=== PATIENT | male | born 1955 | race African-American/Black ===

== ENCOUNTER 2017-10-09 11:51 | Day surgery (SDC) | payer OTHER ==
[2017-10-09] MEDS ORDERED: LACTATED RINGERS 1,000 ML IV ONE ×2 (12:17→14:25)
[2017-10-09] MEDS: DEXTROSE 50% ABBOJECT 25 GM/50 ML SYRINGE ONE ×2 (12:45→13:03)
[2017-10-09] MEDS ORDERED: fentaNYL 100 MCG/2 ML VIAL IVP ONE (13:54)
[2017-10-09] MEDS ORDERED: MIDAZOLAM 2 MG/2 ML VIAL IVP ONE (13:54)
[2017-10-09 15:03] VITALS: BP 110/71
== END 2017-10-09 11:52 | disposition home or self-care (01) ==
LOC: SDS 11:51
PROVIDERS: ATTEND Internal Medicine
PROC: 0DBP8ZX Excision of Rectum, Via Natural or Artificial Opening Endoscopic, Diagnostic (ICD-10-PCS; principal; 2017-10-09 13:00)
DX: Z12.11 Encounter for screening for malignant neoplasm of colon (principal); K57.30 Diverticulosis of large intestine without perforation or abscess without bleeding; K64.8 Other hemorrhoids; K62.1 Rectal polyp
CPT/HCPCS: 45380; J7120

== ENCOUNTER 2018-07-25 09:52 | Outpatient (CLI) | payer OTHER ==
[2018-07-25 10:25] LABS: ALBUMIN 4.2 g/dL (3.2-5.5); ALBUMIN/GLOBULIN RATIO 1.1 (1.0-2.2); CALCIUM 9.3 mg/dL (8.5-10.3); TOTAL PROTEIN 7.9 g/dL (6.7-8.2)
== END 2018-07-25 09:53 | disposition home or self-care (01) ==
LOC: LAB 09:52
PROVIDERS: ATTEND Family Medicine
DX: E87.5 Hyperkalemia (principal)
CPT/HCPCS: 36415; 80053

== ENCOUNTER 2019-10-10 12:57 | Inpatient (IN) | payer OTHER ==
--- NOTE | 2019-10-10 14:00 | XRAY Report ---
Reason: cough, fever, hypoxia Procedure Date: 10/10/2019 Accession Number: [id number] / [id number] Procedure: XR - Chest 2 View X-Ray CPT Code: 75675 Final Report FULL RESULT: EXAM: CHEST RADIOGRAPHY EXAM DATE: 10/10/2019 01:46 PM. CLINICAL HISTORY: Cough, fever, hypoxia. COMPARISON: None. TECHNIQUE: 2 views. FINDINGS: Lungs/Pleura: Left basilar consolidation is worrisome for pneumonia. No focal right-sided opacity. No pleural effusion or pneumothorax. Mediastinum: Heart and mediastinal contours are unremarkable. Other: None. IMPRESSION: 1. Left basilar consolidation is worrisome for pneumonia. RADIA
--- NOTE | 2019-10-10 14:01 | ED Physician Documentation ---
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 Symptoms began on , and they have gotten worse since then. He feels a bit short of breath. He has been coughing up some yellow sputum, no hemoptysis. He has felt febrile at home. He denies any history of lung disease, no COPD or Asthma. He had a sick exposure to granddaughter cough and his face after being ill with a viral type illness, and his symptoms began shortly after that. 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 PD PAST MEDICAL HISTORY - Past Medical History Past Medical History: Yes Cardiovascular: Hypertension, High cholesterol Respiratory: Sleep apnea, CPAP use Neuro: None Endocrine/Autoimmune: Type 2 diabetes, HyPOthyroidism GI: GERD : None HEENT: Other Psych: None Musculoskeletal: None Derm: None Other Past Medical History: throat cancer - Past Surgical History Past Surgical History: Yes General: Colonoscopy, Other Ortho: Other HEENT: Other - Present Medications Home Medications: Ambulatory Orders Medication Instructions Recorded Confirmed Aspirin [Adult Aspirin Regimen] 81 mg PO DAILY 10/08/17 10/10/19 Felodipine [Felodipine ER] 5 mg PO DAILY 10/08/17 10/10/19 Insulin Glargine [Lantus Solostar] 22 unit SUBQ QPM 10/08/17 10/10/19 Telmisartan [Micardis] 80 mg PO DAILY 10/08/17 10/10/19 Atorvastatin Calcium 40 mg PO QPM 10/10/19 10/10/19 Insulin Aspart [NovoLOG] 0 - 13 units SUBQ TIDWM PRN 10/10/19 10/10/19 Levothyroxine Sodium 75 mcg PO QDAC 10/10/19 10/10/19 Omeprazole 40 mg PO BID 10/10/19 10/10/19 - Allergies Allergies/Adverse Reactions: Allergies Allergy/AdvReac Type Severity Reaction Status Date / Time propofol Allergy Anaphylaxis Verified 10/10/19 13:03 lisinopril AdvReac Respiratory Verified 10/08/17 13:22 - Social History Does the pt smoke?: No Smoking Status: Never smoker Does the pt drink ETOH?: No Does the pt have substance abuse?: No - Immunizations Immunizations are current?: Yes - POLST Patient has POLST: No PD ED PE NORMAL - Vitals Vital signs reviewed: Yes - General General: Alert and oriented X 3 - HEENT HEENT: Atraumatic - Cardiac Cardiac: Other (Tachycardia, regular rhythm) - Respiratory Respiratory: Other (Crackles at left base. Increased work of breathing on room air, more comfortable on NC.) - Abdomen Abdomen: Soft, Non tender - Extremities Extremities: No deformity - Neuro Neuro: Alert and oriented X 3 - Psych Psych: Normal mood, Normal affect Results - Vitals Vitals: Oxygen O2 Source Room air Oxygen Flow Rate 4 - Labs Labs: Microbiology 10/10/19 14:30 Blood Culture - Preliminary Blood NO GROWTH AFTER 1 DAY 10/10/19 14:28 Blood Culture - Preliminary Blood NO GROWTH AFTER 1 DAY Laboratory Tests 10/10/19 10/10/19 10/10/19 13:10 14:36 14:36 WBC 8.3 RBC 3.64 L Hgb 11.5 L Hct 35.0 L MCV 96.2 H MCH 31.6 H MCHC 32.9 RDW 11.6 L Plt Count 289 MPV 9.1 Neut # (Auto) 7.0 H Lymph # (Auto) 0.6 L King # (Auto) 0.5 Eos # (Auto) 0.0 Baso # (Auto) 0.0 Absolute Nucleated RBC 0.00 Band Neuts % (Manual) Not Reportable Abnorm Lymph % (Manual) Not Reportable Nucleated RBC % 0.0 Neutrophils # (Manual) Not Reportable Lymphocytes # (Manual) Not Reportable Monocytes # (Manual) Not Reportable Eosinophils # (Manual) Not Reportable Basophils # (Manual) Not Reportable Differential Comment MANUAL=AUTO DIFF Manual Slide Review Indicated Platelet Estimate NORMAL (130-450,000) Platelet Morphology NORMAL APPEARANCE RBC Morph Micro Appear NORMAL APPEARANCE Sodium 131 L Potassium 4.5 Chloride 94 L Carbon Dioxide 24 Anion Gap 13.0 BUN 34 H Creatinine 1.4 H Estimated GFR (MDRD) 62 L Glucose 429 H Lactic Acid Calcium 8.6 Total Bilirubin 1.3 H AST 22 ALT 15 Alkaline Phosphatase 41 L Total Protein 7.3 Albumin 3.2 Globulin 4.1 Albumin/Globulin Ratio 0.8 L Urine Color Urine Clarity Urine pH Ur Specific [place] Urine Protein Urine Glucose (UA) Urine Ketones Urine Occult Blood Urine Nitrite Urine Bilirubin Urine Urobilinogen Ur Leukocyte Esterase Urine RBC Urine WBC Ur Squamous Epith Cells Amorphous Sediment Urine Bacteria Urine Culture Comments Urine Opiates Screen Ur Oxycodone Screen Urine Methadone Screen Ur Propoxyphene Screen Ur Barbiturates Screen Ur Tricyclics Screen Ur Phencyclidine Scrn Ur Amphetamine Screen U Methamphetamines Scrn U Benzodiazepines Scrn Urine Cocaine Screen U Cannabinoids Screen Influenza A (Rapid) Negative Influenza B (Rapid) Negative 10/10/19 10/10/19 10/10/19 14:36 15:20 15:20 WBC RBC Hgb Hct MCV MCH MCHC RDW Plt Count MPV Neut # (Auto) Lymph # (Auto) King # (Auto) Eos # (Auto) Baso # (Auto) Absolute Nucleated RBC Band Neuts % (Manual) Abnorm Lymph % (Manual) Nucleated RBC % Neutrophils # (Manual) Lymphocytes # (Manual) Monocytes # (Manual) Eosinophils # (Manual) Basophils # (Manual) Differential Comment Manual Slide Review Platelet Estimate Platelet Morphology RBC Morph Micro Appear Sodium Potassium Chloride Carbon Dioxide Anion Gap BUN Creatinine Estimated GFR (MDRD) Glucose Lactic Acid 1.4 Calcium Total Bilirubin AST ALT Alkaline Phosphatase Total Protein Albumin Globulin Albumin/Globulin Ratio Urine Color YELLOW Urine Clarity CLEAR Urine pH 6.0 Ur Specific [place] 1.025 Urine Protein 30 H Urine Glucose (UA) >=1000 H Urine Ketones 15 H Urine Occult Blood TRACE-INTA Urine Nitrite NEGATIVE Urine Bilirubin NEGATIVE Urine Urobilinogen 0.2 (NORMAL) Ur Leukocyte Esterase NEGATIVE Urine RBC None Seen Urine WBC 0-3 Ur Squamous Epith Cells NONE SEEN Amorphous Sediment Rare Urine Bacteria None Seen Urine Culture Comments NOT INDICATED Urine Opiates Screen NEGATIVE Ur Oxycodone Screen NEGATIVE Urine Methadone Screen NEGATIVE Ur Propoxyphene Screen NEGATIVE Ur Barbiturates Screen NEGATIVE Ur Tricyclics Screen NEGATIVE Ur Phencyclidine Scrn NEGATIVE Ur Amphetamine Screen NEGATIVE U Methamphetamines Scrn NEGATIVE U Benzodiazepines Scrn NEGATIVE Urine Cocaine Screen NEGATIVE U Cannabinoids Screen NEGATIVE Influenza A (Rapid) Influenza B (Rapid) - Rads (name of study) CXR Radiology: Other (L basilar consolidation concerning for PNA) PD MEDICAL DECISION MAKING - ED course Complexity details: considered differential (Influenza, URI, PNA, PTX, pleural effusion) ED course: Pt presents febrile, tachycardic, and mildly hypoxic on room air. He was placed on O2 via NC, blood cultures and labs drawn, and he was placed on the monitor. IV fluids started. CXR shows a LLL PNA. Labs are notable for normal lactic acid, mild hyponatramia, slightly elevated creatinine. Flu is negative. He was started on ceftriaxone and azithromycin, based on his history aspiration is unlikely, CAP is most likely. This does appear infectious, history and exam do not raise concern for PE or primary cardiac pathology. Pt was admitted to the hospital for further care. Departure - Departure Disposition: 66 [facility] DC/Xfer Clinical Impression: Pneumonia, Hypoxia, Sepsis Condition: Good Discharge Date/Time: 10/10/19 16:12
[2019-10-10] MEDS ORDERED: cefTRIAXone 1 GM in SODIUM CHLORIDE 0.9% MINIBAG 100 ML IV STA (14:11)
[2019-10-10] MEDS ORDERED: AZITHROMYCIN INJ 500 MG in SODIUM CHLORIDE 0.9% 250 ML IV STA (14:11)
[2019-10-10] MEDS ORDERED: SODIUM CHLORIDE 0.9% 1,000 ML IV ONE (14:39)
[2019-10-10 14:48] LABS: MEAN CORPUSCULAR VOLUME 96.2 fL (80.0-94.0); RED CELL DISTRIBUTION WIDTH 11.6 % (12.0-15.0)
[2019-10-10 14:53] LABS: BASOPHILS % (AUTO) 0.4 %; EOSINOPHILS % (AUTO) 0.4 %; HGB - HEMOGLOBIN 11.5 g/dL (14.0-18.0); LYMPHOCYTES # (AUTO) 0.6 10^3/uL (1.5-3.5); LYMPHOCYTES % (AUTO) 7.6 %; MEAN CORPUSCULAR HEMOGLOBIN 31.6 pg (27.0-31.0); MEAN CORPUSCULAR HGB CONC 32.9 g/dL (32.0-36.0); MEAN PLATELET VOLUME 9.1 fL (7.4-11.4); MONOCYTES # (AUTO) 0.5 10^3/uL (0.0-1.0); MONOCYTES % (AUTO) 6.5 %; NEUTROPHILS % (AUTO) 84.6 %; PLT - PLATELET COUNT 289 10^3/uL (130-450); RED BLOOD COUNT 3.64 10^6/uL (4.70-6.10); WHITE BLOOD COUNT 8.3 x10^3/uL (4.8-10.8)
[2019-10-10 14:57] LABS: ALBUMIN 3.2 g/dL (3.2-5.5); ALBUMIN/GLOBULIN RATIO 0.8 (1.0-2.2); BILIRUBIN,TOTAL 1.3 mg/dL (0.2-1.0); CALCIUM 8.6 mg/dL (8.5-10.3); CREATININE 1.4 mg/dL (0.6-1.2); TOTAL PROTEIN 7.3 g/dL (6.7-8.2)
[2019-10-10] MEDS ORDERED: SODIUM CHLORIDE FLUSH 0.9% 10 ML SYRINGE IVP PRN (15:23)
--- NOTE | 2019-10-10 15:26 | HISTORY & PHYSICAL EXAMINATION ---
Chief Complaint - Chief Complaint Chief Complaint: cough, fever, shortness of breath History of Present Illness - Admitted From Admitted From:: ED - History Obtained From Records Reviewed: yes History obtained from: Chart review, patient Exam Limitations: none - History of Present Illness HPI Comment/Other: Krunal Whitten) is a pleasant, , 63-year-old male with a history of malignant neoplasm of posterior tongue, status post radiation therapy, hypothyroidism, hypertension, hyperlipidemia, CAD, GERD, esophageal strictures, cardiac arrest after given propofol to undergo a esophageal dilation, WALT-wears a oral bite block for sleep, exposure to second hand smoke for greater than 30 years, recent weight loss of greater than 6 pounds in the past 60-days, and nocturia. The patient was seen at his PCP office today ([facility]), for suspected pneumonia. The patient reported that his first symptoms started on (10/08/2019) in the afternoon with fever, chills, fatigue, and productive cough of yellow, thick sputum, no hemoptysis. The patient states that he cares for his 15-month grand-daughter in which they keep her in [place] for one week, then travel to [place], [place] for the alternating week. The patient's grand-daughter has had some upper respiratory symptoms of a viral type illness with coughing, runny nose and more fussiness. The patient notes that since his throat/neck radiation in 2006, he has had difficulty with swallowing in which he has to eat soft foods, drink extra fluids with each bite, but denies an aspiration event which could have triggered this illness. A chest x-ray is concerning for a left low lobe infiltrate, no WBC count, but + fever with a documented temp max of 38.1 C, tachycardia with heart rates 110's, and hypoxia with a saturation of only 88% on room air. The patient will be admitted for inpatient treatment of community acquired pneumonia, with symptom management and respiratory care. 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 - Substance History Use: Uses substance without health or social issues: NONE Abuse: Recurrent use of substance despite neg consequences: NONE Dependence: Experiences withdrawal or developed tolerances: NONE - POLST Patient has POLST: No POLST Status: Full Code Meds/Allgy - Home Medications Home Medications: Ambulatory Orders Medication Instructions Recorded Confirmed Aspirin [Adult Aspirin Regimen] 81 mg PO DAILY 10/08/17 10/10/19 Felodipine [Felodipine ER] 5 mg PO DAILY 10/08/17 10/10/19 Insulin Glargine [Lantus Solostar] 22 unit SUBQ QPM 10/08/17 10/10/19 Telmisartan [Micardis] 80 mg PO DAILY 10/08/17 10/10/19 Atorvastatin Calcium 40 mg PO QPM 10/10/19 10/10/19 Insulin Aspart [NovoLOG] 0 - 13 units SUBQ TIDWM PRN 10/10/19 10/10/19 Levothyroxine Sodium 75 mcg PO QDAC 10/10/19 10/10/19 Omeprazole 40 mg PO BID 10/10/19 10/10/19 - Allergies Allergies/Adverse Reactions: Allergies Allergy/AdvReac Type Severity Reaction Status Date / Time propofol Allergy Anaphylaxis Verified 10/10/19 13:03 lisinopril AdvReac Respiratory Verified 10/08/17 13:22 Review of Systems - Constitutional Constitutional: reports: Fatigue, Fever, Chills, Weakness, Poor appetite, Weight loss - Eyes Eyes: reports: Corrective lenses - Ears, Nose & Throat Ears, Nose & Throat: reports: Nasal congestion, Postnasal drainage - Cardiovascular Cariovascular: reports: Exertional dyspnea - Respiratory Respiratory: reports: Cough, Sputum production, SOB with exertion - Gastrointestinal Gastrointestinal: reports: Nausea, Reflux/heartburn, Bloating, Poor appetite - Genitourinary Genitourinary: reports: Nocturia - Musculoskeletal Musculoskeletal: reports: Stiffness - Integumentary Integumentary: reports: Dryness - Neurological Neurological: reports: General weakness, Headache - Hematologic/Lymphatic Hematologic/Lymphatic: reports: Anemia - All Other Systems All Other Systems: reports: Reviewed and negative Exam - Vital Signs Reviewed Vital Signs: Yes Vital Signs: Vital Signs x48h Temp Pulse Resp BP Pulse Ox 10/10/19 14:46 92 15 108/74 96 10/10/19 13:03 38.1 C H 110 H 20 101/65 88 L - Physical Exam General Appearance: positive: Alert, Mild distress Sepsis Event Note (H) - Evaluation Current Stage of Sepsis: Sepsis Possible source of Sepsis: positive: Pulmonary Confirmed Source and Organism (if known) of Sepsis: Respiratory culture is pending - Sepsis Criteria Sepsis Criteria: Recorded Temperature greater than 38.3C or Less than 36C, Recorded Heart Rate greater than 90 bpm, Recorded Respiratory Rate greater than 20, Respiratory: Increasing oxygen requirements Conclusion/Plan - Problem List (1) CAP (community acquired pneumonia) Conclusion/Plan: CAP (community acquired pneumonia) -Patient claims that his grand-daughter "sneezed" near his face a few days ago -Chest x-ray confirms left lower infiltrates -+cough, +fever, +chills -WBC count normal, neut # not reportable Acute respiratory failure with hypoxia -Hypoxia upon admission with an oxygen saturation of 88% on room air -Baseline WALT, compliant with home CPAP per patient -No home oxygen or inhalers -Continue respiratory care, evaluate for home O2 upon discharge if needed Sepsis -Fever with a temp max of 38.1 orally on admission, tachycardia (heart rates 110's) -Elevated bili (1.4) -+ for CAP, now treating -Normal lactic acid, re-checking WALT on CPAP -Patient admits to wearing a CPAP device dating back to 2007 -For the past 1 year has gotten by with an oral bite block to prop is airway open -Continue oxygen therapy while in the hospital, request to bring in oral airway GERD (gastroesophageal reflux disease) -Complicated by esophageal stricture, no recent dilations -No PPI/H2 mayela use at home -Start on Pepcid while here, monitor Hypothyroidism -Patient notes that his Synthroid dose was recently adjusted -Await TSH level for the AM CAD (coronary artery disease) -+ nocturia with getting up greater than 3 times each night to urinate -Long standing DM diagnoses -Patient denies history of ME, but did have an episode of cardiac arrest in 2008 concluding an adverse reaction to propofol (now on allergy list) -Takes a statin at home, continued here Diabetes mellitus type 2, insulin dependent -First diagnosed in 1994 (patient was in his late 30's) -Now on Lantus 22 units, SSI -Last hemoglobin A1C was ~6.5% per patient -Random glucose on labs today was elevated at 429, may be due to illness -Continue SSI, Lantus at HS, await A1C in the AM Malignant neoplasm of base of tongue -Patient notes this was the base of his tongue and sees his oncologist yearly, but skipped this year -Considered to be in remission -Denies bleeding, but + weight loss of 6lbs in the past 2 months -Nutrition consult Status post radiation therapy -Caused thryroid damage, esophageal strictures, difficulty swallowing Hyperlipidemia -Takes a statin at home, continued here Hypertension -Takes Telemisartan, Felodipine - now on hold given acute illness and early sepsis - Continue to monitor vital signs, add back home meds when appropriate - Lab Results Lab results reviewed: Yes Fish Bones: 10/10/19 14:36 10/10/19 14:36 - Diagnostic Imaging Results Diagnostic Imaging Results: positive: Final report reviewed Diagnostic Imaging Results Comments: EXAM: CHEST RADIOGRAPHY EXAM DATE: 10/10/2019 01:46 PM. IMPRESSION: 1. Left basilar consolidation is worrisome for pneumonia. Core Measures - Anticipated LOS I expect patient to be DC'd or transferred within 96 hours.: Yes - DVT/VTE - Prophylaxis VTE/DVT Device ordered at admit?: Yes VTE/DVT Prophylaxis med ordered at admit?: Yes - Stroke - Rehab Assessment Rehab services assessment to be ordered?: No Not Ordered - Medical Reason: Contraindicated - AMI - Statin at Admit Aspirin Prescribed on Admit: Yes
[2019-10-10 15:29] LABS: PLATELET ESTIMATE, MANUAL NORMAL (130-450,000) (NORMAL); PLATELET MORPHOLOGY NORMAL APPEARANCE (NORMAL); RBC MORPHOLOGY (MULTIPLE) NORMAL APPEARANCE (NORMAL)
[2019-10-10 15:30] LABS: DIFFERENTIAL COMMENT MANUAL=AUTO DIFF
[2019-10-10 16:18] LABS: BILIRUBIN,URINE NEGATIVE (NEGATIVE); GLUCOSE, URINE (UA) >=1000 mg/dL (NEGATIVE); KETONES,URINE (UA) 15 mg/dL (NEGATIVE); LEUKOCYTE ESTERASE, URINE NEGATIVE (NEGATIVE); NITRITE,URINE NEGATIVE (NEGATIVE); OCCULT BLOOD,URINE TRACE-INTA (NEGATIVE); PROTEIN,URINE 30 mg/dL (NEGATIVE); UROBILINOGEN,URINE 0.2 (NORMAL) E.U./dL (NORMAL)
[2019-10-10 16:23] LABS: CLARITY,URINE CLEAR (CLEAR)
[2019-10-10] MEDS: ACETAMINOPHEN 325 MG TABLET PO PRN (16:24)
[2019-10-10] MEDS: SODIUM CHLORIDE FLUSH 0.9% 10 ML SYRINGE IVP SCH ×2 (16:27→23:40)
--- NOTE | 2019-10-10 16:29 | PHARMACY PROGRESS NOTE ---
- Best Possible Medication History Admit Date and Time: 10/10/19 1523 Medication History completed: Yes Patient Interview: Completed Secondary Source(s): Written medication list, Pharmacy records As the person ultimately responsible for medication therapy, providers are able to order a medication from an existing home medication list in [facility] via the "Reconcile Routine" prior to Confirmation of that medication by manufacturing support engineer. Such practice is discouraged except when the physician, in their clinical judgment, deems that a medical need exists for a medication without regard to previous use.
[2019-10-10 16:32] LABS: AMORPHOUS SEDIMENT,UR Rare /LPF; BACTERIA,URINE None Seen /HPF (None Seen); RBC,URINE None Seen /HPF (0-5); SQUAMOUS EPITHELIAL CELL,UR NONE SEEN (<= Few)
[2019-10-10] MEDS ORDERED: INSULIN ASPART 300 UNIT/3 ML PEN SUBQ SCH (17:00)
[2019-10-10] MEDS ORDERED: IPRATROPIUM/ALBUTEROL 3 ML NEB INH PRN (17:03)
[2019-10-10 17:06] LABS: MUDS CUTOFF CONCENTRATIONS CUTOFF CONC BELOW:
[2019-10-10 17:20] LABS: AMPHETAMINE SCREEN,URINE NEGATIVE (NEGATIVE); BENZODIAZEPINES SCREEN, URINE NEGATIVE (NEGATIVE); COCAINE SCREEN URINE NEGATIVE (NEGATIVE); METHADONE SCREEN, URINE NEGATIVE (NEGATIVE); METHAMPHETAMINES SCREEN, URINE NEGATIVE (NEGATIVE); OPIATE SCREEN, URINE NEGATIVE (NEGATIVE); OXYCODONE SCREEN, URINE NEGATIVE (NEGATIVE); PROPOXYPHENE SCREEN, URINE NEGATIVE (NEGATIVE); TRICYCLIC ANTIDEPRESSANT,URINE NEGATIVE (NEGATIVE)
[2019-10-10] MEDS ORDERED: SODIUM CHLORIDE 0.9% 500 ML IV ONE (17:26)
[2019-10-10] MEDS: INSULIN ASPART 300 UNIT/3 ML PEN SUBQ SCH (21:29)
[2019-10-10] MEDS: guaiFENesin 600 MG TABLET PO SCH (21:29)
[2019-10-10] MEDS: ATORVASTATIN 40 MG TABLET PO SCH (21:29)
[2019-10-10] MEDS: INSULIN GLARGINE 300 UNIT/3 ML PEN SUBQ SCH (21:30)
[2019-10-11 05:01] LABS: BASOPHILS % (AUTO) 0.2 %; EOSINOPHILS % (AUTO) 0.2 %; HGB - HEMOGLOBIN 11.5 g/dL (14.0-18.0); LYMPHOCYTES % (AUTO) 12.7 %; MEAN CORPUSCULAR HEMOGLOBIN 31.5 pg (27.0-31.0); MEAN CORPUSCULAR HGB CONC 32.5 g/dL (32.0-36.0); MEAN PLATELET VOLUME 8.9 fL (7.4-11.4); MONOCYTES % (AUTO) 5.4 %; NEUTROPHILS % (AUTO) 81.2 %; PLT - PLATELET COUNT 268 10^3/uL (130-450); RED BLOOD COUNT 3.65 10^6/uL (4.70-6.10); RED CELL DISTRIBUTION WIDTH 11.6 % (12.0-15.0); WHITE BLOOD COUNT 5.8 x10^3/uL (4.8-10.8)
[2019-10-11 05:15] LABS: HB2 TOTAL 11.4 g/dL; HEMOGLOBIN A1C 0.6 g/dL
[2019-10-11 05:16] LABS: ABNORMAL LYMPHS % (MANUAL) 0 %
[2019-10-11 05:28] LABS: ALBUMIN 2.8 g/dL (3.2-5.5); ALBUMIN/GLOBULIN RATIO 0.7 (1.0-2.2); BILIRUBIN,TOTAL 0.7 mg/dL (0.2-1.0); CALCIUM 8.8 mg/dL (8.5-10.3); CREATININE 0.8 mg/dL (0.6-1.2); MAGNESIUM 1.9 mg/dL (1.7-2.8); TOTAL PROTEIN 6.8 g/dL (6.7-8.2)
[2019-10-11 05:44] LABS: BAND NEUTROPHILS % (MANUAL) 9 %; BASOPHILS # (MANUAL) 0.1 10^3/uL (0-0.1); BASOPHILS % (MANUAL) 1 %; EOSINOPHILS # (MANUAL) 0.1 10^3/uL (0-0.7); LYMPHOCYTES % (MANUAL) 17 %; MONOCYTES # (MANUAL) 0.5 10^3/uL (0.0-1.0)
[2019-10-11 05:45] LABS: PLATELET ESTIMATE, MANUAL NORMAL (130-450,000) (NORMAL); PLATELET MORPHOLOGY NORMAL APPEARANCE (NORMAL)
[2019-10-11 05:46] LABS: DIFFERENTIAL COMMENT MANUAL DIFFERENTIAL
[2019-10-11] MEDS: LEVOTHYROXINE 75 MCG TABLET PO SCH (06:39)
[2019-10-11] MEDS: cefTRIAXone 1 GM in SODIUM CHLORIDE 0.9% MINIBAG 100 ML IV SCH (08:33)
[2019-10-11] MEDS: guaiFENesin 600 MG TABLET PO SCH ×2 (08:33→21:03)
[2019-10-11] MEDS: ASPIRIN EC 81 MG TABLET PO SCH (08:33)
[2019-10-11] MEDS: SODIUM CHLORIDE FLUSH 0.9% 10 ML SYRINGE IVP SCH ×2 (08:34→21:03)
[2019-10-11] MEDS: ACETAMINOPHEN 325 MG TABLET PO PRN (08:40)
[2019-10-11] MEDS ORDERED: AZITHROMYCIN 250 MG TABLET PO SCH (09:00)
[2019-10-11] MEDS: INSULIN ASPART 300 UNIT/3 ML PEN SUBQ SCH ×4 (09:06→21:04)
[2019-10-11] MEDS ORDERED: DIPHENOX/ATROPINE 2.5/0.025 MG TABLET PO PRN (14:41)
[2019-10-11] MEDS ORDERED: LOPERAMIDE 2 MG CAPSULE PO PRN (14:43)
--- NOTE | 2019-10-11 16:44 | PROVIDER PROGRESS NOTE ---
Subjective - Prog Note Date Prog Note Date: 10/11/19 Prog Note Time: 11:00 - Subjective Pt reports feeling: Improved Subjective: Bassem states he has had chills, some productive cough, and did not sleep well last night. He took a few naps today and has no other new symptoms Current Medications - Current Medications Current Medications: Active Medications Acetaminophen (Tylenol) 650 mg PO Q4HR PRN PRN Reason: Pain or Fever > 38C (100.4F) Last Admin: 10/11/19 08:40 Dose: 650 mg Albuterol/Ipratropium (Duoneb) 3 ml INH Q4HR PRN PRN Reason: Wheezing Aspirin (Ecotrin) 81 mg PO DAILY ON LICENSE OF [facility] Last Admin: 10/11/19 08:33 Dose: 81 mg Atorvastatin Calcium (Lipitor) 40 mg PO QPM ON LICENSE OF [facility] Last Admin: 10/10/19 21:29 Dose: 40 mg Azithromycin (Zithromax) 250 mg PO BIDWM ON LICENSE OF [facility] Stop: 10/13/19 08:01 Diphenoxylate HCl/Atropine (Lomotil) 1 tab PO QID PRN PRN Reason: Diarrhea Guaifenesin (Mucinex) 600 mg PO BID ON LICENSE OF [facility] Last Admin: 10/11/19 08:33 Dose: 600 mg Ceftriaxone Sodium 1 gm/ (Sodium Chloride) 100 mls @ 200 mls/hr IV DAILY ON LICENSE OF [facility] Last Infusion: 10/11/19 09:03 Dose: Infused Insulin Aspart (Novolog) 1 - 9 unit SUBQ 0800,1200,1700,2100 ON LICENSE OF [facility]; Protocol Last Admin: 10/11/19 12:07 Dose: 5 unit Insulin Glargine (Lantus Solostar) 22 unit SUBQ QPM ON LICENSE OF [facility] Last Admin: 10/10/19 21:30 Dose: 22 unit Levothyroxine Sodium (Synthroid) 75 mcg PO QDAC ON LICENSE OF [facility] Last Admin: 10/11/19 06:39 Dose: 75 mcg Loperamide HCl (Imodium) 2 mg PO QID PRN PRN Reason: Diarrhea Sodium Chloride (Normal Saline Flush 0.9%) 10 ml IVP PRN PRN PRN Reason: NEEDED PER PROVIDER ORDERS Sodium Chloride (Normal Saline Flush 0.9%) 10 ml IVP 0100,0900,1700 ON LICENSE OF [facility] Last Admin: 10/11/19 08:34 Dose: 10 ml Aspirin [Adult Aspirin Regimen] 81 mg PO DAILY 10/08/17 Felodipine [Felodipine ER] 5 mg PO DAILY 10/08/17 Insulin Glargine [Lantus Solostar] 22 unit SUBQ QPM 10/08/17 Telmisartan [Micardis] 80 mg PO DAILY 10/08/17 Atorvastatin Calcium 40 mg PO QPM 10/10/19 Insulin Aspart [NovoLOG] 0 - 13 units SUBQ TIDWM PRN 10/10/19 Levothyroxine Sodium 75 mcg PO QDAC 10/10/19 Omeprazole 40 mg PO BID Objective - Vital Signs/Intake & Output Reviewed Vital Signs: Yes Vital Signs: Vital Signs x48h Temp Pulse Pulse Resp BP Pulse Ox 10/11/19 15:35 36.7 C 80 18 139/87 H 93 10/11/19 15:25 90 L 10/11/19 08:51 36.4 C L 86 18 124/77 96 Intake & Output: Intake & Output 10/08/19 10/09/19 10/10/19 10/11/19 23:59 23:59 23:59 23:59 Intake Total 2390 1000 Output Total 475 Balance 2390 525 - Objective General Appearance: positive: Alert, Mild distress, Anxious Eyes Bilateral: positive: PERRL, No lid inflammation Eyes: OU Conjunctivae pale ENT: positive: Pharyngeal erythema, Dry mucous membranes Neck: positive: No JVD, Trachea midline Respiratory: positive: Chest non-tender, No respiratory distress, Breath sounds nml, Rhonchi (scattered crackles bilaterally) Cardiovascular: positive: Regular rate & rhythm, No gallop, Systolic murmur, Decreased pulse(s) Peripheral Pulses: 1+ Radial (R), 1+ Radial (L) Abdomen: positive: Non-tender, Nml bowel sounds Back: positive: Nml inspection Skin: positive: Color nml, No rash, Warm, Dry Extremities: positive: Non-tender, Full ROM, No pedal edema Neurologic/Psychiatric: positive: Oriented x3, CN's nml (2-12), Motor nml, Sensation nml, Weakness, Depressed mood/affect Reflexes: Bicep (R): 3+, Bicep (L): 3+ - Lab Results Fish Bones: 10/11/19 04:20 10/11/19 04:20 Other Labs: Lab Results x24hrs 10/11/19 10/11/19 10/11/19 Range/Units 16:32 11:26 07:52 WBC (4.8-10.8) x10^3/uL RBC (4.70-6.10) 10^6/uL Hgb (14.0-18.0) g/dL Hct (42.0-52.0) % MCV (80.0-94.0) fL MCH (27.0-31.0) pg MCHC (32.0-36.0) g/dL RDW (12.0-15.0) % Plt Count (130-450) 10^3/uL MPV (7.4-11.4) fL Neut # (Auto) Lymph # (Auto) [place] # (Auto) Eos # (Auto) Baso # (Auto) Absolute Nucleated RBC Total Counted Band Neuts % (Manual) (0 - 10) % Abnorm Lymph % (Manual) % Nucleated RBC % Neutrophils # (Manual) (1.5-6.6) 10^3/uL Lymphocytes # (Manual) (1.5-3.5) 10^3/uL Monocytes # (Manual) (0.0-1.0) 10^3/uL Eosinophils # (Manual) (0-0.7) 10^3/uL Basophils # (Manual) (0-0.1) 10^3/uL Differential Comment WBC Morphology (NORMAL) Platelet Estimate (NORMAL) Platelet Morphology (NORMAL) RBC Morph Micro Appear (NORMAL) Sodium (135-145) mmol/L Potassium (3.5-5.0) mmol/L Chloride (101-111) mmol/L Carbon Dioxide (21-32) mmol/L Anion Gap (6-13) BUN (6-20) mg/dL Creatinine (0.6-1.2) mg/dL Estimated GFR (MDRD) (>89) Glucose (70-100) mg/dL POC Whole Bld Glucose 226 H 236 H 133 H (70 - 100) mg/dL Glycated Hemoglobin (4.6-6.2) % Estim Average Glucose (70-100) Lactic Acid (0.5-2.2) mmol/L Calcium (8.5-10.3) mg/dL Magnesium (1.7-2.8) mg/dL Total Bilirubin (0.2-1.0) mg/dL AST (10-42) IU/L ALT (10-60) IU/L Alkaline Phosphatase (42-121) IU/L Total Protein (6.7-8.2) g/dL Albumin (3.2-5.5) g/dL Globulin (2.1-4.2) g/dL Albumin/Globulin Ratio (1.0-2.2) TSH (0.34-5.60) uIU/mL Urine Opiates Screen (NEGATIVE) Ur Oxycodone Screen (NEGATIVE) Urine Methadone Screen (NEGATIVE) Ur Propoxyphene Screen (NEGATIVE) Ur Barbiturates Screen (NEGATIVE) Ur Tricyclics Screen (NEGATIVE) Ur Phencyclidine Scrn (NEGATIVE) Ur Amphetamine Screen (NEGATIVE) U Methamphetamines Scrn (NEGATIVE) U Benzodiazepines Scrn (NEGATIVE) Urine Cocaine Screen (NEGATIVE) U Cannabinoids Screen (NEGATIVE) 10/11/19 10/11/19 10/11/19 Range/Units 04:20 04:20 04:20 WBC (4.8-10.8) x10^3/uL RBC (4.70-6.10) 10^6/uL Hgb (14.0-18.0) g/dL Hct (42.0-52.0) % MCV (80.0-94.0) fL MCH (27.0-31.0) pg MCHC (32.0-36.0) g/dL RDW (12.0-15.0) % Plt Count (130-450) 10^3/uL MPV (7.4-11.4) fL Neut # (Auto) Lymph # (Auto) [place] # (Auto) Eos # (Auto) Baso # (Auto) Absolute Nucleated RBC Total Counted Band Neuts % (Manual) (0 - 10) % Abnorm Lymph % (Manual) % Nucleated RBC % Neutrophils # (Manual) (1.5-6.6) 10^3/uL Lymphocytes # (Manual) (1.5-3.5) 10^3/uL Monocytes # (Manual) (0.0-1.0) 10^3/uL Eosinophils # (Manual) (0-0.7) 10^3/uL Basophils # (Manual) (0-0.1) 10^3/uL Differential Comment WBC Morphology (NORMAL) Platelet Estimate (NORMAL) Platelet Morphology (NORMAL) RBC Morph Micro Appear (NORMAL) Sodium 139 (135-145) mmol/L Potassium 4.2 (3.5-5.0) mmol/L Chloride 104 (101-111) mmol/L Carbon Dioxide 27 (21-32) mmol/L Anion Gap 8.0 (6-13) BUN 24 H (6-20) mg/dL Creatinine 0.8 (0.6-1.2) mg/dL Estimated GFR (MDRD) 119 (>89) Glucose 155 H (70-100) mg/dL POC Whole Bld Glucose (70 - 100) mg/dL Glycated Hemoglobin (4.6-6.2) % Estim Average Glucose (70-100) Lactic Acid 0.6 (0.5-2.2) mmol/L Calcium 8.8 (8.5-10.3) mg/dL Magnesium 1.9 (1.7-2.8) mg/dL Total Bilirubin 0.7 (0.2-1.0) mg/dL AST 21 (10-42) IU/L ALT 14 (10-60) IU/L Alkaline Phosphatase 39 L (42-121) IU/L Total Protein 6.8 (6.7-8.2) g/dL Albumin 2.8 L (3.2-5.5) g/dL Globulin 4.0 (2.1-4.2) g/dL Albumin/Globulin Ratio 0.7 L (1.0-2.2) TSH 1.06 (0.34-5.60) uIU/mL Urine Opiates Screen (NEGATIVE) Ur Oxycodone Screen (NEGATIVE) Urine Methadone Screen (NEGATIVE) Ur Propoxyphene Screen (NEGATIVE) Ur Barbiturates Screen (NEGATIVE) Ur Tricyclics Screen (NEGATIVE) Ur Phencyclidine Scrn (NEGATIVE) Ur Amphetamine Screen (NEGATIVE) U Methamphetamines Scrn (NEGATIVE) U Benzodiazepines Scrn (NEGATIVE) Urine Cocaine Screen (NEGATIVE) U Cannabinoids Screen (NEGATIVE) 10/11/19 10/11/19 10/10/19 Range/Units 04:20 04:20 20:50 WBC 5.8 (4.8-10.8) x10^3/uL RBC 3.65 L (4.70-6.10) 10^6/uL Hgb 11.5 L (14.0-18.0) g/dL Hct 35.4 L (42.0-52.0) % MCV 97.0 H (80.0-94.0) fL MCH 31.5 H (27.0-31.0) pg MCHC 32.5 (32.0-36.0) g/dL RDW 11.6 L (12.0-15.0) % Plt Count 268 (130-450) 10^3/uL MPV 8.9 (7.4-11.4) fL Neut # (Auto) Not Reportable Lymph # (Auto) Not Reportable [place] # (Auto) Not Reportable Eos # (Auto) Not Reportable Baso # (Auto) Not Reportable Absolute Nucleated RBC Not Reportable Total Counted 100 Band Neuts % (Manual) 9 (0 - 10) % Abnorm Lymph % (Manual) 0 % Nucleated RBC % Not Reportable Neutrophils # (Manual) 4.2 (1.5-6.6) 10^3/uL Lymphocytes # (Manual) 1.0 L (1.5-3.5) 10^3/uL Monocytes # (Manual) 0.5 (0.0-1.0) 10^3/uL Eosinophils # (Manual) 0.1 (0-0.7) 10^3/uL Basophils # (Manual) 0.1 (0-0.1) 10^3/uL Differential Comment MANUAL DIFFERENTIAL WBC Morphology NORMAL APPEARANCE (NORMAL) Platelet Estimate NORMAL (130-450,000) (NORMAL) Platelet Morphology NORMAL APPEARANCE (NORMAL) RBC Morph Micro Appear 1+ HYPOCHROMASIA (NORMAL) Sodium (135-145) mmol/L Potassium (3.5-5.0) mmol/L Chloride (101-111) mmol/L Carbon Dioxide (21-32) mmol/L Anion Gap (6-13) BUN (6-20) mg/dL Creatinine (0.6-1.2) mg/dL Estimated GFR (MDRD) (>89) Glucose (70-100) mg/dL POC Whole Bld Glucose 372 H (70 - 100) mg/dL Glycated Hemoglobin 7.0 H (4.6-6.2) % Estim Average Glucose 154 H (70-100) Lactic Acid (0.5-2.2) mmol/L Calcium (8.5-10.3) mg/dL Magnesium (1.7-2.8) mg/dL Total Bilirubin (0.2-1.0) mg/dL AST (10-42) IU/L ALT (10-60) IU/L Alkaline Phosphatase (42-121) IU/L Total Protein (6.7-8.2) g/dL Albumin (3.2-5.5) g/dL Globulin (2.1-4.2) g/dL Albumin/Globulin Ratio (1.0-2.2) TSH (0.34-5.60) uIU/mL Urine Opiates Screen (NEGATIVE) Ur Oxycodone Screen (NEGATIVE) Urine Methadone Screen (NEGATIVE) Ur Propoxyphene Screen (NEGATIVE) Ur Barbiturates Screen (NEGATIVE) Ur Tricyclics Screen (NEGATIVE) Ur Phencyclidine Scrn (NEGATIVE) Ur Amphetamine Screen (NEGATIVE) U Methamphetamines Scrn (NEGATIVE) U Benzodiazepines Scrn (NEGATIVE) Urine Cocaine Screen (NEGATIVE) U Cannabinoids Screen (NEGATIVE) 10/10/19 10/10/19 Range/Units 16:41 15:20 WBC (4.8-10.8) x10^3/uL RBC (4.70-6.10) 10^6/uL Hgb (14.0-18.0) g/dL Hct (42.0-52.0) % MCV (80.0-94.0) fL MCH (27.0-31.0) pg MCHC (32.0-36.0) g/dL RDW (12.0-15.0) % Plt Count (130-450) 10^3/uL MPV (7.4-11.4) fL Neut # (Auto) Lymph # (Auto) [place] # (Auto) Eos # (Auto) Baso # (Auto) Absolute Nucleated RBC Total Counted Band Neuts % (Manual) (0 - 10) % Abnorm Lymph % (Manual) % Nucleated RBC % Neutrophils # (Manual) (1.5-6.6) 10^3/uL Lymphocytes # (Manual) (1.5-3.5) 10^3/uL Monocytes # (Manual) (0.0-1.0) 10^3/uL Eosinophils # (Manual) (0-0.7) 10^3/uL Basophils # (Manual) (0-0.1) 10^3/uL Differential Comment WBC Morphology (NORMAL) Platelet Estimate (NORMAL) Platelet Morphology (NORMAL) RBC Morph Micro Appear (NORMAL) Sodium (135-145) mmol/L Potassium (3.5-5.0) mmol/L Chloride (101-111) mmol/L Carbon Dioxide (21-32) mmol/L Anion Gap (6-13) BUN (6-20) mg/dL Creatinine (0.6-1.2) mg/dL Estimated GFR (MDRD) (>89) Glucose (70-100) mg/dL POC Whole Bld Glucose 320 H (70 - 100) mg/dL Glycated Hemoglobin (4.6-6.2) % Estim Average Glucose (70-100) Lactic Acid (0.5-2.2) mmol/L Calcium (8.5-10.3) mg/dL Magnesium (1.7-2.8) mg/dL Total Bilirubin (0.2-1.0) mg/dL AST (10-42) IU/L ALT (10-60) IU/L Alkaline Phosphatase (42-121) IU/L Total Protein (6.7-8.2) g/dL Albumin (3.2-5.5) g/dL Globulin (2.1-4.2) g/dL Albumin/Globulin Ratio (1.0-2.2) TSH (0.34-5.60) uIU/mL Urine Opiates Screen NEGATIVE (NEGATIVE) Ur Oxycodone Screen NEGATIVE (NEGATIVE) Urine Methadone Screen NEGATIVE (NEGATIVE) Ur Propoxyphene Screen NEGATIVE (NEGATIVE) Ur Barbiturates Screen NEGATIVE (NEGATIVE) Ur Tricyclics Screen NEGATIVE (NEGATIVE) Ur Phencyclidine Scrn NEGATIVE (NEGATIVE) Ur Amphetamine Screen NEGATIVE (NEGATIVE) U Methamphetamines Scrn NEGATIVE (NEGATIVE) U Benzodiazepines Scrn NEGATIVE (NEGATIVE) Urine Cocaine Screen NEGATIVE (NEGATIVE) U Cannabinoids Screen NEGATIVE (NEGATIVE) ABX Reporting Has patient been on IV antibiotics over the past 48 hours?: Yes Sepsis Event Note (H) - Evaluation Current Stage of Sepsis: Sepsis Possible source of Sepsis: positive: Pulmonary - Sepsis Criteria Sepsis Criteria: Recorded Heart Rate greater than 90 bpm, Respiratory: Increasing oxygen requirements Assessment/Plan - Problem List (1) CAP (community acquired pneumonia) Impression: -Patient claims that his grand-daughter "sneezed" near his face a few days ago -Chest x-ray confirms left lower infiltrates -+cough, +fever, +chills during and prior to admission -Ongoing cough, chills, no fevers today -Weaned off oxygen, now with 1-2L nasal cannula tonight - Streptococcus pneumoniae risk due to exposure to a child, and DM -Anticipate treatment with Amoxicillin and Azithromycin (total dose of 1.5 g) -WBC count normal, neut # not reportable Acute respiratory failure with hypoxia -Hypoxia upon admission with an oxygen saturation of 88% on room air -Required oxygen until today at lunch of 2L per nasal cannula, a few hours without, now back on; 2L nasal cannula -Baseline WALT, compliant with home mouth device for the past 1 year -No home oxygen or inhalers -Continue respiratory care, evaluate for home O2 upon discharge if needed WALT -Patient admits to wearing a CPAP device dating back to 2007 -For the past 1 year has gotten by with an oral bite block to prop is airway open -Continue oxygen therapy while in the hospital, request to bring in oral airway GERD (gastroesophageal reflux disease) -Complicated by esophageal stricture, no recent dilations -No PPI/H2 mayela use at home -Continues on Pepcid while here, monitor Hypothyroidism -Patient notes that his Synthroid dose was recently adjusted -TSH level normal at 1.06 today CAD (coronary artery disease) -+ nocturia with getting up greater than 3 times each night to urinate -Long standing DM diagnoses -Patient denies history of AR, but did have an episode of cardiac arrest in 2008 concluding an adverse reaction to propofol (now on allergy list) -Takes a statin at home, continued here Diabetes mellitus type 2, insulin dependent -First diagnosed in 1994 (patient was in his late 30's) -Now on Lantus 22 units, SSI -Hemoglobin A1C is 7.0% today -Still with intermittent hyperglycemia, may be due to illness -Continue SSI, Lantus at HS, encourage good PO intake Malignant neoplasm of base of tongue -Patient notes this was the base of his tongue and sees his oncologist yearly, but skipped this year -Considered to be in remission -Denies bleeding, but + weight loss of 6lbs in the past 2 months -Nutrition consult Hypertension -Takes Telemisartan, Felodipine -Light B/P readings this AM, 124/77, still holding home meds - Continue to monitor vital signs, add back home meds when appropriate
[2019-10-11] MEDS: AZITHROMYCIN 250 MG TABLET PO SCH (17:11)
[2019-10-11] MEDS: ATORVASTATIN 40 MG TABLET PO SCH (21:03)
[2019-10-11] MEDS: INSULIN GLARGINE 300 UNIT/3 ML PEN SUBQ SCH (21:03)
[2019-10-12] MEDS: SODIUM CHLORIDE FLUSH 0.9% 10 ML SYRINGE IVP SCH ×2 (05:58→08:10)
[2019-10-12] MEDS: LEVOTHYROXINE 75 MCG TABLET PO SCH (06:00)
[2019-10-12 06:07] LABS: BASOPHILS % (AUTO) 0.3 %; EOSINOPHILS % (AUTO) 3.1 %; HGB - HEMOGLOBIN 11.2 g/dL (14.0-18.0); LYMPHOCYTES % (AUTO) 27.2 %; MEAN CORPUSCULAR HEMOGLOBIN 32.7 pg (27.0-31.0); MEAN CORPUSCULAR HGB CONC 33.4 g/dL (32.0-36.0); MEAN CORPUSCULAR VOLUME 97.7 fL (80.0-94.0); MEAN PLATELET VOLUME 8.8 fL (7.4-11.4); MONOCYTES % (AUTO) 8.2 %; NEUTROPHILS % (AUTO) 60.7 %; PLT - PLATELET COUNT 260 10^3/uL (130-450); RED BLOOD COUNT 3.43 10^6/uL (4.70-6.10); RED CELL DISTRIBUTION WIDTH 11.5 % (12.0-15.0); WHITE BLOOD COUNT 3.9 x10^3/uL (4.8-10.8)
[2019-10-12 06:10] LABS: ABNORMAL LYMPHS % (MANUAL) 0 %
[2019-10-12 06:20] LABS: ALBUMIN 2.7 g/dL (3.2-5.5); ALBUMIN/GLOBULIN RATIO 0.7 (1.0-2.2); BILIRUBIN,TOTAL 0.6 mg/dL (0.2-1.0); CALCIUM 8.3 mg/dL (8.5-10.3); CREATININE 0.8 mg/dL (0.6-1.2); MAGNESIUM 1.8 mg/dL (1.7-2.8); TOTAL PROTEIN 6.8 g/dL (6.7-8.2)
[2019-10-12 06:27] LABS: BAND NEUTROPHILS % (MANUAL) 3 %; DIFFERENTIAL COMMENT MANUAL DIFFERENTIAL; EOSINOPHILS # (MANUAL) 0.1 10^3/uL (0-0.7); LYMPHOCYTES # (MANUAL) 0.6 10^3/uL (1.5-3.5); LYMPHOCYTES % (MANUAL) 15 %; MONOCYTES # (MANUAL) 0.2 10^3/uL (0.0-1.0); PLATELET ESTIMATE, MANUAL NORMAL (130-450,000) (NORMAL); RBC MORPHOLOGY (MULTIPLE) NORMAL APPEARANCE (NORMAL)
[2019-10-12 08:07] VITALS: BP 133/85
[2019-10-12] MEDS: ASPIRIN EC 81 MG TABLET PO SCH (08:08)
[2019-10-12] MEDS: cefTRIAXone 1 GM in SODIUM CHLORIDE 0.9% MINIBAG 100 ML IV SCH (08:08)
[2019-10-12] MEDS: AZITHROMYCIN 250 MG TABLET PO SCH (08:08)
[2019-10-12] MEDS: ACETAMINOPHEN 325 MG TABLET PO PRN (08:08)
[2019-10-12] MEDS: guaiFENesin 600 MG TABLET PO SCH (08:10)
[2019-10-12] MEDS: INSULIN ASPART 300 UNIT/3 ML PEN SUBQ SCH ×2 (08:10→11:34)
--- NOTE | 2019-10-12 08:53 | Discharge Plan ---
Discharge Plan Problem Reviewed?: Yes Disposition: Home, Self Care Condition: Good Prescriptions: Amoxicillin 500 mg PO TIDWM #112.5 ml Benzonatate [Tessalon Perle] 100 mg PO Q4H PRN #30 capsule PRN Reason: Cough guaiFENesin [Mucinex] 600 mg PO BID #60 tablet Lactobacillus Acidophilus [Probiotic Acidophilus] 1 each PO BID #60 tablet Loperamide [Imodium] 2 mg PO QID PRN #60 capsule PRN Reason: Diarrhea Sodium Chloride [Saline Nasal [place]] 30 ml NS QID PRN #1 spray PRN Reason: Dry Nasal [place] Diet: Diabetic Activity Restrictions: Activity as Tolerated Shower Restrictions: No Health Concerns: Community acquired pneumonia Oxygen dependence Diabetes mellitus type 2, insulin dependent (controlled) Plan of Treatment: Continue the antibiotic for another 5 days at home See your primary care provider before your upcoming trip Your blood pressures have been average, improved from light earlier in your stay Please only resume your felodipine, and ask your primary provider about resuming the Telemisartan You passed your oxygen test, so no home oxygen is needed, please continue to use the incentive spirometer at home Care Goals: Prevent hospital stays Prevent recurrence of pneumonia Improve your nutrition to stay healthy Continue to manage your diabetes (A1C is 7.0%) Assessment: You were admitted to the hospital for pneumonia found in your left lower lung base and given respiratory therapy (oxygen) and IV antibiotics. Your fever subsided, your blood sugars improved, and your lung sounds improved. You can go home today with oral antibiotics. Additional Instructions or Follow Up instructions: If you find that your headaches are ongoing, you may want to try over the counter Afrin spray to be used twice daily for 3 days (6 doses). This is common in people who wear oxygen. You can also try saline nasal spray. No Smoking: If you smoke, Please STOP! Call for help. Follow-up with: TANJA STEWART MD [Primary Care Provider] -
--- NOTE | 2019-10-12 08:54 | DISCHARGE SUMMARY ---
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 Hyperlipidemia Hypertension Discharge Diagnoses with Status of Each Condition: CAP (community acquired pneumonia)-New on this admission, continue on liquid antibiotic at home for 5 more days Acute respiratory failure with hypoxia-Resolved, no oxygen needed at home, patient encouraged to continue his incentive spirometer at home Sepsis-Ruled out, resolved WALT-Patient uses a mouth guard at home, stable GERD (gastroesophageal reflux disease)-Chronic, stable Hypothyroidism-Chronic, stable CAD (coronary artery disease)-Chronic, stable Diabetes mellitus type 2, insulin dependent-Chronic, stable, A1C was 7.0%, no changes were made Malignant neoplasm of throat-Chronic, stable Status post radiation therapy-Chronic, stable Hyperlipidemia-Chronic, stable Hypertension-Chronic, patient advised to continue to hold his ARB until further instructed by PCP, stable - HPI History of Present Illness: Krunal Whitten) is a pleasant, , 63-year-old male with a history of malignant neoplasm of posterior tongue, status post radiation therapy, hypothyroidism, hypertension, hyperlipidemia, CAD, GERD, esophageal strictures, cardiac arrest after given propofol to undergo a esophageal dilation, WALT-wears a oral bite block for sleep, exposure to second hand smoke for greater than 30 years, recent weight loss of greater than 6 pounds in the past 60-days, and nocturia. The patient was seen at his PCP office today ([facility]), for suspected pneumonia. The patient reported that his first symptoms started on (10/08/2019) in the afternoon with fever, chills, fatigue, and productive cough of yellow, thick sputum, no hemoptysis. The patient states that he cares for his 15-month grand-daughter in which they keep her in [place] for one week, then travel to [place], [place] for the alternating week. The patient's grand-daughter has had some upper respiratory symptoms of a viral type illness with coughing, runny nose and more fussiness. The patient notes that since his throat/neck radiation in 2006, he has had difficulty with swallowing in which he has to eat soft foods, drink extra fluids with each bite, but denies an aspiration event which could have triggered this illness. A chest x-ray is concerning for a left low lobe infiltrate, no WBC count, but + fever with a documented temp max of 38.1 C, tachycardia with heart rates 110's, and hypoxia with a saturation of only 88% on room air. The patient will be admitted for inpatient treatment of community acquired pneumonia, with symptom management and respiratory care. - HOSPITAL COURSE Hospital Course: The patient was admitted to the hospital for pneumonia found in the left lower lung base and given respiratory therapy (oxygen) and IV antibiotics. The patient's fever subsided, blood sugars improved, and lung sounds improved. The patient was medically stable and passed an oxygen saturation walk test, so transported via car home with his . - ALLERGIES Allergies/Adverse Reactions: Allergies Allergy/AdvReac Type Severity Reaction Status Date / Time propofol Allergy Anaphylaxis Verified 10/10/19 13:03 lisinopril AdvReac Respiratory Verified 10/08/17 13:22 - MEDICATIONS Home Medications: Ambulatory Orders Medication Instructions Recorded Confirmed Aspirin [Adult Aspirin Regimen] 81 mg PO DAILY 10/08/17 10/10/19 Felodipine [Felodipine ER] 5 mg PO DAILY 10/08/17 10/10/19 Insulin Glargine [Lantus Solostar] 22 unit SUBQ QPM 10/08/17 10/10/19 Telmisartan [Micardis] 80 mg PO DAILY 10/08/17 10/10/19 Atorvastatin Calcium 40 mg PO QPM 10/10/19 10/10/19 Insulin Aspart [NovoLOG] 0 - 13 units SUBQ TIDWM PRN 10/10/19 10/10/19 Levothyroxine Sodium 75 mcg PO QDAC 10/10/19 10/10/19 Omeprazole 40 mg PO BID 10/10/19 10/10/19 Amoxicillin 500 mg PO TIDWM #112.5 ml 10/12/19 Benzonatate [Tessalon Perle] 100 mg PO Q4H PRN #30 capsule 10/12/19 Lactobacillus Acidophilus 1 each PO BID #60 tablet 10/12/19 [Probiotic Acidophilus] Loperamide [Imodium] 2 mg PO QID PRN #60 capsule 10/12/19 Sodium Chloride [Saline Nasal 30 ml NS QID PRN #1 spray 10/12/19 [place]] guaiFENesin [Mucinex] 600 mg PO BID #60 tablet 10/12/19 - PHYSICAL EXAM AT DISCHARGE General Appearance: positive: No acute distress, Alert Eyes Bilateral: positive: PERRL, No lid inflammation ENT: positive: Pharynx nml, No signs of dehydration Neck: positive: Thyroid nml, No JVD, Stiff neck Respiratory: positive: Chest non-tender, No respiratory distress, Breath sounds nml, Other (scattered crackles which improve after the use of incentive spirometry) Cardiovascular: positive: Regular rate & rhythm, No murmur, No gallop Peripheral Pulses: positive: 2+ Abdomen: positive: Non-tender, No organomegaly, Nml bowel sounds, No distention Back: positive: Nml inspection Skin: positive: Color nml, No rash, Warm, Dry Extremities: positive: Non-tender, Full ROM, Nml appearance, No pedal edema Neurologic/Psychiatric: positive: Oriented x3, CN's nml (2-12), Motor nml, Sensation nml, Mood/affect nml Reflexes: Bicep (R): 3+, Bicep (L): 3+, Ankle (R): 3+, Ankle (L): 3+ - LABS Result Diagrams: 10/12/19 05:58 10/12/19 05:58 - SEPSIS Current Stage of Sepsis: Resolved - FOLLOW UP Follow Up: Follow up with PCP within one week for further instruction on ARB medication, and to ensure a full recovery from this pneumonia. - TIME SPENT Time Spent in Discharge (Minutes): 55
== END 2019-10-12 12:18 | disposition home or self-care (01) | DRG 193 ==
LOC: ED 12:57 → MS2 15:23
PROVIDERS: ADMIT Nurse Practitioner; ATTEND Nurse Practitioner
DX: J18.9 Pneumonia, unspecified organism (principal); J96.01 Acute respiratory failure with hypoxia; G47.33 Obstructive sleep apnea (adult) (pediatric); E11.42 Type 2 diabetes mellitus with diabetic polyneuropathy; K21.9 Gastro-esophageal reflux disease without esophagitis; E03.9 Hypothyroidism, unspecified; I25.10 Atherosclerotic heart disease of native coronary artery without angina pectoris; E78.5 Hyperlipidemia, unspecified; I10 Essential (primary) hypertension; Z77.22 Contact with and (suspected) exposure to environmental tobacco smoke (acute) (chronic); R35.1 Nocturia; K22.2 Esophageal obstruction; H54.7 Unspecified visual loss; Z79.82 Long term (current) use of aspirin; Z85.818 Personal history of malignant neoplasm of other sites of lip, oral cavity, and pharynx; Z86.74 Personal history of sudden cardiac arrest; Z92.3 Personal history of irradiation; Z79.4 Long term (current) use of insulin
CPT/HCPCS: 36415; 71046; 80053; 80306; 81001; 83036; 83605; 83735; 84443; 85025; 87040; 87070; 87205; 87275; 87276; 93005; 93306; 94761; 96365; 99281; 99285; A9270; J1815; 87086

== ENCOUNTER 2021-09-05 09:41 | Emergency (ER) | payer OTHER ==
--- NOTE | 2021-09-05 10:27 | ED Physician Documentation ---
History of Present Illness - Stated complaint Stated Complaint: FALL,SEIZURES - Chief complaint Chief Complaint: General - History obtained from History obtained from: Patient - History of Present Illness Timing: Yesterday - Additonal information Additional information: 65-year-old male with history of diabetes and chronic pneumonia has been in to see his energy efficiency engineer 2 weeks ago and got started on some prednisone and he has recently been started on some amoxicillin as well. He has been up to the bathroom quite a bit continuously and yesterday he became quite weak. He today he feels even weaker. He has noted his sugars to be running high. Today he had a syncopal episode with a short seizure. Review of Systems Constitutional: reports: Fatigue. denies: Fever, Chills Eyes: denies: Decreased vision Ears: denies: Ear pain Nose: denies: Rhinorrhea / runny nose, Congestion Throat: denies: Sore throat Cardiac: denies: Chest pain / pressure, Palpitations Respiratory: reports: Dyspnea, Cough GI: denies: Abdominal Pain, Nausea, Vomiting, Constipation, Diarrhea : reports: Frequency. denies: Dysuria Skin: denies: Rash Musculoskeletal: denies: Neck pain, Back pain, Extremity pain Neurologic: reports: Generalized weakness. denies: Focal weakness, Numbness PD PAST MEDICAL HISTORY - Past Medical History Cardiovascular: Hypertension, High cholesterol Respiratory: Sleep apnea, CPAP use Neuro: None Endocrine/Autoimmune: Type 2 diabetes, HyPOthyroidism GI: GERD CARE SERVICES MANAGER: None : None HEENT: Other Psych: None Musculoskeletal: None Derm: None - Past Surgical History Past Surgical History: Yes General: Colonoscopy, Other Ortho: Other HEENT: Other - Present Medications Home Medications: Ambulatory Orders Medication Instructions Recorded Confirmed Aspirin [Adult Aspirin Regimen] 81 mg PO DAILY 10/08/17 09/05/21 Felodipine [Felodipine ER] 5 mg PO DAILY 10/08/17 09/05/21 Insulin Glargine [Lantus Solostar] 22 unit SUBQ QPM 10/08/17 09/05/21 Telmisartan [Micardis] 80 mg PO DAILY 10/08/17 09/05/21 Atorvastatin Calcium 40 mg PO QPM 10/10/19 09/05/21 Insulin Aspart [NovoLOG] 0 - 13 units SUBQ TIDWM PRN 10/10/19 09/05/21 Levothyroxine Sodium 75 mcg PO QDAC 10/10/19 09/05/21 Omeprazole 40 mg PO BID 10/10/19 09/05/21 Amitriptyline [Elavil] 10 mg PO HS PRN 09/05/21 09/05/21 Amox/Clav 875/125 [Augmentin] 1 each PO Q12H #20 tablet 09/05/21 Azithromycin [Zithromax] 250 mg PO DAILY #6 tablet 09/05/21 predniSONE [Deltasone] 30 mg PO DAILY 09/05/21 09/05/21 - Allergies Allergies/Adverse Reactions: Allergies Allergy/AdvReac Type Severity Reaction Status Date / Time propofol Allergy Anaphylaxis Verified 09/05/21 10:16 lisinopril AdvReac Respiratory Verified 09/05/21 10:16 - Social History Does the pt smoke?: No Smoking Status: Never smoker Does the pt drink ETOH?: No Does the pt have substance abuse?: No - Immunizations Immunizations are current?: Yes - POLST Patient has POLST: No POLST Status: Full Code PD ED PE NORMAL - Vitals Vital signs reviewed: Yes (tachy ) - General General: Alert and oriented X 3, No acute distress, Well developed/nourished - HEENT HEENT: Atraumatic, PERRL, EOMI - Neck Neck: Supple, no meningeal sign, No bony TTP - Cardiac Cardiac: No murmur, Other (tachy to 100) - Respiratory Respiratory: No respiratory distress, Clear bilaterally - Abdomen Abdomen: Soft, Non tender - Back Back: No CVA TTP, No spinal TTP - Derm Derm: Normal color, Warm and dry, No rash - Extremities Extremities: No deformity, No edema, No calf tenderness / cord - Neuro Neuro: Alert and oriented X 3, trade manager 2-12 intact, No motor deficit, No sensory deficit, Other (masked lisp is present) Eye Opening: Spontaneous Motor: Obeys Commands Verbal: Oriented GCS Score: 15 - Psych Psych: Normal mood, Normal affect Results - Vitals Vitals: Vital Signs - 24 hr 09/05/21 09/05/21 09/05/21 10:12 10:54 12:05 Temperature 36.6 C 36.2 C L 36.1 C L Heart Rate 109 H 97 88 Respiratory 16 20 22 Rate Blood Pressure 110/70 139/75 H 134/85 H O2 Saturation 99 95 96 09/05/21 14:00 Temperature Heart Rate 92 Respiratory 22 Rate Blood Pressure 134/92 H O2 Saturation 98 Oxygen O2 Source Room air - Labs Labs: Laboratory Tests 09/05/21 09/05/21 09/05/21 10:42 10:42 10:42 WBC 20.7 H RBC 4.06 L Hgb 13.0 L Hct 39.5 L MCV 97.3 H MCH 32.0 H MCHC 32.9 RDW 12.7 Plt Count 209 MPV 9.0 Neut # (Auto) 18.8 H Lymph # (Auto) 0.6 L [place] # (Auto) 1.1 H Eos # (Auto) 0.0 Baso # (Auto) 0.1 Absolute Nucleated RBC 0.00 Band Neuts % (Manual) Not Reportable Abnorm Lymph % (Manual) Not Reportable Nucleated RBC % 0.0 Neutrophils # (Manual) Not Reportable Lymphocytes # (Manual) Not Reportable Monocytes # (Manual) Not Reportable Eosinophils # (Manual) Not Reportable Basophils # (Manual) Not Reportable Differential Comment MANUAL=AUTO DIFF WBC Morphology NORMAL APPEARANCE Platelet Estimate NORMAL (130-450,000) Platelet Morphology NORMAL APPEARANCE RBC Morph Micro Appear NORMAL APPEARANCE Sodium 132 L Potassium 4.5 Chloride 94 L Carbon Dioxide 26 Anion Gap 12.0 BUN 24 H Creatinine 1.2 Estimated GFR (MDRD) 74 L Glucose 232 H Lactic Acid 1.0 Calcium 9.4 Total Bilirubin 1.4 H AST 11 ALT 15 Alkaline Phosphatase 54 Total Protein 7.0 Albumin 3.1 L Globulin 3.9 Albumin/Globulin Ratio 0.8 L Lipase 17 L Urine Color Urine Clarity Urine pH Ur Specific [place] Urine Protein Urine Glucose (UA) Urine Ketones Urine Occult Blood Urine Nitrite Urine Bilirubin Urine Urobilinogen Ur Leukocyte Esterase Urine RBC Urine WBC Urine WBC Clumps Ur Squamous Epith Cells Urine Bacteria Ur Microscopic Review Urine Culture Comments 09/05/21 13:06 WBC RBC Hgb Hct MCV MCH MCHC RDW Plt Count MPV Neut # (Auto) Lymph # (Auto) [place] # (Auto) Eos # (Auto) Baso # (Auto) Absolute Nucleated RBC Band Neuts % (Manual) Abnorm Lymph % (Manual) Nucleated RBC % Neutrophils # (Manual) Lymphocytes # (Manual) Monocytes # (Manual) Eosinophils # (Manual) Basophils # (Manual) Differential Comment WBC Morphology Platelet Estimate Platelet Morphology RBC Morph Micro Appear Sodium Potassium Chloride Carbon Dioxide Anion Gap BUN Creatinine Estimated GFR (MDRD) Glucose Lactic Acid Calcium Total Bilirubin AST ALT Alkaline Phosphatase Total Protein Albumin Globulin Albumin/Globulin Ratio Lipase Urine Color DARK YELLOW Urine Clarity HAZY Urine pH 6.0 Ur Specific [place] 1.025 Urine Protein 30 H Urine Glucose (UA) 500 H Urine Ketones 40 H Urine Occult Blood MODERATE H Urine Nitrite POSITIVE H Urine Bilirubin NEGATIVE Urine Urobilinogen 1 (NORMAL) Ur Leukocyte Esterase NEGATIVE Urine RBC 0-5 Urine WBC >25 H Urine WBC Clumps PRESENT Ur Squamous Epith Cells NONE SEEN Urine Bacteria Moderate H Ur Microscopic Review INDICATED Urine Culture Comments INDICATED - Rads (name of study) chest Radiology: Prelim report reviewed (Impression: No acute cardiopulmonary process demonstrated radiographically.), Discussed with rads (likely infiltrate), EMP read indepedently (On my reveiw there is an infiltrate in the left junior-hilar area. ), See rad report Procedures - IVC sono (time) 1030 Bedside IVC sono: IVC measures (cm) (0.7), IVC collapsed c insp (cm) (complete), Significant dehydration (> 2 liter deficit) 1430 Bedside IVC sono: IVC measures (cm) (1.2), Dehydration (est 1 liter deficit after 2 administered) PD MEDICAL DECISION MAKING - ED course Complexity details: reviewed old records, reviewed results, re-evaluated patient, considered differential, d/w patient ED course: 65-year-old male with a remote history of tongue cancer has had a syncopal episode today after feeling extremely weak. He has had some URI symptoms for the past 2 weeks and he has been placed on some prednisone and amoxicillin by his energy efficiency engineer. He has developed significant dehydration as a result of elevated blood sugar and he has had a syncopal episode. Today in the emergency department we have interrogated his inferior vena cava and found him to be profoundly dehydrated and have begun intravenous saline. A chest x-ray is concerning for an infiltrate in the left base. WBC is 20,000. He is administered Rocephin intravenously as well and we will treat him for community- acquired pneumonia as well as his dehydration. As the dehydration is treated he is able to produce urine and has evidence of infection. His IVC is interrogated after 2 liters are in and he has a remaining deficit of 1liter and this is expected from prior measurement and he is given a 3rd liter of saline. Departure - Departure Disposition: 01 Home, Self Care Clinical Impression: Dehydration CAP (community acquired pneumonia) Qualifiers: Laterality: left Lung location: lower lobe of lung Qualified Code(s): J18.9 - Pneumonia, unspecified organism Urinary tract infection Qualifiers: Urinary tract infection type: acute cystitis Hematuria presence: without hematuria Qualified Code(s): N30.00 - Acute cystitis without hematuria Condition: Stable Instructions: ED Dehydration, ED Pneumonia Adult, ED UTI Cystitis Male Follow-Up: TANJA STEWART MD [Primary Care Provider] - Prescriptions: Amox/Clav 875/125 [Augmentin] 1 each PO Q12H #20 tablet Azithromycin [Zithromax] 250 mg PO DAILY #6 tablet Comments: [place] today it looks like you were significantly dehydrated and this is likely due to elevated blood sugar causing diuresis. In addition there is urinary tract infection and lung infection. We have e-[facility] your antibiotic [facility] [place]. If you have worsening symptoms return to the ED for further evaluation.
[2021-09-05 10:51] LABS: BASOPHILS # (AUTO) 0.1 10^3/uL (0.0-0.1); BASOPHILS % (AUTO) 0.2 %; EOSINOPHILS % (AUTO) 0.1 %; HCT - HEMATOCRIT 39.5 % (42.0-52.0); LYMPHOCYTES # (AUTO) 0.6 10^3/uL (1.5-3.5); LYMPHOCYTES % (AUTO) 2.9 %; MEAN CORPUSCULAR HGB CONC 32.9 g/dL (32.0-36.0); MEAN CORPUSCULAR VOLUME 97.3 fL (80.0-94.0); MONOCYTES # (AUTO) 1.1 10^3/uL (0.0-1.0); MONOCYTES % (AUTO) 5.1 %; NEUTROPHILS # (AUTO) 18.8 10^3/uL (1.5-6.6); NEUTROPHILS % (AUTO) 90.8 %; PLT - PLATELET COUNT 209 10^3/uL (130-450); RED BLOOD COUNT 4.06 10^6/uL (4.70-6.10); RED CELL DISTRIBUTION WIDTH 12.7 % (12.0-15.0); WHITE BLOOD COUNT 20.7 x10^3/uL (4.8-10.8)
[2021-09-05] MEDS: SODIUM CHLORIDE 0.9% 1,000 ML IV STA ×3 (10:54→14:33)
[2021-09-05 11:01] LABS: ALBUMIN 3.1 g/dL (3.2-5.5); ALBUMIN/GLOBULIN RATIO 0.8 (1.0-2.2); BILIRUBIN,TOTAL 1.4 mg/dL (0.2-1.0); CALCIUM 9.4 mg/dL (8.5-10.3); CREATININE 1.2 mg/dL (0.6-1.2); POTASSIUM 4.5 mmol/L (3.5-5.0)
--- NOTE | 2021-09-05 11:31 | XRAY Report ---
PROCEDURE: Chest 1 View X-Ray INDICATIONS: chest pain TECHNIQUE: One view of the chest was acquired. COMPARISON: 10/10/2019 FINDINGS: Surgical changes and devices: None. Lungs and pleura: No pleural effusions or pneumothorax. Lungs are clear. Mediastinum: Mediastinal contours appear normal. Heart size is normal. Bones and chest wall: No suspicious bony lesions. Overlying soft tissues appear unremarkable. IMPRESSION: No acute cardiopulmonary process demonstrated radiographically. Reviewed by: Sam Benson MD on 09/05/2021 11:29 AM PST Approved by: Sam Benson MD on 09/05/2021 11:29 AM PST Station ID: [id number]
[2021-09-05 12:06] LABS: PLATELET ESTIMATE, MANUAL NORMAL (130-450,000) (NORMAL); PLATELET MORPHOLOGY NORMAL APPEARANCE (NORMAL); RBC MORPHOLOGY (MULTIPLE) NORMAL APPEARANCE (NORMAL); WBC MORPHOLOGY (MULTIPLE) NORMAL APPEARANCE (NORMAL)
[2021-09-05 12:07] LABS: DIFFERENTIAL COMMENT MANUAL=AUTO DIFF
[2021-09-05 13:26] LABS: BILIRUBIN,URINE NEGATIVE (NEGATIVE); GLUCOSE, URINE (UA) 500 mg/dL (NEGATIVE); KETONES,URINE (UA) 40 mg/dL (NEGATIVE); LEUKOCYTE ESTERASE, URINE NEGATIVE (NEGATIVE); NITRITE,URINE POSITIVE (NEGATIVE); OCCULT BLOOD,URINE MODERATE (NEGATIVE); PROTEIN,URINE 30 mg/dL (NEGATIVE); UROBILINOGEN,URINE 1 (NORMAL) E.U./dL (NORMAL)
[2021-09-05] MEDS: cefTRIAXone 1 GM in SODIUM CHLORIDE 0.9% MINIBAG 100 ML IV STA (13:29)
[2021-09-05 13:43] LABS: CLARITY,URINE HAZY (CLEAR)
[2021-09-05 13:44] LABS: BACTERIA,URINE Moderate /HPF (None Seen); RBC,URINE 0-5 /HPF (0-5); SQUAMOUS EPITHELIAL CELL,UR NONE SEEN (<= Few); WBC CLUMPS,URINE PRESENT; WBC,URINE >25 /HPF (0-3)
[2021-09-05 15:56] VITALS: BP 147/98
--- NOTE | 2021-09-07 16:56 | ED Physician Documentation ---
ED Addendum - Addendum Addendum: 09/07/21 16:55 The patient's chart was reviewed his urine is positive for Enterobacter cloaca complex. We will change his Augmentin to cefdinir. This was sent to [facility] in [place]. Departure - Departure Disposition: 01 Home, Self Care Clinical Impression: Dehydration CAP (community acquired pneumonia) Qualifiers: Laterality: left Lung location: lower lobe of lung Qualified Code(s): J18.9 - Pneumonia, unspecified organism Urinary tract infection Qualifiers: Urinary tract infection type: acute cystitis Hematuria presence: without hematuria Qualified Code(s): N30.00 - Acute cystitis without hematuria Condition: Stable Instructions: ED Dehydration, ED Pneumonia Adult, ED UTI Cystitis Male Follow-Up: TANJA STEWART MD [Primary Care Provider] - Prescriptions: Amox/Clav 875/125 [Augmentin] 1 each PO Q12H #20 tablet Cefdinir 300 mg PO BID #14 cap Azithromycin [Zithromax] 250 mg PO DAILY #6 tablet Comments: [place] today it looks like you were significantly dehydrated and this is likely due to elevated blood sugar causing diuresis. In addition there is urinary tract infection and lung infection. We have e-scribed your antibiotic medications to [facility]. If you have worsening symptoms return to the ED for further evaluation. Discharge Date/Time: 09/05/21 16:10
== END 2021-09-05 16:10 | disposition home or self-care (01) ==
LOC: ED 09:41
DX: E86.0 Dehydration (principal); J18.9 Pneumonia, unspecified organism; N30.00 Acute cystitis without hematuria; B96.89 Other specified bacterial agents as the cause of diseases classified elsewhere; R55 Syncope and collapse; E11.65 Type 2 diabetes mellitus with hyperglycemia; Z79.4 Long term (current) use of insulin; I10 Essential (primary) hypertension; Z85.810 Personal history of malignant neoplasm of tongue; Z79.82 Long term (current) use of aspirin
CPT/HCPCS: 36415; 80053; 81001; 81003; 83605; 83690; 85025; 87077; 87086; 87181; 96361; 96365; 99284

== ENCOUNTER 2022-05-25 19:37 | Emergency (ER) | payer MEDICARE, OTHER ==
[2022-05-25] MEDS ORDERED: HYDROcod/ACET 5/325 Prepack 4 PO STA (21:20)
[2022-05-25] MEDS ORDERED: NIRMATRELVIR/RITONAVIR PREPACK PO STA (21:26)
[2022-05-25 21:49] VITALS: BP 158/94
[2022-05-25] MEDS ORDERED: HYDROmorphone 1 MG/ML CARPUJECT IM STA (22:03)
--- NOTE | 2022-05-28 02:09 | ED Physician Documentation ---
History of Present Illness - Stated complaint Stated Complaint: HEADACHE/DIZZY - Chief complaint Chief Complaint: General - History obtained from History obtained from: Patient - History of Present Illness Timing: Today Pain level now: 10 Improved by: nothing Worsened by: no exacerbating factors - Additonal information Additional information: patient had (+) home COVID test earlier today. He c/o generalized myalgias, generalized headache, fatigue, dizziness. He is COVID vaccinated with booster. Review of Systems Constitutional: reports: Chills, Myalgias, Fatigue, Sweats Ears: denies: Ear pain Throat: denies: Sore throat Cardiac: reports: Reviewed and negative Respiratory: reports: Reviewed and negative GI: reports: Reviewed and negative : denies: Incontinent Musculoskeletal: reports: Reviewed and negative Neurologic: reports: Generalized weakness, Headache. denies: Focal weakness, Numbness PD PAST MEDICAL HISTORY - Past Medical History Cardiovascular: Hypertension, High cholesterol Respiratory: Sleep apnea, CPAP use Neuro: None Endocrine/Autoimmune: Type 2 diabetes, HyPOthyroidism GI: GERD MEDICAL ASSISTANT PRN: None : None HEENT: Other Psych: None Musculoskeletal: None Derm: None - Past Surgical History Past Surgical History: Yes General: Colonoscopy, Other Ortho: Other HEENT: Other - Present Medications Home Medications: Ambulatory Orders Medication Instructions Recorded Confirmed Aspirin [Adult Aspirin Regimen] 81 mg PO DAILY 10/08/17 09/05/21 Felodipine [Felodipine ER] 5 mg PO DAILY 10/08/17 09/05/21 Insulin Glargine [Lantus Solostar] 22 unit SUBQ QPM 10/08/17 09/05/21 Telmisartan [Micardis] 80 mg PO DAILY 10/08/17 09/05/21 Atorvastatin Calcium 40 mg PO QPM 10/10/19 09/05/21 Insulin Aspart [NovoLOG] 0 - 13 units SUBQ TIDWM PRN 10/10/19 09/05/21 Levothyroxine Sodium 75 mcg PO QDAC 10/10/19 09/05/21 Omeprazole 40 mg PO BID 10/10/19 09/05/21 Amitriptyline [Elavil] 10 mg PO HS PRN 09/05/21 09/05/21 Amox/Clav 875/125 [Augmentin] 1 each PO Q12H #20 tablet 09/05/21 Azithromycin [Zithromax] 250 mg PO DAILY #6 tablet 09/05/21 predniSONE [Deltasone] 30 mg PO DAILY 09/05/21 09/05/21 Cefdinir 300 mg PO BID #14 cap 09/07/21 HYDROcod/ACETAM 5/325 [[place] 5/325] 1 - 2 tablet PO Q6H PRN #14 tablet 05/25/22 - Allergies Allergies/Adverse Reactions: Allergies Allergy/AdvReac Type Severity Reaction Status Date / Time metformin Allergy Nausea Verified 05/25/22 19:45 propofol Allergy Anaphylaxis Verified 09/05/21 10:16 lisinopril AdvReac Respiratory Verified 09/05/21 10:16 - Social History Does the pt smoke?: No Smoking Status: Never smoker Does the pt drink ETOH?: No Does the pt have substance abuse?: No - Immunizations Immunizations are current?: Yes - POLST Patient has POLST: No POLST Status: Full Code PD ED PE NORMAL - Vitals Vital signs reviewed: Yes - General General: Alert and oriented X 3, No acute distress, Well developed/nourished - HEENT HEENT: Moist mucous membranes - Neck Neck: Supple, no meningeal sign - Cardiac Cardiac: RRR, No murmur - Respiratory Respiratory: No respiratory distress, Clear bilaterally - Abdomen Abdomen: Soft, Non tender - Neuro Neuro: Alert and oriented X 3 Results - Vitals Vitals: Oxygen O2 Source Room air PD MEDICAL DECISION MAKING - ED course Complexity details: considered differential, d/w patient, d/w family ED course: Patient says he tested positive for COVID using at home test earlier today, and c/o symptoms that would be expected with this virus; specifically, s/o generalized headache, fatigue, diffuse myalgias . He is given vicodin for the headache and generalized aches, with rx for same. He is also given paxlovid kit, with caveat to stop his statin for the five days he takes the paxlovid. Departure - Departure Disposition: 01 Home, Self Care Clinical Impression: COVID Condition: Good Instructions: ED Viral Syndrome Prescriptions: HYDROcod/ACETAM 5/325 [[place] 5/325] 1 - 2 tablet PO Q6H PRN #14 tablet PRN Reason: Pain Comments: You have indicated that an at-home COVID test today was positive. Headache and generalized body aches are, unfortunately, quite common with this virus. The worst symptoms typically last from a few days to a week, but sometimes the signs and symptoms last longer than that. For the headache you were given vicodin, which is a narcotic/opiate pain medication, and a prescription has been provided. You are being provided with anti-viral medications that can reduce the severity and length of symptoms of COVID. This was given as a kit to you in the ER; follow the instructions that come with the kit. YOU NEED TO STOP TAKING THE ATORVASTATIN (cholesterol medication) for five days; ATORVASTATIN INTERACTS WITH PAXLOVID, but stopping the atorvastatin for five days will not cause any short nor terminal gauger supervisor health problems. Go to the CDC website for detailed instructions regarding isolation due to COVID. You will need to isolate for a minimum of five days, but the CDC website provides further instruction Discharge Date/Time: 05/25/22 22:12
== END 2022-05-25 22:12 | disposition home or self-care (01) ==
LOC: ED 19:37
DX: U07.1 COVID-19 (principal); I10 Essential (primary) hypertension; E11.9 Type 2 diabetes mellitus without complications; Z79.4 Long term (current) use of insulin
CPT/HCPCS: 99283; J1170; J3490

== ENCOUNTER 2023-07-08 12:29 | Inpatient (IN) | payer MEDICARE, OTHER ==
[2023-07-08 13:03] LABS: BASOPHILS % (AUTO) 0.3 %; HCT - HEMATOCRIT 59.7 % (42.0-52.0); HGB - HEMOGLOBIN 18.3 g/dL (14.0-18.0); LYMPHOCYTES # (AUTO) 0.9 10^3/uL (1.5-3.5); LYMPHOCYTES % (AUTO) 15.7 %; MEAN CORPUSCULAR HEMOGLOBIN 32.9 pg (27.0-31.0); MEAN CORPUSCULAR HGB CONC 30.7 g/dL (32.0-36.0); MEAN CORPUSCULAR VOLUME 107.4 fL (80.0-94.0); MEAN PLATELET VOLUME 10.7 fL (7.4-11.4); MONOCYTES # (AUTO) 0.5 10^3/uL (0.0-1.0); MONOCYTES % (AUTO) 8.4 %; NEUTROPHILS # (AUTO) 4.5 10^3/uL (1.5-6.6); NEUTROPHILS % (AUTO) 75.4 %; PLT - PLATELET COUNT 246 10^3/uL (130-450); RED BLOOD COUNT 5.56 10^6/uL (4.70-6.10); RED CELL DISTRIBUTION WIDTH 11.9 % (12.0-15.0); WHITE BLOOD COUNT 5.9 x10^3/uL (4.8-10.8)
--- NOTE | 2023-07-08 13:35 | XRAY Report ---
PROCEDURE: Chest 1 View X-Ray INDICATIONS: Chest pain TECHNIQUE: One view of the chest was acquired. COMPARISON: 09/05/2021. FINDINGS: Surgical changes and devices: None. Lungs and pleura: No pleural effusions or pneumothorax. Lungs are clear. Mediastinum: Mediastinal contours appear normal. Heart size is normal. Bones and chest wall: No suspicious bony lesions. Overlying soft tissues appear unremarkable. IMPRESSION: No acute cardiopulmonary process. Reviewed by: Star Castillo MD on 07/08/2023 1:33 PM PDT Approved by: Star Castillo MD on 07/08/2023 1:33 PM PDT Station ID: [id number]
[2023-07-08 13:48] LABS: ALBUMIN 4.3 g/dL (3.2-5.5)
[2023-07-08 13:50] LABS: TROPONIN I HIGH SENSITIVITY 5.6 ng/L (2.3-19.7)
[2023-07-08 13:52] LABS: ALBUMIN/GLOBULIN RATIO 1.2 (1.0-2.2); ALKALINE PHOSPHATASE 91 IU/L (42-121); ALT ALANINE AMINOTRANSFERASE 24 IU/L (10-60); AST ASPARTATE AMINOTRANSFERASE 17 IU/L (10-42); BILIRUBIN,TOTAL 0.5 mg/dL (0.2-1.0); BUN - BLOOD UREA NITROGEN 51 mg/dL (6-20); CALCIUM 10.5 mg/dL (8.5-10.3); CARBON DIOXIDE - CO2 38 mmol/L (21-32); CHLORIDE 112 mmol/L (101-111); CREATININE 1.5 mg/dL (0.6-1.3); GFR - MDRD 57 (>89); GLUCOSE 457 mg/dL (74-104); LIPASE < 10 U/L (11-82); POTASSIUM 5.2 mmol/L (3.5-4.5); SODIUM 155 mmol/L (135-145)
[2023-07-08 14:02] LABS: B. PARAPERTUSSIS- RESP PCR PAN NOT DETECTED; B. PERTUSSIS- RESP PCR PANEL NOT DETECTED; C. PNEUMONIAE- RESP PCR PANEL NOT DETECTED; CORONAVIRUS 229E-RESP PCR NOT DETECTED; CORONAVIRUS HKU1-RESP PCR NOT DETECTED; CORONAVIRUS NL63-RESP PCR NOT DETECTED; CORONAVIRUS OC43-RESP PCR NOT DETECTED; HUMAN METAPNEUMOVIRUS NOT DETECTED; INFLUENZA A- RESP PCR PANEL NOT DETECTED; INFLUENZA B - RESP PCR PANEL NOT DETECTED; M. PNEUMONIAE- RESP PCR PANEL NOT DETECTED; PARAINFLUENZA VIRUS 1 NOT DETECTED; PARAINFLUENZA VIRUS 2 NOT DETECTED; PARAINFLUENZA VIRUS 3 NOT DETECTED; PARAINFLUENZA VIRUS 4 NOT DETECTED; RHINOVIRUS/ENTEROVIRUS NOT DETECTED; RSV- RESP PCR PANEL NOT DETECTED; SARS-CoV-2 -RESP PCR PANEL NOT DETECTED
[2023-07-08] MEDS ORDERED: SODIUM CHLORIDE 0.9% 1,000 ML IV STA (14:15)
--- NOTE | 2023-07-08 16:18 | ED Physician Documentation ---
History of Present Illness - Stated complaint Stated Complaint: FATIGUE - Chief complaint Chief Complaint: Resp - Additonal information Additional information: 67-year-old male presents to the emergency department for evaluation of fatigue weakness and constant sleeping for the last 5 days. The patient has a history of tongue cancer status post radiation therapy. Due to this he has a history of recurrent aspiration pneumonia. He reports that he gets 100% of his nutrition through a gastrojejunostomy tube. He has not missed any feedings or doses of free water. Prior to the fatigue that began 5 days ago he states that he was having multiple loose watery stools. He was always taking prune juice to make sure he maintain regularity so he stopped the prune juice and he stopped having diarrhea. He when he did not have a bowel movement for about 3 days he resumed taking the prune juice and now reports normal stools. He has had no fevers. Denies cough or chest pain. Denies abdominal pain. Denies any bloody output. Review of Systems Constitutional: reports: Fatigue. denies: Fever Nose: reports: Reviewed and negative Throat: reports: Reviewed and negative Cardiac: reports: Reviewed and negative Respiratory: reports: Reviewed and negative GI: reports: Diarrhea. 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 : None HEENT: Other Psych: None Musculoskeletal: None Derm: None - Past Surgical History Past Surgical History: Yes General: Colonoscopy, Other Ortho: Other HEENT: Other - Present Medications Home Medications: Ambulatory Orders Medication Instructions Recorded Confirmed Aspirin [Adult Aspirin Regimen] 81 mg PO DAILY 10/08/17 09/05/21 Felodipine [Felodipine ER] 5 mg PO DAILY 10/08/17 09/05/21 Insulin Glargine [Lantus Solostar] 22 unit SUBQ QPM 10/08/17 09/05/21 Telmisartan [Micardis] 80 mg PO DAILY 10/08/17 09/05/21 Atorvastatin Calcium 40 mg PO QPM 10/10/19 09/05/21 Insulin Aspart [NovoLOG] 0 - 13 units SUBQ TIDWM PRN 10/10/19 09/05/21 Levothyroxine Sodium 75 mcg PO QDAC 10/10/19 09/05/21 Omeprazole 40 mg PO BID 10/10/19 09/05/21 Amitriptyline [Elavil] 10 mg PO HS PRN 09/05/21 09/05/21 Amox/Clav 875/125 [Augmentin] 1 each PO Q12H #20 tablet 09/05/21 Azithromycin [Zithromax] 250 mg PO DAILY #6 tablet 09/05/21 predniSONE [Deltasone] 30 mg PO DAILY 09/05/21 09/05/21 Cefdinir 300 mg PO BID #14 cap 09/07/21 HYDROcod/ACETAM 5/325 [Beat[place] 5/325] 1 - 2 tablet PO Q6H PRN #14 tablet 05/25/22 - Allergies Allergies/Adverse Reactions: Allergies Allergy/AdvReac Type Severity Reaction Status Date / Time metformin Allergy Nausea Verified 05/25/22 19:45 propofol Allergy Anaphylaxis Verified 09/05/21 10:16 lisinopril AdvReac Respiratory Verified 09/05/21 10:16 - Social History Does the pt smoke?: No Smoking Status: Never smoker Does the pt drink ETOH?: No Does the pt have substance abuse?: No - Immunizations Immunizations are current?: Yes - POLST Patient has POLST: No POLST Status: Full Code PD ED PE NORMAL - General General: Alert and oriented X 3, No acute distress, Well developed/nourished - HEENT HEENT: Atraumatic. No: Moist mucous membranes (dry mouth) - Neck Neck: Supple, no meningeal sign, No adenopathy - Cardiac Cardiac: RRR, No murmur - Respiratory Respiratory: No respiratory distress, Clear bilaterally - Abdomen Abdomen: Normal bowel sounds, Soft - Back Back: No CVA TTP - Derm Derm: Normal color, Warm and dry - Extremities Extremities: No deformity - Neuro Neuro: Alert and oriented X 3, waistband setter lockstitch 2-12 intact Eye Opening: Spontaneous Motor: Obeys Commands Verbal: Oriented GCS Score: 15 Results - Vitals Vitals: Vital Signs - 24 hr 07/08/23 07/08/23 07/08/23 12:38 16:12 16:18 Temperature 36.6 C Heart Rate 96 95 90 Respiratory 22 16 15 Rate Blood Pressure 91/64 140/106 H 128/96 H O2 Saturation 95 97 96 Oxygen O2 Source Room air - Labs Labs: Laboratory Tests 07/08/23 07/08/23 07/08/23 12:54 13:00 13:26 WBC 5.9 RBC 5.56 Hgb 18.3 H Hct 59.7 H MCV 107.4 H MCH 32.9 H MCHC 30.7 L RDW 11.9 L Plt Count 246 MPV 10.7 Neut # (Auto) 4.5 Lymph # (Auto) 0.9 L Carver # (Auto) 0.5 Eos # (Auto) 0.0 Baso # (Auto) 0.0 Absolute Nucleated RBC 0.00 Nucleated RBC % 0.0 Sodium 155 H* Potassium 5.2 H Chloride 112 H Carbon Dioxide 38 H Anion Gap 5.0 L BUN 51 H Creatinine 1.5 H Estimated GFR (MDRD) 57 L Glucose 457 H Calcium 10.5 H Total Bilirubin 0.5 AST 17 ALT 24 Alkaline Phosphatase 91 Troponin I High Sens 5.6 Total Protein 8.0 Albumin 4.3 Globulin 3.7 Albumin/Globulin Ratio 1.2 Lipase < 10 L Nasal Adenovirus (PCR) NOT DETECTED Nasal B. parapertussis DNA (PCR) NOT DETECTED Nasal Coronavir 229E PCR NOT DETECTED Nasal Coronavir HKU1 PCR NOT DETECTED Nasal Coronavir NL63 PCR NOT DETECTED Nasal Coronavir OC43 PCR NOT DETECTED Nasal Enterovir/Rhinovir PCR NOT DETECTED Nasal Influenza B PCR NOT DETECTED Nasal Influenza A PCR NOT DETECTED Nasal Parainfluen 1 PCR NOT DETECTED Nasal Parainfluen 2 PCR NOT DETECTED Nasal Parainfluen 3 PCR NOT DETECTED Nasal Parainfluen 4 PCR NOT DETECTED Nasal RSV (PCR) NOT DETECTED Nasal B.pertussis DNA PCR NOT DETECTED Nasal C.pneumoniae (PCR) NOT DETECTED Navjot Human Metapneumo PCR NOT DETECTED Nasal M.pneumoniae (PCR) NOT DETECTED Nasal SARS-CoV-2 (PCR) NOT DETECTED PD Medical Decision Making - ED course Complexity details: reviewed results, re-evaluated patient, considered differential, d/w patient, d/w family ED course: 67-year-old male has a history of hypertension diabetes, throat and esophageal cancer status post radiation with subsequent recurrent aspiration pneumonia and now a gastrojejunostomy tube for all feedings and hydration presents the emergency department for evaluation of several days of fatigue and somnolence. He is denying abdominal pain, nausea vomiting, cough chest pain or fevers. However prior to 5 days ago he reported that he had had some diarrhea which she subsequently attributed to prune juice administration. Once he stopped the prune juice the diarrhea resolved. On evaluation in the emergency department he is alert and generally well- appearing though thin. His initial blood pressure was soft 90/67 with a heart rate sinus in the 90s. Afebrile. When he was brought back to the exam room his blood pressure was 140/100. We did obtain CBC, electrolytes respiratory PCR and urinalysis. Per my interpretation the hemoglobin is markedly elevated at 18. His baseline appears to be 11-12. His hematocrit is also quite elevated at 60. His electrolytes show hyponatremia sodium of 155, potassium of 5.2. His chloride is elevated 112. Carbon dioxide was 38. BUN 51 and 1.5. Previous kidney values were unremarkable. He does have a blood glucose here of 457. Negative lipase and LFTs. TSH, ketones pending Chest x-ray showed no evidence of an aspiration pneumonia. Clinically the patient presents as quite dehydrated and hyperglycemic. I suspect this may be related to the diarrhea that he had several days preceding his fatigue. Initially he was given a liter of fluids here in the emergency department but then ordered a half-normal saline infusion at 125 an hour. I spoke with the patient and his and they are in agreement for observation admission for correction of his electrolyte derangement. Spoke with Dr. Byers who agrees to bring the patient in for further evaluation and management. Departure - Departure Disposition: ED Place in Observation Clinical Impression: Dehydration, Hypernatremia Fatigue Qualifiers: Fatigue type: unspecified Qualified Code(s): R53.83 - Other fatigue Forms: PCP List
[2023-07-08] MEDS ORDERED: ONDANSETRON ODT 4 MG TABLET TL PRN (16:29)
[2023-07-08] MEDS ORDERED: ONDANSETRON 4 MG/2 ML VIAL IVP PRN (16:29)
[2023-07-08] MEDS ORDERED: oxyCODONE 5 MG TABLET PO PRN (16:29)
[2023-07-08 16:37] LABS: BILIRUBIN,URINE NEGATIVE (NEGATIVE); GLUCOSE, URINE (UA) >=1000 mg/dL (NEGATIVE); KETONES,URINE (UA) NEGATIVE (NEGATIVE); LEUKOCYTE ESTERASE, URINE NEGATIVE (NEGATIVE); NITRITE,URINE NEGATIVE (NEGATIVE); OCCULT BLOOD,URINE NEGATIVE (NEGATIVE); PH,URINE 5.5 PH (5.0-7.5); PROTEIN,URINE NEGATIVE (NEGATIVE); UROBILINOGEN,URINE 0.2 (NORMAL) E.U./dL (NORMAL)
[2023-07-08 16:41] LABS: CLARITY,URINE CLEAR (CLEAR)
[2023-07-08 16:50] LABS: THYROID STIMULATING HORMONE 2.7 uIU/mL (0.34-5.60)
--- NOTE | 2023-07-08 16:50 | HISTORY & PHYSICAL EXAMINATION ---
Chief Complaint - Chief Complaint Chief Complaint: Weakness and fatigue with chest congestion History of Present Illness - Admitted From Admitted From:: Home - History Obtained From Records Reviewed: [facility] History obtained from: HECTOR Springer and patient Exam Limitations: None - History of Present Illness HPI Comment/Other: Krunal Whitten) is a pleasant, , 63-year-old male with a history of malignant neoplasm of posterior tongue, status post radiation therapy, hypothyroidism, hypertension, hyperlipidemia, CAD, GERD, esophageal strictures, cardiac arrest after given propofol to undergo a esophageal dilation, WALT-wears a oral bite block for sleep, exposure to second hand smoke for greater than 30 years. That presents with gradually progressive weakness over the last few days. Getting worse and worse. Just exhausted. But he denies fever, chills, sweats, abdominal pain. He denies urgency, frequency, dysuria. Because he does have a history of aspiration after his therapy for his head and neck cancer, he has a J-tube in place and 100% of his nutrition and fluids is through the J-tube. He has had diarrhea. He attributed that to the prunes that he puts in his J-tube to keep his bowels regular. Once he stopped the prunes, his bowel movements became more solid and less frequent. He is worried that he has aspiration pneumonia. He has a productive cough with chest congestion in the substernal area. When he came in by private vehicle his temperature was 36.6, heart rate 96, blood pressure 91/64, 95% on room air. Breathing at 22 breaths a minute. On examination he was alert and oriented x3. Well-nourished and well-developed. A benign cardiac, respiratory and abdominal exam. In evaluation the chest x-ray was negative for pneumonia. But his labs showed a sodium of 155. His usual sodium is 132 dating back to 2020. He is hyperkalemic at 5.2. Anion gap is 5. BUN 51, creatinine 1.5. Glucose is 457, calcium 10.5. White cell count is normal. Hemoglobin is concentrated 18.3. Platelets 246. Urinalysis does not demonstrate a UTI. Viral panel negative for COVID. Treatment in the ER is consisted of 1 L of normal saline. His glucose of 457 did not get any insulin. And is now reported in the 200s at [id number] bedside. At home he takes Lantus 22 units. The ER provider has asked if we could please place this patient in observation to continue to treat his dehydration. 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 Mom at age 91 of Alzheimer's dementia she had no major medical illnesses. 3 brothers and 3 sisters. 1 sister has of stomach cancer. 1 brother of pneumonia. 3 children are completely healthy. They have no major medical illnesses. Living arrangement: At home Living Situation: With spouse/s.o. Social History Notes: He is retired [employer]. 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 Retired with the [employer]. Never smoked. He did drink when he was young but he has never been an alcoholic. No history of recreational substance abuse. Been to his for 44 years, this September. - Substance History Use: Uses substance without health or social issues: NONE - POLST Patient has POLST: No POLST Status: Full Code Meds/Allgy - Home Medications Home Medications: Ambulatory Orders Medication Instructions Recorded Confirmed Aspirin [Adult Aspirin Regimen] 81 mg PO DAILY 10/08/17 09/05/21 Felodipine [Felodipine ER] 5 mg PO DAILY 10/08/17 09/05/21 Insulin Glargine [Lantus Solostar] 22 unit SUBQ QPM 10/08/17 09/05/21 Telmisartan [Micardis] 80 mg PO DAILY 10/08/17 09/05/21 Atorvastatin Calcium 40 mg PO QPM 10/10/19 09/05/21 Insulin Aspart [NovoLOG] 0 - 13 units SUBQ TIDWM PRN 10/10/19 09/05/21 Levothyroxine Sodium 75 mcg PO QDAC 10/10/19 09/05/21 Omeprazole 40 mg PO BID 10/10/19 09/05/21 Amitriptyline [Elavil] 10 mg PO HS PRN 09/05/21 09/05/21 Amox/Clav 875/125 [Augmentin] 1 each PO Q12H #20 tablet 09/05/21 Azithromycin [Zithromax] 250 mg PO DAILY #6 tablet 09/05/21 predniSONE [Deltasone] 30 mg PO DAILY 09/05/21 09/05/21 Cefdinir 300 mg PO BID #14 cap 09/07/21 HYDROcod/ACETAM 5/325 [[place] 5/325] 1 - 2 tablet PO Q6H PRN #14 tablet 05/25/22 - Allergies Allergies/Adverse Reactions: Allergies Allergy/AdvReac Type Severity Reaction Status Date / Time metformin Allergy Nausea Verified 05/25/22 19:45 propofol Allergy Anaphylaxis Verified 09/05/21 10:16 lisinopril AdvReac Respiratory Verified 09/05/21 10:16 Review of Systems - Constitutional Constitutional: reports: Fatigue, Weakness - Eyes Eyes: denies: Pain, Irritation - Ears, Nose & Throat Ears, Nose & Throat: reports: Hoarseness, Bleeding gums, Dental decay, Other (His saliva gets so thick that he has to scoop it out with a spoon. Speech is slurred because of surgery, partial tongue removal) - Cardiovascular Cariovascular: denies: Palpitations, Chest pain, Edema - Respiratory Respiratory: reports: Cough, Sputum production - Gastrointestinal Gastrointestinal: reports: Diarrhea (When he increased his tube feed levels. He tried to go back down and ambulate and work. Then he stopped the prune juice he was using. Stools are now formed.). denies: Abdominal pain, Abdominal disten tion, Nausea, Vomiting - Genitourinary Genitourinary: denies: Dysuria, Frequency, Urgency, Incontinence - Musculoskeletal Musculoskeletal: denies: Muscle pain, Back pain, Muscle aches, Stiffness - Integumentary Integumentary: denies: Rash, Pruritis, Lesions - Neurological Neurological: reports: General weakness, Slurred speech. denies: Headache, Dizziness, Memory problems, Pre-existing deficit - Psychiatric Psychiatric: denies: Depression, Anxiety, Suicidal - Endocrine Endocrine: denies: Polyuria, Polydypsia, Polyphagia - Hematologic/Lymphatic Hematologic/Lymphatic: denies: Anemia, Blood clots Prior Level of Functionality: Independent with activities of daily living. He is still able to dress himself, feed himself, drive a car. Exam - Vital Signs Reviewed Vital Signs: Yes Vital Signs: Vital Signs x48h Temp Pulse Resp BP Pulse Ox 07/08/23 16:18 90 15 128/96 H 96 07/08/23 16:12 95 16 140/106 H 97 07/08/23 12:38 36.6 C 96 22 91/64 95 - Physical Exam General Appearance: positive: No acute distress, Alert, Other (Short statured, slender black male who looks stated age) Eyes Bilateral: positive: PERRL, EOMI ENT: positive: Dry mucous membranes, Other (Saliva is thick and coating buccal mucosa, lips. Slurred speech because of tongue surgery as well as the saliva.) Neck: positive: No JVD. negative: Stiff neck Respiratory: positive: No respiratory distress. negative: Wheezes, Rales, Rhonchi Cardiovascular: positive: Regular rate & rhythm Peripheral Pulses: positive: 1+ Abdomen: positive: Non-tender, No organomegaly, Nml bowel sounds, No distention, Other (G/J-tube in place. Slight exudate at the insertion. But no infection) Skin: positive: Warm, Dry Extremities: positive: Full ROM, Pedal edema Neurologic/Psychiatric: positive: Oriented x3, CN's nml (2-12), Motor nml Conclusion/Plan - Problem List (1) Dehydration Conclusion/Plan: I think this patient got behind in free water. He does bolus feedings 4 times a day. And he is is not happy about the idea of going back to pump feedings because he feels like he is "tied to the pump all day long". He does 120 cc of water before each bolus and 120 cc of water after each bolus. Diarrhea prior to this did not help. That has resolved. Plan: Observation status A liter of D5 bolus followed by D5 125 cc an hour Resume his usual schedule for bolus feeding. Have nutrition services see him tomorrow and see if we can adjust his water to help this man. (2) Hypernatremia Conclusion/Plan: With hyperkalemia, hyperchloremia, and elevated BUN and creatinine. He also has an elevated calcium. Another marker of his dehydration is the concentrated calcium of 10.5. I am hoping that once he gets enough free water these numbers will respond. We will check lab levels in the next few hours. And check daily. (3) Acute kidney injury Conclusion/Plan: Due to dehydration. Patient is not on metformin. Monitor BMP daily (4) Jejunostomy tube in situ Conclusion/Plan: Tube appears to be working well for him. I do not plan on changing it out. Nursing reports that it is working well. - Lab Results Lab results reviewed: Yes Fish Bones: 07/08/23 13:00 07/08/23 18:09 Core Measures - Anticipated LOS I expect patient to be DC'd or transferred within 96 hours.: Yes - DVT/VTE - Prophylaxis VTE/DVT Prophylaxis med ordered at admit?: Yes
[2023-07-08] MEDS ORDERED: SODIUM CHLORIDE 0.45% 1,000 ML IV SCH (17:00)
[2023-07-08] MEDS ORDERED: DEXTROSE 5% 1,000 ML IV SCH (18:00)
[2023-07-08] MEDS: INSULIN LISPRO 300 UNIT/3 ML PEN SUBQ SCH ×2 (18:07→22:00)
[2023-07-08] MEDS: SODIUM CHLORIDE FLUSH 0.9% 10 ML SYRINGE IVP SCH (18:08)
[2023-07-08 18:47] LABS: CALCIUM 10.1 mg/dL (8.5-10.3); CREATININE 1.2 mg/dL (0.6-1.3); POTASSIUM 4.6 mmol/L (3.5-4.5)
[2023-07-08] MEDS: DEXTROSE 5% 1,000 ML IV SCH (20:30)
[2023-07-08] MEDS: INSULIN GLARGINE-YFGN 300 UNIT/3 ML PEN SUBQ SCH (22:01)
[2023-07-09] MEDS: SODIUM CHLORIDE FLUSH 0.9% 10 ML SYRINGE IVP SCH ×3 (01:00→15:54)
[2023-07-09] MEDS: DEXTROSE 5% 1,000 ML IV SCH ×4 (04:31→22:27)
[2023-07-09 05:27] LABS: BASOPHILS % (AUTO) 0.3 %; EOSINOPHILS % (AUTO) 0.1 %; HCT - HEMATOCRIT 53.2 % (42.0-52.0); HGB - HEMOGLOBIN 16.3 g/dL (14.0-18.0); LYMPHOCYTES % (AUTO) 10.4 %; MEAN CORPUSCULAR HEMOGLOBIN 33.1 pg (27.0-31.0); MEAN CORPUSCULAR HGB CONC 30.6 g/dL (32.0-36.0); MEAN CORPUSCULAR VOLUME 107.9 fL (80.0-94.0); MEAN PLATELET VOLUME 10.8 fL (7.4-11.4); MONOCYTES # (AUTO) 0.6 10^3/uL (0.0-1.0); NEUTROPHILS # (AUTO) 7.8 10^3/uL (1.5-6.6); PLT - PLATELET COUNT 188 10^3/uL (130-450); RED BLOOD COUNT 4.93 10^6/uL (4.70-6.10); RED CELL DISTRIBUTION WIDTH 11.9 % (12.0-15.0); WHITE BLOOD COUNT 9.4 x10^3/uL (4.8-10.8)
[2023-07-09 06:47] LABS: CALCIUM 9.6 mg/dL (8.5-10.3); POTASSIUM 4.6 mmol/L (3.5-4.5)
[2023-07-09] MEDS: INSULIN LISPRO 300 UNIT/3 ML PEN SUBQ SCH ×8 (08:30→22:17)
[2023-07-09 09:26] LABS: ESTIMATED AVERAGE GLUCOSE 180 mg/dL (70-100); HEMOGLOBIN A1c% 7.9 % (4.27-6.07)
[2023-07-09] MEDS: ENOXAPARIN 40 MG/0.4 ML SYRINGE SUBQ SCH (09:31)
[2023-07-09] MEDS ORDERED: INSULIN REGULAR HUMAN 300 UNIT/3 ML VIAL SUBQ ONE (12:06)
[2023-07-09 15:48] LABS: CALCIUM 10.1 mg/dL (8.5-10.3); CREATININE 0.8 mg/dL (0.6-1.3); POTASSIUM 4.4 mmol/L (3.5-4.5)
--- NOTE | 2023-07-09 16:39 | PHARMACY PROGRESS NOTE ---
- Best Possible Medication History Admit Date and Time: 07/08/23 1629 Processed by: Pharmacy Medication History completed: Yes Patient Interview: Completed Secondary Source(s): Pharmacy records, Insurance records As the person ultimately responsible for medication therapy, providers are able to order a medication from an existing home medication list in [facility] via the "Reconcile Routine" prior to Confirmation of that medication by coding support specialist. Such practice is discouraged except when the physician, in their clinical judgment, deems that a medical need exists for a medication without regard to previous use.
--- NOTE | 2023-07-09 16:46 | PROVIDER PROGRESS NOTE ---
Assessment/Plan - Problem List (1) Hypernatremia Assessment/Plan: He presented with sodium 155, and with hyperkalemia, hyperchloremia, and elevated BUN and creatinine, all suggesting volume depletion/dehydration. Another marker of his dehydration is the concentrated calcium of 10.5. His jejunostomy tube feed rate has increased recently from 100 cc/hr to 125 cc/hr, thus we suspected this was an excessive rate increase for him and that he was behind on his free water intake I am hoping that once he gets enough free water these numbers will respond. We are checking serum sodium frequently and the sodium aleks from 155 >> 148>> 153 this afternoon instead of decreased. All labs were reviewed. Plan: Cont to give D5W as his free water. He also gets water per J tube, cont that We are checking serum sodium frequently and today the sodium aleks instead of decreased, this the afternoon. Thus I will admit him from Observation to Inpt status, to further adjust his feeding rate and his free water input and his glucoses (2) Hyperglycemia due to DM Unfortunately, he needs to get D5W as his free water, which has caused severe glu elevation into the 300-400's. Thus we are needing to adjust his Insulin management. Plan: Increase "nutritional" Insulin, which for him is at 0900, 1600 and 2200, not the standard times during which people eat. Cont his Long acting Insulin Cont fingerstick checks, and ss Insulin, but gogo change POC glu checks to 0800, 1500, 2100 (before he gets J tube feeds) (3) Jejunostomy tube in situ Conclusion/Plan: Tube appears to be working well for him. I do not plan on changing it out. Nursing reports that it is working well. Plan: When the returned, we learned that he does take ice chips at home, so will order ice chips OK Cont with J tube feedings, which are at 110 cc/hr and administered at 0900, 1600, 2200. Cont with water per J tube as well (4) Prerenal azotemia Conclusion/Plan: Due to dehydration. Patient is not on metformin. Plan: Avoid nephrotoxins Monitor BMP daily (5) Hyperkalemia RESOLVED - Current Meds Current Meds: Current Medications Generic Name Dose Route Start Last Admin Trade Name Freq PRN Reason Stop Dose Admin Enoxaparin Sodium 40 mg 07/09/23 09:00 07/09/23 09:31 Enoxaparin 40 Mg/0.4 Ml Syringe SUBQ Not Given DAILY NISH Dextrose 1,000 mls @ 125 mls/hr 07/08/23 17:00 07/09/23 16:26 D5w IV 125 mls/hr .Q8H NISH Infusion Insulin Glargine-yfgn 22 unit 07/08/23 21:00 07/08/23 22:01 Insulin Glargine-Yfgn 300 Unit/3 Ml Pen SUBQ 22 unit QPM NISH Administration Insulin Human Lispro 5 unit 07/08/23 18:00 07/09/23 15:54 Insulin Lispro 300 Unit/3 Ml Pen SUBQ 5 unit TIDWM NISH Administration Protocol Sodium Chloride 10 ml 07/08/23 17:00 07/09/23 15:54 Sodium Chloride Flush 0.9% 10 Ml Syringe IVP 10 ml 0100,0900,1700 NISH Administration - Lab Result Fish Bone Diagrams: 07/09/23 05:12 07/10/23 08:14 - Additional Planning My Orders: My Active Orders 07/09/23 07:59 Daily Weight [RC] DAILY IO [RC] QSHIFT Tube Feeding [RC] QSHIFT 07/09/23 08:12 NPO [DIET] 07/09/23 15:21 VITAMIN D 25-HYDROXY [REFLAB] Routine 07/09/23 16:42 Admit [Admit \\ Transfer \\ Status] [RC] .ONCE 07/09/23 17:00 Insulin Lispro [Humalog Kwikpen U-100] 2 - 10 unit SUBQ 0900,1200,1600,2200 Additional Planning Notes: Attestation: The patient is expected to be hospitalized for greater than 2 midnights and is expected to be discharged or transferred to another facility within 96 hours: Yes Subjective - Subjective Patient Reports: Feeling Better (Less fatigued. However, he describes severely dry mouth and is asking for ice chips. When I asked him if he gets ice chips at home, he said he did not know, and not currently in his room at bedside for me to ask her.) Objective Vital Signs: Vital Signs - 24 hr 07/08/23 07/08/23 07/08/23 17:35 20:54 23:55 Temperature 36.9 C 37.4 C 36.7 C Heart Rate [ 106 H 89 90 Brachial] Respiratory 16 20 18 Rate Blood Pressure 107/69 113/73 [Left Brachial artery] Blood Pressure 132/86 H [Right Brachial artery] O2 Saturation 97 94 91 L If not protocol : Oxygen Flow, liters/minute 07/09/23 07/09/23 07/09/23 04:16 06:46 07:36 Temperature 37.2 C 37.3 C Heart Rate [ 91 86 Brachial] Respiratory 16 18 Rate Blood Pressure 121/80 137/88 H [Left Brachial artery] Blood Pressure [Right Brachial artery] O2 Saturation 90 L 94 92 If not protocol 1 1 : Oxygen Flow, liters/minute 07/09/23 07/09/23 08:09 12:34 Temperature 37.4 C Heart Rate [ 90 Brachial] Respiratory 20 Rate Blood Pressure 116/75 [Left Brachial artery] Blood Pressure [Right Brachial artery] O2 Saturation 93 If not protocol 1 1 : Oxygen Flow, liters/minute Oxygen O2 Source Nasal cannula I&O (Last 24 Hrs): Intake and Output Totals x24h 07/07/23 07/08/23 07/09/23 23:59 23:59 23:59 Intake Total 3277.5 2292.25 Output Total 500 2250 Balance 2777.5 42.25 General: Alert (Slightly lethargic), No acute distress, Other (Thin, elderly black male) HEENT: EOMI, Other (dry oral mucosa) Neck: Supple, No JVD Neuro: Alert, Other (Slightly lethargic. Speech is slurred) Cardiovascular: Regular rate, No murmurs Respiratory: No respiratory distress, Breath sounds nml Abdomen: Normal bowel sounds, Soft, No tenderness, Other (J tube in place) Extremities: No clubbing, No edema, No tenderness/swelling - Results Results: Laboratory Results WBC 9.4 x10^3/uL (4.8-10.8) 07/09/23 05:12 RBC 4.93 10^6/uL (4.70-6.10) 07/09/23 05:12 Hgb 16.3 g/dL (14.0-18.0) 07/09/23 05:12 Hct 53.2 % (42.0-52.0) H 07/09/23 05:12 MCV 107.9 fL (80.0-94.0) H 07/09/23 05:12 MCH 33.1 pg (27.0-31.0) H 07/09/23 05:12 MCHC 30.6 g/dL (32.0-36.0) L 07/09/23 05:12 RDW 11.9 % (12.0-15.0) L 07/09/23 05:12 Plt Count 188 10^3/uL (130-450) 07/09/23 05:12 MPV 10.8 fL (7.4-11.4) 07/09/23 05:12 Neut # (Auto) 7.8 10^3/uL (1.5-6.6) H 07/09/23 05:12 Lymph # (Auto) 1.0 10^3/uL (1.5-3.5) L 07/09/23 05:12 [place] # (Auto) 0.6 10^3/uL (0.0-1.0) 07/09/23 05:12 Eos # (Auto) 0.0 10^3/uL (0.0-0.7) 07/09/23 05:12 Baso # (Auto) 0.0 10^3/uL (0.0-0.1) 07/09/23 05:12 Absolute Nucleated RBC 0.00 x10^3/uL 07/09/23 05:12 Nucleated RBC % 0.0 /100WBC 07/09/23 05:12 Sodium 153 mmol/L (135-145) H 07/09/23 15:21 Potassium 4.4 mmol/L (3.5-4.5) 07/09/23 15:21 Chloride 116 mmol/L (101-111) H 07/09/23 15:21 Carbon Dioxide 33 mmol/L (21-32) H 07/09/23 15:21 Anion Gap 4.0 (6-13) L 07/09/23 15:21 BUN 37 mg/dL (6-20) H 07/09/23 15:21 Creatinine 0.8 mg/dL (0.6-1.3) 07/09/23 15:21 Estimated GFR (MDRD) 117 (>89) 07/09/23 15:21 Glucose 211 mg/dL (74-104) H 07/09/23 15:21 POC Whole Bld Glucose 320 mg/dL (70 - 100) H 07/09/23 15:24 Estimat Average Glucose 180 mg/dL (70-100) H 07/09/23 05:12 Hemoglobin A1c % 7.9 % (4.27-6.07) H 07/09/23 05:12 Calcium 10.1 mg/dL (8.5-10.3) 07/09/23 15:21 Total Bilirubin 0.5 mg/dL (0.2-1.0) 07/08/23 13:26 AST 17 IU/L (10-42) 07/08/23 13:26 ALT 24 IU/L (10-60) 07/08/23 13:26 Alkaline Phosphatase 91 IU/L (42-121) 07/08/23 13:26 Troponin I High Sens 5.6 ng/L (2.3-19.7) 07/08/23 13:26 Total Protein 8.0 g/dL (6.4-8.9) 07/08/23 13:26 Albumin 4.3 g/dL (3.2-5.5) 07/08/23 13:26 Globulin 3.7 g/dL (2.1-4.2) 07/08/23 13:26 Albumin/Globulin Ratio 1.2 (1.0-2.2) 07/08/23 13:26 Prealbumin 22 mg/dL (17-34) 07/09/23 05:12 Lipase < 10 U/L (11-82) L 07/08/23 13:26 Vitamin B12 1050 pg/mL (180-914) H 07/09/23 05:12 Folate 26.8 ng/mL (5.90 - >24.8) 07/09/23 05:12 TSH 2.70 uIU/mL (0.34-5.60) 07/08/23 13:26 Free T4 Direct 0.78 ng/dL (0.58-1.64) 07/08/23 13:26 Urine Color YELLOW 07/08/23 16:30 Urine Clarity CLEAR (CLEAR) 07/08/23 16:30 Urine pH 5.5 PH (5.0-7.5) 07/08/23 16:30 Ur Specific [place] 1.010 (1.002-1.030) 07/08/23 16:30 Urine Protein NEGATIVE mg/dL (NEGATIVE) 07/08/23 16:30 Urine Glucose (UA) >=1000 mg/dL (NEGATIVE) H 07/08/23 16:30 Urine Ketones NEGATIVE mg/dL (NEGATIVE) 07/08/23 16:30 Urine Occult Blood NEGATIVE (NEGATIVE) 07/08/23 16:30 Urine Nitrite NEGATIVE (NEGATIVE) 07/08/23 16:30 Urine Bilirubin NEGATIVE (NEGATIVE) 07/08/23 16:30 Urine Urobilinogen 0.2 (NORMAL) E.U./dL (NORMAL) 07/08/23 16:30 Ur Leukocyte Esterase NEGATIVE (NEGATIVE) 07/08/23 16:30 Ur Microscopic Review NOT INDICATED 07/08/23 16:30 Urine Culture Comments NOT INDICATED 07/08/23 16:30 Nasal Adenovirus (PCR) NOT DETECTED 07/08/23 12:54 Nasal B. parapertussis DNA (PCR) NOT DETECTED 07/08/23 12:54 Nasal Coronavir 229E PCR NOT DETECTED 07/08/23 12:54 Nasal Coronavir HKU1 PCR NOT DETECTED 07/08/23 12:54 Nasal Coronavir NL63 PCR NOT DETECTED 07/08/23 12:54 Nasal Coronavir OC43 PCR NOT DETECTED 07/08/23 12:54 Nasal Enterovir/Rhinovir PCR NOT DETECTED 07/08/23 12:54 Nasal Influenza B PCR NOT DETECTED 07/08/23 12:54 Nasal Influenza A PCR NOT DETECTED 07/08/23 12:54 Nasal Parainfluen 1 PCR NOT DETECTED 07/08/23 12:54 Nasal Parainfluen 2 PCR NOT DETECTED 07/08/23 12:54 Nasal Parainfluen 3 PCR NOT DETECTED 07/08/23 12:54 Nasal Parainfluen 4 PCR NOT DETECTED 07/08/23 12:54 Nasal RSV (PCR) NOT DETECTED 07/08/23 12:54 Nasal B.pertussis DNA PCR NOT DETECTED 07/08/23 12:54 Nasal C.pneumoniae (PCR) NOT DETECTED 07/08/23 12:54 Navjot Human Metapneumo PCR NOT DETECTED 07/08/23 12:54 Nasal M.pneumoniae (PCR) NOT DETECTED 07/08/23 12:54 Nasal SARS-CoV-2 (PCR) NOT DETECTED 07/08/23 12:54 Serum Ketones NEGATIVE (NEGATIVE) 07/08/23 13:26 - Procedures Procedures: Procedures EXCISION OF RECTUM, ENDO, DIAGN (10/09/17)
[2023-07-09] MEDS ORDERED: INSULIN LISPRO 300 UNIT/3 ML PEN SUBQ SCH ×2 (17:00)
[2023-07-09] MEDS: INSULIN GLARGINE-YFGN 300 UNIT/3 ML PEN SUBQ SCH (22:17)
[2023-07-10] MEDS: SODIUM CHLORIDE FLUSH 0.9% 10 ML SYRINGE IVP SCH ×3 (00:34→16:24)
[2023-07-10] MEDS: DEXTROSE 5% 1,000 ML IV SCH ×2 (06:15→16:32)
[2023-07-10] MEDS: INSULIN LISPRO 300 UNIT/3 ML PEN SUBQ SCH ×6 (08:26→21:52)
[2023-07-10] MEDS: ENOXAPARIN 40 MG/0.4 ML SYRINGE SUBQ SCH (08:27)
[2023-07-10 08:30] LABS: CALCIUM 9.5 mg/dL (8.5-10.3); CREATININE 0.9 mg/dL (0.6-1.3); MAGNESIUM 2.2 mg/dL (1.7-2.3); PHOSPHORUS 2.7 mg/dL (2.5-5.0); POTASSIUM 4.4 mmol/L (3.5-4.5)
[2023-07-10] MEDS ORDERED: INSULIN GLARGINE-YFGN 300 UNIT/3 ML PEN SUBQ ONE (11:45)
[2023-07-10] MEDS: INSULIN GLARGINE-YFGN 300 UNIT/3 ML PEN SUBQ SCH (21:11)
[2023-07-10] MEDS ORDERED: INSULIN LISPRO 300 UNIT/3 ML PEN SUBQ SCH (22:00)
[2023-07-10] MEDS: ACETAMINOPHEN 325 MG TABLET PO PRN (22:54)
[2023-07-11] MEDS: SODIUM CHLORIDE FLUSH 0.9% 10 ML SYRINGE IVP SCH ×3 (00:12→15:33)
[2023-07-11 07:47] LABS: CALCIUM 9.5 mg/dL (8.5-10.3); POTASSIUM 4.5 mmol/L (3.5-4.5)
[2023-07-11] MEDS ORDERED: INSULIN GLARGINE-YFGN 300 UNIT/3 ML PEN SUBQ SCH (09:00)
[2023-07-11] MEDS: ENOXAPARIN 40 MG/0.4 ML SYRINGE SUBQ SCH (09:26)
[2023-07-11] MEDS: INSULIN LISPRO 300 UNIT/3 ML PEN SUBQ SCH ×6 (09:26→21:53)
[2023-07-11] MEDS: ACETAMINOPHEN 325 MG TABLET PO PRN (09:30)
[2023-07-11] MEDS: DEXTROSE 5% 1,000 ML IV SCH (10:01)
[2023-07-11 11:11] LABS: HGB - HEMOGLOBIN 15.6 g/dL (14.0-18.0); MEAN CORPUSCULAR VOLUME 105.2 fL (80.0-94.0); RED CELL DISTRIBUTION WIDTH 11.4 % (12.0-15.0)
--- NOTE | 2023-07-11 11:15 | PROVIDER PROGRESS NOTE ---
Assessment/Plan - Problem List (1) Fever Assessment/Plan: The patient spiked a fever to 38.1C last night at 2345. It does not appear that the telemedicine night doctor was contacted because I see no cultures ordered. This morning he is febrile at 39 C. and is hypoxic Plan: We will obtain a chest x-ray, urinalysis, blood cultures I suspect his source may be pulmonary given the fact that he is desaturating today and has a risk of aspiration from having a J-tube After blood cultures are drawn we will start empiric treatment with Cefepime and Vanco Follow WBC and CRP daily (2) Acute respiratory failure with hypoxia Last night RT put the patient on 2 L O2 supplemental. This morning RT has placed the patient on 12 L O2 supplemental Plan: Obtain chest x-ray>>> LLL infiltrate and smal R lower mass ( and pt said that R lower finding is old) Decrease IV fluid rate Obtain BNP We will also obtain an EKG and stat troponin>> I interpreted the EKG: Normal sinus rhythm, rate 99, early repolarization. Similar to EKG from 07/08/2023, and normal EKG (3) Pneumonia This could be a community-acquired pneumonia that has now "blossomed" after being rehydrated, since he presented dehydrated This could be aspiration pneumonia however it is not the typical location in the left lower lobe for aspiration This could be a "healthcare associated pneumonia" since he has been hospitalized for 3 days Plan: Obtain blood culture and sputum culture from a sputum We will start empiric coverage with IV cefepime and IV Vanco (for HCAP), discussed with Sisi in pharmacy I update the pt and at bedside today (4) Jejunostomy tube in situ Conclusion/Plan: Tube appears to be working well for him. I do not plan on changing it out. Nursing reports that it is working well. He does take ice chips at home, so I ordered ice chips OK Plan: Cont with J tube feedings, which are at 110 cc/hr and administered at 0900, 1600, 2200. Cont with water per J tube as well, I scheduled the amount and rate (5) Hyperglycemia due to DM Unfortunately, he needs to get D5W as his free water, which has caused severe glu elevation into the 300-400's. Thus we are needing to adjust his Insulin management. Plan: Increase "nutritional" Insulin, which for him is at 0900, 1600 and 2200, not the standard times during which people eat. Cont his Long acting Insulin and make it BID Cont fingerstick checks, and ss Insulin, but gogo change POC glu checks to 0800, 1500, 2100 (before he gets J tube feeds) (6) Hypernatremia Assessment/Plan: RESOLVED He presented with sodium 155, and with hyperkalemia, hyperchloremia, and trevin vated BUN and creatinine, all suggesting volume depletion/dehydration. Another marker of his dehydration is the concentrated calcium of 10.5. His jejunostomy tube feed rate has increased recently from 100 cc/hr to 125 cc/hr, thus we suspected this was an excessive rate increase for him and that he was behind on his free water intake He is getting D5W and water per J tube We are checking serum sodium frequently and the sodium was slow to decrease. All labs were reviewed. Plan: Cont to give D5W as his free water. He also gets water per J tube, cont that We are checking serum sodium frequently and today the sodium aleks instead of decreased, this the afternoon. Thus I will admit him from Observation to Inpt status, to further adjust his feeding rate and his free water input and his glucoses (7) Prerenal azotemia Conclusion/Plan: Due to dehydration. Patient is not on metformin. BUN/creat are minimally improving, all labs were reviewed. 40/0/9>> 39/1.0 Plan: Avoid nephrotoxins Monitor BMP daily (8) Hyperkalemia RESOLVED - Current Meds Current Meds: Current Medications Generic Name Dose Route Start Last Admin Trade Name Freq PRN Reason Stop Dose Admin Enoxaparin Sodium 40 mg 07/09/23 09:00 07/11/23 09:26 Enoxaparin 40 Mg/0.4 Ml Syringe SUBQ 40 mg DAILY NISH Administration Dextrose 1,000 mls @ 60 mls/hr 07/10/23 11:53 07/11/23 10:01 D5w IV 60 mls/hr .[id number] NISH Administration Insulin Glargine-yfgn 22 unit 07/08/23 21:00 07/10/23 21:11 Insulin Glargine-Yfgn 300 Unit/3 Ml Pen SUBQ 22 unit QPM NISH Administration Insulin Glargine-yfgn 10 unit 07/11/23 09:00 07/11/23 09:27 Insulin Glargine-Yfgn 300 Unit/3 Ml Pen SUBQ 10 unit 0900 NISH Administration Insulin Human Lispro 3 - 11 unit 07/09/23 22:00 07/11/23 09:26 Insulin Lispro 300 Unit/3 Ml Pen SUBQ 7 unit 0800,1200,1700,2100 NISH Administration Protocol Insulin Human Lispro 5 unit 07/11/23 09:00 07/11/23 09:27 Insulin Lispro 300 Unit/3 Ml Pen SUBQ 5 unit 0900 NISH Administration Insulin Human Lispro 7 unit 07/10/23 16:00 07/10/23 16:33 Insulin Lispro 300 Unit/3 Ml Pen SUBQ 7 unit 1600 NISH Administration Insulin Human Lispro 10 unit 07/10/23 22:00 07/10/23 21:12 Insulin Lispro 300 Unit/3 Ml Pen SUBQ 10 unit 2200 NISH Administration Sodium Chloride 10 ml 07/08/23 17:00 07/11/23 09:28 Sodium Chloride Flush 0.9% 10 Ml Syringe IVP 10 ml 0100,0900,1700 NISH Administration - Lab Result Fish Bone Diagrams: 07/12/23 05:04 07/12/23 05:04 - EKG Results EKG Interpreted Independently: Yes EKG Comparison: Unchanged from prior EKG EKG Findings: Normal sinus rhythm, rate 99, early repolarization. Similar to EKG from 07/08/2023, and normal EKG - Additional Planning My Orders: My Active Orders 07/10/23 11:53 Dextrose 5% [D5w] 1,000 ml IV 60 mls/hr 07/10/23 16:00 Insulin Lispro [Humalog Kwikpen U-100] 7 unit SUBQ 1600 07/10/23 22:00 Insulin Lispro [Humalog Kwikpen U-100] 10 unit SUBQ 2200 07/11/23 CBC - COMP BLD CT W/AUTO DIFF [HEME] Stat CRP - C-REACTIVE PROTEIN [CHEM] Stat CUL, URINE [RM] Stat CULTURE, BLOOD #1 [RM] Stat CULTURE, BLOOD #2 [RM] Stat 07/11/23 09:00 Insulin Glargine-Yfgn [Semglee] 10 unit SUBQ 0900 Insulin Lispro [Humalog Kwikpen U-100] 5 unit SUBQ 0900 07/11/23 10:41 Acetaminophen [Tylenol] 640 mg JT Q4HR PRN 07/11/23 11:03 Chest 1 View X-Ray [XR] Stat 07/12/23 05:00 BMP - BASIC METABOLIC PANEL [CHEM] DAILYLAB CALCIUM [CHEM] DAILYLAB CBC - COMP BLD CT W/AUTO DIFF [HEME] DAILYLAB MAGNESIUM [CHEM] DAILYLAB PHOSPHORUS [CHEM] DAILYLAB Subjective - Subjective Patient Reports: Shortness of Breath (Needed suppl O2 since last night) Objective Vital Signs: Vital Signs - 24 hr 07/10/23 07/10/23 07/10/23 15:47 22:51 23:10 Temperature 37.4 C 38.1 C H Heart Rate [ 95 105 H Brachial] Respiratory 20 24 Rate Blood Pressure 103/68 96/61 [Left Brachial artery] O2 Saturation 93 93 If not protocol 2 2 2 : Oxygen Flow, liters/minute 07/10/23 23:53 Temperature 37.4 C Heart Rate [ Brachial] Respiratory Rate Blood Pressure [Left Brachial artery] O2 Saturation If not protocol : Oxygen Flow, liters/minute Oxygen O2 Source Nasal cannula I&O (Last 24 Hrs): Intake and Output Totals x24h 07/09/23 07/10/23 07/11/23 23:59 23:59 23:59 Intake Total 4724.333 4300 1595 Output Total 3050 2770 750 Balance 6899.993 4380 845 General: Alert, Oriented x3 HEENT: EOMI, Mucous membr. moist/pink, Other (has on O2 suppl per [facility].) Neck: Supple, No JVD Neuro: Alert, Non Focal, Other (slurred speech) Cardiovascular: Regular rate, No murmurs Respiratory: No respiratory distress (while on O2), Rales (L base) Abdomen: Normal bowel sounds, Soft, No tenderness Extremities: No clubbing, No edema, No tenderness/swelling - Results Results: Laboratory Results WBC 9.4 x10^3/uL (4.8-10.8) 07/09/23 05:12 RBC 4.93 10^6/uL (4.70-6.10) 07/09/23 05:12 Hgb 16.3 g/dL (14.0-18.0) 07/09/23 05:12 Hct 53.2 % (42.0-52.0) H 07/09/23 05:12 MCV 107.9 fL (80.0-94.0) H 07/09/23 05:12 MCH 33.1 pg (27.0-31.0) H 07/09/23 05:12 MCHC 30.6 g/dL (32.0-36.0) L 07/09/23 05:12 RDW 11.9 % (12.0-15.0) L 07/09/23 05:12 Plt Count 188 10^3/uL (130-450) 07/09/23 05:12 MPV 10.8 fL (7.4-11.4) 07/09/23 05:12 Neut # (Auto) 7.8 10^3/uL (1.5-6.6) H 07/09/23 05:12 Lymph # (Auto) 1.0 10^3/uL (1.5-3.5) L 07/09/23 05:12 [place] # (Auto) 0.6 10^3/uL (0.0-1.0) 07/09/23 05:12 Eos # (Auto) 0.0 10^3/uL (0.0-0.7) 07/09/23 05:12 Baso # (Auto) 0.0 10^3/uL (0.0-0.1) 07/09/23 05:12 Absolute Nucleated RBC 0.00 x10^3/uL 07/09/23 05:12 Nucleated RBC % 0.0 /100WBC 07/09/23 05:12 Sodium 144 mmol/L (135-145) 07/11/23 07:30 Potassium 4.5 mmol/L (3.5-4.5) 07/11/23 07:30 Chloride 108 mmol/L (101-111) 07/11/23 07:30 Carbon Dioxide 34 mmol/L (21-32) H 07/11/23 07:30 Anion Gap 2.0 (6-13) L 07/11/23 07:30 BUN 39 mg/dL (6-20) H 07/11/23 07:30 Creatinine 1.0 mg/dL (0.6-1.3) 07/11/23 07:30 Estimated GFR (MDRD) 91 (>89) 07/11/23 07:30 Glucose 328 mg/dL (74-104) H 07/11/23 07:30 POC Whole Bld Glucose 270 mg/dL (70 - 100) H 07/11/23 08:30 Estimat Average Glucose 180 mg/dL (70-100) H 07/09/23 05:12 Hemoglobin A1c % 7.9 % (4.27-6.07) H 07/09/23 05:12 Calcium 9.5 mg/dL (8.5-10.3) 07/11/23 07:30 Phosphorus 2.7 mg/dL (2.5-5.0) 07/10/23 08:14 Magnesium 2.2 mg/dL (1.7-2.3) 07/10/23 08:14 Total Bilirubin 0.5 mg/dL (0.2-1.0) 07/08/23 13:26 AST 17 IU/L (10-42) 07/08/23 13:26 ALT 24 IU/L (10-60) 07/08/23 13:26 Alkaline Phosphatase 91 IU/L (42-121) 07/08/23 13:26 Troponin I High Sens 5.6 ng/L (2.3-19.7) 07/08/23 13:26 Total Protein 8.0 g/dL (6.4-8.9) 07/08/23 13:26 Albumin 4.3 g/dL (3.2-5.5) 07/08/23 13:26 Globulin 3.7 g/dL (2.1-4.2) 07/08/23 13:26 Albumin/Globulin Ratio 1.2 (1.0-2.2) 07/08/23 13:26 Prealbumin 22 mg/dL (17-34) 07/09/23 05:12 Lipase < 10 U/L (11-82) L 07/08/23 13:26 Vitamin B12 1050 pg/mL (180-914) H 07/09/23 05:12 Vitamin D 25-Hydroxy 37.4 ng/mL (30.0-100.0) 07/09/23 15:21 Folate 26.8 ng/mL (5.90 - >24.8) 07/09/23 05:12 TSH 2.70 uIU/mL (0.34-5.60) 07/08/23 13:26 Free T4 Direct 0.78 ng/dL (0.58-1.64) 07/08/23 13:26 Urine Color YELLOW 07/08/23 16:30 Urine Clarity CLEAR (CLEAR) 07/08/23 16:30 Urine pH 5.5 PH (5.0-7.5) 07/08/23 16:30 Ur Specific [place] 1.010 (1.002-1.030) 07/08/23 16:30 Urine Protein NEGATIVE mg/dL (NEGATIVE) 07/08/23 16:30 Urine Glucose (UA) >=1000 mg/dL (NEGATIVE) H 07/08/23 16:30 Urine Ketones NEGATIVE mg/dL (NEGATIVE) 07/08/23 16:30 Urine Occult Blood NEGATIVE (NEGATIVE) 07/08/23 16:30 Urine Nitrite NEGATIVE (NEGATIVE) 07/08/23 16:30 Urine Bilirubin NEGATIVE (NEGATIVE) 07/08/23 16:30 Urine Urobilinogen 0.2 (NORMAL) E.U./dL (NORMAL) 07/08/23 16:30 Ur Leukocyte Esterase NEGATIVE (NEGATIVE) 07/08/23 16:30 Ur Microscopic Review NOT INDICATED 07/08/23 16:30 Urine Culture Comments NOT INDICATED 07/08/23 16:30 Nasal Adenovirus (PCR) NOT DETECTED 07/08/23 12:54 Nasal B. parapertussis DNA (PCR) NOT DETECTED 07/08/23 12:54 Nasal Coronavir 229E PCR NOT DETECTED 07/08/23 12:54 Nasal Coronavir HKU1 PCR NOT DETECTED 07/08/23 12:54 Nasal Coronavir NL63 PCR NOT DETECTED 07/08/23 12:54 Nasal Coronavir OC43 PCR NOT DETECTED 07/08/23 12:54 Nasal Enterovir/Rhinovir PCR NOT DETECTED 07/08/23 12:54 Nasal Influenza B PCR NOT DETECTED 07/08/23 12:54 Nasal Influenza A PCR NOT DETECTED 07/08/23 12:54 Nasal Parainfluen 1 PCR NOT DETECTED 07/08/23 12:54 Nasal Parainfluen 2 PCR NOT DETECTED 07/08/23 12:54 Nasal Parainfluen 3 PCR NOT DETECTED 07/08/23 12:54 Nasal Parainfluen 4 PCR NOT DETECTED 07/08/23 12:54 Nasal RSV (PCR) NOT DETECTED 07/08/23 12:54 Nasal B.pertussis DNA PCR NOT DETECTED 07/08/23 12:54 Nasal C.pneumoniae (PCR) NOT DETECTED 07/08/23 12:54 Navjot Human Metapneumo PCR NOT DETECTED 07/08/23 12:54 Nasal M.pneumoniae (PCR) NOT DETECTED 07/08/23 12:54 Nasal SARS-CoV-2 (PCR) NOT DETECTED 07/08/23 12:54 Serum Ketones NEGATIVE (NEGATIVE) 07/08/23 13:26 - Procedures Procedures: Procedures EXCISION OF RECTUM, ENDO, DIAGN (10/09/17)
[2023-07-11 11:17] LABS: BASOPHILS % (AUTO) 0.5 %; EOSINOPHILS % (AUTO) 0.4 %; HCT - HEMATOCRIT 50.3 % (42.0-52.0); LYMPHOCYTES % (AUTO) 12.1 %; MEAN CORPUSCULAR HEMOGLOBIN 32.6 pg (27.0-31.0); MEAN PLATELET VOLUME 11.7 fL (7.4-11.4); MONOCYTES % (AUTO) 6.4 %; NEUTROPHILS % (AUTO) 80.2 %; PLT - PLATELET COUNT 164 10^3/uL (130-450); RED BLOOD COUNT 4.78 10^6/uL (4.70-6.10); WHITE BLOOD COUNT 8.3 x10^3/uL (4.8-10.8)
[2023-07-11 11:26] LABS: ABNORMAL LYMPHS % (MANUAL) 0 %
--- NOTE | 2023-07-11 11:31 | XRAY Report ---
PROCEDURE: Chest 1 View X-Ray INDICATIONS: Fever, desaturating, chronic J-tube feeds TECHNIQUE: One view of the chest was acquired. COMPARISON: 07/08/2023. FINDINGS: Surgical changes and devices: Airspace opacities are noted in left lower lung field with blunting of left costophrenic angle. There is also subtle airspace opacity scattered throughout right upper, mid and lower lung osborn. No gross pneumothorax. Lungs and pleura: No pleural effusions or pneumothorax. Lungs are clear. Mediastinum: Mediastinal contours appear normal. Heart size is normal. Bones and chest wall: No suspicious bony lesions. Overlying soft tissues appear unremarkable. IMPRESSION: Interval significant worsening of bilateral lung aeration with moderate to large left lower lobe infi ltrate and scattered smaller right pulmonary infiltrates. No pneumothorax. Small left pleural effusio n is likely present. Reviewed by: Richard Starr MD on 07/11/2023 11:29 AM PDT Approved by: Richard Starr MD on 07/11/2023 11:29 AM PDT Station ID: [id number]
[2023-07-11 11:55] LABS: BAND NEUTROPHILS % (MANUAL) 54 %; LYMPHOCYTES # (MANUAL) 0.7 10^3/uL (1.5-3.5); LYMPHOCYTES % (MANUAL) 9 %; MONOCYTES # (MANUAL) 0.8 10^3/uL (0.0-1.0); NEUTROPHILS # (MANUAL) 6.7 10^3/uL (1.5-6.6)
[2023-07-11 12:01] LABS: WBC MORPHOLOGY (MULTIPLE) 1+ VACUOLATION (NORMAL)
[2023-07-11 12:02] LABS: DIFFERENTIAL COMMENT MANUAL DIFFERENTIAL
[2023-07-11] MEDS ORDERED: CEFEPIME 1 GM in SODIUM CHLORIDE 0.9% MINIBAG 100 ML IV SCH (14:00)
[2023-07-11] MEDS ORDERED: VANCOMYCIN INJ 1.75 GM in SODIUM CHLORIDE 0.9% 500 ML IV ONE (14:00)
[2023-07-11] MEDS: CEFEPIME 1 GM in SODIUM CHLORIDE 0.9% MINIBAG 100 ML IV SCH (16:31)
[2023-07-11] MEDS: ACETAMINOPHEN 160 MG/5 ML SUSP UDC JT PRN (17:17)
[2023-07-11] MEDS: INSULIN GLARGINE-YFGN 300 UNIT/3 ML PEN SUBQ SCH (21:52)
[2023-07-11] MEDS ORDERED: INSULIN LISPRO 300 UNIT/3 ML PEN SUBQ SCH (22:00)
[2023-07-12] MEDS: ACETAMINOPHEN 160 MG/5 ML SUSP UDC JT PRN (00:05)
[2023-07-12] MEDS: SODIUM CHLORIDE FLUSH 0.9% 10 ML SYRINGE IVP SCH ×3 (00:14→15:58)
[2023-07-12] MEDS: CEFEPIME 1 GM in SODIUM CHLORIDE 0.9% MINIBAG 100 ML IV SCH ×3 (00:52→15:58)
[2023-07-12] MEDS: VANCOMYCIN INJ 1 GM, VANCOMYCIN INJ 250 MG in SODIUM CHLORIDE 0.9% 250 ML IV SCH ×2 (02:03→13:50)
[2023-07-12 05:34] LABS: BASOPHILS % (AUTO) 0.9 %; EOSINOPHILS % (AUTO) 0.6 %; HCT - HEMATOCRIT 45.4 % (42.0-52.0); HGB - HEMOGLOBIN 14.4 g/dL (14.0-18.0); LYMPHOCYTES % (AUTO) 9.9 %; MEAN CORPUSCULAR HEMOGLOBIN 33.7 pg (27.0-31.0); MEAN CORPUSCULAR HGB CONC 31.7 g/dL (32.0-36.0); MEAN CORPUSCULAR VOLUME 106.3 fL (80.0-94.0); MEAN PLATELET VOLUME 11.5 fL (7.4-11.4); MONOCYTES % (AUTO) 5.1 %; NEUTROPHILS % (AUTO) 83.2 %; PLT - PLATELET COUNT 146 10^3/uL (130-450); RED BLOOD COUNT 4.27 10^6/uL (4.70-6.10); RED CELL DISTRIBUTION WIDTH 11.8 % (12.0-15.0); WHITE BLOOD COUNT 7.9 x10^3/uL (4.8-10.8)
[2023-07-12 05:41] LABS: ABNORMAL LYMPHS % (MANUAL) 0 %
[2023-07-12 06:26] LABS: BAND NEUTROPHILS % (MANUAL) 31 %; DIFFERENTIAL COMMENT MANUAL DIFFERENTIAL; LYMPHOCYTES # (MANUAL) 0.9 10^3/uL (1.5-3.5); LYMPHOCYTES % (MANUAL) 12 %; METAMYELOCYTES % (MANUAL) 1 %; MONOCYTES # (MANUAL) 0.2 10^3/uL (0.0-1.0); MYELOCYTES % (MANUAL) 1 %; NEUTROPHILS # (MANUAL) 6.6 10^3/uL (1.5-6.6); PLATELET ESTIMATE, MANUAL NORMAL (130-450,000) (NORMAL); RBC MORPHOLOGY (MULTIPLE) NORMAL APPEARANCE (NORMAL)
[2023-07-12 06:39] LABS: CALCIUM 9.4 mg/dL (8.5-10.3); CREATININE 0.9 mg/dL (0.6-1.3); MAGNESIUM 2.2 mg/dL (1.7-2.3); PHOSPHORUS 2.2 mg/dL (2.5-5.0); POTASSIUM 4.8 mmol/L (3.5-4.5)
--- NOTE | 2023-07-12 07:23 | PROVIDER PROGRESS NOTE ---
Assessment/Plan - Problem List (1) Hypernatremia Assessment/Plan: He presented with hypernatremia and with hyperkalemia, hyperchloremia, and elevated BUN and creatinine. He also has an elevated calcium, another marker of his dehydration was the concentrated calcium of 10.5. His "boluses" of jejunostomy feeds have been decreased from 125 cc an hour to 110 cc an hour (at home it was increased from 100 cc an hour to 125 cc an hour, which was increased recently). He is on D5W and is also getting boluses of water per jejunostomy tube. We are following his serum sodium every 8-12 hours to adjust his treatment. All labs were reviewed. Today Na went from 153 to only 147 I yesterday admitted him from Observation status to Inpatient status Plan: His serum sodium is not improving, he is not yet ready for discharge. Continue with giving free water (D%W and water per J tube), and the slower feed rate, to help treat the hypernatremia I updated the patient and the at bedside regarding this plan and they are in agreement. (2) Hyperglycemia due to DM Conclusion/Plan: Since we are using D5W for free water treatment for his hypernatremia, his glucoses are in the 300s to 400s. Plan: We will decrease D5W rate We will increase his scheduled long-acting insulin Continue to use sliding scale insulin coverage, fingerstick checks and will make these at 0800, 1500, 2100 (before his jejunostomy feeds which are 1 hour after that) (3) Jejunostomy tube in situ Conclusion/Plan: Tube appears to be working well for him. I do not plan on changing it out. Nursing reports that it is working well. (4) Prerenal azotemia Conclusion/Plan: Due to dehydration. Patient is not on metformin. Monitor BMP daily (5) Hyperkalemia Conclusion/Plan: RESOLVED with Insulin dosing and NS fluids - Current Meds Current Meds: Current Medications Generic Name Dose Route Start Last Admin Trade Name Freq PRN Reason Stop Dose Admin Acetaminophen 640 mg 07/11/23 10:41 07/12/23 00:05 Acetaminophen 160 Mg/5 Ml Susp Udc JT 640 mg Q4HR PRN Administration Pain 1 to 4, or Fever Enoxaparin Sodium 40 mg 07/09/23 09:00 07/11/23 09:26 Enoxaparin 40 Mg/0.4 Ml Syringe SUBQ 40 mg DAILY NISH Administration Dextrose 1,000 mls @ 60 mls/hr 07/10/23 11:53 07/12/23 03:39 D5w IV 60 mls/hr .[id number] NISH Infusion Vancomycin HCl 1 gm/ 250 mls @ 166.667 mls/hr 07/12/23 02:00 07/12/23 03:39 Vancomycin HCl 250 mg/ Sodium IV Infused Chloride Q12H NISH Infusion Cefepime HCl 1 gm/ Sodium 100 mls @ 200 mls/hr 07/11/23 17:00 07/12/23 01:23 Chloride IV Infused Q8H NISH Infusion Insulin Glargine-yfgn 22 unit 07/08/23 21:00 07/11/23 21:52 Insulin Glargine-Yfgn 300 Unit/3 Ml Pen SUBQ 22 unit QPM NISH Administration Insulin Human Lispro 3 - 11 unit 07/09/23 22:00 07/11/23 21:53 Insulin Lispro 300 Unit/3 Ml Pen SUBQ 11 unit 0800,1200,1700,2100 NISH Administration Protocol Insulin Human Lispro 5 unit 07/11/23 09:00 07/11/23 09:27 Insulin Lispro 300 Unit/3 Ml Pen SUBQ 5 unit 0900 NISH Administration Insulin Human Lispro 7 unit 07/10/23 16:00 07/11/23 16:10 Insulin Lispro 300 Unit/3 Ml Pen SUBQ 7 unit 1600 NISH Administration Insulin Human Lispro 12 unit 07/11/23 22:00 07/11/23 21:53 Insulin Lispro 300 Unit/3 Ml Pen SUBQ 12 unit 2200 NISH Administration Sodium Chloride 10 ml 07/08/23 17:00 07/12/23 00:14 Sodium Chloride Flush 0.9% 10 Ml Syringe IVP Not Given 0100,0900,1700 [facility] - Lab Result Fish Bone Diagrams: 07/12/23 05:04 07/12/23 05:04 - Additional Planning My Orders: My Active Orders 07/11/23 09:00 Insulin Lispro [Humalog Kwikpen U-100] 5 unit SUBQ 0900 07/11/23 10:41 Acetaminophen [Tylenol] 640 mg JT Q4HR PRN 07/11/23 11:22 CULTURE, BLOOD #1 [RM] Stat 07/11/23 11:24 CUL, URINE [RM] Stat CULTURE, BLOOD #2 [RM] Stat 07/11/23 17:00 Cefepime [Maxipime] 1 gm Sodium Chloride 0.9% Minibag [Normal Saline 0.9% Minibag] 100 ml IV Q8H 07/11/23 22:00 Insulin Lispro [Humalog Kwikpen U-100] 12 unit SUBQ 2200 07/12/23 02:00 Vancomycin Inj [Vancomycin] 1 gm Vancomycin Inj [Vancomycin Hcl] 250 mg Sodium Chloride 0.9% [Normal Saline 0.9%] 250 ml IV Q12H 07/12/23 04:00 VANCOMYCIN TROUGH [CHEM] Timed 07/12/23 09:00 Insulin Glargine-Yfgn [Semglee] 18 unit SUBQ 0900 Subjective - Subjective Patient Reports: Other (Still has a dry mouth, ice schips helped a little) Objective Vital Signs: Vital Signs - 24 hr 07/11/23 07/11/23 07/11/23 09:00 13:00 14:00 Temperature 39 C H 36.6 C Heart Rate [ 108 H 107 H Brachial] Respiratory 20 18 Rate Blood Pressure 93/62 102/62 [Left Brachial artery] O2 Saturation 85 L 91 L If not protocol 2 12 10 : Oxygen Flow, liters/minute 07/11/23 07/11/23 07/11/23 15:34 17:17 18:05 Temperature 37.4 C 37.9 C 37.5 C Heart Rate [ 104 H Brachial] Respiratory 20 Rate Blood Pressure 120/82 H [Left Brachial artery] O2 Saturation 94 If not protocol 11 : Oxygen Flow, liters/minute 07/11/23 07/12/23 07/12/23 21:00 00:03 00:51 Temperature 37.4 C 37.8 C 36.8 C Heart Rate [ 105 H 108 H Brachial] Respiratory 24 20 Rate Blood Pressure 126/73 109/58 L [Left Brachial artery] O2 Saturation 96 92 If not protocol 11 14 : Oxygen Flow, liters/minute 07/12/23 05:00 Temperature 36.8 C Heart Rate [ 106 H Brachial] Respiratory 20 Rate Blood Pressure 110/69 [Left Brachial artery] O2 Saturation 92 If not protocol 14 : Oxygen Flow, liters/minute Oxygen O2 Source Oxymizer I&O (Last 24 Hrs): Intake and Output Totals x24h 07/10/23 07/11/23 07/12/23 23:59 23:59 23:59 Intake Total 4300 4189 863 Output Total 2770 2370 975 Balance 1530 1819 -112 General: Alert, No acute distress HEENT: Other (dry mucosa) Neck: Supple, No JVD Neuro: Alert, Non Focal, Other (speech is "slurred') Cardiovascular: Regular rate, No murmurs Respiratory: No respiratory distress, Breath sounds nml Abdomen: Normal bowel sounds, No tenderness Extremities: No clubbing, No edema, No tenderness/swelling - Results Results: Laboratory Results WBC 7.9 x10^3/uL (4.8-10.8) 07/12/23 05:04 RBC 4.27 10^6/uL (4.70-6.10) L 07/12/23 05:04 Hgb 14.4 g/dL (14.0-18.0) 07/12/23 05:04 Hct 45.4 % (42.0-52.0) 07/12/23 05:04 MCV 106.3 fL (80.0-94.0) H 07/12/23 05:04 MCH 33.7 pg (27.0-31.0) H 07/12/23 05:04 MCHC 31.7 g/dL (32.0-36.0) L 07/12/23 05:04 RDW 11.8 % (12.0-15.0) L 07/12/23 05:04 Plt Count 146 10^3/uL (130-450) 07/12/23 05:04 MPV 11.5 fL (7.4-11.4) H 07/12/23 05:04 Neut # (Auto) Not Reportable 07/12/23 05:04 Lymph # (Auto) Not Reportable 07/12/23 05:04 [place] # (Auto) Not Reportable 07/12/23 05:04 Eos # (Auto) Not Reportable 07/12/23 05:04 Baso # (Auto) Not Reportable 07/12/23 05:04 Absolute Nucleated RBC Not Reportable 07/12/23 05:04 Total Counted 100 07/12/23 05:04 Band Neuts % (Manual) 31 % (0-10) H 07/12/23 05:04 Abnorm Lymph % (Manual) 0 % 07/12/23 05:04 Metamyelocytes % 1 % (-0) H 07/12/23 05:04 Myelocytes % 1 % (-0) H 07/12/23 05:04 Nucleated RBC % Not Reportable 07/12/23 05:04 Neutrophils # (Manual) 6.6 10^3/uL (1.5-6.6) 07/12/23 05:04 Lymphocytes # (Manual) 0.9 10^3/uL (1.5-3.5) L 07/12/23 05:04 Monocytes # (Manual) 0.2 10^3/uL (0.0-1.0) 07/12/23 05:04 Eosinophils # (Manual) 0.0 10^3/uL (0-0.7) 07/12/23 05:04 Basophils # (Manual) 0.0 10^3/uL (0-0.1) 07/12/23 05:04 Differential Comment MANUAL DIFFERENTIAL 07/12/23 05:04 WBC Morphology 1+ VACUOLATION (NORMAL) 07/11/23 07:30 Platelet Estimate NORMAL (130-450,000) (NORMAL) 07/12/23 05:04 RBC Morph Micro Appear NORMAL APPEARANCE (NORMAL) 07/12/23 05:04 Sodium 143 mmol/L (135-145) 07/12/23 05:04 Potassium 4.8 mmol/L (3.5-4.5) H 07/12/23 05:04 Chloride 109 mmol/L (101-111) 07/12/23 05:04 Carbon Dioxide 29 mmol/L (21-32) 07/12/23 05:04 Anion Gap 5.0 (6-13) L 07/12/23 05:04 BUN 41 mg/dL (6-20) H 07/12/23 05:04 Creatinine 0.9 mg/dL (0.6-1.3) 07/12/23 05:04 Estimated GFR (MDRD) 102 (>89) 07/12/23 05:04 Glucose 468 mg/dL (74-104) H 07/12/23 05:04 POC Whole Bld Glucose 434 mg/dL (70 - 100) H 07/11/23 21:06 Estimat Average Glucose 180 mg/dL (70-100) H 07/09/23 05:12 Hemoglobin A1c % 7.9 % (4.27-6.07) H 07/09/23 05:12 Calcium 9.4 mg/dL (8.5-10.3) 07/12/23 05:04 Phosphorus 2.2 mg/dL (2.5-5.0) L 07/12/23 05:04 Magnesium 2.2 mg/dL (1.7-2.3) 07/12/23 05:04 Total Bilirubin 0.5 mg/dL (0.2-1.0) 07/08/23 13:26 AST 17 IU/L (10-42) 07/08/23 13:26 ALT 24 IU/L (10-60) 07/08/23 13:26 Alkaline Phosphatase 91 IU/L (42-121) 07/08/23 13:26 Troponin I High Sens 7.1 ng/L (2.3-19.7) 07/11/23 14:45 C-Reactive Protein 16.6 mg/dL (<0.5) H 07/11/23 07:30 Total Protein 8.0 g/dL (6.4-8.9) 07/08/23 13:26 Albumin 4.3 g/dL (3.2-5.5) 07/08/23 13:26 Globulin 3.7 g/dL (2.1-4.2) 07/08/23 13:26 Albumin/Globulin Ratio 1.2 (1.0-2.2) 07/08/23 13:26 Prealbumin 22 mg/dL (17-34) 07/09/23 05:12 Lipase < 10 U/L (11-82) L 07/08/23 13:26 Vitamin B12 1050 pg/mL (180-914) H 07/09/23 05:12 Vitamin D 25-Hydroxy 37.4 ng/mL (30.0-100.0) 07/09/23 15:21 Folate 26.8 ng/mL (5.90 - >24.8) 07/09/23 05:12 TSH 2.70 uIU/mL (0.34-5.60) 07/08/23 13:26 Free T4 Direct 0.78 ng/dL (0.58-1.64) 07/08/23 13:26 Urine Color YELLOW 07/08/23 16:30 Urine Clarity CLEAR (CLEAR) 07/08/23 16:30 Urine pH 5.5 PH (5.0-7.5) 07/08/23 16:30 Ur Specific [place] 1.010 (1.002-1.030) 07/08/23 16:30 Urine Protein NEGATIVE mg/dL (NEGATIVE) 07/08/23 16:30 Urine Glucose (UA) >=1000 mg/dL (NEGATIVE) H 07/08/23 16:30 Urine Ketones NEGATIVE mg/dL (NEGATIVE) 07/08/23 16:30 Urine Occult Blood NEGATIVE (NEGATIVE) 07/08/23 16:30 Urine Nitrite NEGATIVE (NEGATIVE) 07/08/23 16:30 Urine Bilirubin NEGATIVE (NEGATIVE) 07/08/23 16:30 Urine Urobilinogen 0.2 (NORMAL) E.U./dL (NORMAL) 07/08/23 16:30 Ur Leukocyte Esterase NEGATIVE (NEGATIVE) 07/08/23 16:30 Ur Microscopic Review NOT INDICATED 07/08/23 16:30 Urine Culture Comments NOT INDICATED 07/08/23 16:30 Nasal Adenovirus (PCR) NOT DETECTED 07/08/23 12:54 Nasal B. parapertussis DNA (PCR) NOT DETECTED 07/08/23 12:54 Nasal Coronavir 229E PCR NOT DETECTED 07/08/23 12:54 Nasal Coronavir HKU1 PCR NOT DETECTED 07/08/23 12:54 Nasal Coronavir NL63 PCR NOT DETECTED 07/08/23 12:54 Nasal Coronavir OC43 PCR NOT DETECTED 07/08/23 12:54 Nasal Enterovir/Rhinovir PCR NOT DETECTED 07/08/23 12:54 Nasal Influenza B PCR NOT DETECTED 07/08/23 12:54 Nasal Influenza A PCR NOT DETECTED 07/08/23 12:54 Nasal Parainfluen 1 PCR NOT DETECTED 07/08/23 12:54 Nasal Parainfluen 2 PCR NOT DETECTED 07/08/23 12:54 Nasal Parainfluen 3 PCR NOT DETECTED 07/08/23 12:54 Nasal Parainfluen 4 PCR NOT DETECTED 07/08/23 12:54 Nasal RSV (PCR) NOT DETECTED 07/08/23 12:54 Nasal B.pertussis DNA PCR NOT DETECTED 07/08/23 12:54 Nasal C.pneumoniae (PCR) NOT DETECTED 07/08/23 12:54 Navjot Human Metapneumo PCR NOT DETECTED 07/08/23 12:54 Nasal M.pneumoniae (PCR) NOT DETECTED 07/08/23 12:54 Nasal SARS-CoV-2 (PCR) NOT DETECTED 07/08/23 12:54 Last Dose Date 07/11/23 07/11/23 17:20 Last Dose Time 1630 07/11/23 17:20 Vancomycin Peak 27.3 ug/mL (20.0-40.0) 07/11/23 17:20 Serum Ketones NEGATIVE (NEGATIVE) 07/08/23 13:26 - Procedures Procedures: Procedures EXCISION OF RECTUM, ENDO, DIAGN (10/09/17)
[2023-07-12] MEDS: INSULIN LISPRO 300 UNIT/3 ML PEN SUBQ SCH ×6 (09:12→22:22)
[2023-07-12] MEDS: ENOXAPARIN 40 MG/0.4 ML SYRINGE SUBQ SCH (09:12)
[2023-07-12] MEDS: INSULIN GLARGINE-YFGN 300 UNIT/3 ML PEN SUBQ SCH ×2 (09:15→22:20)
--- NOTE | 2023-07-12 10:52 | PHARMACY PROGRESS NOTE ---
- Therapy Status Vancomycin regimen day #: 2 Therapy status: Awaiting steady state Basis for treatment: Empirical Treatment indication: HAP[ Trough goal: AUC/CHALINO 400-600 Concurrent antibiotics: CEFEPIME - SAVANNA Risk Risk level for Acute Kidney Injury: Moderate Acute Kidney Injury risk factors: Goal trough >15, Diabetes - Monitoring and Recommendation Clinical response to treatment: I&O Previous 24 hours 07/10/23 07/11/23 07/12/23 23:59 23:59 23:59 Intake Total 4300 4189 863 Output Total 2770 2370 1370 Balance 1530 1819 -507 Lab Results 07/12/23 07/11/23 07/10/23 05:04 07:30 08:14 BUN 41 H 39 H 40 H Creatinine 0.9 1.0 0.9 Estimated GFR (MDRD) 102 91 102 07/09/23 07/09/23 07/08/23 15:21 05:12 18:09 BUN 37 H 46 H 48 H Creatinine 0.8 1.0 1.2 Estimated GFR (MDRD) 117 91 73 L 07/08/23 13:26 BUN 51 H Creatinine 1.5 H Estimated GFR (MDRD) 57 L Vancomycin Monitoring 07/11/23 17:20 Vancomycin Peak 27.3 Cultures 07/11/23 11:24 Urine,Random Urine Culture - Preliminary CULTURE IN PROGRESS. RESULTS TO FOLLOW. Monitoring plan: Daily serum creatinine (ORDERED PK AND TR EARLY TO ASSESS PT'S PK BUT TROUGH NOT DRAWN. WILL RE-ORDER TROUGH ONCE REACHES STEADY STATE. SCHEDULED FOR 07/13/23 @1330, WHEN PHARMACIST IS HERE.)
[2023-07-12] MEDS: DEXTROSE 5% 1,000 ML IV SCH ×2 (11:29→15:58)
[2023-07-12] MEDS ORDERED: INSULIN REGULAR HUMAN 300 UNIT/3 ML VIAL SUBQ ONE (12:25)
--- NOTE | 2023-07-12 18:37 | PROVIDER PROGRESS NOTE ---
Assessment/Plan - Problem List (1) Acute respiratory failure with hypoxia Assessment/Plan: Last night RT put the patient on 2 L O2 supplemental. This morning RT has placed the patient on 12 L O2 supplemental Plan: Obtain chest x-ray>>> LLL infiltrate and small R lower mass ( and pt said that R lower finding is old) Decrease IV fluid rate Obtain BNP We will also obtain an EKG and stat troponin>> I interpreted the EKG: Normal sinus rhythm, rate 99, early repolarization. Similar to EKG from 07/08/2023, and normal EKG (2) Pneumonia This could be a community-acquired pneumonia that has now "blossomed" after being rehydrated, since he presented dehydrated This could be aspiration pneumonia however it is not the typical location in the left lower lobe for aspiration This could be a "healthcare associated pneumonia" since he has been hospitalized for 3 days Plan: Obtain blood culture and sputum culture from a sputum We will start empiric coverage with IV cefepime and IV Vanco (for HCAP), discussed with Sisi in pharmacy I update the pt and at bedside today (3) Jejunostomy tube in situ Conclusion/Plan: Tube appears to be working well for him. I do not plan on changing it out. Nursing reports that it is working well. He does take ice chips at home, so I ordered ice chips OK Plan: Cont with J tube feedings, which are at 110 cc/hr and administered at 0900, 1600, 2200. Cont with water per J tube as well, I scheduled the amount and rate (4) Hyperglycemia due to DM Unfortunately, he needs to get D5W as his free water, which has caused severe glu elevation into the 300-400's. Thus we are needing to adjust his Insulin management. Plan: Increase "nutritional" Insulin, which for him is at 0900, 1600 and 2200, not the standard times during which people eat. Cont his Long acting Insulin and make it BID Cont fingerstick checks, and ss Insulin, but gogo change POC glu checks to 0800, 1500, 2100 (before he gets J tube feeds) (5) Hypernatremia Assessment/Plan: RESOLVED He presented with sodium 155, and with hyperkalemia, hyperchloremia, and elevated BUN and creatinine, all suggesting volume depletion/dehydration. Another marker of his dehydration is the concentrated calcium of 10.5. His jejunostomy tube feed rate has increased recently from 100 cc/hr to 125 cc/hr, thus we suspected this was an excessive rate increase for him and that he was behind on his free water intake He is getting D5W and water per J tube We are checking serum sodium frequently and the sodium was slow to decrease. All labs were reviewed. Plan: Cont to give D5W as his free water. He also gets water per J tube, cont that We are checking serum sodium frequently and today the sodium aleks instead of decreased, this the afternoon. Thus I will admit him from Observation to Inpt status, to further adjust his feeding rate and his free water input and his glucoses (6) Prerenal azotemia Conclusion/Plan: Due to dehydration. Patient is not on metformin. BUN/creat are minimally i mproving, all labs were reviewed. 40/0/9>> 39/1.0 Plan: Avoid nephrotoxins Monitor BMP daily - Current Meds Current Meds: Current Medications Generic Name Dose Route Start Last Admin Trade Name Freq PRN Reason Stop Dose Admin Acetaminophen 640 mg 07/11/23 10:41 07/12/23 00:05 Acetaminophen 160 Mg/5 Ml Susp Udc JT 640 mg Q4HR PRN Administration Pain 1 to 4, or Fever Enoxaparin Sodium 40 mg 07/09/23 09:00 07/12/23 09:12 Enoxaparin 40 Mg/0.4 Ml Syringe SUBQ 40 mg DAILY NISH Administration Dextrose 1,000 mls @ 60 mls/hr 07/10/23 11:53 07/12/23 16:30 D5w IV 60 mls/hr .[id number] NISH Infusion Vancomycin HCl 1 gm/ 250 mls @ 166.667 mls/hr 07/12/23 02:00 07/12/23 15:45 Vancomycin HCl 250 mg/ Sodium IV Infused Chloride Q12H NISH Infusion Cefepime HCl 1 gm/ Sodium 100 mls @ 200 mls/hr 07/11/23 17:00 07/12/23 16:30 Chloride IV Infused Q8H NISH Infusion Insulin Glargine-yfgn 22 unit 07/08/23 21:00 07/11/23 21:52 Insulin Glargine-Yfgn 300 Unit/3 Ml Pen SUBQ 22 unit QPM NISH Administration Insulin Glargine-yfgn 18 unit 07/12/23 09:00 07/12/23 09:15 Insulin Glargine-Yfgn 300 Unit/3 Ml Pen SUBQ 18 unit 0900 NISH Administration Insulin Human Lispro 10 unit 07/12/23 16:00 07/12/23 15:45 Insulin Lispro 300 Unit/3 Ml Pen SUBQ 10 unit 1600 NISH Administration Insulin Human Lispro 3 - 11 unit 07/12/23 12:47 07/12/23 15:46 Insulin Lispro 300 Unit/3 Ml Pen SUBQ 5 unit 0800,1200,1500,2100 NISH Administration Protocol Sodium Chloride 10 ml 07/08/23 17:00 07/12/23 15:58 Sodium Chloride Flush 0.9% 10 Ml Syringe IVP 10 ml 0100,0900,1700 [facility] Administration - Lab Result Fish Bone Diagrams: 07/15/23 04:25 07/15/23 17:25 - Additional Planning My Orders: My Active Orders 07/12/23 02:00 Vancomycin Inj [Vancomycin] 1 gm Vancomycin Inj [Vancomycin Hcl] 250 mg Sodium Chloride 0.9% [Normal Saline 0.9%] 250 ml IV Q12H 07/12/23 09:00 Insulin Glargine-Yfgn [Semglee] 18 unit SUBQ 0900 07/12/23 11:40 Activity Orders [RC] DAILY 07/12/23 11:41 IS [Incentive Spirometry - RT] [RC] .tid Out of bed 4+ hours [RC] QID 07/12/23 12:47 Insulin Lispro [Humalog Kwikpen U-100] 3 - 11 unit SUBQ 0800,1200,1500,2100 07/12/23 16:00 Insulin Lispro [Humalog Kwikpen U-100] 10 unit SUBQ 1600 07/12/23 22:00 Insulin Lispro [Humalog Kwikpen U-100] 15 unit SUBQ 2200 07/13/23 09:00 Insulin Lispro [Humalog Kwikpen U-100] 8 unit SUBQ 0900 07/13/23 13:30 VANCOMYCIN TROUGH [CHEM] Timed Subjective - Subjective Patient Reports: Cough, Shortness of Breath Objective Vital Signs: Vital Signs - 24 hr 07/11/23 07/12/23 07/12/23 21:00 00:03 00:51 Temperature 37.4 C 37.8 C 36.8 C Heart Rate [ 105 H 108 H Brachial] Respiratory 24 20 Rate Blood Pressure 126/73 109/58 L [Left Brachial artery] Blood Pressure [Right Brachial artery] O2 Saturation 96 92 If not protocol 11 14 : Oxygen Flow, liters/minute 07/12/23 07/12/23 07/12/23 05:00 07:00 09:00 Temperature 36.8 C 36.8 C Heart Rate [ 106 H 103 H Brachial] Respiratory 20 18 Rate Blood Pressure 110/69 [Left Brachial artery] Blood Pressure 100/65 [Right Brachial artery] O2 Saturation 92 90 L If not protocol 14 13 14 : Oxygen Flow, liters/minute 07/12/23 07/12/23 13:00 15:43 Temperature 36.7 C 37.3 C Heart Rate [ 107 H 104 H Brachial] Respiratory 20 21 Rate Blood Pressure 93/60 95/63 [Left Brachial artery] Blood Pressure [Right Brachial artery] O2 Saturation 91 L 92 If not protocol 14 13 : Oxygen Flow, liters/minute Oxygen O2 Source Oxymizer I&O (Last 24 Hrs): Intake and Output Totals x24h 07/10/23 07/11/23 07/12/23 23:59 23:59 23:59 Intake Total 4300 4189 2462 Output Total 2770 2370 1810 Balance 1530 1819 652 General: Alert, Oriented x3, Mild distress (from SOB, is wearing O2 HiFlow via n.c.) HEENT: Mucous membr. moist/pink Neck: Supple, No JVD Neuro: Alert, Non Focal Cardiovascular: Regular rate Respiratory: Rales (L base rales) - Results Results: Laboratory Results WBC 7.9 x10^3/uL (4.8-10.8) 07/12/23 05:04 RBC 4.27 10^6/uL (4.70-6.10) L 07/12/23 05:04 Hgb 14.4 g/dL (14.0-18.0) 07/12/23 05:04 Hct 45.4 % (42.0-52.0) 07/12/23 05:04 MCV 106.3 fL (80.0-94.0) H 07/12/23 05:04 MCH 33.7 pg (27.0-31.0) H 07/12/23 05:04 MCHC 31.7 g/dL (32.0-36.0) L 07/12/23 05:04 RDW 11.8 % (12.0-15.0) L 07/12/23 05:04 Plt Count 146 10^3/uL (130-450) 07/12/23 05:04 MPV 11.5 fL (7.4-11.4) H 07/12/23 05:04 Neut # (Auto) Not Reportable 07/12/23 05:04 Lymph # (Auto) Not Reportable 07/12/23 05:04 [place] # (Auto) Not Reportable 07/12/23 05:04 Eos # (Auto) Not Reportable 07/12/23 05:04 Baso # (Auto) Not Reportable 07/12/23 05:04 Absolute Nucleated RBC Not Reportable 07/12/23 05:04 Total Counted 100 07/12/23 05:04 Band Neuts % (Manual) 31 % (0-10) H 07/12/23 05:04 Abnorm Lymph % (Manual) 0 % 07/12/23 05:04 Metamyelocytes % 1 % (-0) H 07/12/23 05:04 Myelocytes % 1 % (-0) H 07/12/23 05:04 Nucleated RBC % Not Reportable 07/12/23 05:04 Neutrophils # (Manual) 6.6 10^3/uL (1.5-6.6) 07/12/23 05:04 Lymphocytes # (Manual) 0.9 10^3/uL (1.5-3.5) L 07/12/23 05:04 Monocytes # (Manual) 0.2 10^3/uL (0.0-1.0) 07/12/23 05:04 Eosinophils # (Manual) 0.0 10^3/uL (0-0.7) 07/12/23 05:04 Basophils # (Manual) 0.0 10^3/uL (0-0.1) 07/12/23 05:04 Differential Comment MANUAL DIFFERENTIAL 07/12/23 05:04 WBC Morphology 1+ VACUOLATION (NORMAL) 07/11/23 07:30 Platelet Estimate NORMAL (130-450,000) (NORMAL) 07/12/23 05:04 RBC Morph Micro Appear NORMAL APPEARANCE (NORMAL) 07/12/23 05:04 Sodium 143 mmol/L (135-145) 07/12/23 05:04 Potassium 4.8 mmol/L (3.5-4.5) H 07/12/23 05:04 Chloride 109 mmol/L (101-111) 07/12/23 05:04 Carbon Dioxide 29 mmol/L (21-32) 07/12/23 05:04 Anion Gap 5.0 (6-13) L 07/12/23 05:04 BUN 41 mg/dL (6-20) H 07/12/23 05:04 Creatinine 0.9 mg/dL (0.6-1.3) 07/12/23 05:04 Estimated GFR (MDRD) 102 (>89) 07/12/23 05:04 Glucose 468 mg/dL (74-104) H 07/12/23 05:04 POC Whole Bld Glucose 256 mg/dL (70 - 100) H 07/12/23 17:02 Estimat Average Glucose 180 mg/dL (70-100) H 07/09/23 05:12 Hemoglobin A1c % 7.9 % (4.27-6.07) H 07/09/23 05:12 Calcium 9.4 mg/dL (8.5-10.3) 07/12/23 05:04 Phosphorus 2.2 mg/dL (2.5-5.0) L 07/12/23 05:04 Magnesium 2.2 mg/dL (1.7-2.3) 07/12/23 05:04 Total Bilirubin 0.5 mg/dL (0.2-1.0) 07/08/23 13:26 AST 17 IU/L (10-42) 07/08/23 13:26 ALT 24 IU/L (10-60) 07/08/23 13:26 Alkaline Phosphatase 91 IU/L (42-121) 07/08/23 13:26 Troponin I High Sens 7.1 ng/L (2.3-19.7) 07/11/23 14:45 C-Reactive Protein 16.6 mg/dL (<0.5) H 07/11/23 07:30 Total Protein 8.0 g/dL (6.4-8.9) 07/08/23 13:26 Albumin 4.3 g/dL (3.2-5.5) 07/08/23 13:26 Globulin 3.7 g/dL (2.1-4.2) 07/08/23 13:26 Albumin/Globulin Ratio 1.2 (1.0-2.2) 07/08/23 13:26 Prealbumin 22 mg/dL (17-34) 07/09/23 05:12 Lipase < 10 U/L (11-82) L 07/08/23 13:26 Vitamin B12 1050 pg/mL (180-914) H 07/09/23 05:12 Vitamin D 25-Hydroxy 37.4 ng/mL (30.0-100.0) 07/09/23 15:21 Folate 26.8 ng/mL (5.90 - >24.8) 07/09/23 05:12 TSH 2.70 uIU/mL (0.34-5.60) 07/08/23 13: Free T4 Direct 0.78 ng/dL (0.58-1.64) 07/08/23 13:26 Urine Color YELLOW 07/08/23 16:30 Urine Clarity CLEAR (CLEAR) 07/08/23 16:30 Urine pH 5.5 PH (5.0-7.5) 07/08/23 16:30 Ur Specific [place] 1.010 (1.002-1.030) 07/08/23 16:30 Urine Protein NEGATIVE mg/dL (NEGATIVE) 07/08/23 16:30 Urine Glucose (UA) >=1000 mg/dL (NEGATIVE) H 07/08/23 16:30 Urine Ketones NEGATIVE mg/dL (NEGATIVE) 07/08/23 16:30 Urine Occult Blood NEGATIVE (NEGATIVE) 07/08/23 16:30 Urine Nitrite NEGATIVE (NEGATIVE) 07/08/23 16:30 Urine Bilirubin NEGATIVE (NEGATIVE) 07/08/23 16:30 Urine Urobilinogen 0.2 (NORMAL) E.U./dL (NORMAL) 07/08/23 16:30 Ur Leukocyte Esterase NEGATIVE (NEGATIVE) 07/08/23 16:30 Ur Microscopic Review NOT INDICATED 07/08/23 16:30 Urine Culture Comments NOT INDICATED 07/08/23 16:30 Nasal Adenovirus (PCR) NOT DETECTED 07/08/23 12:54 Nasal B. parapertussis DNA (PCR) NOT DETECTED 07/08/23 12:54 Nasal Coronavir 229E PCR NOT DETECTED 07/08/23 12:54 Nasal Coronavir HKU1 PCR NOT DETECTED 07/08/23 12:54 Nasal Coronavir NL63 PCR NOT DETECTED 07/08/23 12:54 Nasal Coronavir OC43 PCR NOT DETECTED 07/08/23 12:54 Nasal Enterovir/Rhinovir PCR NOT DETECTED 07/08/23 12:54 Nasal Influenza B PCR NOT DETECTED 07/08/23 12:54 Nasal Influenza A PCR NOT DETECTED 07/08/23 12:54 Nasal Parainfluen 1 PCR NOT DETECTED 07/08/23 12:54 Nasal Parainfluen 2 PCR NOT DETECTED 07/08/23 12:54 Nasal Parainfluen 3 PCR NOT DETECTED 07/08/23 12:54 Nasal Parainfluen 4 PCR NOT DETECTED 07/08/23 12:54 Nasal RSV (PCR) NOT DETECTED 07/08/23 12:54 Nasal B.pertussis DNA PCR NOT DETECTED 07/08/23 12:54 Nasal C.pneumoniae (PCR) NOT DETECTED 07/08/23 12:54 Navjot Human Metapneumo PCR NOT DETECTED 07/08/23 12:54 Nasal M.pneumoniae (PCR) NOT DETECTED 07/08/23 12:54 Nasal SARS-CoV-2 (PCR) NOT DETECTED 07/08/23 12:54 Last Dose Date 07/11/23 07/11/23 17:20 Last Dose Time 1630 07/11/23 17:20 Vancomycin Peak 27.3 ug/mL (20.0-40.0) 07/11/23 17:20 Serum Ketones NEGATIVE (NEGATIVE) 07/08/23 13:26 - Procedures Procedures: Procedures EXCISION OF RECTUM, ENDO, DIAGN (10/09/17)
[2023-07-12] MEDS ORDERED: INSULIN LISPRO 300 UNIT/3 ML PEN SUBQ SCH ×2 (22:00)
[2023-07-13] MEDS: SODIUM CHLORIDE FLUSH 0.9% 10 ML SYRINGE IVP SCH ×3 (02:00→16:56)
[2023-07-13] MEDS: CEFEPIME 1 GM in SODIUM CHLORIDE 0.9% MINIBAG 100 ML IV SCH ×3 (02:00→16:54)
[2023-07-13] MEDS: VANCOMYCIN INJ 1 GM, VANCOMYCIN INJ 250 MG in SODIUM CHLORIDE 0.9% 250 ML IV SCH ×2 (02:51→14:13)
[2023-07-13] MEDS: DEXTROSE 5% 1,000 ML IV SCH (06:41)
[2023-07-13] MEDS: ENOXAPARIN 40 MG/0.4 ML SYRINGE SUBQ SCH (08:10)
[2023-07-13] MEDS: INSULIN GLARGINE-YFGN 300 UNIT/3 ML PEN SUBQ SCH ×2 (08:11→22:23)
[2023-07-13 08:12] LABS: BASOPHILS % (AUTO) 0.8 %; EOSINOPHILS % (AUTO) 0.3 %; HCT - HEMATOCRIT 44.9 % (42.0-52.0); HGB - HEMOGLOBIN 13.9 g/dL (14.0-18.0); MEAN CORPUSCULAR HEMOGLOBIN 32.9 pg (27.0-31.0); MEAN CORPUSCULAR VOLUME 106.4 fL (80.0-94.0); MEAN PLATELET VOLUME 11.8 fL (7.4-11.4); NEUTROPHILS % (AUTO) 83.1 %; PLT - PLATELET COUNT 163 10^3/uL (130-450); RED BLOOD COUNT 4.22 10^6/uL (4.70-6.10); RED CELL DISTRIBUTION WIDTH 11.5 % (12.0-15.0)
[2023-07-13] MEDS: INSULIN LISPRO 300 UNIT/3 ML PEN SUBQ SCH ×7 (08:13→22:29)
[2023-07-13 08:15] LABS: ABNORMAL LYMPHS % (MANUAL) 0 %
[2023-07-13 08:27] LABS: CALCIUM 9.6 mg/dL (8.5-10.3); CREATININE 0.9 mg/dL (0.6-1.3); POTASSIUM 4.7 mmol/L (3.5-4.5)
[2023-07-13 08:34] LABS: BAND NEUTROPHILS % (MANUAL) 9 %; EOSINOPHILS # (MANUAL) 0.1 10^3/uL (0-0.7); LYMPHOCYTES # (MANUAL) 1.1 10^3/uL (1.5-3.5); LYMPHOCYTES % (MANUAL) 12 %; MONOCYTES # (MANUAL) 0.5 10^3/uL (0.0-1.0); NEUTROPHILS # (MANUAL) 7.3 10^3/uL (1.5-6.6); PLATELET MORPHOLOGY NORMAL APPEARANCE (NORMAL); RBC MORPHOLOGY (MULTIPLE) NORMAL APPEARANCE (NORMAL)
[2023-07-13 08:35] LABS: DIFFERENTIAL COMMENT MANUAL DIFFERENTIAL; PLATELET ESTIMATE, MANUAL NORMAL (130-450,000) (NORMAL); WBC MORPHOLOGY (MULTIPLE) NORMAL APPEARANCE (NORMAL)
--- NOTE | 2023-07-13 12:02 | XRAY Report ---
PROCEDURE: Chest 1 View X-Ray INDICATIONS: Hypoxia, F/U pneumonia concern for new CHF TECHNIQUE: One view of the chest was acquired. COMPARISON: 07/11/2023 FINDINGS: Surgical changes and devices: None. Lungs and pleura: Worsening bilateral patchy pulmonary infiltrates. Obscuration left hemidiaphragm w ith elevation Mediastinum: Mediastinal contours appear normal. Heart size is normal. Bones and chest wall: No suspicious bony lesions. Overlying soft tissues appear unremarkable. IMPRESSION: Worsening patchy bilateral pulmonary demonstrates, consistent with pneumonia. Left pleural effusion with atelectasis and elevated left hemidiaphragm Reviewed by: Pierce Amaro MD on 07/13/2023 11:01 AM TAL Approved by: Pierce Amaro MD on 07/13/2023 11:01 AM TAL Station ID: [id number]
[2023-07-13] MEDS: FUROSEMIDE 20 MG/2 ML VIAL IVP SCH (12:32)
[2023-07-13] MEDS ORDERED: FUROSEMIDE 20 MG/2 ML VIAL IVP STA (17:30)
[2023-07-13] MEDS: SODIUM CHLORIDE FLUSH 0.9% 10 ML SYRINGE IVP PRN (17:48)
--- NOTE | 2023-07-13 19:57 | PROVIDER PROGRESS NOTE ---
Assessment/Plan - Problem List (1) Acute respiratory failure with hypoxia Assessment/Plan: Last night RT put the patient on 2 L O2 supplemental. This morning RT has placed the patient on 12 L O2 supplemental Plan: Obtain chest x-ray>>> LLL infiltrate and small R lower mass ( and pt said that R lower finding is old) Decrease IV fluid rate Obtain BNP We will also obtain an EKG and stat troponin>> I interpreted the EKG: Normal sinus rhythm, rate 99, early repolarization. Similar to EKG from 07/08/2023, and normal EKG (2) Pneumonia This could be a community-acquired pneumonia that has now "blossomed" after being rehydrated, since he presented dehydrated This could be aspiration pneumonia however it is not the typical location in the left lower lobe for aspiration This could be a "healthcare associated pneumonia" since he has been hospitalized for 3 days Plan: Obtain blood culture and sputum culture from a sputum We will start empiric coverage with IV cefepime and IV Vanco (for HCAP), discussed with Sisi in pharmacy I update the pt and at bedside today (3) Jejunostomy tube in situ Conclusion/Plan: Tube appears to be working well for him. I do not plan on changing it out. Nursing reports that it is working well. He does take ice chips at home, so I ordered ice chips OK Plan: Cont with J tube feedings, which are at 110 cc/hr and administered at 0900, 1600, 2200. Cont with water per J tube as well, I scheduled the amount and rate (4) Hyperglycemia due to DM Unfortunately, he needs to get D5W as his free water, which has caused severe glu elevation into the 300-400's. Thus we are needing to adjust his Insulin management. Plan: Increase "nutritional" Insulin, which for him is at 0900, 1600 and 2200, not the standard times during which people eat. Cont his Long acting Insulin and make it BID Cont fingerstick checks, and ss Insulin, but gogo change POC glu checks to 0800, 1500, 2100 (before he gets J tube feeds) (5) Hypernatremia Assessment/Plan: RESOLVED He presented with sodium 155, and with hyperkalemia, hyperchloremia, and elevated BUN and creatinine, all suggesting volume depletion/dehydration. Another marker of his dehydration is the concentrated calcium of 10.5. His jejunostomy tube feed rate has increased recently from 100 cc/hr to 125 cc/hr, thus we suspected this was an excessive rate increase for him and that he was behind on his free water intake He is getting D5W and water per J tube We are checking serum sodium frequently and the sodium was slow to decrease. All labs were reviewed. Plan: Cont to give D5W as his free water. He also gets water per J tube, cont that We are checking serum sodium frequently and today the sodium aleks instead of decreased, this the afternoon. Thus I will admit him from Observation to Inpt status, to further adjust his feeding rate and his free water input and his glucoses (6) Prerenal azotemia Conclusion/Plan: Due to dehydration. Patient is not on metformin. BUN/creat are minimally i mproving, all labs were reviewed. 40/0/9>> 39/1.0 Plan: Avoid nephrotoxins Monitor BMP daily - Current Meds Current Meds: Current Medications Generic Name Dose Route Start Last Admin Trade Name Freq PRN Reason Stop Dose Admin Acetaminophen 640 mg 07/11/23 10:41 07/12/23 00:05 Acetaminophen 160 Mg/5 Ml Susp Udc JT 640 mg Q4HR PRN Administration Pain 1 to 4, or Fever Enoxaparin Sodium 40 mg 07/09/23 09:00 07/13/23 08:10 Enoxaparin 40 Mg/0.4 Ml Syringe SUBQ 40 mg DAILY NISH Administration Furosemide 20 mg 07/13/23 13:00 07/13/23 12:32 Furosemide 20 Mg/2 Ml Vial IVP 20 mg BIDDIURETIC NIHS Administration Vancomycin HCl 1 gm/ 250 mls @ 166.667 mls/hr 07/12/23 02:00 07/13/23 15:43 Vancomycin HCl 250 mg/ Sodium IV Infused Chloride Q12H NISH Infusion Cefepime HCl 1 gm/ Sodium 100 mls @ 200 mls/hr 07/11/23 17:00 07/13/23 17:25 Chloride IV Infused Q8H NISH Infusion Insulin Glargine-yfgn 22 unit 07/08/23 21:00 07/12/23 22:20 Insulin Glargine-Yfgn 300 Unit/3 Ml Pen SUBQ 22 unit QPM NISH Administration Insulin Glargine-yfgn 18 unit 07/12/23 09:00 07/13/23 08:11 Insulin Glargine-Yfgn 300 Unit/3 Ml Pen SUBQ 18 unit 0900 NISH Administration Insulin Human Lispro 8 unit 07/13/23 09:00 07/13/23 08:13 Insulin Lispro 300 Unit/3 Ml Pen SUBQ 8 unit 0900 NISH Administration Insulin Human Lispro 10 unit 07/12/23 16:00 07/13/23 16:47 Insulin Lispro 300 Unit/3 Ml Pen SUBQ 10 unit 1600 NISH Administration Insulin Human Lispro 3 - 11 unit 07/12/23 12:47 07/13/23 16:47 Insulin Lispro 300 Unit/3 Ml Pen SUBQ 5 unit 0800,1200,1500,2100 NISH Administration Protocol Insulin Human Lispro 15 unit 07/12/23 22:00 07/12/23 22:22 Insulin Lispro 300 Unit/3 Ml Pen SUBQ 15 unit 2200 NISH Administration Sodium Chloride 10 ml 07/08/23 17:00 07/13/23 16:56 Sodium Chloride Flush 0.9% 10 Ml Syringe IVP 10 ml 0100,0900,1700 NISH Administration Sodium Chloride 10 ml 07/08/23 16:29 07/13/23 17:48 Sodium Chloride Flush 0.9% 10 Ml Syringe IVP 10 ml PRN PRN Administration NEEDED PER PROVIDER ORDERS - Lab Result Fish Bone Diagrams: 07/15/23 04:25 07/15/23 17:25 - Additional Planning My Orders: My Active Orders 07/12/23 22:00 Insulin Lispro [Humalog Kwikpen U-100] 15 unit SUBQ 2200 07/13/23 09:00 Insulin Lispro [Humalog Kwikpen U-100] 8 unit SUBQ 0900 07/13/23 13:00 FUROSEMIDE INJ 20mg VIAL [LASIX INJ 20mg VIAL] 20 mg IVP BIDDIURETIC 07/13/23 17:29 Miscellaenous Nursing Order [RC] QSHIFT 07/14/23 05:00 BMP - BASIC METABOLIC PANEL [CHEM] DAILYLAB CALCIUM [CHEM] DAILYLAB CBC - COMP BLD CT W/AUTO DIFF [HEME] DAILYLAB MAGNESIUM [CHEM] DAILYLAB PHOSPHORUS [CHEM] DAILYLAB 07/14/23 13:30 VANCOMYCIN TROUGH [CHEM] Timed 07/15/23 05:00 BMP - BASIC METABOLIC PANEL [CHEM] DAILYLAB CBC - COMP BLD CT W/AUTO DIFF [HEME] DAILYLAB 07/16/23 05:00 BMP - BASIC METABOLIC PANEL [CHEM] DAILYLAB CBC - COMP BLD CT W/AUTO DIFF [HEME] DAILYLAB Subjective - Subjective Patient Reports: Cough, Shortness of Breath (He feels better sitting upright.) Objective Vital Signs: Vital Signs - 24 hr 07/12/23 07/13/23 07/13/23 21:00 00:02 04:15 Temperature 38.0 C H 37.5 C 37.1 C Heart Rate [ 108 H 107 H 117 H Brachial] Respiratory 16 18 22 Rate Blood Pressure 119/73 104/61 128/66 [Left Brachial artery] Blood Pressure [Right Brachial artery] O2 Saturation 94 92 92 If not protocol 12 13 13 : Oxygen Flow, liters/minute 07/13/23 07/13/23 07/13/23 07:26 07:38 12:29 Temperature 37.6 C 37.1 C Heart Rate [ 117 H 117 H Brachial] Respiratory 22 24 Rate Blood Pressure 115/71 [Left Brachial artery] Blood Pressure 109/80 [Right Brachial artery] O2 Saturation 90 L 91 L If not protocol 12 13 15 : Oxygen Flow, liters/minute 07/13/23 16:00 Temperature 37.7 C Heart Rate [ 82 Brachial] Respiratory 20 Rate Blood Pressure 99/60 [Left Brachial artery] Blood Pressure [Right Brachial artery] O2 Saturation 82 L If not protocol 15 : Oxygen Flow, liters/minute Oxygen O2 Source Oxymizer I&O (Last 24 Hrs): Intake and Output Totals x24h 07/11/23 07/12/23 07/13/23 23:59 23:59 23:59 Intake Total 4189 3035 3707 Output Total 2370 2110 1875 Balance 7097 381 2561 General: Alert, Oriented x3, Mild distress (From respiratory distress) HEENT: Mucous membr. moist/pink Neck: Supple Neuro: Alert, Non Focal Cardiovascular: Regular rate Respiratory: Rales, Rhonchi Abdomen: Soft, No tenderness Extremities: No clubbing, No edema, No tenderness/swelling - Results Results: Laboratory Results WBC 9.0 x10^3/uL (4.8-10.8) 07/13/23 08:06 RBC 4.22 10^6/uL (4.70-6.10) L 07/13/23 08:06 Hgb 13.9 g/dL (14.0-18.0) L 07/13/23 08:06 Hct 44.9 % (42.0-52.0) 07/13/23 08:06 MCV 106.4 fL (80.0-94.0) H 07/13/23 08:06 MCH 32.9 pg (27.0-31.0) H 07/13/23 08:06 MCHC 31.0 g/dL (32.0-36.0) L 07/13/23 08:06 RDW 11.5 % (12.0-15.0) L 07/13/23 08:06 Plt Count 163 10^3/uL (130-450) 07/13/23 08:06 MPV 11.8 fL (7.4-11.4) H 07/13/23 08:06 Neut # (Auto) Not Reportable 07/13/23 08:06 Lymph # (Auto) Not Reportable 07/13/23 08:06 [place] # (Auto) Not Reportable 07/13/23 08:06 Eos # (Auto) Not Reportable 07/13/23 08:06 Baso # (Auto) Not Reportable 07/13/23 08:06 Absolute Nucleated RBC Not Reportable 07/13/23 08:06 Total Counted 100 07/13/23 08:06 Band Neuts % (Manual) 9 % (0-10) 07/13/23 08:06 Abnorm Lymph % (Manual) 0 % 07/13/23 08:06 Metamyelocytes % 1 % (-0) H 07/12/23 05:04 Myelocytes % 1 % (-0) H 07/12/23 05:04 Nucleated RBC % Not Reportable 07/13/23 08:06 Neutrophils # (Manual) 7.3 10^3/uL (1.5-6.6) H 07/13/23 08:06 Lymphocytes # (Manual) 1.1 10^3/uL (1.5-3.5) L 07/13/23 08:06 Monocytes # (Manual) 0.5 10^3/uL (0.0-1.0) 07/13/23 08:06 Eosinophils # (Manual) 0.1 10^3/uL (0-0.7) 07/13/23 08:06 Basophils # (Manual) 0.0 10^3/uL (0-0.1) 07/13/23 08:06 Differential Comment MANUAL DIFFERENTIAL 07/13/23 08:06 WBC Morphology NORMAL APPEARANCE (NORMAL) 07/13/23 08:06 Platelet Estimate NORMAL (130-450,000) (NORMAL) 07/13/23 08:06 Platelet Morphology NORMAL APPEARANCE (NORMAL) 07/13/23 08:06 RBC Morph Micro Appear NORMAL APPEARANCE (NORMAL) 07/13/23 08:06 Sodium 147 mmol/L (135-145) H 07/13/23 08:06 Potassium 4.7 mmol/L (3.5-4.5) H 07/13/23 08:06 Chloride 112 mmol/L (101-111) H 07/13/23 08:06 Carbon Dioxide 30 mmol/L (21-32) 07/13/23 08:06 Anion Gap 5.0 (6-13) L 07/13/23 08:06 BUN 35 mg/dL (6-20) H 07/13/23 08:06 Creatinine 0.9 mg/dL (0.6-1.3) 07/13/23 08:06 Estimated GFR (MDRD) 102 (>89) 07/13/23 08:06 Glucose 356 mg/dL (74-104) H 07/13/23 08:06 POC Whole Bld Glucose 200 mg/dL (70 - 100) H 07/13/23 16:17 Estimat Average Glucose 180 mg/dL (70-100) H 07/09/23 05:12 Hemoglobin A1c % 7.9 % (4.27-6.07) H 07/09/23 05:12 Calcium 9.6 mg/dL (8.5-10.3) 07/13/23 08:06 Phosphorus 2.2 mg/dL (2.5-5.0) L 07/12/23 05:04 Magnesium 2.2 mg/dL (1.7-2.3) 07/12/23 05:04 Total Bilirubin 0.5 mg/dL (0.2-1.0) 07/08/23 13:26 AST 17 IU/L (10-42) 07/08/23 13:26 ALT 24 IU/L (10-60) 07/08/23 13:26 Alkaline Phosphatase 91 IU/L (42-121) 07/08/23 13:26 Troponin I High Sens 7.1 ng/L (2.3-19.7) 07/11/23 14:45 C-Reactive Protein 16.6 mg/dL (<0.5) H 07/11/23 07:30 Total Protein 8.0 g/dL (6.4-8.9) 07/08/23 13:26 Albumin 4.3 g/dL (3.2-5.5) 07/08/23 13:26 Globulin 3.7 g/dL (2.1-4.2) 07/08/23 13:26 Albumin/Globulin Ratio 1.2 (1.0-2.2) 07/08/23 13:26 Prealbumin 22 mg/dL (17-34) 07/09/23 05:12 Lipase < 10 U/L (11-82) L 07/08/23 13:26 Vitamin B12 1050 pg/mL (180-914) H 07/09/23 05:12 Vitamin D 25-Hydroxy 37.4 ng/mL (30.0-100.0) 07/09/23 15:21 Folate 26.8 ng/mL (5.90 - >24.8) 07/09/23 05:12 TSH 2.70 uIU/mL (0.34-5.60) 07/08/23 13:26 Free T4 Direct 0.78 ng/dL (0.58-1.64) 07/08/23 13:26 Urine Color YELLOW 07/08/23 16:30 Urine Clarity CLEAR (CLEAR) 07/08/23 16:30 Urine pH 5.5 PH (5.0-7.5) 07/08/23 16:30 Ur Specific [place] 1.010 (1.002-1.030) 07/08/23 16:30 Urine Protein NEGATIVE mg/dL (NEGATIVE) 07/08/23 16:30 Urine Glucose (UA) >=1000 mg/dL (NEGATIVE) H 07/08/23 16:30 Urine Ketones NEGATIVE mg/dL (NEGATIVE) 07/08/23 16:30 Urine Occult Blood NEGATIVE (NEGATIVE) 07/08/23 16:30 Urine Nitrite NEGATIVE (NEGATIVE) 07/08/23 16:30 Urine Bilirubin NEGATIVE (NEGATIVE) 07/08/23 16:30 Urine Urobilinogen 0.2 (NORMAL) E.U./dL (NORMAL) 07/08/23 16:30 Ur Leukocyte Esterase NEGATIVE (NEGATIVE) 07/08/23 16:30 Ur Microscopic Review NOT INDICATED 07/08/23 16:30 Urine Culture Comments NOT INDICATED 07/08/23 16:30 Nasal Adenovirus (PCR) NOT DETECTED 07/08/23 12:54 Nasal B. parapertussis DNA (PCR) NOT DETECTED 07/08/23 12:54 Nasal Coronavir 229E PCR NOT DETECTED 07/08/23 12:54 Nasal Coronavir HKU1 PCR NOT DETECTED 07/08/23 12:54 Nasal Coronavir NL63 PCR NOT DETECTED 07/08/23 12:54 Nasal Coronavir OC43 PCR NOT DETECTED 07/08/23 12:54 Nasal Enterovir/Rhinovir PCR NOT DETECTED 07/08/23 12:54 Nasal Influenza B PCR NOT DETECTED 07/08/23 12:54 Nasal Influenza A PCR NOT DETECTED 07/08/23 12:54 Nasal Parainfluen 1 PCR NOT DETECTED 07/08/23 12:54 Nasal Parainfluen 2 PCR NOT DETECTED 07/08/23 12:54 Nasal Parainfluen 3 PCR NOT DETECTED 07/08/23 12:54 Nasal Parainfluen 4 PCR NOT DETECTED 07/08/23 12:54 Nasal RSV (PCR) NOT DETECTED 07/08/23 12:54 Nasal B.pertussis DNA PCR NOT DETECTED 07/08/23 12:54 Nasal C.pneumoniae (PCR) NOT DETECTED 07/08/23 12:54 Navjot Human Metapneumo PCR NOT DETECTED 07/08/23 12:54 Nasal M.pneumoniae (PCR) NOT DETECTED 07/08/23 12:54 Nasal SARS-CoV-2 (PCR) NOT DETECTED 07/08/23 12:54 Last Dose Date 07/11/23 07/11/23 17:20 Last Dose Time 1630 07/11/23 17:20 Vancomycin Peak 27.3 ug/mL (20.0-40.0) 07/11/23 17:20 Serum Ketones NEGATIVE (NEGATIVE) 07/08/23 13:26 - Procedures Procedures: Procedures EXCISION OF RECTUM, ENDO, DIAGN (10/09/17)
[2023-07-14] MEDS: SODIUM CHLORIDE FLUSH 0.9% 10 ML SYRINGE IVP SCH ×3 (00:41→17:06)
[2023-07-14] MEDS: CEFEPIME 1 GM in SODIUM CHLORIDE 0.9% MINIBAG 100 ML IV SCH ×3 (00:41→17:05)
[2023-07-14] MEDS ORDERED: SUCCINYLCHOLINE 200 MG/10 ML VIAL IVP ONE (01:30)
[2023-07-14] MEDS ORDERED: KETAMINE 500 MG/10 ML VIAL IVP ONE (01:30)
[2023-07-14] MEDS ORDERED: MIDAZOLAM 2 MG/2 ML VIAL ONE ×5 (01:36→02:09)
[2023-07-14] MEDS ORDERED: KETAMINE 500 MG/10 ML VIAL ONE (01:36)
[2023-07-14] MEDS ORDERED: PROPOFOL 200 MG/20 ML VIAL IVP ONE (01:37)
[2023-07-14] MEDS ORDERED: SUCCINYLCHOLINE 200 MG/10 ML VIAL ONE (01:37)
[2023-07-14] MEDS ORDERED: PROPOFOL 1000 MG/100 ML 0 MG/0 ML BOTTLE IV ONE (01:37)
[2023-07-14] MEDS ORDERED: ROCURONIUM 50 MG/5 ML VIAL ONE (01:37)
[2023-07-14] MEDS ORDERED: ETOMIDATE 40 MG/20 ML VIAL IVP ONE (01:37)
[2023-07-14] MEDS ORDERED: SODIUM CHLORIDE 0.9% 1,000 ML ONE ×2 (01:38→02:23)
[2023-07-14] MEDS ORDERED: MIDAZOLAM DRIP 50 MG/50 ML 50 MG/50 ML BAG IV SCH ×3 (01:40)
[2023-07-14 01:43] LABS: CALCIUM 9.5 mg/dL (8.5-10.3); CREATININE 1.7 mg/dL (0.6-1.3); POTASSIUM 4.4 mmol/L (3.5-4.5)
[2023-07-14] MEDS ORDERED: MIDAZOLAM 2 MG/2 ML VIAL IVP ONE ×2 (01:50→02:00)
--- NOTE | 2023-07-14 01:56 | XRAY Report ---
PROCEDURE: Chest 1 View X-Ray INDICATIONS: hypoxia TECHNIQUE: One view of the chest was acquired. COMPARISON: 07/08/2023, 07/11/2023, 07/13/2023 chest plain films. FINDINGS: Surgical changes and devices: None. Lungs and pleura: No pleural effusions or pneumothorax. Lungs have sequentially worsened in appeara nce, right greater than left, consistent with advancing pneumonia Mediastinum: Mediastinal contours appear normal. Heart size is normal. Bones and chest wall: No suspicious bony lesions. Overlying soft tissues appear unremarkable. IMPRESSION: Worsening pneumonia bilaterally, right greater than left, without visualized pleural effusion. Reviewed by: Fortino Ayala MD on 07/14/2023 1:55 AM PDT Approved by: Fortino Ayala MD on 07/14/2023 1:55 AM PDT Station ID: [id number]
[2023-07-14] MEDS ORDERED: MORPHINE 2 MG/ML CARPUJECT IVP ONE (02:00)
[2023-07-14] MEDS ORDERED: MORPHINE 2 MG/ML CARPUJECT ONE (02:09)
[2023-07-14] MEDS ORDERED: NOREPINEPHRINE/0.9 % NS 8 MG/250 ML BAG IV ONE (02:20)
[2023-07-14] MEDS ORDERED: DEXTROSE 5% 100 ML IV ONE (02:43)
[2023-07-14] MEDS ORDERED: VASOPRESSIN 20 UNIT/ML VIAL ONE (02:43)
--- NOTE | 2023-07-14 02:45 | MISCELLANEOUS PROVIDER NOTE ---
Miscellaneous Provider Note - - Note: I was called to the patient's bedside due to worsening respiratory function despite maximum BiPAP settings. Telemetry hospitalist requested intubation and initiation of Levophed. Patient was intubated as follows: Consent obtained from patient and . Timeout performed. Airway assessed prior to procedure by myself. Chart reviewed. Tube feeds stopped. Preoxygenated. Suction available. Premedicated with ketamine, paralyzation with succinylcholine. Initial attempt with 7.5 ET tube via glide scope with MAC 3 blade. Unable to pass tube due to narrow passage. Second attempt with a 7-0 ET tube successful. End-tidal CO2 with positive color change. Bilateral breath sounds, no abdominal breath sounds. Confirmed with chest x-ray. Patient placed in four-point restraints and postintubation sedation with Versed initiated. Sierra placed with drainage of clear yellow urine. OG tube passed. Central line placed by myself in right IJ. Timeout was performed, stand sterile hygiene observed. Cleansed with chlorhexidine and sterile drapes applied. Seldinger technique was observed, 7 Croatian triple-lumen catheter was advanced without issue and right IJ. Secured with sutures, tape. Confirmed with chest x-ray. Patient tolerated procedure without complication. Post intubation the patient did have drop in blood pressure. He was started on Levophed and subsequently vasopressin. IV fluids running pressure back. Care of patient transferred to telemetry hospitalist. If patient requires hands-on care I am happy to provide additional assistance.
[2023-07-14] MEDS: NOREPINEPHRINE/0.9 % NS 8 MG/250 ML BAG IV SCH ×2 (02:52→06:47)
[2023-07-14 02:55] LABS: ABG PH 7.37 (7.35-7.45)
[2023-07-14 02:56] LABS: ABG BASE EXCESS 1.8 mmol/L (-2.0-3.0); ABG HCO3 27.6 mmol/L (22.0-26.0); ABG OXYGEN SATURATION 95 % (94-98); ABG PCO2 49 mmHg (34-45); ABG PO2 74 mmHg (80-100); ABG TCO2 29.1 MMOL/L (21.0-29.0); ALLEN TEST POSITIVE
[2023-07-14 02:57] LABS: ABG MODE OF VENTILATION SIMV
[2023-07-14 02:58] LABS: ABG RESPIRATORY RATE 16 b/min
[2023-07-14] MEDS: VASOPRESSIN 20 UNIT in DEXTROSE 5% 99 ML IV SCH ×2 (03:12→19:44)
[2023-07-14] MEDS: VANCOMYCIN INJ 1 GM, VANCOMYCIN INJ 250 MG in SODIUM CHLORIDE 0.9% 250 ML IV SCH (03:38)
[2023-07-14] MEDS: SODIUM CHLORIDE FLUSH 0.9% 10 ML SYRINGE IVP PRN ×3 (04:48→22:20)
[2023-07-14 05:18] LABS: BASOPHILS % (AUTO) 0.5 %; EOSINOPHILS % (AUTO) 0.5 %; HCT - HEMATOCRIT 38.3 % (42.0-52.0); HGB - HEMOGLOBIN 11.6 g/dL (14.0-18.0); LYMPHOCYTES % (AUTO) 7.9 %; MEAN CORPUSCULAR HEMOGLOBIN 32.8 pg (27.0-31.0); MEAN CORPUSCULAR HGB CONC 30.3 g/dL (32.0-36.0); MEAN CORPUSCULAR VOLUME 108.2 fL (80.0-94.0); MONOCYTES % (AUTO) 7.9 %; NEUTROPHILS % (AUTO) 82.5 %; PLT - PLATELET COUNT 168 10^3/uL (130-450); RED BLOOD COUNT 3.54 10^6/uL (4.70-6.10); RED CELL DISTRIBUTION WIDTH 11.9 % (12.0-15.0); WHITE BLOOD COUNT 9.6 x10^3/uL (4.8-10.8)
[2023-07-14 05:35] LABS: ABNORMAL LYMPHS % (MANUAL) 0 %; BAND NEUTROPHILS % (MANUAL) 0 %
[2023-07-14 05:37] LABS: CALCIUM 8.9 mg/dL (8.5-10.3); CREATININE 1.8 mg/dL (0.6-1.3); MAGNESIUM 1.8 mg/dL (1.7-2.3); PHOSPHORUS 2.3 mg/dL (2.5-5.0); POTASSIUM 4.2 mmol/L (3.5-4.5)
[2023-07-14] MEDS: FUROSEMIDE 20 MG/2 ML VIAL IVP SCH ×2 (06:04→14:47)
[2023-07-14 06:50] LABS: LYMPHOCYTES # (MANUAL) 0.7 10^3/uL (1.5-3.5); LYMPHOCYTES % (MANUAL) 5 %; MONOCYTES # (MANUAL) 1.2 10^3/uL (0.0-1.0); NEUTROPHILS # (MANUAL) 7.8 10^3/uL (1.5-6.6); REACTIVE LYMPHS % (MANUAL) 2 %
[2023-07-14 06:52] LABS: PLATELET ESTIMATE, MANUAL NORMAL (130-450,000) (NORMAL); PLATELET MORPHOLOGY NORMAL APPEARANCE (NORMAL)
[2023-07-14 06:53] LABS: DIFFERENTIAL COMMENT MANUAL DIFFERENTIAL; WBC MORPHOLOGY (MULTIPLE) NORMAL APPEARANCE (NORMAL)
--- NOTE | 2023-07-14 07:54 | XRAY Report ---
PROCEDURE: Chest for Line Placement INDICATIONS: central line; ett; og TECHNIQUE: One view of the chest was acquired. COMPARISON: 07/14/2023, 07/13/2023, 07/11/2020 and 07/08/2023. FINDINGS: Surgical changes and devices: Right internal jugular central venous catheter tip is in SVC. ET tube tip is approximately 4.5 cm above the mylene. Enteric tube tip is below the left hemidiaphragm. Lungs and pleura: Small to moderate bilateral pleural effusion and patchy infiltrate/atelectasis in bilateral mid to lower lung osborn are seen. Finding is worse on the right side. No gross pneumothora x. Mediastinum: Mediastinal contours appear normal. Heart size is normal. Bones and chest wall: No suspicious bony lesions. Overlying soft tissues appear unremarkable. IMPRESSION: 1. Right internal jugular central venous catheter tip is in SVC. ET tube and enteric tube are in sati sfactory position. 2. Persistent extensive bilateral airspace opacity worse on the right side with bilateral pleural eff usion. No pneumothorax. Reviewed by: Richard Starr MD on 07/14/2023 7:52 AM PDT Approved by: Richard Starr MD on 07/14/2023 7:52 AM PDT Station ID: [id number]
--- NOTE | 2023-07-14 09:55 | XRAY Report ---
PROCEDURE: Chest 1 View X-Ray INDICATIONS: Intubated, PNA TECHNIQUE: One view of the chest was acquired. COMPARISON: 07/14/2023 FINDINGS: Surgical changes and devices: Endotracheal, nasogastric and right IJ central venous line all unchang ed from the prior exam. Lungs and pleura: Bilateral pulmonary infiltrates are stable. Obscuration right hemidiaphragm and fl uid in the right minor fissure slightly increased. Mediastinum: Mediastinal contours appear normal. Heart size is normal. Underlying vascular congesti on Bones and chest wall: No suspicious bony lesions. Overlying soft tissues appear unremarkable. IMPRESSION: Moderate vascular congestion with bilateral pulmonary infiltrates consistent with pulmonary edema. Bi basilar pleural effusions slightly improved, although, there is fluid in the right minor fissure now. Lines and tubes unchanged Reviewed by: Pierce Amaro MD on 07/14/2023 8:53 AM AKDT Approved by: Pierce Amaro MD on 07/14/2023 8:53 AM AKDT Station ID: [id number]
[2023-07-14] MEDS: MIDAZOLAM DRIP 50 MG/50 ML 50 MG/50 ML BAG IV SCH ×2 (10:00→22:00)
[2023-07-14] MEDS: INSULIN LISPRO 300 UNIT/3 ML PEN SUBQ SCH ×3 (10:06→12:37)
[2023-07-14] MEDS: INSULIN GLARGINE-YFGN 300 UNIT/3 ML PEN SUBQ SCH (10:16)
[2023-07-14] MEDS: NORepinephrine 8 MG in DEXTROSE 5% 250ML IV SCH ×3 (10:47→22:32)
[2023-07-14] MEDS: metroNIDAZOLE 500 MG/100 ML 500 MG/100 ML BAG IV SCH ×2 (11:08→18:08)
[2023-07-14] MEDS: ACETAMINOPHEN 1,000 MG/100 ML 1,000 MG/100 ML BAG IV PRN ×2 (11:15→22:52)
[2023-07-14 11:48] LABS: BILIRUBIN,URINE NEGATIVE (NEGATIVE); GLUCOSE, URINE (UA) >=1000 mg/dL (NEGATIVE); KETONES,URINE (UA) NEGATIVE (NEGATIVE); LEUKOCYTE ESTERASE, URINE NEGATIVE (NEGATIVE); NITRITE,URINE NEGATIVE (NEGATIVE); OCCULT BLOOD,URINE SMALL (NEGATIVE); PH,URINE 5.5 PH (5.0-7.5); PROTEIN,URINE 30 mg/dL (NEGATIVE); UROBILINOGEN,URINE 0.2 (NORMAL) E.U./dL (NORMAL)
[2023-07-14] MEDS: INSULIN REGULAR HUMAN 300 UNIT/3 ML VIAL SUBQ SCH ×3 (12:36→23:54)
[2023-07-14 12:50] LABS: AMORPHOUS SEDIMENT,UR Few /LPF; BACTERIA,URINE Rare /HPF (None Seen); CLARITY,URINE CLEAR (CLEAR); RBC,URINE 0-5 /HPF (0-5); SQUAMOUS EPITHELIAL CELL,UR NONE SEEN (<= Few)
[2023-07-14 12:51] LABS: CASTS, URINE 6-10 Fine Granular /LPF; MUCUS,URINE Few Strands
[2023-07-14] MEDS ORDERED: MAGNESIUM SULFATE 2 GRAM 2 GM/50 ML BAG IV ONE (13:25)
[2023-07-14] MEDS ORDERED: SODIUM PHOSPHATE 15 MMOL in SODIUM CHLORIDE 0.9% 250 ML IV ONE (13:25)
[2023-07-14 14:41] LABS: GFR - MDRD 41 (>89); SODIUM 149 mmol/L (135-145); VANCOMYCIN,TROUGH 41.3 ug/mL
[2023-07-14 16:35] LABS: ABG BASE EXCESS 1.4 mmol/L (-2.0-3.0); ABG HCO3 26.1 mmol/L (22.0-26.0); ABG OXYGEN SATURATION 95 % (94-98); ABG PCO2 42 mmHg (34-45); ABG PH 7.41 (7.35-7.45); ABG PO2 74 mmHg (80-100); ABG TCO2 27.4 MMOL/L (21.0-29.0); ALLEN TEST POSITIVE
[2023-07-14 16:36] LABS: ABG MODE OF VENTILATION SIMV; ABG RESPIRATORY RATE 14 b/min
--- NOTE | 2023-07-14 16:45 | PROVIDER PROGRESS NOTE ---
Subjective - Subjective Pt reports feeling: Worse (He was intubated overnight, is in the ICU, sedated, on the vent, Sierra inserted, OG tube inserted, no J tube feeds were given this a.m.) Objective - Vital Signs/Intake & Output Reviewed Vital Signs: Yes Vital Signs: Vital Signs Temp Pulse Pulse Resp BP Pulse Ox 07/14/23 16:00 84 18 113/73 96 07/14/23 15:04 79 07/14/23 15:00 81 16 93/65 92 07/14/23 14:00 86 16 107/70 97 07/14/23 13:40 87 07/14/23 13:00 37.3 C 88 17 114/73 97 Intake & Output: Intake & Output 07/11/23 07/12/23 07/13/23 07/14/23 23:59 23:59 23:59 23:59 Intake Total 4189 3035 3827 1429.912 Output Total 2370 2110 2175 1885 Balance 9918 014 2719 -455.088 - Objective General Appearance: positive: Other (sedated) Eyes Bilateral: positive: No lid inflammation ENT: positive: Other (ET tube and OG tubes in place) Neck: positive: Nml inspection Respiratory: positive: No respiratory distress (on the vent), Rales (R base rales, L base clear) Cardiovascular: positive: Regular rate & rhythm, No murmur Abdomen: positive: No distention Skin: positive: Warm, Dry Extremities: positive: No pedal edema Neurologic/Psychiatric: positive: Other (Sedated on versed drip) - Lab Results Fish Bones: 07/14/23 04:41 07/14/23 13:45 Other Labs: Lab Results x24hrs 07/14/23 07/14/23 07/14/23 Range/Units 16:28 13:45 11:51 WBC (4.8-10.8) x10^3/uL RBC (4.70-6.10) 10^6/uL Hgb (14.0-18.0) g/dL Hct (42.0-52.0) % MCV (80.0-94.0) fL MCH (27.0-31.0) pg MCHC (32.0-36.0) g/dL RDW (12.0-15.0) % Plt Count (130-450) 10^3/uL MPV (7.4-11.4) fL Neut # (Auto) Lymph # (Auto) [place] # (Auto) Eos # (Auto) Baso # (Auto) Absolute Nucleated RBC Total Counted Band Neuts % (Manual) (0 - 10) % Reactive Lymphs % (Man) % Abnorm Lymph % (Manual) % Nucleated RBC % Neutrophils # (Manual) (1.5-6.6) 10^3/uL Lymphocytes # (Manual) (1.5-3.5) 10^3/uL Monocytes # (Manual) (0.0-1.0) 10^3/uL Eosinophils # (Manual) (0-0.7) 10^3/uL Basophils # (Manual) (0-0.1) 10^3/uL Differential Comment WBC Morphology (NORMAL) Platelet Estimate (NORMAL) Platelet Morphology (NORMAL) RBC Morph Micro Appear (NORMAL) D-Dimer (200.0-255.0) ng/mL Bld Gas Analysis Time 1636 Sample Site RIGHT RADIAL ABG pH 7.41 (7.35-7.45) ABG pCO2 42 (34-45) mmHg ABG pO2 74 L (80-100) mmHg ABG HCO3 26.1 H (22.0-26.0) mmol/L ABG Total CO2 27.4 (21.0-29.0) MMOL/L ABG O2 Saturation 95 (94-98) % ABG Base Excess 1.4 (-2.0-3.0) mmol/L Ricky Test POSITIVE Respiration Rate 14 b/min O2 Delivery Device VENTILATOR Vent Mode SIMV FiO2 75.00 Tidal Volume 500 mL PEEP 5 cmH2O Pressure Support Vent 10 cmH2O Sodium 149 H (135-145) mmol/L Potassium (3.5-4.5) mmol/L Chloride (101-111) mmol/L Carbon Dioxide (21-32) mmol/L Anion Gap (6-13) BUN (6-20) mg/dL Creatinine 2.0 H (0.6-1.3) mg/dL Estimated GFR (MDRD) 41 L (>89) Glucose (74-104) mg/dL POC Whole Bld Glucose 295 H (70 - 100) mg/dL Lactic Acid (0.5-2.2) mmol/L Calcium (8.5-10.3) mg/dL Phosphorus (2.5-5.0) mg/dL Magnesium (1.7-2.3) mg/dL B-Natriuretic Peptide (5-100) pg/mL Urine Color Urine Clarity (CLEAR) Urine pH (5.0-7.5) PH Ur Specific [place] (1.002-1.030) Urine Protein (NEGATIVE) mg/dL Urine Glucose (UA) (NEGATIVE) mg/dL Urine Ketones (NEGATIVE) mg/dL Urine Occult Blood (NEGATIVE) Urine Nitrite (NEGATIVE) Urine Bilirubin (NEGATIVE) Urine Urobilinogen (NORMAL) E.U./dL Ur Leukocyte Esterase (NEGATIVE) Urine RBC (0-5) /HPF Urine WBC (0-3) /HPF Ur Squamous Epith Cells (<= Few) Amorphous Sediment /LPF Urine Bacteria (None Seen) /HPF Urine Casts /LPF Urine Mucus Urine Culture Comments Nasal Screen MRSA (PCR) (NEGATIVE) Last Dose Date 07/14/23 Last Dose Time 05:14 Vancomycin Trough 41.3 H* ug/mL SARS-CoV-2 (PCR) 07/14/23 07/14/23 07/14/23 Range/Units 11:00 09:46 09:18 WBC (4.8-10.8) x10^3/uL RBC (4.70-6.10) 10^6/uL Hgb (14.0-18.0) g/dL Hct (42.0-52.0) % MCV (80.0-94.0) fL MCH (27.0-31.0) pg MCHC (32.0-36.0) g/dL RDW (12.0-15.0) % Plt Count (130-450) 10^3/uL MPV (7.4-11.4) fL Neut # (Auto) Lymph # (Auto) [place] # (Auto) Eos # (Auto) Baso # (Auto) Absolute Nucleated RBC Total Counted Band Neuts % (Manual) (0 - 10) % Reactive Lymphs % (Man) % Abnorm Lymph % (Manual) % Nucleated RBC % Neutrophils # (Manual) (1.5-6.6) 10^3/uL Lymphocytes # (Manual) (1.5-3.5) 10^3/uL Monocytes # (Manual) (0.0-1.0) 10^3/uL Eosinophils # (Manual) (0-0.7) 10^3/uL Basophils # (Manual) (0-0.1) 10^3/uL Differential Comment WBC Morphology (NORMAL) Platelet Estimate (NORMAL) Platelet Morphology (NORMAL) RBC Morph Micro Appear (NORMAL) D-Dimer (200.0-255.0) ng/mL Bld Gas Analysis Time Sample Site ABG pH (7.35-7.45) ABG pCO2 (34-45) mmHg ABG pO2 (80-100) mmHg ABG HCO3 (22.0-26.0) mmol/L ABG Total CO2 (21.0-29.0) MMOL/L ABG O2 Saturation (94-98) % ABG Base Excess (-2.0-3.0) mmol/L Ricky Test Respiration Rate b/min O2 Delivery Device Vent Mode FiO2 Tidal Volume mL PEEP cmH2O Pressure Support Vent cmH2O Sodium (135-145) mmol/L Potassium (3.5-4.5) mmol/L Chloride (101-111) mmol/L Carbon Dioxide (21-32) mmol/L Anion Gap (6-13) BUN (6-20) mg/dL Creatinine (0.6-1.3) mg/dL Estimated GFR (MDRD) (>89) Glucose (74-104) mg/dL POC Whole Bld Glucose 296 H (70 - 100) mg/dL Lactic Acid 1.3 (0.5-2.2) mmol/L Calcium (8.5-10.3) mg/dL Phosphorus (2.5-5.0) mg/dL Magnesium (1.7-2.3) mg/dL B-Natriuretic Peptide (5-100) pg/mL Urine Color YELLOW Urine Clarity CLEAR (CLEAR) Urine pH 5.5 (5.0-7.5) PH Ur Specific [place] 1.020 (1.002-1.030) Urine Protein 30 H (NEGATIVE) mg/dL Urine Glucose (UA) >=1000 H (NEGATIVE) mg/dL Urine Ketones NEGATIVE (NEGATIVE) mg/dL Urine Occult Blood SMALL H (NEGATIVE) Urine Nitrite NEGATIVE (NEGATIVE) Urine Bilirubin NEGATIVE (NEGATIVE) Urine Urobilinogen 0.2 (NORMAL) (NORMAL) E.U./dL Ur Leukocyte Esterase NEGATIVE (NEGATIVE) Urine RBC 0-5 (0-5) /HPF Urine WBC 6-10 H (0-3) /HPF Ur Squamous Epith Cells NONE SEEN (<= Few) Amorphous Sediment Few /LPF Urine Bacteria Rare (None Seen) /HPF Urine Casts 6-10 Fine Granular /LPF Urine Mucus Few Strands Urine Culture Comments NOT INDICATED Nasal Screen MRSA (PCR) (NEGATIVE) Last Dose Date Last Dose Time Vancomycin Trough ug/mL SARS-CoV-2 (PCR) 07/14/23 07/14/23 07/14/23 Range/Units 04:41 04:41 02:53 WBC 9.6 (4.8-10.8) x10^3/uL RBC 3.54 L (4.70-6.10) 10^6/uL Hgb 11.6 L (14.0-18.0) g/dL Hct 38.3 L (42.0-52.0) % MCV 108.2 H (80.0-94.0) fL MCH 32.8 H (27.0-31.0) pg MCHC 30.3 L (32.0-36.0) g/dL RDW 11.9 L (12.0-15.0) % Plt Count 168 (130-450) 10^3/uL MPV 12.0 H (7.4-11.4) fL Neut # (Auto) Not Reportable Lymph # (Auto) Not Reportable [place] # (Auto) Not Reportable Eos # (Auto) Not Reportable Baso # (Auto) Not Reportable Absolute Nucleated RBC Not Reportable Total Counted 100 Band Neuts % (Manual) 0 (0 - 10) % Reactive Lymphs % (Man) 2 % Abnorm Lymph % (Manual) 0 % Nucleated RBC % Not Reportable Neutrophils # (Manual) 7.8 H (1.5-6.6) 10^3/uL Lymphocytes # (Manual) 0.7 L (1.5-3.5) 10^3/uL Monocytes # (Manual) 1.2 H (0.0-1.0) 10^3/uL Eosinophils # (Manual) 0.0 (0-0.7) 10^3/uL Basophils # (Manual) 0.0 (0-0.1) 10^3/uL Differential Comment MANUAL DIFFERENTIAL WBC Morphology NORMAL APPEARANCE (NORMAL) Platelet Estimate NORMAL (130-450,000) (NORMAL) Platelet Morphology NORMAL APPEARANCE (NORMAL) RBC Morph Micro Appear 1+ POIKILOCYTOSIS (NORMAL) D-Dimer (200.0-255.0) ng/mL Bld Gas Analysis Time Sample Site ABG pH (7.35-7.45) ABG pCO2 (34-45) mmHg ABG pO2 (80-100) mmHg ABG HCO3 (22.0-26.0) mmol/L ABG Total CO2 (21.0-29.0) MMOL/L ABG O2 Saturation (94-98) % ABG Base Excess (-2.0-3.0) mmol/L Ricky Test Respiration Rate b/min O2 Delivery Device Vent Mode FiO2 Tidal Volume mL PEEP cmH2O Pressure Support Vent cmH2O Sodium 150 H (135-145) mmol/L Potassium 4.2 (3.5-4.5) mmol/L Chloride 116 H (101-111) mmol/L Carbon Dioxide 28 (21-32) mmol/L Anion Gap 6.0 (6-13) BUN 54 H (6-20) mg/dL Creatinine 1.8 H (0.6-1.3) mg/dL Estimated GFR (MDRD) 46 L (>89) Glucose 280 H (74-104) mg/dL POC Whole Bld Glucose (70 - 100) mg/dL Lactic Acid (0.5-2.2) mmol/L Calcium 8.9 (8.5-10.3) mg/dL Phosphorus 2.3 L (2.5-5.0) mg/dL Magnesium 1.8 (1.7-2.3) mg/dL B-Natriuretic Peptide (5-100) pg/mL Urine Color Urine Clarity (CLEAR) Urine pH (5.0-7.5) PH Ur Specific [place] (1.002-1.030) Urine Protein (NEGATIVE) mg/dL Urine Glucose (UA) (NEGATIVE) mg/dL Urine Ketones (NEGATIVE) mg/dL Urine Occult Blood (NEGATIVE) Urine Nitrite (NEGATIVE) Urine Bilirubin (NEGATIVE) Urine Urobilinogen (NORMAL) E.U./dL Ur Leukocyte Esterase (NEGATIVE) Urine RBC (0-5) /HPF Urine WBC (0-3) /HPF Ur Squamous Epith Cells (<= Few) Amorphous Sediment /LPF Urine Bacteria (None Seen) /HPF Urine Casts /LPF Urine Mucus Urine Culture Comments Nasal Screen MRSA (PCR) NEGATIVE (NEGATIVE) Last Dose Date Last Dose Time Vancomycin Trough ug/mL SARS-CoV-2 (PCR) 07/14/23 07/14/23 07/14/23 Range/Units 02:26 01:20 01:20 WBC (4.8-10.8) x10^3/uL RBC (4.70-6.10) 10^6/uL Hgb (14.0-18.0) g/dL Hct (42.0-52.0) % MCV (80.0-94.0) fL MCH (27.0-31.0) pg MCHC (32.0-36.0) g/dL RDW (12.0-15.0) % Plt Count (130-450) 10^3/uL MPV (7.4-11.4) fL Neut # (Auto) Lymph # (Auto) [place] # (Auto) Eos # (Auto) Baso # (Auto) Absolute Nucleated RBC Total Counted Band Neuts % (Manual) (0 - 10) % Reactive Lymphs % (Man) % Abnorm Lymph % (Manual) % Nucleated RBC % Neutrophils # (Manual) (1.5-6.6) 10^3/uL Lymphocytes # (Manual) (1.5-3.5) 10^3/uL Monocytes # (Manual) (0.0-1.0) 10^3/uL Eosinophils # (Manual) (0-0.7) 10^3/uL Basophils # (Manual) (0-0.1) 10^3/uL Differential Comment WBC Morphology (NORMAL) Platelet Estimate (NORMAL) Platelet Morphology (NORMAL) RBC Morph Micro Appear (NORMAL) D-Dimer (200.0-255.0) ng/mL Bld Gas Analysis Time 0235 Sample Site RIGHT RADIAL ABG pH 7.37 (7.35-7.45) ABG pCO2 49 H (34-45) mmHg ABG pO2 74 L (80-100) mmHg ABG HCO3 27.6 H (22.0-26.0) mmol/L ABG Total CO2 29.1 H (21.0-29.0) MMOL/L ABG O2 Saturation 95 (94-98) % ABG Base Excess 1.8 (-2.0-3.0) mmol/L Ricky Test POSITIVE Respiration Rate 16 b/min O2 Delivery Device VENTILATOR Vent Mode SIMV FiO2 100.00 Tidal Volume 520 mL PEEP 5 cmH2O Pressure Support Vent 10 cmH2O Sodium (135-145) mmol/L Potassium (3.5-4.5) mmol/L Chloride (101-111) mmol/L Carbon Dioxide (21-32) mmol/L Anion Gap (6-13) BUN (6-20) mg/dL Creatinine (0.6-1.3) mg/dL Estimated GFR (MDRD) (>89) Glucose (74-104) mg/dL POC Whole Bld Glucose (70 - 100) mg/dL Lactic Acid (0.5-2.2) mmol/L Calcium (8.5-10.3) mg/dL Phosphorus (2.5-5.0) mg/dL Magnesium 2.0 (1.7-2.3) mg/dL B-Natriuretic Peptide 31 (5-100) pg/mL Urine Color Urine Clarity (CLEAR) Urine pH (5.0-7.5) PH Ur Specific [place] (1.002-1.030) Urine Protein (NEGATIVE) mg/dL Urine Glucose (UA) (NEGATIVE) mg/dL Urine Ketones (NEGATIVE) mg/dL Urine Occult Blood (NEGATIVE) Urine Nitrite (NEGATIVE) Urine Bilirubin (NEGATIVE) Urine Urobilinogen (NORMAL) E.U./dL Ur Leukocyte Esterase (NEGATIVE) Urine RBC (0-5) /HPF Urine WBC (0-3) /HPF Ur Squamous Epith Cells (<= Few) Amorphous Sediment /LPF Urine Bacteria (None Seen) /HPF Urine Casts /LPF Urine Mucus Urine Culture Comments Nasal Screen MRSA (PCR) (NEGATIVE) Last Dose Date Last Dose Time Vancomycin Trough ug/mL SARS-CoV-2 (PCR) 07/14/23 07/14/23 07/14/23 Range/Units 01:20 01:20 00:55 WBC (4.8-10.8) x10^3/uL RBC (4.70-6.10) 10^6/uL Hgb (14.0-18.0) g/dL Hct (42.0-52.0) % MCV (80.0-94.0) fL MCH (27.0-31.0) pg MCHC (32.0-36.0) g/dL RDW (12.0-15.0) % Plt Count (130-450) 10^3/uL MPV (7.4-11.4) fL Neut # (Auto) Lymph # (Auto) [place] # (Auto) Eos # (Auto) Baso # (Auto) Absolute Nucleated RBC Total Counted Band Neuts % (Manual) (0 - 10) % Reactive Lymphs % (Man) % Abnorm Lymph % (Manual) % Nucleated RBC % Neutrophils # (Manual) (1.5-6.6) 10^3/uL Lymphocytes # (Manual) (1.5-3.5) 10^3/uL Monocytes # (Manual) (0.0-1.0) 10^3/uL Eosinophils # (Manual) (0-0.7) 10^3/uL Basophils # (Manual) (0-0.1) 10^3/uL Differential Comment WBC Morphology (NORMAL) Platelet Estimate (NORMAL) Platelet Morphology (NORMAL) RBC Morph Micro Appear (NORMAL) D-Dimer 519.7 H (200.0-255.0) ng/mL Bld Gas Analysis Time Sample Site ABG pH (7.35-7.45) ABG pCO2 (34-45) mmHg ABG pO2 (80-100) mmHg ABG HCO3 (22.0-26.0) mmol/L ABG Total CO2 (21.0-29.0) MMOL/L ABG O2 Saturation (94-98) % ABG Base Excess (-2.0-3.0) mmol/L Ricky Test Respiration Rate b/min O2 Delivery Device Vent Mode FiO2 Tidal Volume mL PEEP cmH2O Pressure Support Vent cmH2O Sodium 148 H (135-145) mmol/L Potassium 4.4 (3.5-4.5) mmol/L Chloride 113 H (101-111) mmol/L Carbon Dioxide 31 (21-32) mmol/L Anion Gap 4.0 L (6-13) BUN 56 H (6-20) mg/dL Creatinine 1.7 H (0.6-1.3) mg/dL Estimated GFR (MDRD) 49 L (>89) Glucose 311 H (74-104) mg/dL POC Whole Bld Glucose (70 - 100) mg/dL Lactic Acid (0.5-2.2) mmol/L Calcium 9.5 (8.5-10.3) mg/dL Phosphorus (2.5-5.0) mg/dL Magnesium (1.7-2.3) mg/dL B-Natriuretic Peptide (5-100) pg/mL Urine Color Urine Clarity (CLEAR) Urine pH (5.0-7.5) PH Ur Specific [place] (1.002-1.030) Urine Protein (NEGATIVE) mg/dL Urine Glucose (UA) (NEGATIVE) mg/dL Urine Ketones (NEGATIVE) mg/dL Urine Occult Blood (NEGATIVE) Urine Nitrite (NEGATIVE) Urine Bilirubin (NEGATIVE) Urine Urobilinogen (NORMAL) E.U./dL Ur Leukocyte Esterase (NEGATIVE) Urine RBC (0-5) /HPF Urine WBC (0-3) /HPF Ur Squamous Epith Cells (<= Few) Amorphous Sediment /LPF Urine Bacteria (None Seen) /HPF Urine Casts /LPF Urine Mucus Urine Culture Comments Nasal Screen MRSA (PCR) (NEGATIVE) Last Dose Date Last Dose Time Vancomycin Trough ug/mL SARS-CoV-2 (PCR) NOT DETECTED 07/13/23 Range/Units 21:13 WBC (4.8-10.8) x10^3/uL RBC (4.70-6.10) 10^6/uL Hgb (14.0-18.0) g/dL Hct (42.0-52.0) % MCV (80.0-94.0) fL MCH (27.0-31.0) pg MCHC (32.0-36.0) g/dL RDW (12.0-15.0) % Plt Count (130-450) 10^3/uL MPV (7.4-11.4) fL Neut # (Auto) Lymph # (Auto) [place] # (Auto) Eos # (Auto) Baso # (Auto) Absolute Nucleated RBC Total Counted Band Neuts % (Manual) (0 - 10) % Reactive Lymphs % (Man) % Abnorm Lymph % (Manual) % Nucleated RBC % Neutrophils # (Manual) (1.5-6.6) 10^3/uL Lymphocytes # (Manual) (1.5-3.5) 10^3/uL Monocytes # (Manual) (0.0-1.0) 10^3/uL Eosinophils # (Manual) (0-0.7) 10^3/uL Basophils # (Manual) (0-0.1) 10^3/uL Differential Comment WBC Morphology (NORMAL) Platelet Estimate (NORMAL) Platelet Morphology (NORMAL) RBC Morph Micro Appear (NORMAL) D-Dimer (200.0-255.0) ng/mL Bld Gas Analysis Time Sample Site ABG pH (7.35-7.45) ABG pCO2 (34-45) mmHg ABG pO2 (80-100) mmHg ABG HCO3 (22.0-26.0) mmol/L ABG Total CO2 (21.0-29.0) MMOL/L ABG O2 Saturation (94-98) % ABG Base Excess (-2.0-3.0) mmol/L Ricky Test Respiration Rate b/min O2 Delivery Device Vent Mode FiO2 Tidal Volume mL PEEP cmH2O Pressure Support Vent cmH2O Sodium (135-145) mmol/L Potassium (3.5-4.5) mmol/L Chloride (101-111) mmol/L Carbon Dioxide (21-32) mmol/L Anion Gap (6-13) BUN (6-20) mg/dL Creatinine (0.6-1.3) mg/dL Estimated GFR (MDRD) (>89) Glucose (74-104) mg/dL POC Whole Bld Glucose 342 H (70 - 100) mg/dL Lactic Acid (0.5-2.2) mmol/L Calcium (8.5-10.3) mg/dL Phosphorus (2.5-5.0) mg/dL Magnesium (1.7-2.3) mg/dL B-Natriuretic Peptide (5-100) pg/mL Urine Color Urine Clarity (CLEAR) Urine pH (5.0-7.5) PH Ur Specific [place] (1.002-1.030) Urine Protein (NEGATIVE) mg/dL Urine Glucose (UA) (NEGATIVE) mg/dL Urine Ketones (NEGATIVE) mg/dL Urine Occult Blood (NEGATIVE) Urine Nitrite (NEGATIVE) Urine Bilirubin (NEGATIVE) Urine Urobilinogen (NORMAL) E.U./dL Ur Leukocyte Esterase (NEGATIVE) Urine RBC (0-5) /HPF Urine WBC (0-3) /HPF Ur Squamous Epith Cells (<= Few) Amorphous Sediment /LPF Urine Bacteria (None Seen) /HPF Urine Casts /LPF Urine Mucus Urine Culture Comments Nasal Screen MRSA (PCR) (NEGATIVE) Last Dose Date Last Dose Time Vancomycin Trough ug/mL SARS-CoV-2 (PCR) Assessment/Plan - Problem List (1) HCAP (healthcare-associated pneumonia) Impression: He developed hypoxia 3 days ago, then had a fever 2 days ago. He never has mounted a raised WBC. The 1st revealed an infiltrate in LLL, and a RLL nodule. 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 By the 2nd day he had the LL infiltrate and a small RLL infiltrate as well. He had resp distress overnight and was moved to the ICU, needed intibation. Today the CXR shows bilat pneumionia R>L. I am concerned that he was having aspiration, coming up from J tube feedings and/or that the RLL infiltrate is a post-obstructive pneumonia, given the old RLL mass. He has been on Cefepime and Vanco for the past 2 days when the HCAP was first seen, and they are continuing in the ICU. Plan: Cont IV Vanco and IV Cefepime Add iv Flagyl to cover anaerobes Obtain a resp culture During his fever today, I will order repeat blood cultures Stop J tube feeds temporarily Today I updated the at bedside regarding the entire plan (2) Acute respiratory failure with hypoxia Impression: The pt needed 2 L O2 supplemental 2 days ago. Yesterday he was placed on 12L>> 15L O2 supplemental. Yesterday I added iv Lasix, since he is in (+) fluid balance Overnight last night he decompensated with resp distress and was transfeered into ICU for BIPAP and then was intubated and put on the vent at 0200 Repeat chest x-ray shows bilat infiltrates, now the R side is worse than the L Plan: Decrease IV fluid rate and cont iv Lasix Cont vent support Treat the pneumonia (3) On mechanically assisted ventilation Impression: Cont mech vent Follow daily ABG and taper as appropriate Daily CXR as well (4) Hypotension Impression: He is not hemorrhaging or volume depleted given the amount of iv fluids he has received, therefore I suspect he is in septic shock causing this Hypotension IV pressores were started last night and iv hydration continues Lactic Acid level ordered and came back 1.3. Plan: We need to avoid NS because of his hypernatremia Cont iv hydration using D5 1/2 NS and use pressors as needed for target MAP of 65 His intravascular volume status is now unclear because of being hypernatremic, receiving IV diuretics and having no other fluids per iv or per J-tube today. He needs an Echocardiogram to evaluate chamber sizes and LV contractility. Echo ordered. We have no head of academic technology here today (which is Saturday, not until Saturday through ) (5) Hypernatremia Impression: The patient presented with severe hypernatremia and after several days the sodium corrected by receiving free water and an ostomy tube and D5W peripherally. The D5W made his serum glucose be excessive, since he is a diabetic diabetic Today's BMP shows that his sodium has again increased. This is probably from being on 3 days of IV Lasix Plan: We will give hydration using D5 one half NS His intravascular volume status is actually now unknown because of being hypernatremic, having received iv D5, also receiving IV diuretics and having no fluids per J-tube. Per his serum sodium he may be dry, but per his CXR he is fluid overloaded. He needs an Echocardiogram to evaluate chamber sizes and LV contractility. Echo ordered. But we have no head of academic technology here today (Saturday, not until Saturday through ) Nutrition consult is needed for changing the J-tube feed formula to one with less salt. I discussed this with the today. (6) Acute kidney injury Impression: He had normalized BUN/creat and since yesterday his BUN/creart has increased. I suspect this is from hypoperfusion related to his low BP Plan: The pt and both commented on an old RLL nodule. (7) Jejunostomy tube in situ Impression: Tube appeared to be working well for him. Nursing reports that it is working well. He was taking ice chips at home, so I had ordered ice chips OK Plan: Hold J tube feedings temporarily to drop the serum sodium amd since this could be the cause of aspiration. Nutrition consult is needed for further recommendations regarding insulin dosing and possibly a change of J-tube feed formula with less salt (8) Hyperglycemia due to diabetes mellitus Impression: Patient has had high glucose levels of 300 400 because he needed D5 via peripheral IV as his free water hydration to treat hypernatremia. He has needed escalating doses of insulin Today the glucose level aleks excessively, possibly also related to the stress of the infection Plan: Continue to adjust sliding scale insulin doses While his J-tube feeds are on hold temporarily, I will decrease the long-acting insulin doses temporarily Nutrition consult is needed for further recommendations regarding insulin dosing and possibly a change of J-tube feed formula
[2023-07-14] MEDS ORDERED: DEXTROSE 5%-0.45% NACL 1,000 ML IV SCH (20:00)
[2023-07-14] MEDS: CHLORHEXIDINE GLUCONATE 15 ML UDC PO SCH (20:30)
[2023-07-14] MEDS: FAMOTIDINE 20 MG/2 ML VIAL IVP SCH (20:30)
[2023-07-14 22:42] LABS: MAGNESIUM 2.3 mg/dL (1.7-2.3); PHOSPHORUS 3.5 mg/dL (2.5-5.0)
[2023-07-15] MEDS: NORepinephrine 8 MG in DEXTROSE 5% 250ML IV SCH ×6 (00:55→23:28)
[2023-07-15] MEDS: CEFEPIME 1 GM in SODIUM CHLORIDE 0.9% MINIBAG 100 ML IV SCH ×3 (01:00→16:35)
[2023-07-15] MEDS: LORazepam 2 MG/ML VIAL IVP PRN ×2 (01:00→06:59)
[2023-07-15] MEDS: SODIUM CHLORIDE FLUSH 0.9% 10 ML SYRINGE IVP SCH ×3 (01:01→18:30)
[2023-07-15] MEDS: metroNIDAZOLE 500 MG/100 ML 500 MG/100 ML BAG IV SCH ×3 (02:51→18:45)
[2023-07-15] MEDS: SODIUM CHLORIDE FLUSH 0.9% 10 ML SYRINGE IVP PRN ×3 (04:27→20:12)
[2023-07-15 05:16] LABS: BASOPHILS % (AUTO) 0.2 %; EOSINOPHILS % (AUTO) 0.2 %; HCT - HEMATOCRIT 35.5 % (42.0-52.0); HGB - HEMOGLOBIN 10.8 g/dL (14.0-18.0); LYMPHOCYTES # (AUTO) 0.9 10^3/uL (1.5-3.5); LYMPHOCYTES % (AUTO) 9.8 %; MEAN CORPUSCULAR HEMOGLOBIN 32.8 pg (27.0-31.0); MEAN CORPUSCULAR HGB CONC 30.4 g/dL (32.0-36.0); MEAN CORPUSCULAR VOLUME 107.9 fL (80.0-94.0); MEAN PLATELET VOLUME 12.6 fL (7.4-11.4); MONOCYTES # (AUTO) 0.6 10^3/uL (0.0-1.0); MONOCYTES % (AUTO) 6.6 %; NEUTROPHILS # (AUTO) 7.5 10^3/uL (1.5-6.6); NEUTROPHILS % (AUTO) 82.3 %; PLT - PLATELET COUNT 153 10^3/uL (130-450); RED BLOOD COUNT 3.29 10^6/uL (4.70-6.10); RED CELL DISTRIBUTION WIDTH 11.9 % (12.0-15.0); WHITE BLOOD COUNT 9.2 x10^3/uL (4.8-10.8)
[2023-07-15] MEDS: MIDAZOLAM DRIP 50 MG/50 ML 50 MG/50 ML BAG IV SCH ×3 (05:24→21:10)
[2023-07-15 05:32] LABS: CALCIUM 8.8 mg/dL (8.5-10.3); CREATININE 2.2 mg/dL (0.6-1.3); POTASSIUM 4.2 mmol/L (3.5-4.5)
[2023-07-15] MEDS: FUROSEMIDE 20 MG/2 ML VIAL IVP SCH ×2 (05:51→13:10)
[2023-07-15 05:58] LABS: ABG PCO2 41 mmHg (34-45); ABG PH 7.41 (7.35-7.45); ABG PO2 98 mmHg (80-100)
[2023-07-15 05:59] LABS: ABG BASE EXCESS 0.7 mmol/L (-2.0-3.0); ABG HCO3 25.5 mmol/L (22.0-26.0); ABG OXYGEN SATURATION 97 % (94-98); ABG TCO2 26.7 MMOL/L (21.0-29.0); ALLEN TEST POSITIVE
[2023-07-15 06:00] LABS: ABG MODE OF VENTILATION SIMV; ABG RESPIRATORY RATE 14 b/min
[2023-07-15 06:15] LABS: MAGNESIUM 2.3 mg/dL (1.7-2.3); PHOSPHORUS 2.8 mg/dL (2.5-5.0)
[2023-07-15] MEDS ORDERED: INSULIN LISPRO 300 UNIT/3 ML PEN SUBQ STA (06:18)
[2023-07-15] MEDS: INSULIN REGULAR HUMAN 300 UNIT/3 ML VIAL SUBQ SCH (06:36)
[2023-07-15] MEDS ORDERED: INSULIN LISPRO 300 UNIT/3 ML PEN SUBQ SCH (07:00)
[2023-07-15] MEDS: HEPARIN 5,000 UNIT/ML VIAL SUBQ SCH ×2 (08:03→22:04)
[2023-07-15] MEDS: CHLORHEXIDINE GLUCONATE 15 ML UDC PO SCH ×2 (08:03→20:45)
[2023-07-15] MEDS: ACETAMINOPHEN 1,000 MG/100 ML 1,000 MG/100 ML BAG IV PRN (08:16)
[2023-07-15] MEDS ORDERED: INSULIN REGULAR IN 0.9 % NS 100 UNIT/100 ML BAG IV SCH (09:00)
[2023-07-15] MEDS ORDERED: INSULIN REGULAR HUMAN 100 UNIT in SODIUM CHLORIDE 0.9% 100ML 99 ML IV ONE (09:00)
[2023-07-15 09:39] LABS: ALBUMIN 2.5 g/dL (3.2-5.5)
[2023-07-15] MEDS: INSULIN REGULAR HUMAN 100 UNIT in SODIUM CHLORIDE 0.9% 100ML 99 ML IV SCH (09:44)
[2023-07-15 09:49] LABS: ALBUMIN/GLOBULIN RATIO 0.7 (1.0-2.2); BILIRUBIN,TOTAL 0.5 mg/dL (0.2-1.0); CREATININE 2.3 mg/dL (0.6-1.3); POTASSIUM 3.7 mmol/L (3.5-4.5); TOTAL PROTEIN 6.3 g/dL (6.4-8.9)
[2023-07-15 10:35] LABS: CREATININE 2.3 mg/dL (0.6-1.3); MAGNESIUM 2.3 mg/dL (1.7-2.3); PHOSPHORUS 2.4 mg/dL (2.5-5.0); POTASSIUM 3.8 mmol/L (3.5-4.5)
[2023-07-15] MEDS ORDERED: DEXMEDETOMIDINE 400 MCG/100 ML 100 ML IV SCH (11:00)
[2023-07-15] MEDS: DEXMEDETOMIDINE 400 MCG in SODIUM CHLORIDE 0.9% 100ML 96 ML IV SCH (11:06)
[2023-07-15] MEDS: DEXTROSE 5%-0.45% NACL 1,000 ML IV SCH (11:28)
[2023-07-15] MEDS: VASOPRESSIN 20 UNIT in DEXTROSE 5% 99 ML IV SCH (11:39)
--- NOTE | 2023-07-15 11:54 | PHARMACY PROGRESS NOTE ---
- Therapy Status Therapy status: Trough supratherapeutic Basis for treatment: Empirical Trough goal: AUC/CHALINO 400-600 Concurrent antibiotics: Cefepime + Flagyl - SAVANNA Risk Risk level for Acute Kidney Injury: Moderate Acute Kidney Injury risk factors: Goal trough >15, Diabetes - Monitoring and Recommendation Clinical response to treatment: I&O Previous 24 hours 07/13/23 07/14/23 07/15/23 23:59 23:59 23:59 Intake Total 3827 2373.279 3039.063 Output Total 2175 3205 1890 Balance 1652 -336.908 3963.063 Lab Results 07/15/23 07/15/23 07/15/23 10:03 08:38 04:25 BUN 63 H 65 H 63 H Creatinine 2.3 H 2.3 H 2.2 H Estimated GFR (MDRD) 35 L 35 L 36 L 07/14/23 07/14/23 07/14/23 13:45 04:41 01:20 BUN 54 H 56 H Creatinine 2.0 H 1.8 H 1.7 H Estimated GFR (MDRD) 41 L 46 L 49 L 07/13/23 07/12/23 07/11/23 08:06 05:04 07:30 BUN 35 H 41 H 39 H Creatinine 0.9 0.9 1.0 Estimated GFR (MDRD) 102 102 91 07/10/23 07/09/23 07/09/23 08:14 15:21 05:12 BUN 40 H 37 H 46 H Creatinine 0.9 0.8 1.0 Estimated GFR (MDRD) 102 117 91 07/08/23 07/08/23 18:09 13:26 BUN 48 H 51 H Creatinine 1.2 1.5 H Estimated GFR (MDRD) 73 L 57 L Vancomycin Monitoring 07/15/23 07/14/23 07/11/23 08:38 13:45 17:20 Vancomycin Peak 27.3 Vancomycin Trough 41.3 H* Random Vancomycin 26.0 Cultures 07/14/23 09:47 Blood - Right Hand Blood Culture - Preliminary NO GROWTH AFTER 1 DAY 07/14/23 09:46 Blood - Left Hand Blood Culture - Preliminary NO GROWTH AFTER 1 DAY 07/14/23 12:30 Sputum Aspirate Respiratory Culture - Preliminary 07/11/23 11:24 Blood - Left Arm Blood Culture - Preliminary NO GROWTH AFTER 2 DAYS 07/11/23 11:22 Blood - Right Hand Blood Culture - Preliminary NO GROWTH AFTER 2 DAYS 07/11/23 11:24 Urine,Random Urine Culture - Final 10-50,000 COLONIES/ML Polymicrobial growth including potential pathogens. This is suggestive of skin or other contamination. Monitoring plan: Daily serum creatinine Pharmacy recommendation: Decrease dose (Vancomycin held for 07/14 1400 and 07/15 0200 doses due to supratherapeutic trough of 41.3. Repeat level 07/15 @ 0830 was still elevated at 26 but trending down. Dose decreased to 1 gram q24h and scheduled to restart 07/15 at 1400 for estimated AUC/CHALINO of 435.)
[2023-07-15] MEDS ORDERED: SODIUM CHLORIDE INHALATION 3 ML NEB ONE (11:58)
[2023-07-15 12:14] LABS: MAGNESIUM 2.3 mg/dL (1.7-2.3); POTASSIUM 3.8 mmol/L (3.5-4.5)
[2023-07-15] MEDS ORDERED: VANCOMYCIN INJ 1 GM in SODIUM CHLORIDE 0.9% 250 ML IV SCH (14:00)
[2023-07-15] MEDS: POTASSIUM CHLOR 20 MEQ/100 ML 20 MEQ/100 ML BAG IV SCH ×2 (18:29→21:11)
--- NOTE | 2023-07-15 19:01 | PROVIDER PROGRESS NOTE ---
Subjective - Subjective Pt reports feeling: No change (he is still intubated, sedated on the vent) Objective - Vital Signs/Intake & Output Vital Signs: Vital Signs Temp Pulse Resp BP Pulse Ox 07/15/23 18:00 78 14 98/64 94 07/15/23 17:00 80 19 102/70 96 07/15/23 16:00 79 19 101/67 96 07/15/23 15:11 37.7 C 07/15/23 15:00 81 15 99/63 96 Intake & Output: Intake & Output 07/12/23 07/13/23 07/14/23 07/15/23 23:59 23:59 23:59 23:59 Intake Total 3035 3827 2373.279 3493.729 Output Total 2110 2175 3205 2850 Balance 925 1652 -831.721 643.729 - Objective General Appearance: positive: Other (Sedated) Eyes Bilateral: positive: No lid inflammation ENT: positive: Other (ET tube in place, OG tube in place) Neck: positive: Nml inspection Respiratory: positive: Breath sounds nml (On the vent) Cardiovascular: positive: Regular rate & rhythm, No murmur Abdomen: positive: No distention Skin: positive: Warm, Dry Extremities: positive: No pedal edema Neurologic/Psychiatric: positive: Other (Sedated on IV drip while intubated) - Lab Results Fish Bones: 07/15/23 04:25 07/15/23 17:25 Other Labs: Lab Results x24hrs 07/15/23 07/15/23 07/15/23 Range/Units 17:55 17:25 16:54 WBC (4.8-10.8) x10^3/uL RBC (4.70-6.10) 10^6/uL Hgb (14.0-18.0) g/dL Hct (42.0-52.0) % MCV (80.0-94.0) fL MCH (27.0-31.0) pg MCHC (32.0-36.0) g/dL RDW (12.0-15.0) % Plt Count (130-450) 10^3/uL MPV (7.4-11.4) fL Neut # (Auto) (1.5-6.6) 10^3/uL Lymph # (Auto) (1.5-3.5) 10^3/uL [place] # (Auto) (0.0-1.0) 10^3/uL Eos # (Auto) (0.0-0.7) 10^3/uL Baso # (Auto) (0.0-0.1) 10^3/uL Absolute Nucleated RBC x10^3/uL Nucleated RBC % /100WBC Bld Gas Analysis Time Sample Site ABG pH (7.35-7.45) ABG pCO2 (34-45) mmHg ABG pO2 (80-100) mmHg ABG HCO3 (22.0-26.0) mmol/L ABG Total CO2 (21.0-29.0) MMOL/L ABG O2 Saturation (94-98) % ABG Base Excess (-2.0-3.0) mmol/L Ricky Test Respiration Rate b/min O2 Delivery Device Vent Mode FiO2 Tidal Volume mL PEEP cmH2O Pressure Support Vent cmH2O Sodium (135-145) mmol/L Potassium 3.3 L (3.5-4.5) mmol/L Chloride (101-111) mmol/L Carbon Dioxide (21-32) mmol/L Anion Gap (6-13) BUN (6-20) mg/dL Creatinine (0.6-1.3) mg/dL Estimated GFR (MDRD) (>89) Glucose (74-104) mg/dL POC Whole Bld Glucose 200 H 255 H (70 - 100) mg/dL Calcium (8.5-10.3) mg/dL Phosphorus (2.5-5.0) mg/dL Magnesium (1.7-2.3) mg/dL Total Bilirubin (0.2-1.0) mg/dL AST (10-42) IU/L ALT (10-60) IU/L Alkaline Phosphatase (42-121) IU/L Total Protein (6.4-8.9) g/dL Albumin (3.2-5.5) g/dL Globulin (2.1-4.2) g/dL Albumin/Globulin Ratio (1.0-2.2) Prealbumin (17-34) mg/dL Last Dose Date Last Dose Time Random Vancomycin ug/mL 07/15/23 07/15/23 07/15/23 Range/Units 15:54 14:45 13:57 WBC (4.8-10.8) x10^3/uL RBC (4.70-6.10) 10^6/uL Hgb (14.0-18.0) g/dL Hct (42.0-52.0) % MCV (80.0-94.0) fL MCH (27.0-31.0) pg MCHC (32.0-36.0) g/dL RDW (12.0-15.0) % Plt Count (130-450) 10^3/uL MPV (7.4-11.4) fL Neut # (Auto) (1.5-6.6) 10^3/uL Lymph # (Auto) (1.5-3.5) 10^3/uL [place] # (Auto) (0.0-1.0) 10^3/uL Eos # (Auto) (0.0-0.7) 10^3/uL Baso # (Auto) (0.0-0.1) 10^3/uL Absolute Nucleated RBC x10^3/uL Nucleated RBC % /100WBC Bld Gas Analysis Time Sample Site ABG pH (7.35-7.45) ABG pCO2 (34-45) mmHg ABG pO2 (80-100) mmHg ABG HCO3 (22.0-26.0) mmol/L ABG Total CO2 (21.0-29.0) MMOL/L ABG O2 Saturation (94-98) % ABG Base Excess (-2.0-3.0) mmol/L Ricky Test Respiration Rate b/min O2 Delivery Device Vent Mode FiO2 Tidal Volume mL PEEP cmH2O Pressure Support Vent cmH2O Sodium (135-145) mmol/L Potassium (3.5-4.5) mmol/L Chloride (101-111) mmol/L Carbon Dioxide (21-32) mmol/L Anion Gap (6-13) BUN (6-20) mg/dL Creatinine (0.6-1.3) mg/dL Estimated GFR (MDRD) (>89) Glucose (74-104) mg/dL POC Whole Bld Glucose 279 H 316 H 325 H (70 - 100) mg/dL Calcium (8.5-10.3) mg/dL Phosphorus (2.5-5.0) mg/dL Magnesium (1.7-2.3) mg/dL Total Bilirubin (0.2-1.0) mg/dL AST (10-42) IU/L ALT (10-60) IU/L Alkaline Phosphatase (42-121) IU/L Total Protein (6.4-8.9) g/dL Albumin (3.2-5.5) g/dL Globulin (2.1-4.2) g/dL Albumin/Globulin Ratio (1.0-2.2) Prealbumin (17-34) mg/dL Last Dose Date Last Dose Time Random Vancomycin ug/mL 07/15/23 07/15/23 07/15/23 Range/Units 12:48 11:50 11:50 WBC (4.8-10.8) x10^3/uL RBC (4.70-6.10) 10^6/uL Hgb (14.0-18.0) g/dL Hct (42.0-52.0) % MCV (80.0-94.0) fL MCH (27.0-31.0) pg MCHC (32.0-36.0) g/dL RDW (12.0-15.0) % Plt Count (130-450) 10^3/uL MPV (7.4-11.4) fL Neut # (Auto) (1.5-6.6) 10^3/uL Lymph # (Auto) (1.5-3.5) 10^3/uL [place] # (Auto) (0.0-1.0) 10^3/uL Eos # (Auto) (0.0-0.7) 10^3/uL Baso # (Auto) (0.0-0.1) 10^3/uL Absolute Nucleated RBC x10^3/uL Nucleated RBC % /100WBC Bld Gas Analysis Time Sample Site ABG pH (7.35-7.45) ABG pCO2 (34-45) mmHg ABG pO2 (80-100) mmHg ABG HCO3 (22.0-26.0) mmol/L ABG Total CO2 (21.0-29.0) MMOL/L ABG O2 Saturation (94-98) % ABG Base Excess (-2.0-3.0) mmol/L Ricky Test Respiration Rate b/min O2 Delivery Device Vent Mode FiO2 Tidal Volume mL PEEP cmH2O Pressure Support Vent cmH2O Sodium 148 H (135-145) mmol/L Potassium 3.8 (3.5-4.5) mmol/L Chloride (101-111) mmol/L Carbon Dioxide (21-32) mmol/L Anion Gap (6-13) BUN (6-20) mg/dL Creatinine (0.6-1.3) mg/dL Estimated GFR (MDRD) (>89) Glucose (74-104) mg/dL POC Whole Bld Glucose 323 H (70 - 100) mg/dL Calcium (8.5-10.3) mg/dL Phosphorus 3.0 (2.5-5.0) mg/dL Magnesium 2.3 (1.7-2.3) mg/dL Total Bilirubin (0.2-1.0) mg/dL AST (10-42) IU/L ALT (10-60) IU/L Alkaline Phosphatase (42-121) IU/L Total Protein (6.4-8.9) g/dL Albumin (3.2-5.5) g/dL Globulin (2.1-4.2) g/dL Albumin/Globulin Ratio (1.0-2.2) Prealbumin (17-34) mg/dL Last Dose Date Last Dose Time Random Vancomycin ug/mL 07/15/23 07/15/23 07/15/23 Range/Units 11:44 10:41 10:03 WBC (4.8-10.8) x10^3/uL RBC (4.70-6.10) 10^6/uL Hgb (14.0-18.0) g/dL Hct (42.0-52.0) % MCV (80.0-94.0) fL MCH (27.0-31.0) pg MCHC (32.0-36.0) g/dL RDW (12.0-15.0) % Plt Count (130-450) 10^3/uL MPV (7.4-11.4) fL Neut # (Auto) (1.5-6.6) 10^3/uL Lymph # (Auto) (1.5-3.5) 10^3/uL [place] # (Auto) (0.0-1.0) 10^3/uL Eos # (Auto) (0.0-0.7) 10^3/uL Baso # (Auto) (0.0-0.1) 10^3/uL Absolute Nucleated RBC x10^3/uL Nucleated RBC % /100WBC Bld Gas Analysis Time Sample Site ABG pH (7.35-7.45) ABG pCO2 (34-45) mmHg ABG pO2 (80-100) mmHg ABG HCO3 (22.0-26.0) mmol/L ABG Total CO2 (21.0-29.0) MMOL/L ABG O2 Saturation (94-98) % ABG Base Excess (-2.0-3.0) mmol/L Ricky Test Respiration Rate b/min O2 Delivery Device Vent Mode FiO2 Tidal Volume mL PEEP cmH2O Pressure Support Vent cmH2O Sodium 148 H (135-145) mmol/L Potassium 3.8 (3.5-4.5) mmol/L Chloride 113 H (101-111) mmol/L Carbon Dioxide 31 (21-32) mmol/L Anion Gap 4.0 L (6-13) BUN 63 H (6-20) mg/dL Creatinine 2.3 H (0.6-1.3) mg/dL Estimated GFR (MDRD) 35 L (>89) Glucose 455 H (74-104) mg/dL POC Whole Bld Glucose 358 H 392 H (70 - 100) mg/dL Calcium 9.0 (8.5-10.3) mg/dL Phosphorus 2.4 L (2.5-5.0) mg/dL Magnesium 2.3 (1.7-2.3) mg/dL Total Bilirubin (0.2-1.0) mg/dL AST (10-42) IU/L ALT (10-60) IU/L Alkaline Phosphatase (42-121) IU/L Total Protein (6.4-8.9) g/dL Albumin (3.2-5.5) g/dL Globulin (2.1-4.2) g/dL Albumin/Globulin Ratio (1.0-2.2) Prealbumin (17-34) mg/dL Last Dose Date Last Dose Time Random Vancomycin ug/mL 07/15/23 07/15/23 07/15/23 Range/Units 09:42 08:50 08:38 WBC (4.8-10.8) x10^3/uL RBC (4.70-6.10) 10^6/uL Hgb (14.0-18.0) g/dL Hct (42.0-52.0) % MCV (80.0-94.0) fL MCH (27.0-31.0) pg MCHC (32.0-36.0) g/dL RDW (12.0-15.0) % Plt Count (130-450) 10^3/uL MPV (7.4-11.4) fL Neut # (Auto) (1.5-6.6) 10^3/uL Lymph # (Auto) (1.5-3.5) 10^3/uL [place] # (Auto) (0.0-1.0) 10^3/uL Eos # (Auto) (0.0-0.7) 10^3/uL Baso # (Auto) (0.0-0.1) 10^3/uL Absolute Nucleated RBC x10^3/uL Nucleated RBC % /100WBC Bld Gas Analysis Time Sample Site ABG pH (7.35-7.45) ABG pCO2 (34-45) mmHg ABG pO2 (80-100) mmHg ABG HCO3 (22.0-26.0) mmol/L ABG Total CO2 (21.0-29.0) MMOL/L ABG O2 Saturation (94-98) % ABG Base Excess (-2.0-3.0) mmol/L Ricky Test Respiration Rate b/min O2 Delivery Device Vent Mode FiO2 Tidal Volume mL PEEP cmH2O Pressure Support Vent cmH2O Sodium 146 H (135-145) mmol/L Potassium 3.7 (3.5-4.5) mmol/L Chloride 111 (101-111) mmol/L Carbon Dioxide 29 (21-32) mmol/L Anion Gap 6.0 (6-13) BUN 65 H (6-20) mg/dL Creatinine 2.3 H (0.6-1.3) mg/dL Estimated GFR (MDRD) 35 L (>89) Glucose 533 H* (74-104) mg/dL POC Whole Bld Glucose 383 H (70 - 100) mg/dL Calcium 9.0 (8.5-10.3) mg/dL Phosphorus (2.5-5.0) mg/dL Magnesium (1.7-2.3) mg/dL Total Bilirubin 0.5 (0.2-1.0) mg/dL AST 18 (10-42) IU/L ALT 14 (10-60) IU/L Alkaline Phosphatase 72 (42-121) IU/L Total Protein 6.3 L (6.4-8.9) g/dL Albumin 2.5 L (3.2-5.5) g/dL Globulin 3.8 (2.1-4.2) g/dL Albumin/Globulin Ratio 0.7 L (1.0-2.2) Prealbumin < 3 L (17-34) mg/dL Last Dose Date Last Dose Time Random Vancomycin ug/mL 07/15/23 07/15/23 07/15/23 Range/Units 08:38 07:47 05:41 WBC (4.8-10.8) x10^3/uL RBC (4.70-6.10) 10^6/uL Hgb (14.0-18.0) g/dL Hct (42.0-52.0) % MCV (80.0-94.0) fL MCH (27.0-31.0) pg MCHC (32.0-36.0) g/dL RDW (12.0-15.0) % Plt Count (130-450) 10^3/uL MPV (7.4-11.4) fL Neut # (Auto) (1.5-6.6) 10^3/uL Lymph # (Auto) (1.5-3.5) 10^3/uL [place] # (Auto) (0.0-1.0) 10^3/uL Eos # (Auto) (0.0-0.7) 10^3/uL Baso # (Auto) (0.0-0.1) 10^3/uL Absolute Nucleated RBC x10^3/uL Nucleated RBC % /100WBC Bld Gas Analysis Time 0551 Sample Site A-LINE ABG pH 7.41 (7.35-7.45) ABG pCO2 41 (34-45) mmHg ABG pO2 98 (80-100) mmHg ABG HCO3 25.5 (22.0-26.0) mmol/L ABG Total CO2 26.7 (21.0-29.0) MMOL/L ABG O2 Saturation 97 (94-98) % ABG Base Excess 0.7 (-2.0-3.0) mmol/L Ricky Test POSITIVE Respiration Rate 14 b/min O2 Delivery Device VENTILATOR Vent Mode SIMV FiO2 80.00 Tidal Volume 500 mL PEEP 5 cmH2O Pressure Support Vent 10 cmH2O Sodium (135-145) mmol/L Potassium (3.5-4.5) mmol/L Chloride (101-111) mmol/L Carbon Dioxide (21-32) mmol/L Anion Gap (6-13) BUN (6-20) mg/dL Creatinine (0.6-1.3) mg/dL Estimated GFR (MDRD) (>89) Glucose (74-104) mg/dL POC Whole Bld Glucose 505 H* (70 - 100) mg/dL Calcium (8.5-10.3) mg/dL Phosphorus (2.5-5.0) mg/dL Magnesium (1.7-2.3) mg/dL Total Bilirubin (0.2-1.0) mg/dL AST (10-42) IU/L ALT (10-60) IU/L Alkaline Phosphatase (42-121) IU/L Total Protein (6.4-8.9) g/dL Albumin (3.2-5.5) g/dL Globulin (2.1-4.2) g/dL Albumin/Globulin Ratio (1.0-2.2) Prealbumin (17-34) mg/dL Last Dose Date UNK Last Dose Time UNK Random Vancomycin 26.0 ug/mL 07/15/23 07/15/23 07/15/23 Range/Units 04:25 04:25 04:25 WBC (4.8-10.8) x10^3/uL RBC (4.70-6.10) 10^6/uL Hgb (14.0-18.0) g/dL Hct (42.0-52.0) % MCV (80.0-94.0) fL MCH (27.0-31.0) pg MCHC (32.0-36.0) g/dL RDW (12.0-15.0) % Plt Count (130-450) 10^3/uL MPV (7.4-11.4) fL Neut # (Auto) (1.5-6.6) 10^3/uL Lymph # (Auto) (1.5-3.5) 10^3/uL [place] # (Auto) (0.0-1.0) 10^3/uL Eos # (Auto) (0.0-0.7) 10^3/uL Baso # (Auto) (0.0-0.1) 10^3/uL Absolute Nucleated RBC x10^3/uL Nucleated RBC % /100WBC Bld Gas Analysis Time Sample Site ABG pH (7.35-7.45) ABG pCO2 (34-45) mmHg ABG pO2 (80-100) mmHg ABG HCO3 (22.0-26.0) mmol/L ABG Total CO2 (21.0-29.0) MMOL/L ABG O2 Saturation (94-98) % ABG Base Excess (-2.0-3.0) mmol/L Ricky Test Respiration Rate b/min O2 Delivery Device Vent Mode FiO2 Tidal Volume mL PEEP cmH2O Pressure Support Vent cmH2O Sodium 146 H 144 (135-145) mmol/L Potassium 4.2 (3.5-4.5) mmol/L Chloride 111 (101-111) mmol/L Carbon Dioxide 28 (21-32) mmol/L Anion Gap 5.0 L (6-13) BUN 63 H (6-20) mg/dL Creatinine 2.2 H (0.6-1.3) mg/dL Estimated GFR (MDRD) 36 L (>89) Glucose 647 H* (74-104) mg/dL POC Whole Bld Glucose (70 - 100) mg/dL Calcium 8.8 (8.5-10.3) mg/dL Phosphorus 2.8 (2.5-5.0) mg/dL Magnesium 2.3 (1.7-2.3) mg/dL Total Bilirubin (0.2-1.0) mg/dL AST (10-42) IU/L ALT (10-60) IU/L Alkaline Phosphatase (42-121) IU/L Total Protein (6.4-8.9) g/dL Albumin (3.2-5.5) g/dL Globulin (2.1-4.2) g/dL Albumin/Globulin Ratio (1.0-2.2) Prealbumin (17-34) mg/dL Last Dose Date Last Dose Time Random Vancomycin ug/mL 07/15/23 07/14/23 07/14/23 Range/Units 04:25 23:48 22:20 WBC 9.2 (4.8-10.8) x10^3/uL RBC 3.29 L (4.70-6.10) 10^6/uL Hgb 10.8 L (14.0-18.0) g/dL Hct 35.5 L (42.0-52.0) % MCV 107.9 H (80.0-94.0) fL MCH 32.8 H (27.0-31.0) pg MCHC 30.4 L (32.0-36.0) g/dL RDW 11.9 L (12.0-15.0) % Plt Count 153 (130-450) 10^3/uL MPV 12.6 H (7.4-11.4) fL Neut # (Auto) 7.5 H (1.5-6.6) 10^3/uL Lymph # (Auto) 0.9 L (1.5-3.5) 10^3/uL [place] # (Auto) 0.6 (0.0-1.0) 10^3/uL Eos # (Auto) 0.0 (0.0-0.7) 10^3/uL Baso # (Auto) 0.0 (0.0-0.1) 10^3/uL Absolute Nucleated RBC 0.00 x10^3/uL Nucleated RBC % 0.0 /100WBC Bld Gas Analysis Time Sample Site ABG pH (7.35-7.45) ABG pCO2 (34-45) mmHg ABG pO2 (80-100) mmHg ABG HCO3 (22.0-26.0) mmol/L ABG Total CO2 (21.0-29.0) MMOL/L ABG O2 Saturation (94-98) % ABG Base Excess (-2.0-3.0) mmol/L Ricky Test Respiration Rate b/min O2 Delivery Device Vent Mode FiO2 Tidal Volume mL PEEP cmH2O Pressure Support Vent cmH2O Sodium (135-145) mmol/L Potassium (3.5-4.5) mmol/L Chloride (101-111) mmol/L Carbon Dioxide (21-32) mmol/L Anion Gap (6-13) BUN (6-20) mg/dL Creatinine (0.6-1.3) mg/dL Estimated GFR (MDRD) (>89) Glucose (74-104) mg/dL POC Whole Bld Glucose 371 H (70 - 100) mg/dL Calcium (8.5-10.3) mg/dL Phosphorus 3.5 (2.5-5.0) mg/dL Magnesium 2.3 (1.7-2.3) mg/dL Total Bilirubin (0.2-1.0) mg/dL AST (10-42) IU/L ALT (10-60) IU/L Alkaline Phosphatase (42-121) IU/L Total Protein (6.4-8.9) g/dL Albumin (3.2-5.5) g/dL Globulin (2.1-4.2) g/dL Albumin/Globulin Ratio (1.0-2.2) Prealbumin (17-34) mg/dL Last Dose Date Last Dose Time Random Vancomycin ug/mL 07/14/23 Range/Units 22:20 WBC (4.8-10.8) x10^3/uL RBC (4.70-6.10) 10^6/uL Hgb (14.0-18.0) g/dL Hct (42.0-52.0) % MCV (80.0-94.0) fL MCH (27.0-31.0) pg MCHC (32.0-36.0) g/dL RDW (12.0-15.0) % Plt Count (130-450) 10^3/uL MPV (7.4-11.4) fL Neut # (Auto) (1.5-6.6) 10^3/uL Lymph # (Auto) (1.5-3.5) 10^3/uL [place] # (Auto) (0.0-1.0) 10^3/uL Eos # (Auto) (0.0-0.7) 10^3/uL Baso # (Auto) (0.0-0.1) 10^3/uL Absolute Nucleated RBC x10^3/uL Nucleated RBC % /100WBC Bld Gas Analysis Time Sample Site ABG pH (7.35-7.45) ABG pCO2 (34-45) mmHg ABG pO2 (80-100) mmHg ABG HCO3 (22.0-26.0) mmol/L ABG Total CO2 (21.0-29.0) MMOL/L ABG O2 Saturation (94-98) % ABG Base Excess (-2.0-3.0) mmol/L Ricky Test Respiration Rate b/min O2 Delivery Device Vent Mode FiO2 Tidal Volume mL PEEP cmH2O Pressure Support Vent cmH2O Sodium 150 H (135-145) mmol/L Potassium (3.5-4.5) mmol/L Chloride (101-111) mmol/L Carbon Dioxide (21-32) mmol/L Anion Gap (6-13) BUN (6-20) mg/dL Creatinine (0.6-1.3) mg/dL Estimated GFR (MDRD) (>89) Glucose (74-104) mg/dL POC Whole Bld Glucose (70 - 100) mg/dL Calcium (8.5-10.3) mg/dL Phosphorus (2.5-5.0) mg/dL Magnesium (1.7-2.3) mg/dL Total Bilirubin (0.2-1.0) mg/dL AST (10-42) IU/L ALT (10-60) IU/L Alkaline Phosphatase (42-121) IU/L Total Protein (6.4-8.9) g/dL Albumin (3.2-5.5) g/dL Globulin (2.1-4.2) g/dL Albumin/Globulin Ratio (1.0-2.2) Prealbumin (17-34) mg/dL Last Dose Date Last Dose Time Random Vancomycin ug/mL Assessment/Plan - Problem List (1) Acute respiratory failure with hypoxia Impression: He developed hypoxia several days after adm, then had a fever. He never has mounted a raised WBC. The 1st CXR revealed an infiltrate in LLL, and a RLL nodule. 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 By the 2nd day he had the LLL infiltrate and a small RLL infiltrate as well. He had resp distress and was moved to the ICU yesterday, needed intibation. The next CXR showed bilat pneumionia R>L. I am concerned that he was having aspiration, coming up from J tube feedings and/or that the RLL infiltrate is a post-obstructive pneumonia, given the old RLL mass. He has been on Cefepime and Vanco for the past 2 days when the HCAP was first seen, and they are continuing in the ICU. Plan: Cont vent support Treat the PNA Stop J tube feeds temporarily, contra-indicated if he is hypotensive Decrease IV fluid rate and cont iv Lasix Today I updated the and daughter at bedside regarding the entire plan (2) HCAP Impression: As in #1. Repeat chest x-ray shows bilat infiltrates, now the R side is worse than the L Plan: Cont IV Vanco and IV Cefepime Cont new iv Flagyl to cover anaerobes Await resp culture results Await repeat blood culture results (3) On mechanically assisted ventilation Impression: Cont mech vent today. The FIO2 has been able to be decreased Plan: Follow daily ABG and taper vent settings as appropriate Daily CXR as well Trial of CPAP could be tomorrow, as we work on extubating him, because his lungs are now clear (4) Hypotension Impression: He is not hemorrhaging or volume depleted given the amount of iv fluids he has received, therefore I suspect he is in septic shock causing this Hypotension IV pressores were started last night and iv hydration continues Lactic Acid level ordered and came back 1.3. Plan: We need to avoid NS because of his hypernatremia Cont iv hydration using D5 1/2 NS and use pressors as needed for target MAP of 65 His intravascular volume status is now unclear because of being hypernatremic, receiving IV diuretics and having no other fluids per iv or per J-tube today. He needs an Echocardiogram to evaluate chamber sizes and LV contractility. Echo ordered. We have no development technologist here today (which is Saturday, not until Saturday through ) (5) Hypernatremia Impression: The patient presented with severe hypernatremia and after several days the sodium corrected by receiving free water and an ostomy tube and D5W peripherally. The D5W made his serum glucose be excessive, since he is a diabetic diabetic BMP shows that his sodium has again increased. Per nutrition, when we restart J tube feeds, it will be continuous drip mixed with water Plan: We will give hydration using D5 0.45NS His intravascular volume status is actually now unknown because of being hypernatremic, having received iv D5, also receiving IV diuretics and having no fluids per J-tube. Per his serum sodium he may be dry, but per his CXR he is fluid overloaded. He needs an Echocardiogram to evaluate chamber sizes and LV contractility. Echo ordered. But we have no development technologist here today (Saturday, not until Saturday through ) (6) Acute kidney injury Impression: He had normalized BUN/creat and since yesterday his BUN/creart has increased. I suspect this is from hypoperfusion related to his low BP Plan: For toxins Follow BMP daily (7) Jejunostomy tube in situ Impression: Tube appeared to be working well for him. Nursing reports that it is working well. He was taking ice chips at home, so I had ordered ice chips OK Plan: Hold J tube feedings temporarily to drop the serum sodium and since this could be the cause of aspiration. Per nutrition, when we restart J tube feeds, it will be continuous drip mixed with water, nor bolus feeds (8) Hyperglycemia due to diabetes mellitus Impression: Patient has had high glucose levels of 300-400 because he needed D5 via peripheral IV as his free water hydration to treat hypernatremia. He has needed escalating doses of insulin Today the glucose level aleks excessively, possibly also related to the stress of the infection Plan: Start the patient on an insulin drip, standard protocol While his J-tube feeds are on hold temporarily, I will order D50.45 NS (9) Hx of head and neck CA Impression: This is the reason that he is on G-tube feedings. The OG tube was able to be placed down without running into any obstruction
[2023-07-15] MEDS: FAMOTIDINE 20 MG/2 ML VIAL IVP SCH (20:45)
[2023-07-16] MEDS: ACETAMINOPHEN 1,000 MG/100 ML 1,000 MG/100 ML BAG IV PRN ×2 (00:43→22:03)
[2023-07-16] MEDS: CEFEPIME 1 GM in SODIUM CHLORIDE 0.9% MINIBAG 100 ML IV SCH ×3 (01:04→17:38)
[2023-07-16] MEDS: SODIUM CHLORIDE FLUSH 0.9% 10 ML SYRINGE IVP SCH ×3 (01:17→17:43)
[2023-07-16] MEDS: INSULIN REGULAR HUMAN 100 UNIT in SODIUM CHLORIDE 0.9% 100ML 99 ML IV SCH (02:07)
[2023-07-16] MEDS: DEXTROSE 5%-0.45% NACL 1,000 ML IV SCH (02:08)
[2023-07-16] MEDS: metroNIDAZOLE 500 MG/100 ML 500 MG/100 ML BAG IV SCH ×3 (02:36→19:46)
[2023-07-16] MEDS: NORepinephrine 8 MG in DEXTROSE 5% 250ML IV SCH ×5 (03:03→21:41)
[2023-07-16] MEDS: VASOPRESSIN 20 UNIT in DEXTROSE 5% 99 ML IV SCH (05:15)
[2023-07-16] MEDS: MIDAZOLAM DRIP 50 MG/50 ML 50 MG/50 ML BAG IV SCH ×3 (05:17→21:59)
[2023-07-16 05:36] LABS: CALCIUM, IONIZED 1.2 mmol/L (1.15-1.33); VBG PH 7.413 (7.31-7.41)
[2023-07-16 05:42] LABS: BASOPHILS % (AUTO) 0.2 %; EOSINOPHILS # (AUTO) 0.1 10^3/uL (0.0-0.7); EOSINOPHILS % (AUTO) 1.2 %; HCT - HEMATOCRIT 33.7 % (42.0-52.0); HGB - HEMOGLOBIN 10.5 g/dL (14.0-18.0); LYMPHOCYTES # (AUTO) 1.3 10^3/uL (1.5-3.5); LYMPHOCYTES % (AUTO) 14.2 %; MEAN CORPUSCULAR HEMOGLOBIN 32.6 pg (27.0-31.0); MEAN CORPUSCULAR HGB CONC 31.2 g/dL (32.0-36.0); MEAN CORPUSCULAR VOLUME 104.7 fL (80.0-94.0); MEAN PLATELET VOLUME 11.5 fL (7.4-11.4); MONOCYTES # (AUTO) 0.7 10^3/uL (0.0-1.0); MONOCYTES % (AUTO) 7.6 %; NEUTROPHILS # (AUTO) 7.1 10^3/uL (1.5-6.6); NEUTROPHILS % (AUTO) 75.8 %; PLT - PLATELET COUNT 180 10^3/uL (130-450); RED BLOOD COUNT 3.22 10^6/uL (4.70-6.10); RED CELL DISTRIBUTION WIDTH 11.8 % (12.0-15.0); WHITE BLOOD COUNT 9.4 x10^3/uL (4.8-10.8)
[2023-07-16 05:49] LABS: CREATININE 2.1 mg/dL (0.6-1.3); MAGNESIUM 1.8 mg/dL (1.7-2.3); PHOSPHORUS 3.6 mg/dL (2.5-5.0); POTASSIUM 3.6 mmol/L (3.5-4.5)
[2023-07-16 05:52] LABS: CRP - C-REACTIVE PROTEIN 31.4 mg/dL (<0.5)
[2023-07-16] MEDS: FUROSEMIDE 20 MG/2 ML VIAL IVP SCH ×2 (05:58→14:08)
[2023-07-16 07:30] LABS: ABG PCO2 39 mmHg (34-45); ABG PH 7.41 (7.35-7.45)
[2023-07-16 07:31] LABS: ABG HCO3 24.5 mmol/L (22.0-26.0); ABG MODE OF VENTILATION ASSIST/CONTROL; ABG OXYGEN SATURATION 97 % (94-98); ABG PO2 87 mmHg (80-100); ABG RESPIRATORY RATE 14 b/min; ABG TCO2 25.7 MMOL/L (21.0-29.0); ALLEN TEST POSITIVE
--- NOTE | 2023-07-16 08:01 | PROVIDER PROGRESS NOTE ---
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 Chest x-ray showed bilateral pneumonia likely due to aspiration. Current Medications - Current Medications Current Medications: Active Medications Acetaminophen (Acetaminophen 160 Mg/5 Ml Susp Udc) 640 mg JT Q4HR PRN PRN Reason: Pain 1 to 4, or Fever Last Admin: 07/12/23 00:05 Dose: 640 mg Chlorhexidine Gluconate (Chlorhexidine Gluconate 15 Ml Udc) 15 ml PO BID NISH Last Admin: 07/16/23 08:43 Dose: 15 ml Famotidine (Famotidine 20 Mg/2 Ml Vial) 20 mg IVP 2100 NISH Last Admin: 07/15/23 20:45 Dose: 20 mg Fluconazole (Fluconazole 100 Mg Tablet) 100 mg PO DAILY NISH Stop: 07/31/23 08:59 Furosemide (Furosemide 20 Mg/2 Ml Vial) 40 mg IVP BIDDIURETIC NISH Last Admin: 07/16/23 14:08 Dose: 40 mg Heparin Sodium (Porcine) (Heparin 5,000 Unit/Ml Vial) 5,000 unit SUBQ BID NISH Last Admin: 07/16/23 08:56 Dose: 5,000 unit Cefepime HCl 1 gm/ Sodium (Chloride) 100 mls @ 200 mls/hr IV Q8H NISH Last Infusion: 07/16/23 09:15 Dose: Infused Midazolam HCl (Versed Drip 50 Mg/50 Ml) 50 mg in 50 mls @ 2.82 mls/hr IV .[id number] NISH; Protocol Last Admin: 07/16/23 14:07 Dose: 0.09 mg/kg/hr, 6.345 mls/hr Norepinephrine Bitartrate 8 mg (/ Dextrose) 250 mls @ 56.25 mls/hr IV .[id number] NISH; Protocol Last Admin: 07/16/23 12:49 Dose: 16 mcg/min, 30 mls/hr Metronidazole (Flagyl 500 Mg/100 Ml) 500 mg in 100 mls @ 100 mls/hr IV Q8H [facility] Last Infusion: 07/16/23 11:35 Dose: Infused Acetaminophen (Acetaminophen) 1,000 mg in 100 mls @ 400 mls/hr IV Q6HR PRN PRN Reason: Pain or Fever > 38C (100.4F) Last Infusion: 07/16/23 01:04 Dose: Infused Insulin Human Regular 100 unit (/ Sodium Chloride) 100 mls @ 1 mls/hr IV .Q72H [facility]; Protocol Last Titration: 07/16/23 15:03 Dose: 7.5 unit/hr, 7.5 mls/hr Dexmedetomidine HCl 400 mcg/ (Sodium Chloride) 100 mls @ 3.8 mls/hr IV .[id number] [facility]; Protocol Last Admin: 07/16/23 12:51 Dose: 0.2 mcg/kg/hr, 3.8 mls/hr Multivitamins 10 ml/ TRACE ELEMENTS 1 ml/ Amino Ac/Electrol/Dextrose/Calcium 2,011 mls @ 50 mls/hr IV 1900 [facility]; Protocol Fat Emulsion Intravenous (Intralipid 20%) 250 mls @ 21 mls/hr IV 1900 [facility] Ondansetron HCl (Ondansetron Odt 4 Mg Tablet) 4 mg TL Q6HR PRN PRN Reason: Nausea / Vomiting Ondansetron HCl (Ondansetron 4 Mg/2 Ml Vial) 4 mg IVP Q6HR PRN PRN Reason: Nausea / Vomiting Oxycodone HCl (Oxycodone 5 Mg Tablet) 5 mg PO Q4HR PRN PRN Reason: Pain 5 to 7 Sodium Chloride (Sodium Chloride Flush 0.9% 10 Ml Syringe) 10 ml IVP 0100,0900,1700 [facility] Last Admin: 07/16/23 08:44 Dose: 10 ml Sodium Chloride (Sodium Chloride Flush 0.9% 10 Ml Syringe) 10 ml IVP PRN PRN PRN Reason: NEEDED PER PROVIDER ORDERS Last Admin: 07/15/23 20:12 Dose: 20 ml Insulin Glargine [Lantus Solostar] 22 unit SUBQ QPM 10/08/17 Telmisartan [Micardis] 80 mg PO DAILY 10/08/17 Atorvastatin Calcium 40 mg PO QPM 10/10/19 Insulin Aspart [NovoLOG] 0 - 13 units SUBQ TIDWM PRN 10/10/19 Levothyroxine Sodium 88 mcg PO QDAC 10/10/19 Amitriptyline [Elavil] 10 mg PO HS PRN 09/05/21 Empagliflozin [Jardiance] 10 mg PO DAILY 07/09/23 Guaifenesin/Dextromethorphan [Robafen Dm 100-10 mg/5 ml Cup] 5 ml PO Q4H PRN 07/09/23 amLODIPine [Norvasc] 5 mg PO DAILY 07/09/23 Objective - Vital Signs/Intake & Output Reviewed Vital Signs: Yes Vital Signs: Vital Signs Pulse Pulse Resp BP Pulse Ox 07/16/23 07:04 78 07/16/23 07:00 77 17 117/76 98 07/16/23 06:30 15 99 07/16/23 06:00 79 15 131/88 H 99 07/16/23 05:30 14 100 07/16/23 05:00 78 14 131/90 H 100 07/16/23 04:40 77 07/16/23 04:30 14 100 Intake & Output: Intake & Output 07/13/23 07/14/23 07/15/23 07/16/23 23:59 23:59 23:59 23:59 Intake Total 3827 2373.279 4227.991 2982.677 Output Total 2175 3205 3060 875 Balance 1652 -310.519 4630.991 2107.677 - Objective General Appearance: positive: Other (Severely ill appearance, on ventilation support NG tube feeding Sierra in place, good urine output) Neck: positive: No JVD Respiratory: positive: Wheezes, Rales, Rhonchi Cardiovascular: positive: Regular rate & rhythm Abdomen: positive: No distention Skin: negative: Diaphoresis, Pallor Extremities: positive: No pedal edema, Other (Both upper extremities are mildly swollen) - Lab Results Fish Bones: 07/16/23 05:23 07/16/23 16:30 Other Labs: Lab Results x24hrs 07/16/23 07/16/23 07/16/23 Range/Units 07:15 07:02 06:00 WBC (4.8-10.8) x10^3/uL RBC (4.70-6.10) 10^6/uL Hgb (14.0-18.0) g/dL Hct (42.0-52.0) % MCV (80.0-94.0) fL MCH (27.0-31.0) pg MCHC (32.0-36.0) g/dL RDW (12.0-15.0) % Plt Count (130-450) 10^3/uL MPV (7.4-11.4) fL Neut # (Auto) (1.5-6.6) 10^3/uL Lymph # (Auto) (1.5-3.5) 10^3/uL Ness # (Auto) (0.0-1.0) 10^3/uL Eos # (Auto) (0.0-0.7) 10^3/uL Baso # (Auto) (0.0-0.1) 10^3/uL Absolute Nucleated RBC x10^3/uL Nucleated RBC % /100WBC Bld Gas Analysis Time 0715 Sample Site RIGHT RADIAL ABG pH 7.41 (7.35-7.45) ABG pCO2 39 (34-45) mmHg ABG pO2 87 (80-100) mmHg ABG HCO3 24.5 (22.0-26.0) mmol/L ABG Total CO2 25.7 (21.0-29.0) MMOL/L ABG O2 Saturation 97 (94-98) % ABG Base Excess 0.0 (-2.0-3.0) mmol/L Ricky Test POSITIVE VBG pH (7.31-7.41) Ionized Calcium (1.15-1.33) mmol/L Respiration Rate 14 b/min O2 Delivery Device VENTILATOR Vent Mode ASSIST/CONTROL FiO2 70.00 Tidal Volume 500 mL PEEP 5 cmH2O Sodium (135-145) mmol/L Potassium (3.5-4.5) mmol/L Chloride (101-111) mmol/L Carbon Dioxide (21-32) mmol/L Anion Gap (6-13) BUN (6-20) mg/dL Creatinine (0.6-1.3) mg/dL Estimated GFR (MDRD) (>89) Glucose (74-104) mg/dL POC Whole Bld Glucose 155 H 128 H (70 - 100) mg/dL Calcium (8.5-10.3) mg/dL Phosphorus (2.5-5.0) mg/dL Magnesium (1.7-2.3) mg/dL Total Bilirubin (0.2-1.0) mg/dL AST (10-42) IU/L ALT (10-60) IU/L Alkaline Phosphatase (42-121) IU/L C-Reactive Protein (<0.5) mg/dL Total Protein (6.4-8.9) g/dL Albumin (3.2-5.5) g/dL Globulin (2.1-4.2) g/dL Albumin/Globulin Ratio (1.0-2.2) Prealbumin (17-34) mg/dL Last Dose Date Last Dose Time Random Vancomycin ug/mL 07/16/23 07/16/23 07/16/23 Range/Units 05:23 05:23 05:23 WBC 9.4 (4.8-10.8) x10^3/uL RBC 3.22 L (4.70-6.10) 10^6/uL Hgb 10.5 L (14.0-18.0) g/dL Hct 33.7 L (42.0-52.0) % MCV 104.7 H (80.0-94.0) fL MCH 32.6 H (27.0-31.0) pg MCHC 31.2 L (32.0-36.0) g/dL RDW 11.8 L (12.0-15.0) % Plt Count 180 (130-450) 10^3/uL MPV 11.5 H (7.4-11.4) fL Neut # (Auto) 7.1 H (1.5-6.6) 10^3/uL Lymph # (Auto) 1.3 L (1.5-3.5) 10^3/uL Ness # (Auto) 0.7 (0.0-1.0) 10^3/uL Eos # (Auto) 0.1 (0.0-0.7) 10^3/uL Baso # (Auto) 0.0 (0.0-0.1) 10^3/uL Absolute Nucleated RBC 0.00 x10^3/uL Nucleated RBC % 0.0 /100WBC Bld Gas Analysis Time Sample Site ABG pH (7.35-7.45) ABG pCO2 (34-45) mmHg ABG pO2 (80-100) mmHg ABG HCO3 (22.0-26.0) mmol/L ABG Total CO2 (21.0-29.0) MMOL/L ABG O2 Saturation (94-98) % ABG Base Excess (-2.0-3.0) mmol/L Ricky Test VBG pH 7.413 H (7.31-7.41) Ionized Calcium 1.20 (1.15-1.33) mmol/L Respiration Rate b/min O2 Delivery Device Vent Mode FiO2 Tidal Volume mL PEEP cmH2O Sodium 147 H (135-145) mmol/L Potassium 3.6 (3.5-4.5) mmol/L Chloride 113 H (101-111) mmol/L Carbon Dioxide 29 (21-32) mmol/L Anion Gap 5.0 L (6-13) BUN 52 H (6-20) mg/dL Creatinine 2.1 H (0.6-1.3) mg/dL Estimated GFR (MDRD) 38 L (>89) Glucose 118 H (74-104) mg/dL POC Whole Bld Glucose (70 - 100) mg/dL Calcium 9.0 (8.5-10.3) mg/dL Phosphorus 3.6 (2.5-5.0) mg/dL Magnesium 1.8 (1.7-2.3) mg/dL Total Bilirubin (0.2-1.0) mg/dL AST (10-42) IU/L ALT (10-60) IU/L Alkaline Phosphatase (42-121) IU/L C-Reactive Protein 31.4 H (<0.5) mg/dL Total Protein (6.4-8.9) g/dL Albumin (3.2-5.5) g/dL Globulin (2.1-4.2) g/dL Albumin/Globulin Ratio (1.0-2.2) Prealbumin (17-34) mg/dL Last Dose Date Last Dose Time Random Vancomycin ug/mL 07/16/23 07/16/23 07/16/23 Range/Units 04:56 04:02 03:01 WBC (4.8-10.8) x10^3/uL RBC (4.70-6.10) 10^6/uL Hgb (14.0-18.0) g/dL Hct (42.0-52.0) % MCV (80.0-94.0) fL MCH (27.0-31.0) pg MCHC (32.0-36.0) g/dL RDW (12.0-15.0) % Plt Count (130-450) 10^3/uL MPV (7.4-11.4) fL Neut # (Auto) (1.5-6.6) 10^3/uL Lymph # (Auto) (1.5-3.5) 10^3/uL Ness # (Auto) (0.0-1.0) 10^3/uL Eos # (Auto) (0.0-0.7) 10^3/uL Baso # (Auto) (0.0-0.1) 10^3/uL Absolute Nucleated RBC x10^3/uL Nucleated RBC % /100WBC Bld Gas Analysis Time Sample Site ABG pH (7.35-7.45) ABG pCO2 (34-45) mmHg ABG pO2 (80-100) mmHg ABG HCO3 (22.0-26.0) mmol/L ABG Total CO2 (21.0-29.0) MMOL/L ABG O2 Saturation (94-98) % ABG Base Excess (-2.0-3.0) mmol/L Ricky Test VBG pH (7.31-7.41) Ionized Calcium (1.15-1.33) mmol/L Respiration Rate b/min O2 Delivery Device Vent Mode FiO2 Tidal Volume mL PEEP cmH2O Sodium (135-145) mmol/L Potassium (3.5-4.5) mmol/L Chloride (101-111) mmol/L Carbon Dioxide (21-32) mmol/L Anion Gap (6-13) BUN (6-20) mg/dL Creatinine (0.6-1.3) mg/dL Estimated GFR (MDRD) (>89) Glucose (74-104) mg/dL POC Whole Bld Glucose 103 H 114 H 123 H (70 - 100) mg/dL Calcium (8.5-10.3) mg/dL Phosphorus (2.5-5.0) mg/dL Magnesium (1.7-2.3) mg/dL Total Bilirubin (0.2-1.0) mg/dL AST (10-42) IU/L ALT (10-60) IU/L Alkaline Phosphatase (42-121) IU/L C-Reactive Protein (<0.5) mg/dL Total Protein (6.4-8.9) g/dL Albumin (3.2-5.5) g/dL Globulin (2.1-4.2) g/dL Albumin/Globulin Ratio (1.0-2.2) Prealbumin (17-34) mg/dL Last Dose Date Last Dose Time Random Vancomycin ug/mL 07/16/23 07/16/23 07/16/23 Range/Units 02:01 00:55 00:02 WBC (4.8-10.8) x10^3/uL RBC (4.70-6.10) 10^6/uL Hgb (14.0-18.0) g/dL Hct (42.0-52.0) % MCV (80.0-94.0) fL MCH (27.0-31.0) pg MCHC (32.0-36.0) g/dL RDW (12.0-15.0) % Plt Count (130-450) 10^3/uL MPV (7.4-11.4) fL Neut # (Auto) (1.5-6.6) 10^3/uL Lymph # (Auto) (1.5-3.5) 10^3/uL Ness # (Auto) (0.0-1.0) 10^3/uL Eos # (Auto) (0.0-0.7) 10^3/uL Baso # (Auto) (0.0-0.1) 10^3/uL Absolute Nucleated RBC x10^3/uL Nucleated RBC % /100WBC Bld Gas Analysis Time Sample Site ABG pH (7.35-7.45) ABG pCO2 (34-45) mmHg ABG pO2 (80-100) mmHg ABG HCO3 (22.0-26.0) mmol/L ABG Total CO2 (21.0-29.0) MMOL/L ABG O2 Saturation (94-98) % ABG Base Excess (-2.0-3.0) mmol/L Ricky Test VBG pH (7.31-7.41) Ionized Calcium (1.15-1.33) mmol/L Respiration Rate b/min O2 Delivery Device Vent Mode FiO2 Tidal Volume mL PEEP cmH2O Sodium (135-145) mmol/L Potassium (3.5-4.5) mmol/L Chloride (101-111) mmol/L Carbon Dioxide (21-32) mmol/L Anion Gap (6-13) BUN (6-20) mg/dL Creatinine (0.6-1.3) mg/dL Estimated GFR (MDRD) (>89) Glucose (74-104) mg/dL POC Whole Bld Glucose 142 H 151 H 165 H (70 - 100) mg/dL Calcium (8.5-10.3) mg/dL Phosphorus (2.5-5.0) mg/dL Magnesium (1.7-2.3) mg/dL Total Bilirubin (0.2-1.0) mg/dL AST (10-42) IU/L ALT (10-60) IU/L Alkaline Phosphatase (42-121) IU/L C-Reactive Protein (<0.5) mg/dL Total Protein (6.4-8.9) g/dL Albumin (3.2-5.5) g/dL Globulin (2.1-4.2) g/dL Albumin/Globulin Ratio (1.0-2.2) Prealbumin (17-34) mg/dL Last Dose Date Last Dose Time Random Vancomycin ug/mL 07/15/23 07/15/23 07/15/23 Range/Units 22:59 22:04 20:53 WBC (4.8-10.8) x10^3/uL RBC (4.70-6.10) 10^6/uL Hgb (14.0-18.0) g/dL Hct (42.0-52.0) % MCV (80.0-94.0) fL MCH (27.0-31.0) pg MCHC (32.0-36.0) g/dL RDW (12.0-15.0) % Plt Count (130-450) 10^3/uL MPV (7.4-11.4) fL Neut # (Auto) (1.5-6.6) 10^3/uL Lymph # (Auto) (1.5-3.5) 10^3/uL Ness # (Auto) (0.0-1.0) 10^3/uL Eos # (Auto) (0.0-0.7) 10^3/uL Baso # (Auto) (0.0-0.1) 10^3/uL Absolute Nucleated RBC x10^3/uL Nucleated RBC % /100WBC Bld Gas Analysis Time Sample Site ABG pH (7.35-7.45) ABG pCO2 (34-45) mmHg ABG pO2 (80-100) mmHg ABG HCO3 (22.0-26.0) mmol/L ABG Total CO2 (21.0-29.0) MMOL/L ABG O2 Saturation (94-98) % ABG Base Excess (-2.0-3.0) mmol/L Ricky Test VBG pH (7.31-7.41) Ionized Calcium (1.15-1.33) mmol/L Respiration Rate b/min O2 Delivery Device Vent Mode FiO2 Tidal Volume mL PEEP cmH2O Sodium (135-145) mmol/L Potassium (3.5-4.5) mmol/L Chloride (101-111) mmol/L Carbon Dioxide (21-32) mmol/L Anion Gap (6-13) BUN (6-20) mg/dL Creatinine (0.6-1.3) mg/dL Estimated GFR (MDRD) (>89) Glucose (74-104) mg/dL POC Whole Bld Glucose 130 H 99 86 (70 - 100) mg/dL Calcium (8.5-10.3) mg/dL Phosphorus (2.5-5.0) mg/dL Magnesium (1.7-2.3) mg/dL Total Bilirubin (0.2-1.0) mg/dL AST (10-42) IU/L ALT (10-60) IU/L Alkaline Phosphatase (42-121) IU/L C-Reactive Protein (<0.5) mg/dL Total Protein (6.4-8.9) g/dL Albumin (3.2-5.5) g/dL Globulin (2.1-4.2) g/dL Albumin/Globulin Ratio (1.0-2.2) Prealbumin (17-34) mg/dL Last Dose Date Last Dose Time Random Vancomycin ug/mL 07/15/23 07/15/23 07/15/23 Range/Units 20:15 19:53 18:48 WBC (4.8-10.8) x10^3/uL RBC (4.70-6.10) 10^6/uL Hgb (14.0-18.0) g/dL Hct (42.0-52.0) % MCV (80.0-94.0) fL MCH (27.0-31.0) pg MCHC (32.0-36.0) g/dL RDW (12.0-15.0) % Plt Count (130-450) 10^3/uL MPV (7.4-11.4) fL Neut # (Auto) (1.5-6.6) 10^3/uL Lymph # (Auto) (1.5-3.5) 10^3/uL Ness # (Auto) (0.0-1.0) 10^3/uL Eos # (Auto) (0.0-0.7) 10^3/uL Baso # (Auto) (0.0-0.1) 10^3/uL Absolute Nucleated RBC x10^3/uL Nucleated RBC % /100WBC Bld Gas Analysis Time Sample Site ABG pH (7.35-7.45) ABG pCO2 (34-45) mmHg ABG pO2 (80-100) mmHg ABG HCO3 (22.0-26.0) mmol/L ABG Total CO2 (21.0-29.0) MMOL/L ABG O2 Saturation (94-98) % ABG Base Excess (-2.0-3.0) mmol/L Ricky Test VBG pH (7.31-7.41) Ionized Calcium (1.15-1.33) mmol/L Respiration Rate b/min O2 Delivery Device Vent Mode FiO2 Tidal Volume mL PEEP cmH2O Sodium 150 H (135-145) mmol/L Potassium (3.5-4.5) mmol/L Chloride (101-111) mmol/L Carbon Dioxide (21-32) mmol/L Anion Gap (6-13) BUN (6-20) mg/dL Creatinine (0.6-1.3) mg/dL Estimated GFR (MDRD) (>89) Glucose (74-104) mg/dL POC Whole Bld Glucose 113 H 157 H (70 - 100) mg/dL Calcium (8.5-10.3) mg/dL Phosphorus (2.5-5.0) mg/dL Magnesium (1.7-2.3) mg/dL Total Bilirubin (0.2-1.0) mg/dL AST (10-42) IU/L ALT (10-60) IU/L Alkaline Phosphatase (42-121) IU/L C-Reactive Protein (<0.5) mg/dL Total Protein (6.4-8.9) g/dL Albumin (3.2-5.5) g/dL Globulin (2.1-4.2) g/dL Albumin/Globulin Ratio (1.0-2.2) Prealbumin (17-34) mg/dL Last Dose Date Last Dose Time Random Vancomycin ug/mL 07/15/23 07/15/23 07/15/23 Range/Units 17:55 17:25 16:54 WBC (4.8-10.8) x10^3/uL RBC (4.70-6.10) 10^6/uL Hgb (14.0-18.0) g/dL Hct (42.0-52.0) % MCV (80.0-94.0) fL MCH (27.0-31.0) pg MCHC (32.0-36.0) g/dL RDW (12.0-15.0) % Plt Count (130-450) 10^3/uL MPV (7.4-11.4) fL Neut # (Auto) (1.5-6.6) 10^3/uL Lymph # (Auto) (1.5-3.5) 10^3/uL Ness # (Auto) (0.0-1.0) 10^3/uL Eos # (Auto) (0.0-0.7) 10^3/uL Baso # (Auto) (0.0-0.1) 10^3/uL Absolute Nucleated RBC x10^3/uL Nucleated RBC % /100WBC Bld Gas Analysis Time Sample Site ABG pH (7.35-7.45) ABG pCO2 (34-45) mmHg ABG pO2 (80-100) mmHg ABG HCO3 (22.0-26.0) mmol/L ABG Total CO2 (21.0-29.0) MMOL/L ABG O2 Saturation (94-98) % ABG Base Excess (-2.0-3.0) mmol/L Ricky Test VBG pH (7.31-7.41) Ionized Calcium (1.15-1.33) mmol/L Respiration Rate b/min O2 Delivery Device Vent Mode FiO2 Tidal Volume mL PEEP cmH2O Sodium (135-145) mmol/L Potassium 3.3 L (3.5-4.5) mmol/L Chloride (101-111) mmol/L Carbon Dioxide (21-32) mmol/L Anion Gap (6-13) BUN (6-20) mg/dL Creatinine (0.6-1.3) mg/dL Estimated GFR (MDRD) (>89) Glucose (74-104) mg/dL POC Whole Bld Glucose 200 H 255 H (70 - 100) mg/dL Calcium (8.5-10.3) mg/dL Phosphorus (2.5-5.0) mg/dL Magnesium (1.7-2.3) mg/dL Total Bilirubin (0.2-1.0) mg/dL AST (10-42) IU/L ALT (10-60) IU/L Alkaline Phosphatase (42-121) IU/L C-Reactive Protein (<0.5) mg/dL Total Protein (6.4-8.9) g/dL Albumin (3.2-5.5) g/dL Globulin (2.1-4.2) g/dL Albumin/Globulin Ratio (1.0-2.2) Prealbumin (17-34) mg/dL Last Dose Date Last Dose Time Random Vancomycin ug/mL 07/15/23 07/15/23 07/15/23 Range/Units 15:54 14:45 13:57 WBC (4.8-10.8) x10^3/uL RBC (4.70-6.10) 10^6/uL Hgb (14.0-18.0) g/dL Hct (42.0-52.0) % MCV (80.0-94.0) fL MCH (27.0-31.0) pg MCHC (32.0-36.0) g/dL RDW (12.0-15.0) % Plt Count (130-450) 10^3/uL MPV (7.4-11.4) fL Neut # (Auto) (1.5-6.6) 10^3/uL Lymph # (Auto) (1.5-3.5) 10^3/uL Ness # (Auto) (0.0-1.0) 10^3/uL Eos # (Auto) (0.0-0.7) 10^3/uL Baso # (Auto) (0.0-0.1) 10^3/uL Absolute Nucleated RBC x10^3/uL Nucleated RBC % /100WBC Bld Gas Analysis Time Sample Site ABG pH (7.35-7.45) ABG pCO2 (34-45) mmHg ABG pO2 (80-100) mmHg ABG HCO3 (22.0-26.0) mmol/L ABG Total CO2 (21.0-29.0) MMOL/L ABG O2 Saturation (94-98) % ABG Base Excess (-2.0-3.0) mmol/L Ricky Test VBG pH (7.31-7.41) Ionized Calcium (1.15-1.33) mmol/L Respiration Rate b/min O2 Delivery Device Vent Mode FiO2 Tidal Volume mL PEEP cmH2O Sodium (135-145) mmol/L Potassium (3.5-4.5) mmol/L Chloride (101-111) mmol/L Carbon Dioxide (21-32) mmol/L Anion Gap (6-13) BUN (6-20) mg/dL Creatinine (0.6-1.3) mg/dL Estimated GFR (MDRD) (>89) Glucose (74-104) mg/dL POC Whole Bld Glucose 279 H 316 H 325 H (70 - 100) mg/dL Calcium (8.5-10.3) mg/dL Phosphorus (2.5-5.0) mg/dL Magnesium (1.7-2.3) mg/dL Total Bilirubin (0.2-1.0) mg/dL AST (10-42) IU/L ALT (10-60) IU/L Alkaline Phosphatase (42-121) IU/L C-Reactive Protein (<0.5) mg/dL Total Protein (6.4-8.9) g/dL Albumin (3.2-5.5) g/dL Globulin (2.1-4.2) g/dL Albumin/Globulin Ratio (1.0-2.2) Prealbumin (17-34) mg/dL Last Dose Date Last Dose Time Random Vancomycin ug/mL 07/15/23 07/15/23 07/15/23 Range/Units 12:48 11:50 11:50 WBC (4.8-10.8) x10^3/uL RBC (4.70-6.10) 10^6/uL Hgb (14.0-18.0) g/dL Hct (42.0-52.0) % MCV (80.0-94.0) fL MCH (27.0-31.0) pg MCHC (32.0-36.0) g/dL RDW (12.0-15.0) % Plt Count (130-450) 10^3/uL MPV (7.4-11.4) fL Neut # (Auto) (1.5-6.6) 10^3/uL Lymph # (Auto) (1.5-3.5) 10^3/uL Ness # (Auto) (0.0-1.0) 10^3/uL Eos # (Auto) (0.0-0.7) 10^3/uL Baso # (Auto) (0.0-0.1) 10^3/uL Absolute Nucleated RBC x10^3/uL Nucleated RBC % /100WBC Bld Gas Analysis Time Sample Site ABG pH (7.35-7.45) ABG pCO2 (34-45) mmHg ABG pO2 (80-100) mmHg ABG HCO3 (22.0-26.0) mmol/L ABG Total CO2 (21.0-29.0) MMOL/L ABG O2 Saturation (94-98) % ABG Base Excess (-2.0-3.0) mmol/L Ricky Test VBG pH (7.31-7.41) Ionized Calcium (1.15-1.33) mmol/L Respiration Rate b/min O2 Delivery Device Vent Mode FiO2 Tidal Volume mL PEEP cmH2O Sodium 148 H (135-145) mmol/L Potassium 3.8 (3.5-4.5) mmol/L Chloride (101-111) mmol/L Carbon Dioxide (21-32) mmol/L Anion Gap (6-13) BUN (6-20) mg/dL Creatinine (0.6-1.3) mg/dL Estimated GFR (MDRD) (>89) Glucose (74-104) mg/dL POC Whole Bld Glucose 323 H (70 - 100) mg/dL Calcium (8.5-10.3) mg/dL Phosphorus 3.0 (2.5-5.0) mg/dL Magnesium 2.3 (1.7-2.3) mg/dL Total Bilirubin (0.2-1.0) mg/dL AST (10-42) IU/L ALT (10-60) IU/L Alkaline Phosphatase (42-121) IU/L C-Reactive Protein (<0.5) mg/dL Total Protein (6.4-8.9) g/dL Albumin (3.2-5.5) g/dL Globulin (2.1-4.2) g/dL Albumin/Globulin Ratio (1.0-2.2) Prealbumin (17-34) mg/dL Last Dose Date Last Dose Time Random Vancomycin ug/mL 07/15/23 07/15/23 07/15/23 Range/Units 11:44 10:41 10:03 WBC (4.8-10.8) x10^3/uL RBC (4.70-6.10) 10^6/uL Hgb (14.0-18.0) g/dL Hct (42.0-52.0) % MCV (80.0-94.0) fL MCH (27.0-31.0) pg MCHC (32.0-36.0) g/dL RDW (12.0-15.0) % Plt Count (130-450) 10^3/uL MPV (7.4-11.4) fL Neut # (Auto) (1.5-6.6) 10^3/uL Lymph # (Auto) (1.5-3.5) 10^3/uL Ness # (Auto) (0.0-1.0) 10^3/uL Eos # (Auto) (0.0-0.7) 10^3/uL Baso # (Auto) (0.0-0.1) 10^3/uL Absolute Nucleated RBC x10^3/uL Nucleated RBC % /100WBC Bld Gas Analysis Time Sample Site ABG pH (7.35-7.45) ABG pCO2 (34-45) mmHg ABG pO2 (80-100) mmHg ABG HCO3 (22.0-26.0) mmol/L ABG Total CO2 (21.0-29.0) MMOL/L ABG O2 Saturation (94-98) % ABG Base Excess (-2.0-3.0) mmol/L Ricky Test VBG pH (7.31-7.41) Ionized Calcium (1.15-1.33) mmol/L Respiration Rate b/min O2 Delivery Device Vent Mode FiO2 Tidal Volume mL PEEP cmH2O Sodium 148 H (135-145) mmol/L Potassium 3.8 (3.5-4.5) mmol/L Chloride 113 H (101-111) mmol/L Carbon Dioxide 31 (21-32) mmol/L Anion Gap 4.0 L (6-13) BUN 63 H (6-20) mg/dL Creatinine 2.3 H (0.6-1.3) mg/dL Estimated GFR (MDRD) 35 L (>89) Glucose 455 H (74-104) mg/dL POC Whole Bld Glucose 358 H 392 H (70 - 100) mg/dL Calcium 9.0 (8.5-10.3) mg/dL Phosphorus 2.4 L (2.5-5.0) mg/dL Magnesium 2.3 (1.7-2.3) mg/dL Total Bilirubin (0.2-1.0) mg/dL AST (10-42) IU/L ALT (10-60) IU/L Alkaline Phosphatase (42-121) IU/L C-Reactive Protein (<0.5) mg/dL Total Protein (6.4-8.9) g/dL Albumin (3.2-5.5) g/dL Globulin (2.1-4.2) g/dL Albumin/Globulin Ratio (1.0-2.2) Prealbumin (17-34) mg/dL Last Dose Date Last Dose Time Random Vancomycin ug/mL 07/15/23 07/15/23 07/15/23 Range/Units 09:42 08:50 08:38 WBC (4.8-10.8) x10^3/uL RBC (4.70-6.10) 10^6/uL Hgb (14.0-18.0) g/dL Hct (42.0-52.0) % MCV (80.0-94.0) fL MCH (27.0-31.0) pg MCHC (32.0-36.0) g/dL RDW (12.0-15.0) % Plt Count (130-450) 10^3/uL MPV (7.4-11.4) fL Neut # (Auto) (1.5-6.6) 10^3/uL Lymph # (Auto) (1.5-3.5) 10^3/uL Ness # (Auto) (0.0-1.0) 10^3/uL Eos # (Auto) (0.0-0.7) 10^3/uL Baso # (Auto) (0.0-0.1) 10^3/uL Absolute Nucleated RBC x10^3/uL Nucleated RBC % /100WBC Bld Gas Analysis Time Sample Site ABG pH (7.35-7.45) ABG pCO2 (34-45) mmHg ABG pO2 (80-100) mmHg ABG HCO3 (22.0-26.0) mmol/L ABG Total CO2 (21.0-29.0) MMOL/L ABG O2 Saturation (94-98) % ABG Base Excess (-2.0-3.0) mmol/L Ricky Test VBG pH (7.31-7.41) Ionized Calcium (1.15-1.33) mmol/L Respiration Rate b/min O2 Delivery Device Vent Mode FiO2 Tidal Volume mL PEEP cmH2O Sodium 146 H (135-145) mmol/L Potassium 3.7 (3.5-4.5) mmol/L Chloride 111 (101-111) mmol/L Carbon Dioxide 29 (21-32) mmol/L Anion Gap 6.0 (6-13) BUN 65 H (6-20) mg/dL Creatinine 2.3 H (0.6-1.3) mg/dL Estimated GFR (MDRD) 35 L (>89) Glucose 533 H* (74-104) mg/dL POC Whole Bld Glucose 383 H (70 - 100) mg/dL Calcium 9.0 (8.5-10.3) mg/dL Phosphorus (2.5-5.0) mg/dL Magnesium (1.7-2.3) mg/dL Total Bilirubin 0.5 (0.2-1.0) mg/dL AST 18 (10-42) IU/L ALT 14 (10-60) IU/L Alkaline Phosphatase 72 (42-121) IU/L C-Reactive Protein (<0.5) mg/dL Total Protein 6.3 L (6.4-8.9) g/dL Albumin 2.5 L (3.2-5.5) g/dL Globulin 3.8 (2.1-4.2) g/dL Albumin/Globulin Ratio 0.7 L (1.0-2.2) Prealbumin < 3 L (17-34) mg/dL Last Dose Date Last Dose Time Random Vancomycin ug/mL 07/15/23 Range/Units 08:38 WBC (4.8-10.8) x10^3/uL RBC (4.70-6.10) 10^6/uL Hgb (14.0-18.0) g/dL Hct (42.0-52.0) % MCV (80.0-94.0) fL MCH (27.0-31.0) pg MCHC (32.0-36.0) g/dL RDW (12.0-15.0) % Plt Count (130-450) 10^3/uL MPV (7.4-11.4) fL Neut # (Auto) (1.5-6.6) 10^3/uL Lymph # (Auto) (1.5-3.5) 10^3/uL Ness # (Auto) (0.0-1.0) 10^3/uL Eos # (Auto) (0.0-0.7) 10^3/uL Baso # (Auto) (0.0-0.1) 10^3/uL Absolute Nucleated RBC x10^3/uL Nucleated RBC % /100WBC Bld Gas Analysis Time Sample Site ABG pH (7.35-7.45) ABG pCO2 (34-45) mmHg ABG pO2 (80-100) mmHg ABG HCO3 (22.0-26.0) mmol/L ABG Total CO2 (21.0-29.0) MMOL/L ABG O2 Saturation (94-98) % ABG Base Excess (-2.0-3.0) mmol/L Ricky Test VBG pH (7.31-7.41) Ionized Calcium (1.15-1.33) mmol/L Respiration Rate b/min O2 Delivery Device Vent Mode FiO2 Tidal Volume mL PEEP cmH2O Sodium (135-145) mmol/L Potassium (3.5-4.5) mmol/L Chloride (101-111) mmol/L Carbon Dioxide (21-32) mmol/L Anion Gap (6-13) BUN (6-20) mg/dL Creatinine (0.6-1.3) mg/dL Estimated GFR (MDRD) (>89) Glucose (74-104) mg/dL POC Whole Bld Glucose (70 - 100) mg/dL Calcium (8.5-10.3) mg/dL Phosphorus (2.5-5.0) mg/dL Magnesium (1.7-2.3) mg/dL Total Bilirubin (0.2-1.0) mg/dL AST (10-42) IU/L ALT (10-60) IU/L Alkaline Phosphatase (42-121) IU/L C-Reactive Protein (<0.5) mg/dL Total Protein (6.4-8.9) g/dL Albumin (3.2-5.5) g/dL Globulin (2.1-4.2) g/dL Albumin/Globulin Ratio (1.0-2.2) Prealbumin (17-34) mg/dL Last Dose Date UNK Last Dose Time UNK Random Vancomycin 26.0 ug/mL - Diagnostic Imaging Diagnostic Imaging Results: positive: Final report reviewed - Other Results/Comments Other Results/Comments: Sputum culture shows yeast positive Sepsis Event Note (H) - Evaluation Current Stage of Sepsis: Septic shock (On Levophed) Assessment/Plan - Problem List (1) Acute respiratory failure with hypoxia Impression: On ventilator support Diffuse rhonchi's and rails on physical examination Increased oxygen needs overnight Repeat chest x-ray showed slightly improvement of infiltrates in the lungs Sputum culture shows yeast growth Continue cefepime and Flagyl, discontinue vancomycin due to impaired renal function Add fluconazole oral 100 mg once a day for 14 days Once blood pressure improves, may continue tapering down the FiO2 Overall poor prognosis (2) HCAP (healthcare-associated pneumonia) Impression: No sign of improvement at this point Continue IV antibiotics, add fluconazole due to yeast growth in the sputum Blood culture no growth to date (3) On mechanically assisted ventilation Impression: Day 3 on ventilator support Able to titrate FiO2 down to 55% from 70% today Morning ABG shows 7.4/39.3/87/24 appears stable on vent Daily chest x-ray, (4) Hypotension Impression: Etiology likely due to septic shock, source of infection is hospital-acquired pneumonia Continue pressor support, Echo performed today, preliminary reports shows preserved ejection fraction If still needs high dose of Levophed, will consider hydrocortisone use (5) Hypernatremia Impression: Resolved Monitoring BMP (6) Acute kidney injury Impression: Creatinine 2.1 today Likely due to medication side effect, discontinue vancomycin I had to increase Lasix dose due to rales in the lungs We will continue to watch for renal function Patient has good urine output after Lasix given (7) Hyperglycemia due to diabetes mellitus Impression: On insulin drip Blood glucose has improved Start low-dose tube feeding today to improve his nutrition status (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
[2023-07-16] MEDS: CHLORHEXIDINE GLUCONATE 15 ML UDC PO SCH ×2 (08:43→20:38)
[2023-07-16] MEDS: HEPARIN 5,000 UNIT/ML VIAL SUBQ SCH ×2 (08:56→21:12)
[2023-07-16] MEDS: DEXMEDETOMIDINE 400 MCG in SODIUM CHLORIDE 0.9% 100ML 96 ML IV SCH (12:51)
--- NOTE | 2023-07-16 13:08 | XRAY Report ---
PROCEDURE: Chest 1 View X-Ray INDICATIONS: follow up TECHNIQUE: One view of the chest was acquired. COMPARISON: 07/14/2023 FINDINGS: Surgical changes and devices: Endotracheal, nasogastric tubes and right IJ central venous line in go od position unchanged Lungs and pleura: Obscuration left hemidiaphragm and blunting left costophrenic angle. Bilateral mod erate vascular congestion with centralized pulmonary infiltrates. Right pleural space clear Mediastinum: Mediastinal contours appear normal. Heart size is normal. Bones and chest wall: No suspicious bony lesions. Overlying soft tissues appear unremarkable. IMPRESSION: Left pleural effusion, vascular congestion and centralized pulmonary infiltrates reflect edema versus infection, improved from prior. Reviewed by: Pierce Amaro MD on 07/16/2023 12:06 PM [facility] Approved by: Pierce Amaro MD on 07/16/2023 12:06 PM [facility] Station ID: [id number]
[2023-07-16 17:05] LABS: CALCIUM 8.7 mg/dL (8.5-10.3); CREATININE 2.1 mg/dL (0.6-1.3); POTASSIUM 3.6 mmol/L (3.5-4.5)
[2023-07-16] MEDS: POTASSIUM CHLOR 10 MEQ/100 ML 10 MEQ/100 ML BAG IV SCH ×4 (17:51→20:58)
[2023-07-16] MEDS: TPN (CLINIMIX E 5/15) 2,000 ML with MULTIVITAMIN 10 ML, TRACE ELEMENTS 1 ML IV SCH ×3 (18:37)
[2023-07-16] MEDS: FAT EMULSION 20% 250 ML IV SCH (18:52)
[2023-07-16] MEDS: FLUCONAZOLE 100 MG TABLET PO SCH (19:46)
[2023-07-16] MEDS: FAMOTIDINE 20 MG/2 ML VIAL IVP SCH (20:38)
[2023-07-16] MEDS: SODIUM CHLORIDE FLUSH 0.9% 10 ML SYRINGE IVP PRN (20:38)
[2023-07-17] MEDS: SODIUM CHLORIDE FLUSH 0.9% 10 ML SYRINGE IVP SCH ×3 (01:04→20:16)
[2023-07-17] MEDS: CEFEPIME 1 GM in SODIUM CHLORIDE 0.9% MINIBAG 100 ML IV SCH ×3 (01:04→16:59)
[2023-07-17] MEDS: NORepinephrine 8 MG in DEXTROSE 5% 250ML IV SCH ×4 (01:42→20:30)
[2023-07-17] MEDS: INSULIN REGULAR HUMAN 100 UNIT in SODIUM CHLORIDE 0.9% 100ML 99 ML IV SCH ×3 (01:57→23:01)
[2023-07-17] MEDS: metroNIDAZOLE 500 MG/100 ML 500 MG/100 ML BAG IV SCH ×3 (03:00→20:15)
[2023-07-17] MEDS: SODIUM CHLORIDE FLUSH 0.9% 10 ML SYRINGE IVP PRN ×2 (04:22→06:21)
[2023-07-17 05:35] LABS: BASOPHILS % (AUTO) 0.2 %; EOSINOPHILS # (AUTO) 0.3 10^3/uL (0.0-0.7); EOSINOPHILS % (AUTO) 2.9 %; HCT - HEMATOCRIT 29.9 % (42.0-52.0); HGB - HEMOGLOBIN 9.4 g/dL (14.0-18.0); LYMPHOCYTES # (AUTO) 1.3 10^3/uL (1.5-3.5); LYMPHOCYTES % (AUTO) 14.9 %; MEAN CORPUSCULAR HEMOGLOBIN 33.2 pg (27.0-31.0); MEAN CORPUSCULAR HGB CONC 31.4 g/dL (32.0-36.0); MEAN CORPUSCULAR VOLUME 105.7 fL (80.0-94.0); MEAN PLATELET VOLUME 12.4 fL (7.4-11.4); MONOCYTES # (AUTO) 0.5 10^3/uL (0.0-1.0); MONOCYTES % (AUTO) 6.1 %; NEUTROPHILS # (AUTO) 6.5 10^3/uL (1.5-6.6); NEUTROPHILS % (AUTO) 74.9 %; PLT - PLATELET COUNT 196 10^3/uL (130-450); RED BLOOD COUNT 2.83 10^6/uL (4.70-6.10); RED CELL DISTRIBUTION WIDTH 11.8 % (12.0-15.0); WHITE BLOOD COUNT 8.7 x10^3/uL (4.8-10.8)
[2023-07-17 05:40] LABS: CALCIUM, IONIZED 1.17 mmol/L (1.15-1.33); VBG PH 7.355 (7.31-7.41)
[2023-07-17 05:50] LABS: CALCIUM 8.4 mg/dL (8.5-10.3); CREATININE 1.9 mg/dL (0.6-1.3); MAGNESIUM 1.8 mg/dL (1.7-2.3); PHOSPHORUS 4.3 mg/dL (2.5-5.0); POTASSIUM 3.3 mmol/L (3.5-4.5)
[2023-07-17] MEDS ORDERED: MAGNESIUM SULFATE 2 GRAM 2 GM/50 ML BAG IV ONE (05:51)
[2023-07-17] MEDS: FUROSEMIDE 20 MG/2 ML VIAL IVP SCH (06:09)
[2023-07-17] MEDS: MIDAZOLAM DRIP 50 MG/50 ML 50 MG/50 ML BAG IV SCH ×2 (06:10→14:34)
[2023-07-17] MEDS: POTASSIUM CHLOR 20 MEQ/100 ML 20 MEQ/100 ML BAG IV SCH ×2 (06:10→07:26)
--- NOTE | 2023-07-17 08:14 | PROVIDER PROGRESS NOTE ---
Subjective - Prog Note Date Prog Note Date: 07/17/23 - Subjective Pt reports feeling: Improved (Remain intubated Able to wean down ventilator dependence Able to lower the Levophed dose) Current Medications - Current Medications Current Medications: Active Medications Acetaminophen (Acetaminophen 160 Mg/5 Ml Susp Udc) 640 mg JT Q4HR PRN PRN Reason: Pain 1 to 4, or Fever Last Admin: 07/12/23 00:05 Dose: 640 mg Chlorhexidine Gluconate (Chlorhexidine Gluconate 15 Ml Udc) 15 ml PO BID [facility] Last Admin: 07/17/23 09:31 Dose: 15 ml Famotidine (Famotidine 20 Mg/2 Ml Vial) 20 mg IVP 2100 [facility] Last Admin: 07/16/23 20:38 Dose: 20 mg Fluconazole (Fluconazole 100 Mg Tablet) 100 mg PO DAILY [facility] Stop: 07/30/23 19:08 Last Admin: 07/17/23 09:28 Dose: 100 mg Heparin Sodium (Porcine) (Heparin 5,000 Unit/Ml Vial) 5,000 unit SUBQ BID [facility] Last Admin: 07/17/23 09:23 Dose: 5,000 unit Cefepime HCl 1 gm/ Sodium (Chloride) 100 mls @ 200 mls/hr IV Q8H [facility] Last Infusion: 07/17/23 10:00 Dose: Infused Midazolam HCl (Versed Drip 50 Mg/50 Ml) 50 mg in 50 mls @ 2.82 mls/hr IV .[id number] [facility]; Protocol Last Admin: 07/17/23 06:10 Dose: 0.09 mg/kg/hr, 6.345 mls/hr Norepinephrine Bitartrate 8 mg (/ Dextrose) 250 mls @ 56.25 mls/hr IV .Q4H27M [facility]; Protocol Last Admin: 07/17/23 09:09 Dose: 13 mcg/min, 24.375 mls/hr Metronidazole (Flagyl 500 Mg/100 Ml) 500 mg in 100 mls @ 100 mls/hr IV Q8H [facility] Last Infusion: 07/17/23 11:43 Dose: Infused Acetaminophen (Acetaminophen) 1,000 mg in 100 mls @ 400 mls/hr IV Q6HR PRN PRN Reason: Pain or Fever > 38C (100.4F) Last Infusion: 07/16/23 22:20 Dose: Infused Insulin Human Regular 100 unit (/ Sodium Chloride) 100 mls @ 1 mls/hr IV .Q72H [facility]; Protocol Last Titration: 07/17/23 13:08 Dose: 12.5 unit/hr, 12.5 mls/hr Dexmedetomidine HCl 400 mcg/ (Sodium Chloride) 100 mls @ 3.8 mls/hr IV .[id number] [facility]; Protocol Last Admin: 07/17/23 11:49 Dose: 0.2 mcg/kg/hr, 3.8 mls/hr Multivitamins 10 ml/ TRACE ELEMENTS 1 ml/ Amino Ac/Electrol/Dextrose/Calcium 2,011 mls @ 50 mls/hr IV 1900 [facility]; Protocol Last Admin: 07/16/23 18:37 Dose: 50 mls/hr Fat Emulsion Intravenous (Intralipid 20%) 250 mls @ 21 mls/hr IV 1900 [facility] Last Infusion: 07/17/23 07:09 Dose: Infused Ondansetron HCl (Ondansetron Odt 4 Mg Tablet) 4 mg TL Q6HR PRN PRN Reason: Nausea / Vomiting Ondansetron HCl (Ondansetron 4 Mg/2 Ml Vial) 4 mg IVP Q6HR PRN PRN Reason: Nausea / Vomiting Oxycodone HCl (Oxycodone 5 Mg Tablet) 5 mg PO Q4HR PRN PRN Reason: Pain 5 to 7 Polyethylene Glycol (Polyethylene Glycol 3350 17 Gm Packet) 17 gm PO DAILY [facility] Last Admin: 07/17/23 09:22 Dose: 17 gm Sodium Chloride (Sodium Chloride Flush 0.9% 10 Ml Syringe) 10 ml IVP 0100,0900,1700 [facility] Last Admin: 07/17/23 09:30 Dose: 10 ml Sodium Chloride (Sodium Chloride Flush 0.9% 10 Ml Syringe) 10 ml IVP PRN PRN PRN Reason: NEEDED PER PROVIDER ORDERS Last Admin: 07/17/23 06:21 Dose: 10 ml Insulin Glargine [Lantus Solostar] 22 unit SUBQ QPM 10/08/17 Telmisartan [Micardis] 80 mg PO DAILY 10/08/17 Atorvastatin Calcium 40 mg PO QPM 10/10/19 Insulin Aspart [NovoLOG] 0 - 13 units SUBQ TIDWM PRN 10/10/19 Levothyroxine Sodium 88 mcg PO QDAC 10/10/19 Amitriptyline [Elavil] 10 mg PO HS PRN 09/05/21 Empagliflozin [Jardiance] 10 mg PO DAILY 07/09/23 Guaifenesin/Dextromethorphan [Robafen Dm 100-10 mg/5 ml Cup] 5 ml PO Q4H PRN 07/09/23 amLODIPine [Norvasc] 5 mg PO DAILY 07/09/23 Objective - Vital Signs/Intake & Output Reviewed Vital Signs: Yes Vital Signs: Vital Signs Temp Pulse Pulse Resp BP Pulse Ox 07/17/23 07:04 70 07/17/23 07:00 70 15 91/64 94 07/17/23 06:30 15 94 07/17/23 06:00 68 14 106/69 95 07/17/23 05:30 14 98 07/17/23 05:00 68 14 115/78 98 07/17/23 04:37 66 07/17/23 04:30 36.6 C 14 96 Intake & Output: Intake & Output 07/14/23 07/15/23 07/16/23 07/17/23 23:59 23:59 23:59 23:59 Intake Total 2373.279 4227.991 6534.466 816.485 Output Total 3205 3060 3005 1045 Balance -500.289 3491.991 3529.466 -228.515 - Objective General Appearance: positive: Other (Sedated) ENT: positive: Other (Intubated) Neck: positive: Nml inspection Respiratory: positive: Rhonchi. negative: Wheezes, Rales Extremities: positive: No pedal edema - Lab Results Fish Bones: 07/17/23 04:25 07/17/23 04:25 Other Labs: Lab Results x24hrs 07/17/23 07/17/23 07/17/23 Range/Units 08:01 06:54 06:04 WBC (4.8-10.8) x10^3/uL RBC (4.70-6.10) 10^6/uL Hgb (14.0-18.0) g/dL Hct (42.0-52.0) % MCV (80.0-94.0) fL MCH (27.0-31.0) pg MCHC (32.0-36.0) g/dL RDW (12.0-15.0) % Plt Count (130-450) 10^3/uL MPV (7.4-11.4) fL Neut # (Auto) (1.5-6.6) 10^3/uL Lymph # (Auto) (1.5-3.5) 10^3/uL Mccracken # (Auto) (0.0-1.0) 10^3/uL Eos # (Auto) (0.0-0.7) 10^3/uL Baso # (Auto) (0.0-0.1) 10^3/uL Absolute Nucleated RBC x10^3/uL Nucleated RBC % /100WBC VBG pH (7.31-7.41) Ionized Calcium (1.15-1.33) mmol/L Sodium (135-145) mmol/L Potassium (3.5-4.5) mmol/L Chloride (101-111) mmol/L Carbon Dioxide (21-32) mmol/L Anion Gap (6-13) BUN (6-20) mg/dL Creatinine (0.6-1.3) mg/dL Estimated GFR (MDRD) (>89) Glucose (74-104) mg/dL POC Whole Bld Glucose 217 H 209 H 196 H (70 - 100) mg/dL Calcium (8.5-10.3) mg/dL Phosphorus (2.5-5.0) mg/dL Magnesium (1.7-2.3) mg/dL C-Reactive Protein (<0.5) mg/dL B-Natriuretic Peptide (5-100) pg/mL Triglycerides (48-352) mg/dL 07/17/23 07/17/23 07/17/23 Range/Units 04:54 04:25 04:25 WBC 8.7 (4.8-10.8) x10^3/uL RBC 2.83 L (4.70-6.10) 10^6/uL Hgb 9.4 L (14.0-18.0) g/dL Hct 29.9 L (42.0-52.0) % MCV 105.7 H (80.0-94.0) fL MCH 33.2 H (27.0-31.0) pg MCHC 31.4 L (32.0-36.0) g/dL RDW 11.8 L (12.0-15.0) % Plt Count 196 (130-450) 10^3/uL MPV 12.4 H (7.4-11.4) fL Neut # (Auto) 6.5 (1.5-6.6) 10^3/uL Lymph # (Auto) 1.3 L (1.5-3.5) 10^3/uL Mccracken # (Auto) 0.5 (0.0-1.0) 10^3/uL Eos # (Auto) 0.3 (0.0-0.7) 10^3/uL Baso # (Auto) 0.0 (0.0-0.1) 10^3/uL Absolute Nucleated RBC 0.00 x10^3/uL Nucleated RBC % 0.0 /100WBC VBG pH 7.355 (7.31-7.41) Ionized Calcium 1.17 (1.15-1.33) mmol/L Sodium (135-145) mmol/L Potassium (3.5-4.5) mmol/L Chloride (101-111) mmol/L Carbon Dioxide (21-32) mmol/L Anion Gap (6-13) BUN (6-20) mg/dL Creatinine (0.6-1.3) mg/dL Estimated GFR (MDRD) (>89) Glucose (74-104) mg/dL POC Whole Bld Glucose 223 H (70 - 100) mg/dL Calcium (8.5-10.3) mg/dL Phosphorus (2.5-5.0) mg/dL Magnesium (1.7-2.3) mg/dL C-Reactive Protein (<0.5) mg/dL B-Natriuretic Peptide (5-100) pg/mL Triglycerides (48-352) mg/dL 07/17/23 07/17/23 07/17/23 Range/Units 04:25 04:07 02:57 WBC (4.8-10.8) x10^3/uL RBC (4.70-6.10) 10^6/uL Hgb (14.0-18.0) g/dL Hct (42.0-52.0) % MCV (80.0-94.0) fL MCH (27.0-31.0) pg MCHC (32.0-36.0) g/dL RDW (12.0-15.0) % Plt Count (130-450) 10^3/uL MPV (7.4-11.4) fL Neut # (Auto) (1.5-6.6) 10^3/uL Lymph # (Auto) (1.5-3.5) 10^3/uL Mccracken # (Auto) (0.0-1.0) 10^3/uL Eos # (Auto) (0.0-0.7) 10^3/uL Baso # (Auto) (0.0-0.1) 10^3/uL Absolute Nucleated RBC x10^3/uL Nucleated RBC % /100WBC VBG pH (7.31-7.41) Ionized Calcium (1.15-1.33) mmol/L Sodium 142 (135-145) mmol/L Potassium 3.3 L (3.5-4.5) mmol/L Chloride 107 (101-111) mmol/L Carbon Dioxide 29 (21-32) mmol/L Anion Gap 6.0 (6-13) BUN 52 H (6-20) mg/dL Creatinine 1.9 H (0.6-1.3) mg/dL Estimated GFR (MDRD) 43 L (>89) Glucose 212 H (74-104) mg/dL POC Whole Bld Glucose 199 H 216 H (70 - 100) mg/dL Calcium 8.4 L (8.5-10.3) mg/dL Phosphorus 4.3 (2.5-5.0) mg/dL Magnesium 1.8 (1.7-2.3) mg/dL C-Reactive Protein (<0.5) mg/dL B-Natriuretic Peptide (5-100) pg/mL Triglycerides 158 (48-352) mg/dL 07/17/23 07/17/23 07/17/23 Range/Units 01:54 01:00 00:01 WBC (4.8-10.8) x10^3/uL RBC (4.70-6.10) 10^6/uL Hgb (14.0-18.0) g/dL Hct (42.0-52.0) % MCV (80.0-94.0) fL MCH (27.0-31.0) pg MCHC (32.0-36.0) g/dL RDW (12.0-15.0) % Plt Count (130-450) 10^3/uL MPV (7.4-11.4) fL Neut # (Auto) (1.5-6.6) 10^3/uL Lymph # (Auto) (1.5-3.5) 10^3/uL Mccracken # (Auto) (0.0-1.0) 10^3/uL Eos # (Auto) (0.0-0.7) 10^3/uL Baso # (Auto) (0.0-0.1) 10^3/uL Absolute Nucleated RBC x10^3/uL Nucleated RBC % /100WBC VBG pH (7.31-7.41) Ionized Calcium (1.15-1.33) mmol/L Sodium (135-145) mmol/L Potassium (3.5-4.5) mmol/L Chloride (101-111) mmol/L Carbon Dioxide (21-32) mmol/L Anion Gap (6-13) BUN (6-20) mg/dL Creatinine (0.6-1.3) mg/dL Estimated GFR (MDRD) (>89) Glucose (74-104) mg/dL POC Whole Bld Glucose 212 H 209 H 205 H (70 - 100) mg/dL Calcium (8.5-10.3) mg/dL Phosphorus (2.5-5.0) mg/dL Magnesium (1.7-2.3) mg/dL C-Reactive Protein (<0.5) mg/dL B-Natriuretic Peptide (5-100) pg/mL Triglycerides (48-352) mg/dL 07/16/23 07/16/23 07/16/23 Range/Units 23:00 21:59 21:03 WBC (4.8-10.8) x10^3/uL RBC (4.70-6.10) 10^6/uL Hgb (14.0-18.0) g/dL Hct (42.0-52.0) % MCV (80.0-94.0) fL MCH (27.0-31.0) pg MCHC (32.0-36.0) g/dL RDW (12.0-15.0) % Plt Count (130-450) 10^3/uL MPV (7.4-11.4) fL Neut # (Auto) (1.5-6.6) 10^3/uL Lymph # (Auto) (1.5-3.5) 10^3/uL Mccracken # (Auto) (0.0-1.0) 10^3/uL Eos # (Auto) (0.0-0.7) 10^3/uL Baso # (Auto) (0.0-0.1) 10^3/uL Absolute Nucleated RBC x10^3/uL Nucleated RBC % /100WBC VBG pH (7.31-7.41) Ionized Calcium (1.15-1.33) mmol/L Sodium (135-145) mmol/L Potassium (3.5-4.5) mmol/L Chloride (101-111) mmol/L Carbon Dioxide (21-32) mmol/L Anion Gap (6-13) BUN (6-20) mg/dL Creatinine (0.6-1.3) mg/dL Estimated GFR (MDRD) (>89) Glucose (74-104) mg/dL POC Whole Bld Glucose 191 H 175 H 156 H (70 - 100) mg/dL Calcium (8.5-10.3) mg/dL Phosphorus (2.5-5.0) mg/dL Magnesium (1.7-2.3) mg/dL C-Reactive Protein (<0.5) mg/dL B-Natriuretic Peptide (5-100) pg/mL Triglycerides (48-352) mg/dL 07/16/23 07/16/23 07/16/23 Range/Units 20:07 18:51 18:03 WBC (4.8-10.8) x10^3/uL RBC (4.70-6.10) 10^6/uL Hgb (14.0-18.0) g/dL Hct (42.0-52.0) % MCV (80.0-94.0) fL MCH (27.0-31.0) pg MCHC (32.0-36.0) g/dL RDW (12.0-15.0) % Plt Count (130-450) 10^3/uL MPV (7.4-11.4) fL Neut # (Auto) (1.5-6.6) 10^3/uL Lymph # (Auto) (1.5-3.5) 10^3/uL Mccracken # (Auto) (0.0-1.0) 10^3/uL Eos # (Auto) (0.0-0.7) 10^3/uL Baso # (Auto) (0.0-0.1) 10^3/uL Absolute Nucleated RBC x10^3/uL Nucleated RBC % /100WBC VBG pH (7.31-7.41) Ionized Calcium (1.15-1.33) mmol/L Sodium (135-145) mmol/L Potassium (3.5-4.5) mmol/L Chloride (101-111) mmol/L Carbon Dioxide (21-32) mmol/L Anion Gap (6-13) BUN (6-20) mg/dL Creatinine (0.6-1.3) mg/dL Estimated GFR (MDRD) (>89) Glucose (74-104) mg/dL POC Whole Bld Glucose 123 H 135 H 124 H (70 - 100) mg/dL Calcium (8.5-10.3) mg/dL Phosphorus (2.5-5.0) mg/dL Magnesium (1.7-2.3) mg/dL C-Reactive Protein (<0.5) mg/dL B-Natriuretic Peptide (5-100) pg/mL Triglycerides (48-352) mg/dL 07/16/23 07/16/23 07/16/23 Range/Units 16:58 16:30 16:30 WBC (4.8-10.8) x10^3/uL RBC (4.70-6.10) 10^6/uL Hgb (14.0-18.0) g/dL Hct (42.0-52.0) % MCV (80.0-94.0) fL MCH (27.0-31.0) pg MCHC (32.0-36.0) g/dL RDW (12.0-15.0) % Plt Count (130-450) 10^3/uL MPV (7.4-11.4) fL Neut # (Auto) (1.5-6.6) 10^3/uL Lymph # (Auto) (1.5-3.5) 10^3/uL Mccracken # (Auto) (0.0-1.0) 10^3/uL Eos # (Auto) (0.0-0.7) 10^3/uL Baso # (Auto) (0.0-0.1) 10^3/uL Absolute Nucleated RBC x10^3/uL Nucleated RBC % /100WBC VBG pH (7.31-7.41) Ionized Calcium (1.15-1.33) mmol/L Sodium 143 (135-145) mmol/L Potassium 3.6 (3.5-4.5) mmol/L Chloride 109 (101-111) mmol/L Carbon Dioxide 27 (21-32) mmol/L Anion Gap 7.0 (6-13) BUN 52 H (6-20) mg/dL Creatinine 2.1 H (0.6-1.3) mg/dL Estimated GFR (MDRD) 38 L (>89) Glucose 177 H (74-104) mg/dL POC Whole Bld Glucose 153 H (70 - 100) mg/dL Calcium 8.7 (8.5-10.3) mg/dL Phosphorus (2.5-5.0) mg/dL Magnesium (1.7-2.3) mg/dL C-Reactive Protein 26.2 H (<0.5) mg/dL B-Natriuretic Peptide 10 (5-100) pg/mL Triglycerides (48-352) mg/dL 07/16/23 07/16/23 07/16/23 Range/Units 16:03 14:59 13:57 WBC (4.8-10.8) x10^3/uL RBC (4.70-6.10) 10^6/uL Hgb (14.0-18.0) g/dL Hct (42.0-52.0) % MCV (80.0-94.0) fL MCH (27.0-31.0) pg MCHC (32.0-36.0) g/dL RDW (12.0-15.0) % Plt Count (130-450) 10^3/uL MPV (7.4-11.4) fL Neut # (Auto) (1.5-6.6) 10^3/uL Lymph # (Auto) (1.5-3.5) 10^3/uL Mccracken # (Auto) (0.0-1.0) 10^3/uL Eos # (Auto) (0.0-0.7) 10^3/uL Baso # (Auto) (0.0-0.1) 10^3/uL Absolute Nucleated RBC x10^3/uL Nucleated RBC % /100WBC VBG pH (7.31-7.41) Ionized Calcium (1.15-1.33) mmol/L Sodium (135-145) mmol/L Potassium (3.5-4.5) mmol/L Chloride (101-111) mmol/L Carbon Dioxide (21-32) mmol/L Anion Gap (6-13) BUN (6-20) mg/dL Creatinine (0.6-1.3) mg/dL Estimated GFR (MDRD) (>89) Glucose (74-104) mg/dL POC Whole Bld Glucose 171 H 204 H 226 H (70 - 100) mg/dL Calcium (8.5-10.3) mg/dL Phosphorus (2.5-5.0) mg/dL Magnesium (1.7-2.3) mg/dL C-Reactive Protein (<0.5) mg/dL B-Natriuretic Peptide (5-100) pg/mL Triglycerides (48-352) mg/dL 07/16/23 07/16/23 07/16/23 Range/Units 12:57 11:55 10:52 WBC (4.8-10.8) x10^3/uL RBC (4.70-6.10) 10^6/uL Hgb (14.0-18.0) g/dL Hct (42.0-52.0) % MCV (80.0-94.0) fL MCH (27.0-31.0) pg MCHC (32.0-36.0) g/dL RDW (12.0-15.0) % Plt Count (130-450) 10^3/uL MPV (7.4-11.4) fL Neut # (Auto) (1.5-6.6) 10^3/uL Lymph # (Auto) (1.5-3.5) 10^3/uL Mccracken # (Auto) (0.0-1.0) 10^3/uL Eos # (Auto) (0.0-0.7) 10^3/uL Baso # (Auto) (0.0-0.1) 10^3/uL Absolute Nucleated RBC x10^3/uL Nucleated RBC % /100WBC VBG pH (7.31-7.41) Ionized Calcium (1.15-1.33) mmol/L Sodium (135-145) mmol/L Potassium (3.5-4.5) mmol/L Chloride (101-111) mmol/L Carbon Dioxide (21-32) mmol/L Anion Gap (6-13) BUN (6-20) mg/dL Creatinine (0.6-1.3) mg/dL Estimated GFR (MDRD) (>89) Glucose (74-104) mg/dL POC Whole Bld Glucose 209 H 224 H 241 H (70 - 100) mg/dL Calcium (8.5-10.3) mg/dL Phosphorus (2.5-5.0) mg/dL Magnesium (1.7-2.3) mg/dL C-Reactive Protein (<0.5) mg/dL B-Natriuretic Peptide (5-100) pg/mL Triglycerides (48-352) mg/dL 07/16/23 07/16/23 Range/Units 09:49 08:58 WBC (4.8-10.8) x10^3/uL RBC (4.70-6.10) 10^6/uL Hgb (14.0-18.0) g/dL Hct (42.0-52.0) % MCV (80.0-94.0) fL MCH (27.0-31.0) pg MCHC (32.0-36.0) g/dL RDW (12.0-15.0) % Plt Count (130-450) 10^3/uL MPV (7.4-11.4) fL Neut # (Auto) (1.5-6.6) 10^3/uL Lymph # (Auto) (1.5-3.5) 10^3/uL Mccracken # (Auto) (0.0-1.0) 10^3/uL Eos # (Auto) (0.0-0.7) 10^3/uL Baso # (Auto) (0.0-0.1) 10^3/uL Absolute Nucleated RBC x10^3/uL Nucleated RBC % /100WBC VBG pH (7.31-7.41) Ionized Calcium (1.15-1.33) mmol/L Sodium (135-145) mmol/L Potassium (3.5-4.5) mmol/L Chloride (101-111) mmol/L Carbon Dioxide (21-32) mmol/L Anion Gap (6-13) BUN (6-20) mg/dL Creatinine (0.6-1.3) mg/dL Estimated GFR (MDRD) (>89) Glucose (74-104) mg/dL POC Whole Bld Glucose 213 H 210 H (70 - 100) mg/dL Calcium (8.5-10.3) mg/dL Phosphorus (2.5-5.0) mg/dL Magnesium (1.7-2.3) mg/dL C-Reactive Protein (<0.5) mg/dL B-Natriuretic Peptide (5-100) pg/mL Triglycerides (48-352) mg/dL - Other Results/Comments Other Results/Comments: Slightly improved renal function Sepsis Event Note (H) - Evaluation Current Stage of Sepsis: Septic shock (On Levophed) Assessment/Plan - Problem List (1) Acute respiratory failure with hypoxia Impression: Slightly improved, FiO2 40%, able to wean down to PS mode in the afternoon The goal is to extubate patient as soon as possible, hopefully tomorrow if blood pressure is able to be maintained reasonable (2) HCAP (healthcare-associated pneumonia) Impression: Continue with cefepime, Flagyl Added fluconazole on 07/16/2023 after the sputum culture reports yeast growth (3) On mechanically assisted ventilation Impression: Slightly improved, Went to PS, that patient exercise his respiratory muscle (4) Hypotension Impression: Levophed dependent, able to wean down the dose slightly Gave albumin, Lasix to help with the volume status Plan to repeat albumin and Lasix regimen again (5) Hypernatremia Impression: Resolved (6) Acute kidney injury Impression: Slightly improved, creatinine 1.9 today Close monitoring renal function (7) Hyperglycemia due to diabetes mellitus Impression: On TPN, on insulin drip Close monitoring blood sugar (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 Which make the lung is very susceptible to infection and poor oxygenation
[2023-07-17] MEDS ORDERED: FLUCONAZOLE 100 MG TABLET PO SCH (09:00)
--- NOTE | 2023-07-17 09:17 | XRAY Report ---
PROCEDURE: Chest 1 View X-Ray INDICATIONS: pneumonia follow up TECHNIQUE: One view of the chest was acquired. COMPARISON: 07/16/2023. FINDINGS: Surgical changes and devices: Endotracheal tube terminates above the mylene. NG/NG tube tip projects over the gastric body. Right internal jugular central venous catheter projects over the mid SVC. Lungs and pleura: Redemonstrated opacities at the mid and lower lungs bilaterally, mild interval wor sening at the right lung base. Possible right pleural effusion. No pneumothorax. Mediastinum: Mediastinal and hilar contours are similar to before. Bones and chest wall: No suspicious bony lesions. Overlying soft tissues appear unremarkable. IMPRESSION: Redemonstrated mid and lower lung opacities bilaterally, mild interval worsening of the right lung ba se. Possible right pleural effusion. Reviewed by: Monico Le MD on 07/17/2023 9:16 AM PDT Approved by: Monico Le MD on 07/17/2023 9:16 AM PDT Station ID: [id number]
[2023-07-17] MEDS: polyethylene glycoL 3350 17 GM PACKET PO SCH (09:22)
[2023-07-17] MEDS: HEPARIN 5,000 UNIT/ML VIAL SUBQ SCH ×2 (09:23→20:29)
[2023-07-17] MEDS: FLUCONAZOLE 100 MG TABLET PO SCH (09:28)
[2023-07-17] MEDS: CHLORHEXIDINE GLUCONATE 15 ML UDC PO SCH ×2 (09:31→20:28)
[2023-07-17] MEDS ORDERED: ALBUMIN 25% 12.5 GM/50 ML VIAL IV STA (10:32)
[2023-07-17] MEDS: DEXMEDETOMIDINE 400 MCG in SODIUM CHLORIDE 0.9% 100ML 96 ML IV SCH ×2 (11:49→22:59)
[2023-07-17] MEDS ORDERED: FUROSEMIDE 40 MG/4 ML VIAL IVP ONE (13:00)
--- NOTE | 2023-07-17 17:37 | PROVIDER PROGRESS NOTE ---
Progress Note Significant Event At 5:40pm, patient had sudden Desaturation event With oxygen saturation down to 60s. Good waveforms on monitor. portfolio accountant, RT, CRN and hospitalist are at bedside. Family's are at bedside. Patient appears to be the same however even with bagging, patient's saturation is still remain low at 70s. Lung sounds present on both sides. Stat chest x-ray shows stable lung imaging Put patient back on ventilator, patient oxygen saturation gradually improved to 80s. Stat CTA pulmonary to rule out PE I personally performed critical care for 16 minutes
--- NOTE | 2023-07-17 19:04 | XRAY Report ---
PROCEDURE: Chest 1 View X-Ray INDICATIONS: desaturation without obvious source TECHNIQUE: One view of the chest was acquired. COMPARISON: 07/17/2023, 07/16/2023 FINDINGS: Surgical changes and devices: An endotracheal tube is seen, with the tip 9 cm above the mylene. Ther e is a gastric tube seen, with the tip not visible, yet clearly below the level of the diaphragm. The sidehole is below the level of the diaphragm. A right-sided central line is seen, with the tip overl gabriele the mid to lower superior vena cava. Lungs and pleura: Generalized interstitial prominence can be seen, right worse than left. Apparent s mall bilateral pleural effusions are seen, right larger than left. The limits of this supine study, n o large pneumothorax is seen. Mediastinum: Mediastinal contours appear normal. Heart size is normal. Bones and chest wall: No suspicious bony lesions. Overlying soft tissues appear unremarkable. IMPRESSION: Generalized interstitial prominence can be seen, which is mildly worse on the current study than on t he prior performed earlier in the day. The endotracheal tube tip is seen 9 cm above the mylene. Please consider advancement. Apparent small bilateral pleural effusions. Reviewed by: Ashwin Espinoza MD on 07/17/2023 6:02 PM TAL Approved by: Ashwin Espinoza MD on 07/17/2023 6:02 PM TAL Station ID: [id number]
[2023-07-17] MEDS ORDERED: MORPHINE 10 MG/ML VIAL IVP ONE (19:08)
[2023-07-17] MEDS ORDERED: MORPHINE 10 MG/ML VIAL ONE (19:12)
[2023-07-17] MEDS: fentaNYL 2,500 MCG in SODIUM CHLORIDE 0.9% 200 ML IV SCH (19:29)
[2023-07-17] MEDS: FAT EMULSION 20% 250 ML IV SCH (20:10)
[2023-07-17] MEDS: TPN (CLINIMIX E 5/15) 2,000 ML with MULTIVITAMIN 10 ML, TRACE ELEMENTS 1 ML IV SCH ×3 (20:10)
[2023-07-17] MEDS: FAMOTIDINE 20 MG/2 ML VIAL IVP SCH (20:29)
--- NOTE | 2023-07-17 20:32 | CT Report ---
PROCEDURE: ANGIO CHEST W/WO INDICATIONS: to rule out PE CONTRAST: Omni 300 80ml TECHNIQUE: After the administration of intravenous contrast, 2 mm axial images were acquired from the pulmonary apices to the posterior costophrenic angles during the arterial phase. In addition, 1 mm lung kernel and 5 mm soft tissue kernel reconstructions were performed. 3-dimensional coronal oblique maximum int ensity projection (MIP) reformats, 8 mm axial MIP, and 5 mm coronal and sagittal MPR reformats were t hen performed through the thorax. For radiation dose reduction, the following was used: automated exp osure control, adjustment of mA and/or kV according to patient size. COMPARISON: None FINDINGS: Image quality: Good Large vessels: No filling defects within the opacified pulmonary arteries, accounting for motion and contrast timing. No evidence of acute aortic syndrome or aortic aneurysm. Lungs and pleura: Dense consolidation in the right upper lobe as well as areas of focal consolidation in the bilateral lower lobes. No pleural effusions. No pneumothorax. Endotracheal tube terminates i n the mid trachea. Mediastinum: Heart size is normal. No pericardial effusion. No large vessel abnormality. No mediastin al adenopathy by size criteria. Right central venous line terminates at the cavoatrial junction. Chest wall and lower neck: Thyroid is not visualized. No axillary or supraclavicular adenopathy by si ze. Bones: No aggressive osseous abnormality. Upper Abdomen: Percutaneous gastrostomy tube is present. Endogastric tube is seen within the stomach. IMPRESSION: No pulmonary embolus. Right upper lobe consolidation and additional bibasilar consolidation are concerning for pneumonia. Reviewed by: Cathy Boston MD on 07/17/2023 8:30 PM PDT Approved by: Cathy Boston MD on 07/17/2023 8:30 PM PDT Station ID: [id number]
[2023-07-17] MEDS ORDERED: iohexoL-300 100 ML VIAL IVP ONE (21:01)
--- NOTE | 2023-07-17 21:41 | XRAY Report ---
PROCEDURE: Chest for Line Placement INDICATIONS: ETT placement TECHNIQUE: One view of the chest was acquired. COMPARISON: Films performed earlier the same day FINDINGS: Surgical changes and devices: The endotracheal tube has been advanced and is now a few centimeters a cherie the mylene, in satisfactory position. An orogastric tube tip is below the diaphragm. A drainage tube is partially seen in the epigastric region of the abdomen. There is a right IJ central venous li ne in stable position. Lungs and pleura: Patchy right perihilar alveolar opacities and mild left infrahilar and basilar cyndi eolar opacity. Small left pleural effusion. No pneumothorax. Mediastinum: Mediastinal contours appear normal. Heart size is normal. Bones and chest wall: No suspicious bony lesions. Overlying soft tissues appear unremarkable. IMPRESSION: 1. Improved position of endotracheal tube. 2. Other stable tubes and lines as described. 3. No change to bilateral alveolar opacities and effusions, right greater than left. Reviewed by: Anna Lyons MD on 07/17/2023 9:40 PM PDT Approved by: Anna yLons MD on 07/17/2023 9:40 PM PDT Station ID: [id number]
[2023-07-18] MEDS: CEFEPIME 1 GM in SODIUM CHLORIDE 0.9% MINIBAG 100 ML IV SCH (00:11)
[2023-07-18] MEDS: SODIUM CHLORIDE FLUSH 0.9% 10 ML SYRINGE IVP SCH ×3 (00:13→15:52)
[2023-07-18] MEDS: NORepinephrine 8 MG in DEXTROSE 5% 250ML IV SCH ×4 (00:13→15:47)
[2023-07-18] MEDS: MIDAZOLAM DRIP 50 MG/50 ML 50 MG/50 ML BAG IV SCH ×2 (01:14→09:25)
[2023-07-18 01:45] LABS: BASOPHILS % (AUTO) 0.1 %; EOSINOPHILS # (AUTO) 0.2 10^3/uL (0.0-0.7); EOSINOPHILS % (AUTO) 1.4 %; HCT - HEMATOCRIT 30.1 % (42.0-52.0); HGB - HEMOGLOBIN 9.6 g/dL (14.0-18.0); LYMPHOCYTES # (AUTO) 1.2 10^3/uL (1.5-3.5); LYMPHOCYTES % (AUTO) 8.9 %; MEAN CORPUSCULAR HEMOGLOBIN 33.4 pg (27.0-31.0); MEAN CORPUSCULAR HGB CONC 31.9 g/dL (32.0-36.0); MEAN CORPUSCULAR VOLUME 104.9 fL (80.0-94.0); MEAN PLATELET VOLUME 11.6 fL (7.4-11.4); MONOCYTES # (AUTO) 0.6 10^3/uL (0.0-1.0); MONOCYTES % (AUTO) 4.7 %; NEUTROPHILS # (AUTO) 11.3 10^3/uL (1.5-6.6); NEUTROPHILS % (AUTO) 83.8 %; PLT - PLATELET COUNT 235 10^3/uL (130-450); RED BLOOD COUNT 2.87 10^6/uL (4.70-6.10); RED CELL DISTRIBUTION WIDTH 11.7 % (12.0-15.0); WHITE BLOOD COUNT 13.4 x10^3/uL (4.8-10.8)
[2023-07-18 01:48] LABS: CALCIUM, IONIZED 1.16 mmol/L (1.15-1.33); VBG PH 7.355 (7.31-7.41)
[2023-07-18] MEDS: metroNIDAZOLE 500 MG/100 ML 500 MG/100 ML BAG IV SCH (02:15)
[2023-07-18 03:28] LABS: CALCIUM 8.6 mg/dL (8.5-10.3); PHOSPHORUS 4.4 mg/dL (2.5-5.0); POTASSIUM 4.2 mmol/L (3.5-4.5)
[2023-07-18 05:28] LABS: CALCIUM 8.7 mg/dL (8.5-10.3); MAGNESIUM 2.1 mg/dL (1.7-2.3); PHOSPHORUS 4.3 mg/dL (2.5-5.0)
--- NOTE | 2023-07-18 07:39 | PROVIDER PROGRESS NOTE ---
Subjective - Prog Note Date Prog Note Date: 07/18/23 - Subjective Pt reports feeling: Worse (Patient is still intubated, on Levophed with higher dose to maintain MAP over 65) Subjective: Advanced care planning discussion with patient and the daughters Family requests any possible treatment available, would like patient to be transferred to a higher level care with pulmonology and preventive medicine specialist. Transfer request to [facility], patient is on wait list. Transfer request to [facility], no bed available, patient is not accepted. Transfer request to [facility], of possible place for transfer is [facility]. Await for callback. Current Medications - Current Medications Current Medications: Active Medications Acetaminophen (Acetaminophen 160 Mg/5 Ml Susp Udc) 640 mg JT Q4HR PRN PRN Reason: Pain 1 to 4, or Fever Last Admin: 07/12/23 00:05 Dose: 640 mg Chlorhexidine Gluconate (Chlorhexidine Gluconate 15 Ml Udc) 15 ml PO BID NISH Last Admin: 07/18/23 08:20 Dose: 15 ml Famotidine (Famotidine 20 Mg/2 Ml Vial) 20 mg IVP 2100 NISH Last Admin: 07/17/23 20:29 Dose: 20 mg Heparin Sodium (Porcine) (Heparin 5,000 Unit/Ml Vial) 5,000 unit SUBQ BID NISH Last Admin: 07/18/23 09:19 Dose: 5,000 unit Midazolam HCl (Versed Drip 50 Mg/50 Ml) 50 mg in 50 mls @ 2.82 mls/hr IV .[id number] NISH; Protocol Last Titration: 07/18/23 17:42 Dose: 0.05 mg/kg/hr, 3.525 mls/hr Norepinephrine Bitartrate 8 mg (/ Dextrose) 250 mls @ 56.25 mls/hr IV .[id number] NISH; Protocol Last Titration: 07/18/23 17:41 Dose: 20 mcg/min, 37.5 mls/hr Acetaminophen (Acetaminophen) 1,000 mg in 100 mls @ 400 mls/hr IV Q6HR PRN PRN Reason: Pain or Fever > 38C (100.4F) Last Infusion: 07/16/23 22:20 Dose: Infused Insulin Human Regular 100 unit (/ Sodium Chloride) 100 mls @ 1 mls/hr IV .Q72H NISH; Protocol Last Titration: 07/18/23 13:20 Dose: 12 unit/hr, 12 mls/hr Dexmedetomidine HCl 400 mcg/ (Sodium Chloride) 100 mls @ 3.8 mls/hr IV .[id number] NISH; Protocol Last Titration: 07/18/23 09:35 Dose: 0 mcg/kg/hr, 0 mls/hr Multivitamins 10 ml/ TRACE ELEMENTS 1 ml/ Amino Ac/Electrol/Dextrose/Calcium 2,011 mls @ 50 mls/hr IV 1900 [facility]; Protocol Last Admin: 07/17/23 20:10 Dose: 50 mls/hr Fat Emulsion Intravenous (Intralipid 20%) 250 mls @ 21 mls/hr IV 1900 [facility] Last Infusion: 07/18/23 08:13 Dose: Infused Fentanyl 2,500 mcg/ Sodium (Chloride) 250 mls @ 7.15 mls/hr IV .[id number] [facility]; Protocol Last Titration: 07/18/23 17:41 Dose: 1 mcg/kg/hr, 7.15 mls/hr Meropenem 1 gm/ Sodium (Chloride) 100 mls @ 200 mls/hr IV Q8H [facility] Last Infusion: 07/18/23 16:36 Dose: Infused Fluconazole (Diflucan 200 Mg/100 Ml) 100 mls @ 100 mls/hr IV DAILY [facility] Last Infusion: 07/18/23 10:07 Dose: Infused Dopamine HCl/Dextrose (Dopamine) 400 mg in 250 mls @ 5.505 mls/hr IV .[id number] [facility]; Protocol Last Admin: 07/18/23 17:40 Dose: Not Given Ondansetron HCl (Ondansetron Odt 4 Mg Tablet) 4 mg TL Q6HR PRN PRN Reason: Nausea / Vomiting Ondansetron HCl (Ondansetron 4 Mg/2 Ml Vial) 4 mg IVP Q6HR PRN PRN Reason: Nausea / Vomiting Oxycodone HCl (Oxycodone 5 Mg Tablet) 5 mg PO Q4HR PRN PRN Reason: Pain 5 to 7 Polyethylene Glycol (Polyethylene Glycol 3350 17 Gm Packet) 17 gm PO DAILY [facility] Last Admin: 07/18/23 09:20 Dose: 17 gm Sodium Chloride (Sodium Chloride Flush 0.9% 10 Ml Syringe) 10 ml IVP 0100,0900,1700 [facility] Last Admin: 07/18/23 15:52 Dose: 10 ml Sodium Chloride (Sodium Chloride Flush 0.9% 10 Ml Syringe) 10 ml IVP PRN PRN PRN Reason: NEEDED PER PROVIDER ORDERS Last Admin: 07/17/23 06:21 Dose: 10 ml Insulin Glargine [Lantus Solostar] 22 unit SUBQ QPM 10/08/17 Telmisartan [Micardis] 80 mg PO DAILY 10/08/17 Atorvastatin Calcium 40 mg PO QPM 10/10/19 Insulin Aspart [NovoLOG] 0 - 13 units SUBQ TIDWM PRN 10/10/19 Levothyroxine Sodium 88 mcg PO QDAC 10/10/19 Amitriptyline [Elavil] 10 mg PO HS PRN 09/05/21 Empagliflozin [Jardiance] 10 mg PO DAILY 07/09/23 Guaifenesin/Dextromethorphan [Robafen Dm 100-10 mg/5 ml Cup] 5 ml PO Q4H PRN 07/09/23 amLODIPine [Norvasc] 5 mg PO DAILY 07/09/23 Objective - Vital Signs/Intake & Output Reviewed Vital Signs: Yes Vital Signs: Vital Signs Temp Pulse Pulse Resp BP Pulse Ox 07/18/23 07:30 14 96 07/18/23 07:00 73 14 94/64 98 07/18/23 06:48 73 07/18/23 06:30 36.9 C 14 98 07/18/23 06:00 36.9 C 73 14 107/72 98 07/18/23 05:40 72 07/18/23 05:30 72 07/18/23 05:00 73 14 104/65 100 07/18/23 04:30 14 99 07/18/23 04:00 73 14 110/71 99 Intake & Output: Intake & Output 07/15/23 07/16/23 07/17/23 07/18/23 23:59 23:59 23:59 23:59 Intake Total 4227.991 6534.466 2557.914 1039.732 Output Total 3060 3005 4225 1025 Balance 3254.491 2893.466 -1667.086 14.732 - Objective General Appearance: positive: Other (Sedated on fentanyl drip, Versed drip and Precedex drip) Respiratory: positive: Rales, Rhonchi. negative: Wheezes Cardiovascular: positive: Regular rate & rhythm Abdomen: positive: No distention, Other (Hypoactive bowel sound) Skin: negative: Diaphoresis Extremities: positive: Other (Upper extremity swollen, lower legs trace edema) - Lab Results Fish Bones: 07/18/23 01:38 07/18/23 16:00 Other Labs: Lab Results x24hrs 07/18/23 07/18/23 07/18/23 Range/Units 06:54 05:58 05:12 WBC (4.8-10.8) x10^3/uL RBC (4.70-6.10) 10^6/uL Hgb (14.0-18.0) g/dL Hct (42.0-52.0) % MCV (80.0-94.0) fL MCH (27.0-31.0) pg MCHC (32.0-36.0) g/dL RDW (12.0-15.0) % Plt Count (130-450) 10^3/uL MPV (7.4-11.4) fL Neut # (Auto) (1.5-6.6) 10^3/uL Lymph # (Auto) (1.5-3.5) 10^3/uL [place] # (Auto) (0.0-1.0) 10^3/uL Eos # (Auto) (0.0-0.7) 10^3/uL Baso # (Auto) (0.0-0.1) 10^3/uL Absolute Nucleated RBC x10^3/uL Nucleated RBC % /100WBC VBG pH (7.31-7.41) Ionized Calcium (1.15-1.33) mmol/L Sodium (135-145) mmol/L Potassium (3.5-4.5) mmol/L Chloride (101-111) mmol/L Carbon Dioxide (21-32) mmol/L Anion Gap (6-13) BUN (6-20) mg/dL Creatinine (0.6-1.3) mg/dL Estimated GFR (MDRD) (>89) Glucose (74-104) mg/dL POC Whole Bld Glucose 254 H 257 H 255 H (70 - 100) mg/dL Calcium (8.5-10.3) mg/dL Phosphorus (2.5-5.0) mg/dL Magnesium (1.7-2.3) mg/dL C-React Prot High Sens mg/L 07/18/23 07/18/23 07/18/23 Range/Units 04:22 04:03 02:55 WBC (4.8-10.8) x10^3/uL RBC (4.70-6.10) 10^6/uL Hgb (14.0-18.0) g/dL Hct (42.0-52.0) % MCV (80.0-94.0) fL MCH (27.0-31.0) pg MCHC (32.0-36.0) g/dL RDW (12.0-15.0) % Plt Count (130-450) 10^3/uL MPV (7.4-11.4) fL Neut # (Auto) (1.5-6.6) 10^3/uL Lymph # (Auto) (1.5-3.5) 10^3/uL [place] # (Auto) (0.0-1.0) 10^3/uL Eos # (Auto) (0.0-0.7) 10^3/uL Baso # (Auto) (0.0-0.1) 10^3/uL Absolute Nucleated RBC x10^3/uL Nucleated RBC % /100WBC VBG pH (7.31-7.41) Ionized Calcium (1.15-1.33) mmol/L Sodium 140 (135-145) mmol/L Potassium 4.0 (3.5-4.5) mmol/L Chloride 106 (101-111) mmol/L Carbon Dioxide 27 (21-32) mmol/L Anion Gap 7.0 (6-13) BUN 58 H (6-20) mg/dL Creatinine 2.0 H (0.6-1.3) mg/dL Estimated GFR (MDRD) 41 L (>89) Glucose 262 H (74-104) mg/dL POC Whole Bld Glucose 246 H 245 H (70 - 100) mg/dL Calcium 8.7 (8.5-10.3) mg/dL Phosphorus 4.3 (2.5-5.0) mg/dL Magnesium 2.1 (1.7-2.3) mg/dL C-React Prot High Sens mg/L 07/18/23 07/18/23 07/18/23 Range/Units 02:01 01:38 01:38 WBC (4.8-10.8) x10^3/uL RBC (4.70-6.10) 10^6/uL Hgb (14.0-18.0) g/dL Hct (42.0-52.0) % MCV (80.0-94.0) fL MCH (27.0-31.0) pg MCHC (32.0-36.0) g/dL RDW (12.0-15.0) % Plt Count (130-450) 10^3/uL MPV (7.4-11.4) fL Neut # (Auto) (1.5-6.6) 10^3/uL Lymph # (Auto) (1.5-3.5) 10^3/uL [place] # (Auto) (0.0-1.0) 10^3/uL Eos # (Auto) (0.0-0.7) 10^3/uL Baso # (Auto) (0.0-0.1) 10^3/uL Absolute Nucleated RBC x10^3/uL Nucleated RBC % /100WBC VBG pH 7.355 (7.31-7.41) Ionized Calcium 1.16 (1.15-1.33) mmol/L Sodium (135-145) mmol/L Potassium 4.2 (3.5-4.5) mmol/L Chloride (101-111) mmol/L Carbon Dioxide (21-32) mmol/L Anion Gap (6-13) BUN (6-20) mg/dL Creatinine (0.6-1.3) mg/dL Estimated GFR (MDRD) (>89) Glucose (74-104) mg/dL POC Whole Bld Glucose 257 H (70 - 100) mg/dL Calcium 8.6 (8.5-10.3) mg/dL Phosphorus 4.4 (2.5-5.0) mg/dL Magnesium 2.0 (1.7-2.3) mg/dL C-React Prot High Sens mg/L 07/18/23 07/18/23 07/18/23 Range/Units 01:38 01:06 00:02 WBC 13.4 H (4.8-10.8) x10^3/uL RBC 2.87 L (4.70-6.10) 10^6/uL Hgb 9.6 L (14.0-18.0) g/dL Hct 30.1 L (42.0-52.0) % MCV 104.9 H (80.0-94.0) fL MCH 33.4 H (27.0-31.0) pg MCHC 31.9 L (32.0-36.0) g/dL RDW 11.7 L (12.0-15.0) % Plt Count 235 (130-450) 10^3/uL MPV 11.6 H (7.4-11.4) fL Neut # (Auto) 11.3 H (1.5-6.6) 10^3/uL Lymph # (Auto) 1.2 L (1.5-3.5) 10^3/uL [place] # (Auto) 0.6 (0.0-1.0) 10^3/uL Eos # (Auto) 0.2 (0.0-0.7) 10^3/uL Baso # (Auto) 0.0 (0.0-0.1) 10^3/uL Absolute Nucleated RBC 0.00 x10^3/uL Nucleated RBC % 0.0 /100WBC VBG pH (7.31-7.41) Ionized Calcium (1.15-1.33) mmol/L Sodium (135-145) mmol/L Potassium (3.5-4.5) mmol/L Chloride (101-111) mmol/L Carbon Dioxide (21-32) mmol/L Anion Gap (6-13) BUN (6-20) mg/dL Creatinine (0.6-1.3) mg/dL Estimated GFR (MDRD) (>89) Glucose (74-104) mg/dL POC Whole Bld Glucose 241 H 230 H (70 - 100) mg/dL Calcium (8.5-10.3) mg/dL Phosphorus (2.5-5.0) mg/dL Magnesium (1.7-2.3) mg/dL C-React Prot High Sens mg/L 1007/17/23 07/17/23 Range/Units 22:52 22:09 21:06 WBC (4.8-10.8) x10^3/uL RBC (4.70-6.10) 10^6/uL Hgb (14.0-18.0) g/dL Hct (42.0-52.0) % MCV (80.0-94.0) fL MCH (27.0-31.0) pg MCHC (32.0-36.0) g/dL RDW (12.0-15.0) % Plt Count (130-450) 10^3/uL MPV (7.4-11.4) fL Neut # (Auto) (1.5-6.6) 10^3/uL Lymph # (Auto) (1.5-3.5) 10^3/uL [place] # (Auto) (0.0-1.0) 10^3/uL Eos # (Auto) (0.0-0.7) 10^3/uL Baso # (Auto) (0.0-0.1) 10^3/uL Absolute Nucleated RBC x10^3/uL Nucleated RBC % /100WBC VBG pH (7.31-7.41) Ionized Calcium (1.15-1.33) mmol/L Sodium (135-145) mmol/L Potassium (3.5-4.5) mmol/L Chloride (101-111) mmol/L Carbon Dioxide (21-32) mmol/L Anion Gap (6-13) BUN (6-20) mg/dL Creatinine (0.6-1.3) mg/dL Estimated GFR (MDRD) (>89) Glucose (74-104) mg/dL POC Whole Bld Glucose 182 H 155 H 113 H (70 - 100) mg/dL Calcium (8.5-10.3) mg/dL Phosphorus (2.5-5.0) mg/dL Magnesium (1.7-2.3) mg/dL C-React Prot High Sens mg/L 07/17/23 07/17/23 07/17/23 Range/Units 19:56 18:58 18:05 WBC (4.8-10.8) x10^3/uL RBC (4.70-6.10) 10^6/uL Hgb (14.0-18.0) g/dL Hct (42.0-52.0) % MCV (80.0-94.0) fL MCH (27.0-31.0) pg MCHC (32.0-36.0) g/dL RDW (12.0-15.0) % Plt Count (130-450) 10^3/uL MPV (7.4-11.4) fL Neut # (Auto) (1.5-6.6) 10^3/uL Lymph # (Auto) (1.5-3.5) 10^3/uL [place] # (Auto) (0.0-1.0) 10^3/uL Eos # (Auto) (0.0-0.7) 10^3/uL Baso # (Auto) (0.0-0.1) 10^3/uL Absolute Nucleated RBC x10^3/uL Nucleated RBC % /100WBC VBG pH (7.31-7.41) Ionized Calcium (1.15-1.33) mmol/L Sodium (135-145) mmol/L Potassium (3.5-4.5) mmol/L Chloride (101-111) mmol/L Carbon Dioxide (21-32) mmol/L Anion Gap (6-13) BUN (6-20) mg/dL Creatinine (0.6-1.3) mg/dL Estimated GFR (MDRD) (>89) Glucose (74-104) mg/dL POC Whole Bld Glucose 104 H 133 H 138 H (70 - 100) mg/dL Calcium (8.5-10.3) mg/dL Phosphorus (2.5-5.0) mg/dL Magnesium (1.7-2.3) mg/dL C-React Prot High Sens mg/L 07/17/23 07/17/23 07/17/23 Range/Units 17:05 16:02 15:00 WBC (4.8-10.8) x10^3/uL RBC (4.70-6.10) 10^6/uL Hgb (14.0-18.0) g/dL Hct (42.0-52.0) % MCV (80.0-94.0) fL MCH (27.0-31.0) pg MCHC (32.0-36.0) g/dL RDW (12.0-15.0) % Plt Count (130-450) 10^3/uL MPV (7.4-11.4) fL Neut # (Auto) (1.5-6.6) 10^3/uL Lymph # (Auto) (1.5-3.5) 10^3/uL [place] # (Auto) (0.0-1.0) 10^3/uL Eos # (Auto) (0.0-0.7) 10^3/uL Baso # (Auto) (0.0-0.1) 10^3/uL Absolute Nucleated RBC x10^3/uL Nucleated RBC % /100WBC VBG pH (7.31-7.41) Ionized Calcium (1.15-1.33) mmol/L Sodium (135-145) mmol/L Potassium (3.5-4.5) mmol/L Chloride (101-111) mmol/L Carbon Dioxide (21-32) mmol/L Anion Gap (6-13) BUN (6-20) mg/dL Creatinine (0.6-1.3) mg/dL Estimated GFR (MDRD) (>89) Glucose (74-104) mg/dL POC Whole Bld Glucose 155 H 171 H 181 H (70 - 100) mg/dL Calcium (8.5-10.3) mg/dL Phosphorus (2.5-5.0) mg/dL Magnesium (1.7-2.3) mg/dL C-React Prot High Sens mg/L 07/17/23 07/17/23 07/17/23 Range/Units 13:59 12:59 11:58 WBC (4.8-10.8) x10^3/uL RBC (4.70-6.10) 10^6/uL Hgb (14.0-18.0) g/dL Hct (42.0-52.0) % MCV (80.0-94.0) fL MCH (27.0-31.0) pg MCHC (32.0-36.0) g/dL RDW (12.0-15.0) % Plt Count (130-450) 10^3/uL MPV (7.4-11.4) fL Neut # (Auto) (1.5-6.6) 10^3/uL Lymph # (Auto) (1.5-3.5) 10^3/uL [place] # (Auto) (0.0-1.0) 10^3/uL Eos # (Auto) (0.0-0.7) 10^3/uL Baso # (Auto) (0.0-0.1) 10^3/uL Absolute Nucleated RBC x10^3/uL Nucleated RBC % /100WBC VBG pH (7.31-7.41) Ionized Calcium (1.15-1.33) mmol/L Sodium (135-145) mmol/L Potassium (3.5-4.5) mmol/L Chloride (101-111) mmol/L Carbon Dioxide (21-32) mmol/L Anion Gap (6-13) BUN (6-20) mg/dL Creatinine (0.6-1.3) mg/dL Estimated GFR (MDRD) (>89) Glucose (74-104) mg/dL POC Whole Bld Glucose 206 H 209 H 203 H (70 - 100) mg/dL Calcium (8.5-10.3) mg/dL Phosphorus (2.5-5.0) mg/dL Magnesium (1.7-2.3) mg/dL C-React Prot High Sens mg/L 07/17/23 07/17/23 07/17/23 Range/Units 11:04 10:12 09:24 WBC (4.8-10.8) x10^3/uL RBC (4.70-6.10) 10^6/uL Hgb (14.0-18.0) g/dL Hct (42.0-52.0) % MCV (80.0-94.0) fL MCH (27.0-31.0) pg MCHC (32.0-36.0) g/dL RDW (12.0-15.0) % Plt Count (130-450) 10^3/uL MPV (7.4-11.4) fL Neut # (Auto) (1.5-6.6) 10^3/uL Lymph # (Auto) (1.5-3.5) 10^3/uL [place] # (Auto) (0.0-1.0) 10^3/uL Eos # (Auto) (0.0-0.7) 10^3/uL Baso # (Auto) (0.0-0.1) 10^3/uL Absolute Nucleated RBC x10^3/uL Nucleated RBC % /100WBC VBG pH (7.31-7.41) Ionized Calcium (1.15-1.33) mmol/L Sodium (135-145) mmol/L Potassium (3.5-4.5) mmol/L Chloride (101-111) mmol/L Carbon Dioxide (21-32) mmol/L Anion Gap (6-13) BUN (6-20) mg/dL Creatinine (0.6-1.3) mg/dL Estimated GFR (MDRD) (>89) Glucose (74-104) mg/dL POC Whole Bld Glucose 205 H 180 H 208 H (70 - 100) mg/dL Calcium (8.5-10.3) mg/dL Phosphorus (2.5-5.0) mg/dL Magnesium (1.7-2.3) mg/dL C-React Prot High Sens mg/L 07/17/23 07/17/23 Range/Units 08:01 04:25 WBC (4.8-10.8) x10^3/uL RBC (4.70-6.10) 10^6/uL Hgb (14.0-18.0) g/dL Hct (42.0-52.0) % MCV (80.0-94.0) fL MCH (27.0-31.0) pg MCHC (32.0-36.0) g/dL RDW (12.0-15.0) % Plt Count (130-450) 10^3/uL MPV (7.4-11.4) fL Neut # (Auto) (1.5-6.6) 10^3/uL Lymph # (Auto) (1.5-3.5) 10^3/uL [place] # (Auto) (0.0-1.0) 10^3/uL Eos # (Auto) (0.0-0.7) 10^3/uL Baso # (Auto) (0.0-0.1) 10^3/uL Absolute Nucleated RBC x10^3/uL Nucleated RBC % /100WBC VBG pH (7.31-7.41) Ionized Calcium (1.15-1.33) mmol/L Sodium (135-145) mmol/L Potassium (3.5-4.5) mmol/L Chloride (101-111) mmol/L Carbon Dioxide (21-32) mmol/L Anion Gap (6-13) BUN (6-20) mg/dL Creatinine (0.6-1.3) mg/dL Estimated GFR (MDRD) (>89) Glucose (74-104) mg/dL POC Whole Bld Glucose 217 H (70 - 100) mg/dL Calcium (8.5-10.3) mg/dL Phosphorus (2.5-5.0) mg/dL Magnesium (1.7-2.3) mg/dL C-React Prot High Sens 183.60 mg/L - Diagnostic Imaging Diagnostic Imaging Results: positive: Final report reviewed Sepsis Event Note (H) - Evaluation Current Stage of Sepsis: Septic shock (On Levophed) Assessment/Plan - Problem List (1) Acute respiratory failure with hypoxia Impression: Remains intubated, ventilator support FiO2 60% (2) HCAP (healthcare-associated pneumonia) Impression: With worsening condition, escalate antibiotic to meropenem and IV fluconazole. Repeat blood culture, repeat sputum culture Discussed with microbiology lab, positive yeast culture were isolated and sent out for sensitivity test to fluconazole, micafungin, amphotericin B, it may take about 10 days to get the reports Per microbiology lab, the positive yeast culture grows bacterial culturemedia, and might be a rare fungi (3) On mechanically assisted ventilation Impression: Ventilator support (4) Hypotension Impression: Shock status on pressor (5) Hypernatremia Impression: Resolved (6) Acute kidney injury Impression: Persistent (7) Hyperglycemia due to diabetes mellitus Impression: On insulin drip (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
[2023-07-18] MEDS: MEROPENEM 1 GM in SODIUM CHLORIDE 0.9% MINIBAG 100 ML IV SCH ×2 (08:19→15:51)
[2023-07-18] MEDS: CHLORHEXIDINE GLUCONATE 15 ML UDC PO SCH (08:20)
[2023-07-18 08:53] LABS: CALCIUM 8.4 mg/dL (8.5-10.3); POTASSIUM 3.9 mmol/L (3.5-4.5)
[2023-07-18] MEDS ORDERED: FLUCONAZOLE 200 MG/100 ML 100 ML IV SCH (09:00)
[2023-07-18 09:15] LABS: ABG BASE EXCESS 1.4 mmol/L (-2.0-3.0); ABG OXYGEN SATURATION 97 % (94-98); ABG PCO2 47 mmHg (34-45); ABG PH 7.37 (7.35-7.45); ABG PO2 98 mmHg (80-100); ABG TCO2 28.4 MMOL/L (21.0-29.0); ALLEN TEST POSITIVE
[2023-07-18 09:16] LABS: ABG MODE OF VENTILATION SIMV; ABG RESPIRATORY RATE 14 b/min
[2023-07-18] MEDS: fentaNYL 2,500 MCG in SODIUM CHLORIDE 0.9% 200 ML IV SCH (09:17)
[2023-07-18] MEDS: HEPARIN 5,000 UNIT/ML VIAL SUBQ SCH (09:19)
[2023-07-18] MEDS: polyethylene glycoL 3350 17 GM PACKET PO SCH (09:20)
[2023-07-18 09:24] LABS: CRP HIGH SENSITIVITY 143.2 mg/L
[2023-07-18] MEDS: DEXMEDETOMIDINE 400 MCG in SODIUM CHLORIDE 0.9% 100ML 96 ML IV SCH (09:25)
[2023-07-18 09:32] LABS: VBG PH 7.345 (7.31-7.41)
[2023-07-18 09:33] LABS: CALCIUM, IONIZED 1.18 mmol/L (1.15-1.33)
[2023-07-18] MEDS ORDERED: ALBUMIN 25% 12.5 GM/50 ML VIAL IV STA (09:44)
[2023-07-18 09:54] LABS: PHOSPHORUS 4.2 mg/dL (2.5-5.0); POTASSIUM 3.9 mmol/L (3.5-4.5)
[2023-07-18] MEDS ORDERED: DOPamine 400 MG/250 ML 400 MG/250 ML BAG IV SCH (10:00)
[2023-07-18] MEDS ORDERED: FUROSEMIDE 40 MG/4 ML VIAL IVP ONE (11:00)
[2023-07-18] MEDS: INSULIN REGULAR HUMAN 100 UNIT in SODIUM CHLORIDE 0.9% 100ML 99 ML IV SCH (11:11)
[2023-07-18 16:39] LABS: CALCIUM 8.7 mg/dL (8.5-10.3); POTASSIUM 3.9 mmol/L (3.5-4.5)
[2023-07-18 18:04] LABS: INFLUENZA A- RESP PCR PANEL NOT DETECTED; INFLUENZA B - RESP PCR PANEL NOT DETECTED; RSV- RESP PCR PANEL NOT DETECTED; SARS-CoV-2 -RESP PCR PANEL NOT DETECTED
--- NOTE | 2023-07-18 18:28 | PROVIDER PROGRESS NOTE ---
Progress Note Advanced care planning On 07/18/2023 1 PM family meeting with patient , daughter at bedside discuss patient current medical condition and advanced care planning. I went through patient medical conditions for each organ system. Updated patient and family that patient had desaturation hypoxia events last night put him on high risk for neurologic damage may cause cognitive function impairment His septic shock condition is worsening in need of higher dose of Levophed, with elevated white blood cell count and sign of worsening sepsis, changed antibiotics to meropenem and IV fluconazole. Updated patient family that it can becomes an atypical yeast infection and with the new right upper lobe consolidation, which means pulmonology bronchoscopy intervention may be indicated. Persistent renal function impairment and persistent hypoglycemia make patient overall condition very complicated. 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 with continue treatment of septic shock and respiratory failure. With limited services. Third choice is to seek for comfort care. Patient and daughter would like to have full service if all possible. Agrees for transfer to higher level care. The total discussion lasted about 20 minutes
--- NOTE | 2023-07-18 18:29 | DISCHARGE SUMMARY ---
Discharge Summary Admit Date: 07/08/23 Discharge Date: 07/18/23 Discharging Provider: Bruce Galvin Primary Care Provider: Shiva Russ [facility] Code Status: Attempt Resuscitation Condition at Discharge: Critical Discharge Disposition: 02 Transfer Acute Care Hosp Discharge Facility Name: Replaced by [facility] - DIAGNOSES Admission Diagnoses: Dehydration Hypernatremia SAVANNA Discharge Diagnoses with Status of Each Condition: Septic shock secondary to hospital-acquired pneumonia, critical on Levophed pressor support Acute respiratory failure, critical on vent support Persistent renal function impairment - HPI History of Present Illness: A 67 years old -[place] male with 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 He denies fever, chills, sweats no abdominal pain. Patient has J-tube in place and 100% of his nutrition and fluid is through the J-tube. Patient reports diarrhea. Also he is worried that he has aspiration pneumonia because of productive cough with chest congestion in the substernal area. In the ED patient temperature 36.6, heart rate 96, blood pressure 91/64, oxygen saturation 95% on room air. Respiratory rate 22/min. Labs show significant delay sodium 155, potassium 5.2, BUN 51, creatinine 1.5. Glucose is 457, calcium 10.5. Normal WBC, hemoglobin is concentrated at 18.3, platelet 246. UA normal. Viral panel negative COVID. Patient was given 1 L normal saline his glucose 457. At home he takes Lantus 22 units. Patient was placed for observation to treat his dehydration. - HOSPITAL COURSE Hospital Course: After admission, patient was given IV fluid, hypernatremia and hyperkalemia and hyperglycemia has improved, creatinine improved to 1.0. However patient started to develop hypoxia in need of 2 L of oxygen 07/13/2023 chest x-ray shows left lower infiltrates and small right lower mass, per patient the right lower finding is known. IV fluid rate was decreased and the EKG performed no acute ischemic changes. However the chest x-ray and sputum production concerns of pneumonia, with concerns about healthcare associated pneumonia IV cefazolin and IV vancomycin for started 07/13/2023. 07/14/2023 00 53 rapid response was called on patient due to desaturation and respiratory distress. Oxygen saturation 78% on 15 L of oxygen, respiratory rate 34, blood pressure 86/51, heart rate 125. Temperature 38. Patient was placed on BiPAP, oxygen saturation improved to 85%. 1 L of normal saline given, blood pressure still low. ED provider attended the rapid response, intubated patient at 0 138. Patient was put on ventilator with FiO2 100%, SaO2 improved to 93%. OG was placed and Sierra was placed. Right IJ inserted. Levophed was started. Patient was transferred to ICU Patient was given cefepime, vancomycin, Flagyl. Blood culture obtained has no growth to date. Sputum culture collected on 07/14/2023 reported yeast growth. With worsening renal function to creatinine of 2, and MRSA screening negative, vancomycin was discontinued on 07/16/2023. Fluconazole were added.Patient has been given Lasix 40 mg twice a day since 07/16/2023. Along with albumin/Lasix regimen. J-tube feeding has been on hold since time of intubation with concerned aspiration event. TPN was started on 07/17/2023. Levophed need trends down from 18-13, with good oxygenation on 40% of FiO2. However in the late afternoon around 5:30 PM on 07/17/2023, patient had a sudden desaturation event to oxygen saturation of 60 to 70%. Pneumothorax was ruled out. ET tube was noted to be 9 cm above mylene, ET tube was advanced and CTA performed, PE was ruled out. However right upper lung consolidation was identified on CTA. Suspect mucous plug and the malposition of the ET tube other causes of the sudden desaturation. On 07/18/2023, patient WBC was 13 which is doubled the baseline WBC. Patient needs Levophed 22 mcg/KG per hour, creatinine persistently at 2.1. Switch antibiotics to meropenem and IV fluconazole Patient has guarded prognosis, to optimize his care, patient need mobility architect manager, infectious specialist and line mover services. Advanced care planning discussed with patient and the daughters. Family would like to have full treatment with optimized services. Patient is excepted by [facility] ICU Dr. Chacko for higher level care. Patient is discharged in critical condition on 07/18/2023 - ALLERGIES Allergies/Adverse Reactions: Allergies Allergy/AdvReac Type Severity Reaction Status Date / Time metformin Allergy Nausea Verified 05/25/22 19:45 propofol Allergy Anaphylaxis Verified 09/05/21 10:16 lisinopril AdvReac Respiratory Verified 09/05/21 10:16 - MEDICATIONS Home Medications: Ambulatory Orders Medication Instructions Recorded Confirmed Insulin Glargine [Lantus Solostar] 22 unit SUBQ QPM 10/08/17 07/09/23 Telmisartan [Micardis] 80 mg PO DAILY 10/08/17 07/09/23 Atorvastatin Calcium 40 mg PO QPM 10/10/19 07/09/23 Insulin Aspart [NovoLOG] 0 - 13 units SUBQ TIDWM PRN 10/10/19 07/09/23 Levothyroxine Sodium 88 mcg PO QDAC 10/10/19 07/09/23 Amitriptyline [Elavil] 10 mg PO HS PRN 09/05/21 07/09/23 Empagliflozin [Jardiance] 10 mg PO DAILY 07/09/23 07/09/23 Guaifenesin/Dextromethorphan 5 ml PO Q4H PRN 07/09/23 07/09/23 [Robafen Dm 100-10 mg/5 ml Cup] amLODIPine [Norvasc] 5 mg PO DAILY 07/09/23 07/09/23 - PHYSICAL EXAM AT DISCHARGE General Appearance: positive: Other (Sedated, intubated on ventilator) Eyes Bilateral: positive: Other (Watery conjunctiva) Neck: positive: No JVD Respiratory: positive: Rales, Rhonchi. negative: Wheezes Cardiovascular: positive: Regular rate & rhythm Abdomen: positive: No distention, Other (Hypoactive bowel sound) Skin: positive: Dry Extremities: positive: No pedal edema - LABS Result Diagrams: 07/18/23 01:38 07/18/23 16:00 - DIAGNOSTIC IMAGING Diagnostic Imaging Results: Final report reviewed - SEPSIS Current Stage of Sepsis: Septic shock (On Levophed) - TIME SPENT Time Spent in Discharge (Minutes): 70
[2023-07-18 19:13] VITALS: O2SAT 98
[2023-07-18 20:23] VITALS: BP 104/59
--- NOTE | 2023-07-19 07:20 | Discharge Plan ---
Discharge Plan Problem Reviewed?: Yes Disposition: 02 Transfer Acute Care Hosp Condition: Critical Additional Instructions or Follow Up instructions: Patient is critical ill, on ventilator support, on pressor transferred to [facility] at 9pm 07/18/2023 No Smoking: If you smoke, Please STOP! Call for help.
--- NOTE | 2023-07-19 09:17 | XRAY Report ---
PROCEDURE: Chest 1 View X-Ray INDICATIONS: pneumonia follow up TECHNIQUE: One view of the chest was acquired. COMPARISON: Chest radiograph July 17, 2023. FINDINGS: Surgical changes and devices: Enteric tube side-port is in the gastric body. Endotracheal tube termi nates 4.3 cm above the mylene. Right IJ central venous catheter terminates in the mid SVC. Stable krystyna in projecting over the left upper abdomen. Lungs and pleura: Bilateral basilar predominant patchy consolidations, right greater than left, have increased. Moderate right and small left pleural effusions, increased on the right. No pneumothorax. Mediastinum: Mediastinal contours appear normal. Heart size is normal. Bones and chest wall: No suspicious bony lesions. Overlying soft tissues appear unremarkable. Upper abdomen: Unremarkable. IMPRESSION: 1. Lines and tubes are in stable positions. 2. Bilateral basilar predominant patchy consolidations, right greater than left, have increased. Find ings are suggestive of worsening aspiration and/or infection. 3. Moderate right and small left pleural effusions, increased on the right. Reviewed by: Maida Faith MD on 07/19/2023 9:16 AM PDT Approved by: Maida Faith MD on 07/19/2023 9:16 AM PDT Station ID: [id number]
== END 2023-07-18 21:30 | disposition short-term general hospital (02) | DRG 640 ==
LOC: ED 12:29 → MS2 16:29 → OBSVTOIN 07-09 16:42 → ICU 07-14 03:08
PROVIDERS: ADMIT Specialist; ATTEND Internal Medicine
PROC: 0BH17EZ Insertion of Endotracheal Airway into Trachea, Via Natural or Artificial Opening (ICD-10-PCS; principal; 2023-07-14)
PROC: 5A1955Z Respiratory Ventilation, Greater than 96 Consecutive Hours (ICD-10-PCS; 2023-07-14)
PROC: 02HV33Z Insertion of Infusion Device into Superior Vena Cava, Percutaneous Approach (ICD-10-PCS; 2023-07-14)
DX: E87.0 Hyperosmolality and hypernatremia (principal); A41.9 Sepsis, unspecified organism; J18.9 Pneumonia, unspecified organism; R65.21 Severe sepsis with septic shock; G47.30 Sleep apnea, unspecified; J96.01 Acute respiratory failure with hypoxia; N17.9 Acute kidney failure, unspecified; E86.0 Dehydration; Y95 Nosocomial condition; E03.9 Hypothyroidism, unspecified; Z85.01 Personal history of malignant neoplasm of esophagus; R53.83 Other fatigue; I10 Essential (primary) hypertension; E11.65 Type 2 diabetes mellitus with hyperglycemia; K21.9 Gastro-esophageal reflux disease without esophagitis; Z86.74 Personal history of sudden cardiac arrest; E78.5 Hyperlipidemia, unspecified; I25.10 Atherosclerotic heart disease of native coronary artery without angina pectoris; R53.1 Weakness; E87.5 Hyperkalemia; G47.33 Obstructive sleep apnea (adult) (pediatric); E87.8 Other disorders of electrolyte and fluid balance, not elsewhere classified; R91.8 Other nonspecific abnormal finding of lung field; Z78.1 Physical restraint status; Z79.4 Long term (current) use of insulin; Z92.3 Personal history of irradiation; Z93.4 Other artificial openings of gastrointestinal tract status; Z85.810 Personal history of malignant neoplasm of tongue; Z77.22 Contact with and (suspected) exposure to environmental tobacco smoke (acute) (chronic)
CPT/HCPCS: 36415; 36600; 71045; 71275; 80048; 80053; 80202; 81001; 81003; 81599; 82009; 82306; 82310; 82330; 82565; 82607; 82746; 82803; 82947; 83036; 83605; 83690; 83735; 83880; 84100; 84132; 84134; 84295; 84439; 84443; 84478; 84484; 85025; 85379; 86140; 86141; 87040; 87070; 87077; 87086; 87150; 87205; 87633; 87635; 87637; 87640; 93005; 93306; 94002; 94003; 94660; 96360; 99284; 99285; A9270; G0378; J0131; J0330; J1650; J1815; J2060; J2185; J3010; J3370; J3490; P9047; Q9967; 87106; 94770